=== PATIENT | female | born 1990 | race Caucasian/White ===

== ENCOUNTER 2023-01-23 18:25 | Emergency (ER) | payer BC, SELFPAY ==
[2023-01-23 18:25] VITALS: BP 134/84; PULSE 93; RESP 18; TEMP 36.7; O2SAT 99; BMI 31.2
--- NOTE | 2023-01-23 18:41 | EXP.UTC ---
Discharge Plan Disposition Patient Disposition: Home, Self-Care Condition: Good Prescriptions Prescriptions: New cefdinir 300 mg capsule 300 mg PO BID Qty: 20 0RF phenazopyridine [Pyridium] 200 mg tablet 200 mg PO Q8H 2 Days Qty: 6 0RF Referrals Follow up/Referrals: Luis Patel [Primary Care Provider] - See instructions Activity Restrictions/Add. Instructions Additional Instructions/Restrictions: *Increase fluids. Water not Soda or Tea *Start antibiotic immediately and be sure to take as ordered for the FULL length of time although you should start to see improvement over the next 48 hours *Pyridium as needed Remember this medication will turn your urine . This is normal but it will stain what ever it gets on *You should not use Pyridium for more than 48 hours. If so , follow up with your primary physician to review urine culture and ensure that antibiotic is adequate for infection *Be SURE to follow up anytime for new or worsening symptoms with your family doctor. AND in 48 hours for urine culture results with your family doctor, if you do not have a doctor then you may call back to the [facility] for urine culture results and further treatment. We do recommend that you choose and establish care with a Primary Care Physician. ?AND follow up with them ?in 10-14 days to repeat UA to ensure infection is resolved and blood no longer present *Be sure to let your PCP know that we sent urine cultures from the [facility] so they can follow up to ensure that you area the on the correct antibiotic Call your doctor office and make appointment for 48 hours (2 days from today) ?to follow up and get the results of your urine culture and further treatment Clinical Impressions Clinical Impression: UTI (urinary tract infection) Qualifiers: Urinary tract infection type: site unspecified Hematuria presence: with hematuria Qualified Code(s): N39.0 - Urinary tract infection, site not specified Instructions Patient Instructions: Urinary Tract Infection, DI for Urinary Tract Infection (UTI), Phenazopyridine, Cefdinir Discharge ED Provider: Anahi Carpio [facility] HPI General Stated complaint: possible uti Mode of Arrival: Ambulatory Source of Information: Patient Limitations: No Limitations Time Seen by Provider: 01/23/23 18:41 Description of Symptoms (Recalled from Triage Doc. by RN): Patient reports urinary pain and frequency. HEENT Symptoms (Recalled from RN notes): No Resp Symptoms (Recalled from RN notes): No Skin Symptoms (Recalled from RN notes): No MS Symptoms (Recalled from RN notes): No Functional Status (Recalled from RN notes): wnl History of Present Illness Provider Complaint: Patient states that about 2 weeks ago she was having burning with urination and feeling of urgency and frequency and then it stopped but now it is back and hurts and kumar when she urinates and frequency and urgency is back Denies fever, denies chills, denies abdominal pain Denies hx of kidney stones Related Data Previous Rx's Medication Instructions Recorded cefdinir 300 mg capsule 300 mg PO BID #20 caps 01/23/23 phenazopyridine 200 mg tablet 200 mg PO Q8H pain 2 days #6 tabs 01/23/23 (Pyridium) Allergies Allergy/AdvReac Type Severity Reaction Status Date / Time No Known Allergies Allergy Verified 01/23/23 18:40 Worker's Comp Is this a Worker's Comp case?: No PFSH PFS Disclaimer: The information contained in this section may have been updated after the patient was seen, as this information can be updated by other users. Social History Smoking Status: Unknown if ever smoked alcohol intake: never current occupational status: employed Travel in the last 8 weeks: None ROS Obtained: Yes All systems reviewed & no additional complaints except as documented and Yes Systems reviewed as appropriate & no additional complaints except as documented Constitutional Constitutional: Reports system reviewed and no additional complaints, except as
[2023-01-23 18:45] LABS: Apearance,Urine Cloudy (Clear); Bilirubin,Urine Negative (Negative); Blood, Urine Trace (Negative); Color,Urine Dark Yellow (Yellow); Glucose,Urine (UA) Negative (Negative); Ketones,Urine Negative (Negative); PH,Urine 6.5 (5.0-8.5); Protein,Urine Negative (Negative); UTC Leukocyte Esterase,Urine 2+ (Negative); UTC Nitrate,Urine Negative (Negative); Urobilinogen,Urine 0.2 EU/dl (0.2)
[2023-01-23 19:22] VITALS: BP 134/84; PULSE 93; RESP 18; TEMP 36.7; O2SAT 99
== END 2023-01-23 19:23 | disposition home or self-care (01) ==
PROVIDERS: Emergency Provider Nurse Practitioner; PCP Pediatrics
DX: N39.0 Urinary tract infection, site not specified (principal); B96.89 Other specified bacterial agents as the cause of diseases classified elsewhere
CPT/HCPCS: 81003; 87086; 87088; 87186; 99204; 99212; G0463

== ENCOUNTER → 2023-04-05 15:33 | Outpatient (CLI) | payer BC, SELFPAY ==
[2023-04-05 16:59] LABS: Basophils % 0.2 % (0.1-2.0); Eosinophils # 0.1 K/mm3 (0.0-0.4); Eosinophils % 1.5 % (0.1-12.0); Hematocrit 42.5 % (37.0-47.0); Hemoglobin 14.5 g/dL (12.2-16.2); Lymphocytes # 2.4 K/mm3 (0.7-4.5); Lymphocytes % 33.2 % (10-50); Mean Corpuscular HGB Conc 34.1 g/dL (31.8-35.4); Mean Corpuscular Hemoglobin 31.9 pg (27.0-31.2); Mean Corpuscular Volume 93.7 fl (81-99); Mean Platelet Volume 7.1 fl (7.4-10.4); Monocytes # 0.3 K/mm3 (0.1-1.0); Monocytes % 4.8 % (1.7-9.3); Neutrophils # 4.3 K/mm3 (1.8-7.8); Neutrophils % 60.3 % (37.0-80.0); Platelet Count 363 K/mm3 (142-424); Red Blood Count 4.54 M/mm3 (4.20-5.40); Red Cell Distribution Width 12.8 % (11.5-17.5); White Blood Count 7.1 K/mm3 (4.8-10.8)
[2023-04-05 18:09] LABS: Chloride 105 mmol/L (98-107); Potassium 4.4 mmoL/L (3.5-5.1); Sodium 140 mmol/L (136-145)
[2023-04-05 18:12] LABS: Alanine Aminotransferase 29 U/L (12-78); Albumin Level 3.9 g/dl (3.5-5.0); Albumin/Globulin Ratio 1.3 (1.1-1.8); Alkaline Phosphatase 72 U/L (38-126); Anion Gap 10.4 mEq/L (5-15); Aspartate Amino Transferase 25 U/L (14-36); Bilirubin,Total 0.4 mg/dl (0.2-1.3); Blood Urea Nitrogen 12 mg/dl (7-17); Calcium 9.9 mg/dl (8.4-10.2); Carbon Dioxide 29 mmol/L (22.0-30.0); Estimated Glomerular Filt Rate 96 ml/min (>60); GFR (African American) 116 ML/MIN (>60); Glucose 81 mg/dl (74-100); Total Protein,Serum 6.9 g/dl (6.3-8.2)
[2023-04-07 09:23] LABS: Testosterone,Total 35 ng/dL (8-60)
== END ==
PROVIDERS: Visit Provider Obstetrics & Gynecology
DX: L68.0 Hirsutism (principal); N93.9 Abnormal uterine and vaginal bleeding, unspecified
CPT/HCPCS: 36415; 80053; 82626; 83498; 84403; 85025

== ENCOUNTER 2023-04-27 18:35 | Emergency (ER) | payer BC, SELFPAY ==
--- NOTE | 2023-04-27 18:38 | EXP.UTC ---
Discharge Plan Disposition Patient Disposition: Home, Self-Care Condition: Good Prescriptions Prescriptions: New methylprednisolone [Medrol (Joel)] 4 mg tablets,dose pack 4 mg PO DIRECTED Qty: 21 0RF No Action meloxicam 15 mg tablet 15 mg PO DAILY PRN Referrals Follow up/Referrals: Luis Patel [Primary Care Provider] - See instructions Clinical Impressions Clinical Impression: Elbow pain, right Instructions Patient Instructions: DI for Elbow Pain Discharge ED Provider: Oriana Spears [facility] HPI General Stated complaint: pAIN IN r ELBOW Time Seen by Provider: 04/27/23 19:07 History of Present Illness Provider Complaint: Right elbow pain X 3 days. States she sat up in bed, leaned her weight on her elbows, had excruciating pain. Now elbow is tender to touch, painful to move. Onset (ago): day(s) (3) Location: right and upper extremity Relieving factors: immobilization Exacerbating factors: movement Associated symptoms: denies other symptoms Treatments prior to arrival: NSAID Related Data Home Medications Medication Instructions Recorded Confirmed meloxicam 15 mg tablet 15 mg PO DAILY PRN 04/05/23 04/05/23 Previous Rx's Medication Instructions Recorded methylprednisolone 4 mg tablets in 4 mg PO DIRECTED #21 tabs 04/27/23 a dose pack (Medrol (Joel)) Allergies Allergy/AdvReac Type Severity Reaction Status Date / Time No Known Allergies Allergy Verified 04/05/23 10:41 [facility] Disclaimer: The information contained in this section may have been updated after the patient was seen, as this information can be updated by other users. Medical History (Updated 04/27/23 @ 19:15 by MICHELLE Strange) delivery delivered Surgical History (Updated 04/05/23 @ 10:45 by Giulia Martinez CMA) H/O tubal ligation History of colonoscopy History of tonsillectomy Family History (Updated 04/05/23 @ 10:47 by Giulia Martinez CMA) Diabetes Hyperlipidemia Heart attack Cancer Father Hypertension Thyroid disorder Stroke Asthma Social History (Updated 04/05/23 @ 10:48 by Giulia Martinez CMA) Smoking Status: Former smoker smoking status stop date: 13 years ago alcohol intake: never substance use type: denies use current occupational status: employed Travel in the last 8 weeks: None ROS Obtained: Yes All systems reviewed & no additional complaints except as documented and Yes Systems reviewed as appropriate & no additional complaints except as documented Constitutional Constitutional: Reports system reviewed and no additional complaints, except as documented, Reports as per HPI, Denies body ache, Denies chills and Denies fever(s) ENT Ears, Nose, Mouth, and Throat: Reports system reviewed and no additional complaints, except as documented and Reports as per HPI Cardiovascular Cardiovascular: Reports system reviewed and no additional complaints, except as documented and Reports as per HPI Respiratory Respiratory: Reports system reviewed and no additional complaints, except as documented and Reports as per HPI Gastrointestinal Gastrointestingal: Reports system reviewed and no additional complaints, except as documented and as per HPI; Denies abdominal pain, nausea or vomiting Genitourinary Female Genitourinary: Reports system reviewed and no additional complaints, except as documented, Reports as per HPI, Reports dysuria, Reports urinary frequency and Reports urinary urgency Musculoskeletal Musculoskeletal: Reports system reviewed and no additional complaints, except as documented, Reports as per HPI, Reports arthralgias, Reports joint stiffness and Reports joint swelling Physical Exam General General appearance: alert and in no apparent distress ENT ENT exam: Present mucous membranes moist Chest Chest inspection: Present normal inspection and symmetric chest wall rise Respiratory Respiratory exam: Present normal lung sounds bilaterally; Absent
[2023-04-27 18:40] VITALS: BP 116/74; PULSE 84; RESP 17; TEMP 37.3; O2SAT 98; BMI 29.2
--- NOTE | 2023-04-27 18:44 | XR_ITS ---
PROCEDURE INFORMATION: Exam: XR Right Elbow Exam date and time: 04/27/2023 6:45 PM Age: 32 years old Clinical indication: Pain; Elbow; Right; Additional info: Pain, no accident TECHNIQUE: Imaging protocol: Radiologic exam of the right elbow. Views: 3 or more views. COMPARISON: No relevant prior studies available. FINDINGS: Bones/joints: Normal. Soft tissues: Normal. IMPRESSION: No acute findings.
[2023-04-27 18:51] VITALS: BP 116/74; PULSE 84; RESP 17; TEMP 37.3; O2SAT 98
== END 2023-04-27 19:23 | disposition home or self-care (01) ==
PROVIDERS: Emergency Provider Physician Assistant; PCP Pediatrics
DX: M25.521 Pain in right elbow (principal); Z87.891 Personal history of nicotine dependence
CPT/HCPCS: 73080; 96372; 99212; 99214; G0463; J1040

== ENCOUNTER → 2023-05-09 08:49 | Outpatient (CLI) | payer BC, SELFPAY ==
[2023-05-09 09:22] LABS: Basophils % 0.4 % (0.1-2.0); Eosinophils # 0.1 K/mm3 (0.0-0.4); Eosinophils % 1.8 % (0.1-12.0); Hematocrit 40.5 % (37.0-47.0); Hemoglobin 13.6 g/dL (12.2-16.2); Lymphocytes # 2.3 K/mm3 (0.7-4.5); Lymphocytes % 33.3 % (10-50); Mean Corpuscular HGB Conc 33.7 g/dL (31.8-35.4); Mean Corpuscular Hemoglobin 31.6 pg (27.0-31.2); Mean Platelet Volume 7.5 fl (7.4-10.4); Monocytes # 0.3 K/mm3 (0.1-1.0); Monocytes % 3.9 % (1.7-9.3); Neutrophils # 4.2 K/mm3 (1.8-7.8); Neutrophils % 60.6 % (37.0-80.0); Platelet Count 330 K/mm3 (142-424); Red Cell Distribution Width 13.2 % (11.5-17.5); White Blood Count 6.9 K/mm3 (4.8-10.8)
[2023-05-09 10:45] LABS: Alanine Aminotransferase 29 U/L (12-78); Albumin Level 4.2 g/dl (3.5-5.0); Albumin/Globulin Ratio 1.4 (1.1-1.8); Alkaline Phosphatase 68 U/L (38-126); Anion Gap 12.2 mEq/L (5-15); Aspartate Amino Transferase 25 U/L (14-36); Bilirubin,Total 0.7 mg/dl (0.2-1.3); Blood Urea Nitrogen 10 mg/dl (7-17); Calcium 9.4 mg/dl (8.4-10.2); Carbon Dioxide 26 mmol/L (22.0-30.0); Chloride 106 mmol/L (98-107); Estimated Glomerular Filt Rate 96 ml/min (>60); GFR (African American) 116 ML/MIN (>60); Glucose 90 mg/dl (74-100); Potassium 4.2 mmoL/L (3.5-5.1); Sodium 140 mmol/L (136-145); Total Protein,Serum 7.2 g/dl (6.3-8.2)
[2023-05-09 11:14] LABS: HCG,Quantitative < 2 mIU/ml (0-5.42)
== END ==
PROVIDERS: Visit Provider Obstetrics & Gynecology
DX: N93.9 Abnormal uterine and vaginal bleeding, unspecified (principal)
CPT/HCPCS: 36415; 80053; 84702; 85025

== ENCOUNTER 2023-05-11 06:13 | Day surgery (SDC) | payer BC, SELFPAY ==
[2023-05-08 12:27] VITALS: BMI 29.2
[2023-05-11] VITALS (10 sets, daily range): BP systolic 111–142; BP diastolic 63–93; PULSE 61–98; RESP 14–18; TEMP 36.2–36.7; O2SAT 96–100
[2023-05-11 06:45] LABS: Urine Pregnancy, HCG Qual. Negative (Negative)
--- NOTE | 2023-05-11 07:01 | EXP.ANES.CKL ---
[facility] Disclaimer: The information contained in this section may have been updated after the patient was seen, as this information can be updated by other users. Medical History delivery delivered History of COVID-19 Hypothyroid Sleep apnea Surgical History H/O tubal ligation History of colonoscopy History of tonsillectomy Family History Father Cancer Other Asthma Diabetes Heart attack Hyperlipidemia Hypertension Stroke Thyroid disorder Social History Smoking Status: Former smoker smoking status stop date: 13 years ago alcohol intake: never substance use type: denies use current occupational status: employed Travel in the last 8 weeks: None [facility] Anesthesia Checklist Patient Identification Patient Identification: Arm Band and Verbal (Name & ) Structural Data Admitted From: Home Planned Operative Procedure/s: Hyst/D&C/Novasure/Myosure Consent for Planned Operative Procedure(s) Verified: Yes NPO Status Verified Time NPO: 00:00 Chart Verification Results Verified: CBC, BMP and HCG Additional verifications Anesthesia Reactions: No Hx Blood Transfusions: No Blood Transfusion Reaction: No Airway Assessment Mallampati Score:: Class II C-Spine Mobility Assessed: Yes TMJ Mobility Assessed: Yes Dentition: Good Dentition Neurological Assessment Level of Consciousness: Awake Hx Seizures: No Numbness or tingling in extremities: No Anesthesia Plan Anesthesia Risk discussed: Yes Anesthesia Plan: Verified ASA Class: I Anesthesia Type: General
--- NOTE | 2023-05-11 08:24 | P.PNANES_ITS ---
[facility] Anesthesia Record Part I Anesthesia Record I Intake, IV Amount: 800 Hydration: Adequate Estimated blood loss (mL): 25 Urine output (mL): 5 Blood Pressure: 113/68 SaO2: 96 Pulse Rate: 61 Airway Patency: Patent Respiratory Rate: 14 Temperature: 97.4 F Patient is:: Drowsy and Oral/Nasal airway Stable to PACU at:: 08:20
--- NOTE | 2023-05-11 08:50 | EXP.OP.NOTE ---
Date of procedure: 05/11/23 Pre-op Diagnosis:: 1. Abnormal uterine bleeding 2. Heavy menstrual bleeding 3. Dysmenorrhea 4. Pelvic pain Post-op Diagnosis:: 1. Abnormal uterine bleeding 2. Heavy menstrual bleeding 3. Dysmenorrhea 4. Pelvic pain Procedure performed:: Hysteroscopy, dilation & curettage, NovaSure endometrial ablation Surgeon:: Mily Brownlee DO [employer]:: Jessica Ruffin Anesthesia: GETA Estimated blood loss (mL): 25 Operative findings:: EUA revealed an anteverted uterus with normal size, shape and contour. No gross adnexal masses noted. Grade 2 uterine descent noted with adequate mobility. Once relaxed I was able to bring the cervix to the hymen. Operative note:: EBL: 15mL Summary: The patient was taken back to the OR where general anesthesia was obtained. She was placed in the dorsal lithotomy position using Yellowfin stirrups and sterilely prepped and draped in the usual fashion. An in and out catheter was used to drain her bladder. A timeout was performed. A weighted speculum was used to visualize this cervix, a single-tooth tenaculum was applied to the anterior lip of the cervix and the uterus sounded to 9cm. The cervix was dilated with Shivam dilators to accommodate a 7mm Hysteroscope. The hysterscope was inserted to the fundus, diffusely proliferative endometrium noted. Images were obtained of the cavity and each tubal ostia. The hysteroscope was removed with careful attention to note the cervical length, 4cm. Telfa was placed in the vagina and a sharp curette was used to collect endometrial curettings. The Novasure device was opened, deployed, and noted to be functioning properly. The device was inserted to the fundus, set to a length of 5.5cm, and deployed to a width of 3.4cm. Cavity integrity was assessed and failed x3. Hysteroscope was reinserted no perforations were noted or suspected. Upon exam of the NovaSure device there was a crack at the end of the device. A second NovaSure device was opened, deployed, and noted to be functioning appropriately. Cavity integrity was assessed and adequate on the first try. The ablation was started and a power of 96W was noted. Total ablation time was 1:21 minutes. The Novasure device was removed from the cervical os and the hysterscope was reinserted. The endometrium was noted to be successfully ablated and an image was obtained. All instruments were removed from the vagina. Hemostasis was noted at the tenaculum sites. All counts were correct, per nursing. This concluded the procedure, the pt was awakened from anesthesia and transferred to the PACU in stable condition. Condition: stable Disposition: same day Specimens:: Endometrial curettings Complications:: none
--- NOTE | 2023-05-11 15:24 | P.PNANES_ITS ---
[facility] Anesthesia Record Part II Anesthesia Record Part II Discharge Time: 08:50 Destination: Surgical Day Care (OP Surgery) PACU nurse assessment reviewed?: Yes Patient Condition:: Good Anesthesia Complications:: None Swallowing reflex intact?: Yes Airway Patency: Patent Cyanosis?: No Blood Pressure: 133/73 SaO2: 98 Respiratory Rate: 18 Pulse Rate: 98 Temperature: 97.5 F Mental Status: Alert & Oriented Pain level:: 0 Nausea and/or vomitting:: None Intake, IV Amount: 0 Hydration: Adequate
== END 2023-05-11 09:23 | disposition home or self-care (01) ==
PROVIDERS: PCP Pediatrics; Visit Provider Obstetrics & Gynecology
PROC: (CPT 58563; principal; 2023-05-11 07:30)
DX: N93.9 Abnormal uterine and vaginal bleeding, unspecified (principal); N92.0 Excessive and frequent menstruation with regular cycle; N94.6 Dysmenorrhea, unspecified; R10.2 Pelvic and perineal pain
CPT/HCPCS: 58563; 81025; J2405

== ENCOUNTER 2023-06-23 15:51 | Emergency (ER) | payer BC, SELFPAY ==
[2023-06-23 16:00] VITALS: BP 114/76; PULSE 85; RESP 22; TEMP 36.9; O2SAT 98; BMI 30.2
[2023-06-23 16:11] LABS: Apearance,Urine Cloudy (Clear); Bilirubin,Urine Negative (Negative); Blood, Urine Negative (Negative); Color,Urine Dark Yellow (Yellow); Glucose,Urine (UA) Negative (Negative); Ketones,Urine Negative (Negative); PH,Urine 6.5 (5.0-8.5); Protein,Urine Negative (Negative); Specific Gravity, Urine >= 1.030 (1.005-1.030); UTC Leukocyte Esterase,Urine Negative (Negative); UTC Nitrate,Urine Positive (Negative); Urobilinogen,Urine 0.2 EU/dl (0.2)
--- NOTE | 2023-06-23 16:15 | EXP.UTC ---
Discharge Plan Disposition Patient Disposition: Home, Self-Care Condition: Good Prescriptions Prescriptions: New nitrofurantoin monohyd/m-cryst [Macrobid] 100 mg Capsule 100 mg PO BID 5 Days Qty: 10 0RF Rx Instructions: must administer with a meal/food phenazopyridine [Pyridium] 200 mg tablet 200 mg PO Q8H 2 Days Qty: 6 0RF No Action meloxicam 15 mg tablet 15 mg PO DAILY PRN (Reason: nsaid) metformin 500 mg tablet extended release 24 hr 500 mg PO DAILY Qty: 90 10RF Referrals Follow up/Referrals: Luis Patel [Primary Care Provider] - See instructions Activity Restrictions/Add. Instructions Additional Instructions/Restrictions: Drink plenty of fluids. Take tylenol or ibuprofen for pain or fever. Take the medications as directed. Follow up with your regular doctor. GO TO THE ER FOR ANY WORSENING SYMPTOMS The pyridium will make your urine turn orange, this is an expected side effect. It will stain your clothes if it comes into contact with them. Clinical Impressions Clinical Impression: UTI (urinary tract infection) Instructions Patient Instructions: Urine Culture, DI for Urinary Tract Infection (UTI), Phenazopyridine Discharge ED Provider: Zane Whyte [facility] General Stated complaint: back pain, Mode of Arrival: Ambulatory Source of Information: Patient Limitations: No Limitations Time Seen by Provider: 06/23/23 16:15 Description of Symptoms (Recalled from Triage Doc. by RN): PATIENT C/O LEFT LOWER BACK PAIN AND FOUL ODOR TO URINE X 2 DAYS HEENT Symptoms (Recalled from RN notes): No Resp Symptoms (Recalled from RN notes): No Skin Symptoms (Recalled from RN notes): No MS Symptoms (Recalled from RN notes): No Functional Status (Recalled from RN notes): WNL History of Present Illness Provider Complaint: She states that for the past 2 days she has had low back pain and dysuria. Related Data Home Medications Medication Instructions Recorded Confirmed meloxicam 15 mg tablet 15 mg PO DAILY PRN nsaid 04/05/23 05/25/23 Previous Rx's Medication Instructions Recorded metformin 500 mg tablet,extended 500 mg PO DAILY #90 tabs 05/25/23 release 24 hr nitrofurantoin 100 mg PO BID 5 days #10 caps 06/23/23 monohydrate/macrocrystals 100 mg capsule (Macrobid) phenazopyridine 200 mg tablet 200 mg PO Q8H 2 days #6 tabs 06/23/23 (Pyridium) Allergies Allergy/AdvReac Type Severity Reaction Status Date / Time adhesive tape Allergy Rash Verified 05/25/23 08:45 Worker's Comp Is this a Worker's Comp case?: No [facility] Disclaimer: The information contained in this section may have been updated after the patient was seen, as this information can be updated by other users. Medical History delivery delivered X3 History of COVID-19 Hypothyroid Sleep apnea Surgical History H/O tubal ligation History of colonoscopy History of tonsillectomy Family History Father Cancer Other Asthma Diabetes Heart attack Hyperlipidemia Hypertension Stroke Thyroid disorder Social History Smoking Status: Former smoker smoking status stop date: 13 years ago alcohol intake: never substance use type: denies use current occupational status: employed Travel in the last 8 weeks: None ROS Obtained: Yes All systems reviewed & no additional complaints except as documented Constitutional Constitutional: Reports system reviewed and no additional complaints, except as documented, Denies chills and Denies fever(s) Eyes Eyes: Denies eye discharge ENT Ears, Nose, Mouth, and Throat: Denies dysphagia, Denies sore throat and Denies throat swelling Cardiovascular Cardiovascular: Denies ch
[2023-06-23 16:20] VITALS: BP 114/76; PULSE 85; RESP 22; TEMP 36.9; O2SAT 98
== END 2023-06-23 16:26 | disposition home or self-care (01) ==
PROVIDERS: Emergency Provider Nurse Practitioner Family; PCP Pediatrics
DX: N39.0 Urinary tract infection, site not specified (principal); M54.59 Other low back pain; E03.9 Hypothyroidism, unspecified; Z87.891 Personal history of nicotine dependence
CPT/HCPCS: 81003; 99212; 99214; G0463

== ENCOUNTER 2023-08-01 16:08 | Emergency (ER) | payer BC, SELFPAY ==
[2023-08-01 16:08] VITALS: BP 120/69; PULSE 73; RESP 18; TEMP 36.6; O2SAT 99; BMI 29.2
--- NOTE | 2023-08-01 16:58 | ED_ITS ---
Discharge Plan Disposition Patient Disposition: Home, Self-Care Condition: Good Prescriptions Prescriptions: New cefdinir 300 mg capsule 300 mg PO BID 10 Days Qty: 20 0RF No Action omeprazole 20 mg capsule,delayed release(DR/EC) 20 mg PO DAILY Patient Comments: TAKE 1 CAPSULE BY MOUTH TWICE DAILY hyoscyamine sulfate 0.125 mg tablet, sublingual 0.125 mg PO DAILY atorvastatin 10 mg tablet 10 mg PO DAILY meloxicam 15 mg tablet 15 mg PO DAILY PRN (Reason: nsaid) metformin 500 mg tablet extended release 24 hr 1,000 mg PO DAILY Qty: 60 5RF phenazopyridine [Pyridium] 200 mg tablet 200 mg PO Q8H 2 Days Qty: 6 0RF Referrals Follow up/Referrals: Provider,MD Brisa [Primary Care Provider] - See instructions Neal Sarmiento MD [Staff Physician] - See instructions (call office for appointment ) Activity Restrictions/Add. Instructions Additional Instructions/Restrictions: *Increase fluids. Water not Soda or Tea *Start antibiotic immediately and be sure to take as ordered for the FULL length of time although you should start to see improvement over the next 48 hours *Be SURE to follow up anytime for new or worsening symptoms with your family doctor. AND in 48 hours for urine culture results with your family doctor, if you do not have a doctor then you may call back to the [facility] for urine culture results and further treatment. We do recommend that you choose and establish care with a Primary Care Physician. ?AND follow up with them ?in 10-14 days to repeat UA to ensure infection is resolved and blood no longer present *Be sure to let your PCP know that we sent urine cultures from the [facility] so they can follow up to ensure that you area the on the correct antibiotic Call your doctor office and make appointment for 48 hours (2 days from today) ?to follow up and get the results of your urine culture and further treatment Clinical Impressions Clinical Impression: UTI (urinary tract infection) Qualifiers: Urinary tract infection type: site unspecified Hematuria presence: with hematuria Qualified Code(s): N39.0 - Urinary tract infection, site not specified ; R31.9 - Hematuria, unspecified Instructions Patient Instructions: DI for Urinary Tract Infection (UTI), Cefdinir Discharge ED Provider: Anahi Carpio [facility] [place] HPI General Stated complaint: possible uti Mode of Arrival: Ambulatory Source of Information: Patient Limitations: No Limitations Time Seen by Provider: 08/01/23 17:00 Description of Symptoms (Recalled from Triage Doc. by RN): Patient reports possible UTI. Complaint of right side pain and foul smelling urine for 2 weeks. HEENT Symptoms (Recalled from RN notes): No Resp Symptoms (Recalled from RN notes): No Skin Symptoms (Recalled from RN notes): No MS Symptoms (Recalled from RN notes): No Functional Status (Recalled from RN notes): wnl History of Present Illness Provider Complaint: Patient states that she was seen and treated for a UTI in Nov States that her symptoms did improve but has since returned States that she is having achy like feeling in her right side at times when she urinates and urine has a strong smell States that she thinks she may have another UTI Related Data Home Medications Medication Instructions Recorded Confirmed meloxicam 15 mg tablet 15 mg PO DAILY PRN nsaid 04/05/23 07/03/23 atorvastatin 10 mg tablet 10 mg PO DAILY 07/03/23 07/03/23 hyoscyamine sulfate 0.125 mg 0.125 mg PO DAILY 07/03/23 07/03/23 sublingual tablet omeprazole 20 mg capsule,delayed 20 mg PO DAILY 07/03/23 07/03/23 release Previous Rx's Medication Instructions Recorded phenazopyridine 200 mg tablet 200 mg PO Q8H 2 days #6 tabs 06/23/23 (Pyridium) metformin 500 mg tablet,extended 1,000 mg PO DAILY #60 tabs 07/05/23 release 24 hr cefdinir 300 mg capsule 300 mg PO BID 10 days #20 caps 08/01/23 Allergies Allergy/AdvReac Type Severity Reaction Status Date / Time adhesive tape Allergy Rash Verified 07/03/23 11:14 Worker's Comp Is this a Worker's Comp case?: No [facility] Disclaimer: The information contained in this section may have been updated after the patient was seen, as this information can be updated by other users. Medical History delivery delivered X3 History of COVID-19 Hypothyroid Sleep apnea Surgical History H/O tubal ligation History of colonoscopy History of endometrial ablation History of tonsillectomy Family History Father Cancer Other Asthma Diabetes Heart attack Hyperlipidemia Hypertension Stroke Thyroid disorder Social History Smoking Status: Former smoker smoking status stop date: 13 years ago alcohol intake: never substance use type: denies use current occupational status: employed Travel in the last 8 weeks: None ROS Obtained: Yes All systems reviewed & no additional complaints except as documented and Yes Systems reviewed as appropriate & no additional complaints except as documented Constitutional Constitutional: Reports system reviewed and no additional complaints, except as documented, Reports as per HPI, Denies body ache, Denies chills and Reports fe brenda(s) ENT Ears, Nose, Mouth, and Throat: Reports system reviewed and no additional complaints, except as documented and Reports as per HPI Cardiovascular Cardiovascular: Reports system reviewed and no additional complaints, except as documented and Reports as per HPI Respiratory Respiratory: Reports system reviewed and no additional complaints, except as documented and Reports as per HPI Gastrointestinal Gastrointestingal: Reports system reviewed and no additional complaints, except as documented and as per HPI; Denies abdominal pain Genitourinary Female Genitourinary: Reports system reviewed and no additional complaints, except as documented, Reports as per HPI, Reports dysuria (at times), Reports urinary frequency, Reports urinary urgency and Reports other (foul smelling urine) Musculoskeletal Musculoskeletal: Reports system reviewed and no additional complaints, except as documented and Reports as per HPI Physical Exam General General appearance: alert and in no apparent distress ENT ENT exam: Present mucous membranes moist Respiratory Respiratory exam: Present normal lung sounds bilaterally; Absent respiratory distress or wheezes Cardiovascular Cardiovascular exam: Present regular rate, normal rhythm and normal heart sounds Abdominal Exam Abdominal exam: Present soft and normal bowel sounds; Absent distention or tenderness Neurological Exam Neurological exam: Present alert, oriented X3 and normal gait Medical Decision Making Juan Manuel Inquiry Pt receiving controlled substance: No Juan Manuel was queried for this patient: No Vital Signs: 08/01/23 16:08 Temperature 97.9 F Temperature Source Oral Pulse Rate [Radial] 73 Respiratory Rate 18 Blood Pressure [Right Arm] 120/69 Blood Pressure Mean [Right Arm] 86 Blood Pressure Source [Right Arm] Automatic Cuff Blood Pressure Position [Right Arm] Sitting 02 Sat by Pulse Oximetry 99 Oxygen Delivery Method Room Air Lab Data Lab results reviewed: Yes I reviewed the patient's lab results. Orders (Tests/Meds): ORDERS Category Date Time Status Urine Culture Stat Micro 08/01/23 16:58 Ordered Medical Decision Narrative: Patient denies hx of kidney stones
[2023-08-01 17:10] LABS: Apearance,Urine Cloudy (Clear); Blood, Urine Trace (Negative); Color,Urine Dark Yellow (Yellow); Glucose,Urine (UA) Negative (Negative); Ketones,Urine Negative (Negative); PH,Urine 5.5 (5.0-8.5); Protein,Urine Negative (Negative)
[2023-08-01 17:11] LABS: Bilirubin,Urine Negative (Negative); UTC Leukocyte Esterase,Urine Negative (Negative); UTC Nitrate,Urine Positive (Negative); Urobilinogen,Urine 0.2 EU/dl (0.2)
[2023-08-01 18:02] VITALS: BP 120/69; PULSE 73; RESP 18; TEMP 36.6; O2SAT 99
== END 2023-08-01 18:03 | disposition home or self-care (01) ==
PROVIDERS: Emergency Provider Nurse Practitioner
DX: N39.0 Urinary tract infection, site not specified (principal); B96.29 Other Escherichia coli [E. coli] as the cause of diseases classified elsewhere; R31.9 Hematuria, unspecified
CPT/HCPCS: 81003; 87086; 99212; 99214; G0463

== ENCOUNTER 2023-08-21 11:06 | Day surgery (SDC) | payer BC, SELFPAY ==
[2023-08-21] VITALS (14 sets, daily range): BP systolic 108–155; BP diastolic 60–87; PULSE 67–99; RESP 14–18; TEMP 36.3–36.8; O2SAT 93–100; BMI 28.0
[2023-08-21 11:22] LABS: Microscopic, Urine URINE MICROSCOPIC (MICROSCOPIC)
--- NOTE | 2023-08-21 11:23 | CT_ITS ---
FINAL REPORT TECHNIQUE: After the administration of oral and intravenous contrast, axial images were obtained through the abdomen and pelvis by computed tomography. The study was performed with techniques to keep radiation dose as low as reasonably achievable, (ALARA). Individual dose reduction techniques using automated exposure control or adjustment of mA and/or kV according to the patient's size were employed. CLINICAL HISTORY: RLQ abd pain FINDINGS: Abdomen: There is mild bibasilar atelectasis. The liver is normal in size and attenuation. The spleen is unremarkable. The adrenals are normal. The pancreas is unremarkable. There is a 3 mm nonobstructing stone in the lower pole of the left kidney. There is a 1 cm probable cyst in the left kidney. The aorta is normal in caliber. There is no free fluid or adenopathy. There is a small umbilical hernia containing fat. Pelvis: The appendix is mildly enlarged measuring 8 mm in diameter with mild adjacent inflammatory fat stranding. The appearance is most worrisome for early mild appendicitis. There is a small right ovarian cyst measuring 14 mm. The urinary bladder is unremarkable. There is no free fluid or adenopathy. IMPRESSION: Mildly enlarged appendix worrisome for early mild acute appendicitis. Reviewed, Interpreted and Dictated by Neftali Acosta III, MD Transcribed by Melva Scott Authenticated and [facility]
--- NOTE | 2023-08-21 11:24 | ED_ITS ---
Discharge Plan Disposition Chief Complaint: Abdominal Pain Prescriptions Prescriptions: No Action omeprazole 20 mg capsule,delayed release(DR/EC) 20 mg PO DAILY Patient Comments: TAKE 1 CAPSULE BY MOUTH TWICE DAILY atorvastatin 10 mg tablet 10 mg PO DAILY duloxetine 30 mg capsule,delayed release(DR/EC) 30 mg PO DAILY Qty: 30 6RF metformin 500 mg tablet extended release 24 hr 1,000 mg PO DAILY Qty: 60 5RF Referrals Follow up/Referrals: Luis Patel [Primary Care Provider] - See instructions Clinical Impressions Clinical Impression: Acute appendicitis Instructions Patient Instructions: DI for Acute Abdominal Pain Discharge ED Provider: Donita Díaz General Adult HPI General Chief complaint: Abdominal Pain Stated complaint: right side pain Time Seen by Provider: 08/21/23 11:19 Mode of Arrival: Ambulatory Source of Information: Patient Limitations: No Limitations Description of Symptoms (Recalled from ER Triage Doc. by RN): pt presents to ED with c/o right sided abdominal pain. pt states pain radiates down into left knee. symptoms ongoing for 2 days. History of Present Illness HPI narrative: Patient is a 33-year-old female presents today with right lower quadrant abdominal pain which has been intermittent now constant since last 48 hours. No history of kidney stones no history of any ovarian pathology still has her gallbladder and appendix. No urinary frequency urgency dysuria or hematuria. No vaginal bleeding vaginal discharge she had a uterine ablation at the end of last year and has not had a period since that time. No fevers chills etc. Related Data Home Medications Medication Instructions Recorded Confirmed atorvastatin 10 mg tablet 10 mg PO DAILY 07/03/23 08/20/23 omeprazole 20 mg capsule,delayed 20 mg PO DAILY 07/03/23 08/20/23 release Previous Rx's Medication Instructions Recorded metformin 500 mg tablet,extended 1,000 mg PO DAILY #60 tabs 07/05/23 release 24 hr duloxetine 30 mg capsule,delayed 30 mg PO DAILY Neuropathy #30 caps 08/20/23 release Allergies Allergy/AdvReac Type Severity Reaction Status Date / Time adhesive tape Allergy Rash Verified 08/20/23 10:59 bleach Allergy Intermediate Uncoded 08/20/23 10:59 [facility] Disclaimer: The information contained in this section may have been updated after the patient was seen, as this information can be updated by other users. Medical History delivery delivered X3 History of COVID-19 Hypothyroid Sleep apnea Surgical History H/O tubal ligation History of colonoscopy History of endometrial ablation History of tonsillectomy Family History Father Cancer Other Asthma Diabetes Heart attack Hyperlipidemia Hypertension Stroke Thyroid disorder Social History (Updated 08/20/23 @ 11:02 by Alvina Boucher) Smoking Status: Current every day smoker smoking status stop date: 13 years ago alcohol intake: never substance use type: denies use current occupational status: employed Travel in the last 8 weeks: None household members: children housing: house marital status: ROS Obtained: Yes All systems reviewed & no additional complaints except as documented Physical Exam General General appearance: alert Respiratory Respiratory exam: Present normal lung sounds bilaterally Cardiovascular Cardiovascular exam: Present regular rate Abdominal Exam Abdominal exam: Present soft and tenderness (Right lower quadrant tenderness palpation) Back Exam Back exam: Absent CVA tenderness (R) or CVA tenderness (L) Neurological Exam Neurological exam: Present alert Medical Decision Making Juan Manuel Inquiry Pt receiving controlled substance: No Vital Signs: 08/21/23 11:07 08/21/23 11:14 08/21/23 12:39 Temperature 98.2 F Temperature Source Oral Pulse Rate 68 68 Pulse Rate [Left Radial] 90 Respiratory Rate 15 Blood Pressure 131/75 119/60 Blood Pressure [Right Arm] 131/75 Blood Pressure Mean 82 Blood Pressure Mean [Right Arm] 93 02 Sat by Pulse Oximetry 100 99 100 Oxygen Delivery Method Room Air 08/21/23 13:00 Temperature Temperature Source Pulse Rate 67 Pulse Rate [Left Radial] Respiratory Rate Blood Pressure 108/67 L Blood Pressure [Right Arm] Blood Pressure Mean 76 Blood Pressure Mean [Right Arm] 02 Sat by Pulse Oximetry 98 Oxygen Delivery Method Room Air Lab Data Lab results reviewed: Yes I reviewed the patient's lab results. Lab Results 08/21/23 11:12: Urine Color Yellow, Urine Appearance Sl cloudy, Urine pH 6.5, Ur Specific [place] 1.025, Urine Protein Negative, Urine Glucose (UA) Negative, Urine Ketones Negative, Urine Blood Negative, Urine Nitrate Negative, Urine Bilirubin Negative, Urine Urobilinogen 0.2, Ur Leukocyte Esterase Negative, Urine RBC None, Urine WBC Occasional, Ur Squamous Epith Cells 10-20, Urine Bacteria Trace 08/21/23 11:20: WBC 6.6, RBC 4.35, Hgb 13.7, Hct 41.2, MCV 94.8, MCH 31.5 H, MCHC 33.2, RDW 13.1, Plt Count 282, MPV 6.4 L, Neut % (Auto) 65.8, Lymph % (Auto) 28.5, [place] % (Auto) 3.9, Eos % (Auto) 1.6, Baso % (Auto) 0.2, Neut # (Auto) 4.3, Lymph # (Auto) 1.9, [place] # (Auto) 0.3, Eos # (Auto) 0.1, Baso # (Auto) 0.0, Sodium 139, Potassium 3.9, Chloride 103, Carbon Dioxide 28, Anion Gap 11.9, BUN 14, Creatinine 0.70, Estimated Creat Clear 123, Estimated GFR 95, Est GFR ( Amer) 115, Glucose 91, Calcium 9.0, Total Bilirubin 0.6, AST 29, ALT 30, Alkaline Phosphatase 75, Total Protein 7.3, Albumin 4.3, Globulin 3.0, Albumin/Globulin Ratio 1.4, Serum HCG, Qual Negative 08/21/23 11:20 08/21/23 11:20 Orders (Tests/Meds): ED MEDICATIONS Generic Name Dose Route Start Last Admin Trade Name Freq PRN Reason Stop Dose Admin Sodium Chloride 10 ml 08/21/23 11:30 Sodium Chloride 0.9% 10ml Flush Syringe IV 09/20/23 11:29 NEEDED PRN Maintain IV Site Sodium Chloride 10 ml 08/21/23 12:07 08/21/23 12:10 Sodium Chloride 0.9% 10ml Syr (Rad Only) IV 09/20/23 12:06 10 ml NEEDED PRN Administration Maintain IV Site Discontinued Medications Generic Name Dose Route Start Last Admin Trade Name Freq PRN Reason Stop Dose Admin Lactated Ringer's 1,000 mls @ 999 mls/hr 08/21/23 11:30 08/21/23 11:34 Lactated Ringer's 1000 Ml Bag IV 08/21/23 12:30 999 mls/hr .Q1H1M SAMANTHA Administration Iopamidol 75 ml 08/21/23 12:07 01/16/24 12:09 Iopamidol-370 (76%);100ml Bottle IV 08/21/23 12:08 75 ml ONCE ONE Administration Morphine Sulfate 4 mg 08/21/23 11:23 08/21/23 11:33 Morphine 4mg/Ml Syringe IV 08/21/23 11:24 4 mg ONCE ONE Administration Ondansetron HCl 4 mg 08/21/23 11:23 08/21/23 11:33 Ondansetron 4mg/2ml Vial IV 08/21/23 11:24 4 mg ONCE ONE Administration ORDERS Category Date Time Status CT abdomen pelvis w con Stat Cat Scan 08/21/23 11:23 Taken CBC w/Auto Diff [Complete Blood Count Auto Diff] Stat Lab 08/21/23 11:20 Completed CMP [Comprehensive Metabolic Panel] Stat Lab 08/21/23 11:20 Completed HCG Qualitative, Serum Stat Lab 08/21/23 11:20 Completed UA [Urinalysis and Microscopic] Stat Lab 08/21/23 11:12 Completed Medical Decision Narrative: Patient is a 33-year-old female presenting today with intermittent not constant right lower quadrant abdominal pain and significant tenderness. Differential includes acute appendicitis which is leading on my differential, UVJ kidney stone, terminal ileitis, colitis, mesenteric adenitis, ovarian torsion and ovarian cyst rupture etc. Will get a CT scan with IV contrast to further differentiate this in addition to urinalysis blood tests will administer IV fluids pain medicine nausea medicine and I will reassess. Reassessment 1:16 PM labs unremarkable patient still has significant right lower quadrant tenderness on reassessment. CT scan performed which I personally interpreted also I looked at radiology read which shows an 8 mm appendix with periappendiceal inflammation consistent with early appendicitis. I do believe clinically this is consistent with her exam and history as well. I spoke with Dr. Navarro will come evaluate the patient to take the patient to the operating room. Patient's last meal was yesterday evening. She has no other medical problems. Critical Care Critical Care Time Critical Care Time: Yes Attestation: On 08/21/23, the high probability of a clinically significant, sudden or life t hreatening deterioration of the following system(s) required my full and direct attention, intervention and personal management. The time I documented below is in addition to time spent performing reported procedures but includes the following listed in this critical care notation. Total Time Total Critical Care Time: 35
[2023-08-21 11:30] LABS: Appearance,Urine SL CLOUDY (Clear); Bilirubin,Urine Negative (Negative); Blood, Urine Negative (Negative); Color,Urine YELLOW (Yellow); Glucose,Urine (UA) Negative (Negative); Ketones,Urine Negative (Negative); Leukocyte Esterase,Urine Negative (Negative); Nitrate,Urine Negative (Negative); PH,Urine 6.5 (5.0-8.5); Protein,Urine Negative (Negative); Specific Gravity, Urine 1.025 (1.005-1.030); Urobilinogen,Urine 0.2 EU/dl (0.2)
[2023-08-21 11:30] LABS: Basophils % 0.2 % (0.1-2.0); Eosinophils # 0.1 K/mm3 (0.0-0.4); Eosinophils % 1.6 % (0.1-12.0); Hematocrit 41.2 % (37.0-47.0); Hemoglobin 13.7 g/dL (12.2-16.2); Lymphocytes # 1.9 K/mm3 (0.7-4.5); Lymphocytes % 28.5 % (10-50); Mean Corpuscular HGB Conc 33.2 g/dL (31.8-35.4); Mean Corpuscular Hemoglobin 31.5 pg (27.0-31.2); Mean Corpuscular Volume 94.8 fl (81-99); Mean Platelet Volume 6.4 fl (7.4-10.4); Monocytes # 0.3 K/mm3 (0.1-1.0); Monocytes % 3.9 % (1.7-9.3); Neutrophils # 4.3 K/mm3 (1.8-7.8); Neutrophils % 65.8 % (37.0-80.0); Platelet Count 282 K/mm3 (142-424); Red Blood Count 4.35 M/mm3 (4.20-5.40); Red Cell Distribution Width 13.1 % (11.5-17.5); White Blood Count 6.6 K/mm3 (4.8-10.8)
[2023-08-21] MEDS: ONDANSETRON 4MG/2ML VIAL 4 MG IV (11:33)
[2023-08-21] MEDS: MORPHINE 4MG/ML SYRINGE 4 MG IV (11:33)
[2023-08-21] MEDS: LACTATED RINGERS 1000ML 1,000 ML 999 ML IV (11:34)
[2023-08-21 11:37] LABS: Alanine Aminotransferase 30 U/L (12-78); Albumin Level 4.3 g/dl (3.5-5.0); Albumin/Globulin Ratio 1.4 (1.1-1.8); Alkaline Phosphatase 75 U/L (38-126); Anion Gap 11.9 mEq/L (5-15); Aspartate Amino Transferase 29 U/L (14-36); Bilirubin,Total 0.6 mg/dl (0.2-1.3); Blood Urea Nitrogen 14 mg/dl (7-17); Carbon Dioxide 28 mmol/L (22.0-30.0); Chloride 103 mmol/L (98-107); Creatinine Clearance Estimated 123 mL/min (50-200); Estimated Glomerular Filt Rate 95 ml/min (>60); GFR (African American) 115 ML/MIN (>60); Glucose 91 mg/dl (74-100); Potassium 3.9 mmoL/L (3.5-5.1); Sodium 139 mmol/L (136-145); Total Protein,Serum 7.3 g/dl (6.3-8.2)
[2023-08-21 11:39] LABS: HCG Qualitative, Serum Negative (Negative)
[2023-08-21 11:41] LABS: Bacteria,Urine Trace /lpf; WBC,Urine Occasional #/hpf (0-3)
[2023-08-21] MEDS: IOPAMIDOL-370 (76%);100ML BOTTLE 75 ML IV (12:09)
[2023-08-21] MEDS: SODIUM CHLORIDE 0.9% 10ML SYR (RAD ONLY) 10 ML IV (12:10)
--- NOTE | 2023-08-21 13:16 | PC.NURSE ---
DR Navarro paged for surgery consult of patient. Dr Díaz talked to Dr Navarro about patient, supposed to come evaluate patient for surgery.
[2023-08-21] MEDS: CEFTRIAXONE SODIUM 2 GM in 0.9 % SODIUM CHLORIDE 100 ML IV (14:25)
[2023-08-21] MEDS: LIDOCAINE 1% 20ML MDV 20 ML (14:30)
[2023-08-21] MEDS: METRONIDAZ/SOD CHL 500 MG/100 ML PIGGYBACK 100 MG IV (14:30)
--- NOTE | 2023-08-21 15:30 | EXP.OP.NOTE ---
Date of procedure: 08/21/23 Pre-op Diagnosis:: Appendicitis Post-op Diagnosis:: Suppurative appendicitis Procedure performed:: Laparoscopic appendectomy Surgeon:: Derian Chambers MD PROPERTY MANAGEMENT BOOKKEEPER:: Chung Islas Anesthesia: BRIE Estimated blood loss (mL): 15 Operative findings:: Inflamed enlarged appendix with patchy suppurative changes Temporary profound bradycardia necessitating temporary release of pneumoperitoneum. Operative note:: After informed consent was obtained the patient was taken to the operating room and placed in the supine position. General anesthesia was induced and her abdomen was prepped and draped in a sterile fashion. After infiltration with local anesthetic a supraumbilical incision was made. A Veress needle was placed in position. The abdomen was insufflated. Secondary to profound bradycardia the pneumoperitoneum was immediately released. She quickly recovered in terms of heart rate/vital signs with management per the anesthesia service. Pneumoperitoneum was reestablished without incident. A 5 mm trocar was placed in the suprapubic position and an additional 5 mm trocar was placed in the left lower quadrant. The appendix was found to be partially adhered along the right lateral margin. Careful elevation revealed an enlarged/inflamed appendix with patchy suppurative changes. The mesoappendix was carefully taken with harmonic vanessa. An Endopath 45 stapling device was used to transect the appendix at its base. The appendix was placed in a retrieval bag and removed through the supraumbilical trocar site. The right lower quadrant was thoroughly irrigated. No active bleeding or sign of injury was noted. No pockets of purulence were noted. The fascia at the supraumbilical trocar site was reapproximated with a combination of 0 Ethibond and the Ady-close device. All wounds were irrigated and skin was reapproximated with 4-0 Monocryl in a mattress fashion to facilitate hemostasis. Dressings were applied and the patient was transferred to recovery in stable condition after extubation. Condition: stable Disposition: PACU Specimens:: Appendix Complications:: No immediate
--- NOTE | 2023-08-21 15:40 | EXP.ANES.CKL ---
[facility] Disclaimer: The information contained in this section may have been updated after the patient was seen, as this information can be updated by other users. Medical History delivery delivered X3 History of COVID-19 Hypothyroid Sleep apnea Surgical History H/O tubal ligation History of colonoscopy History of endometrial ablation History of tonsillectomy Family History Father Cancer Other Asthma Diabetes Heart attack Hyperlipidemia Hypertension Stroke Thyroid disorder Social History (Updated 08/20/23 @ 11:02 by Alvina Boucher) Smoking Status: Current every day smoker smoking status stop date: 13 years ago alcohol intake: never substance use type: denies use current occupational status: employed Travel in the last 8 weeks: None household members: children housing: house marital status: [facility] Anesthesia Checklist Patient Identification Patient Identification: Arm Band Structural Data Admitted From: Emergency Dept Planned Operative Procedure/s: Laparoscopic Appendectomy Consent for Planned Operative Procedure(s) Verified: Yes Verified Documents: Surgical Consent and History and Physical NPO Status Verified Time NPO: 00:00 Additional verifications Anesthesia Reactions: No Hx Blood Transfusions: No Blood Transfusion Reaction: No Airway Assessment Mallampati Score:: Class II C-Spine Mobility Assessed: Yes TMJ Mobility Assessed: Yes Dentition: Good Dentition Neurological Assessment Level of Consciousness: Awake and Alert Anesthesia Plan Anesthesia Risk discussed: Yes Anesthesia Plan: Verified ASA Class: II Anesthesia Type: General
--- NOTE | 2023-08-21 15:41 | P.PNANES_ITS ---
[facility] Anesthesia Record Part I Anesthesia Record I Intake, IV Amount: 1,100 Hydration: Adequate Estimated blood loss (mL): 10 Urine output (mL): 600 Blood Products used (#): none Blood Pressure: 119/73 SaO2: 96 Pulse Rate: 98 Airway Patency: Patent Respiratory Rate: 16 Temperature: 97.4 F Patient is:: Drowsy and Stable Stable to PACU at:: 15:35
--- NOTE | 2023-08-22 08:15 | P.PNANES_ITS ---
[facility] Anesthesia Record Part II Anesthesia Record Part II Discharge Time: 16:05 Destination: Surgical Day Care (OP Surgery) PACU nurse assessment reviewed?: Yes Patient Condition:: Good Anesthesia Complications:: None Swallowing reflex intact?: Yes Airway Patency: Patent Cyanosis?: No Blood Pressure: 130/82 SaO2: 96 Respiratory Rate: 15 Pulse Rate: 96 Temperature: 97.3 F Mental Status: Alert & Oriented Pain level:: 0 Nausea and/or vomitting:: None Intake, IV Amount: 0 Hydration: Adequate
[2023-08-22 08:16] VITALS: BP 130/82; PULSE 96; RESP 15; TEMP 36.3; O2SAT 96
== END 2023-08-21 16:36 | disposition home or self-care (01) ==
LOC: ER 13:31 → OR 13:33
PROVIDERS: Student in an Organized Health Care Education/Training Program; Emergency Provider Surgery; PCP Pediatrics; Visit Provider Surgery
PROC: (CPT 44950; principal; 2023-08-21 13:30)
DX: K35.80 Unspecified acute appendicitis (principal); R00.1 Bradycardia, unspecified
CPT/HCPCS: 44970; 74177; 80053; 81001; 84703; 85025; 87086; 96374; J0696; J2405; Q9967

== ENCOUNTER 2023-08-26 18:52 | Emergency (ER) | payer BC, SELFPAY ==
[2023-08-26 19:00] VITALS: BP 125/76; PULSE 85; RESP 20; TEMP 37.4; O2SAT 98; BMI 29.2
--- NOTE | 2023-08-26 19:17 | EXP.UTC ---
Discharge Plan Disposition Patient Disposition: Home, Self-Care Condition: Good Prescriptions Prescriptions: New nystatin 100,000 unit/mL suspension 6 ml PO QID 10 Days Qty: 240 0RF Rx Instructions: administer 1/2 of dose in each side of the mouth swish and retain in mouth as long as possible and spit No Action atorvastatin 10 mg tablet 10 mg PO DAILY Patient Comments: TAKE 1 TABLET BY MOUTH ONCE DAILY meloxicam 15 mg tablet 15 mg PO DAILY Patient Comments: TAKE 1 TABLET BY MOUTH ONCE DAILY WITH BREAKFAST hyoscyamine sulfate 0.125 mg tablet 0.125 mg PO DAILY Patient Comments: TAKE 1 TABLET BY MOUTH EVERY 6 HOURS omeprazole 20 mg capsule,delayed release(DR/EC) 20 mg PO DAILY Patient Comments: TAKE 1 CAPSULE BY MOUTH TWICE DAILY metformin 500 mg tablet extended release 24 hr 500 mg PO DAILY amoxicillin-pot clavulanate 500-125 mg tablet 1 tab PO DAILY Patient Comments: TAKE 1 TABLET BY MOUTH THREE TIMES DAILY Referrals Follow up/Referrals: Luis Patel [Primary Care Provider] - See instructions Activity Restrictions/Add. Instructions Additional Instructions/Restrictions: Use Nystatin as prescribed place in mouth swish and retain in mouth as long as possible and spit Follow up with your Family Doctor if no improvement or any worsening of symptoms Return if needed Straight to ER if any life threatening symptoms Clinical Impressions Clinical Impression: Candidiasis of mouth Instructions Patient Instructions: DI for Thrush, Thrush-Adult, Nystatin Discharge ED Provider: Anahi Carpio [facility] [place] HPI General Stated complaint: growth on tongue Mode of Arrival: Ambulatory Source of Information: Patient Limitations: No Limitations Time Seen by Provider: 08/26/23 19:17 Description of Symptoms (Recalled from Triage Doc. by RN): PATIENT STATES SHE FEELS LIKE THERE IS SANDPAPER ON HER TONGUE, MOUTH AND THROAT X 2 DAYS HEENT Symptoms (Recalled from RN notes): Yes Resp Symptoms (Recalled from RN notes): No Skin Symptoms (Recalled from RN notes): No MS Symptoms (Recalled from RN notes): No Functional Status (Recalled from RN notes): WNL History of Present Illness Provider Complaint: Patient states that she feels like she has sandpaper on her mouth and tongue States that she has white patches all over her tongue and feels like it is spreading States that she is currently on Augmentin and had recent surgery Denies trouble swallowing Related Data Home Medications Medication Instructions Recorded Confirmed amoxicillin 500 mg-potassium 1 tab PO DAILY 08/26/23 08/26/23 clavulanate 125 mg tablet atorvastatin 10 mg tablet 10 mg PO DAILY 08/26/23 08/26/23 hyoscyamine sulfate 0.125 mg tablet 0.125 mg PO DAILY 08/26/23 08/26/23 meloxicam 15 mg tablet 15 mg PO DAILY 08/26/23 08/26/23 metformin 500 mg tablet,extended 500 mg PO DAILY 08/26/23 08/26/23 release 24 hr omeprazole 20 mg capsule,delayed 20 mg PO DAILY 08/26/23 08/26/23 release Previous Rx's Medication Instructions Recorded nystatin 100,000 unit/mL oral 6 ml PO QID 10 days #240 mL 08/26/23 suspension Allergies Allergy/AdvReac Type Severity Reaction Status Date / Time Bleach (Sodium Hypochlorite) Allergy Unknown Difficulty Verified 08/21/23 15:48 Breathing adhesive tape Allergy Rash Verified 08/20/23 10:59 Worker's Comp Is this a Worker's Comp case?: No [facility] Disclaimer: The information contained in this section may have been updated after the patient was seen, as this information can be updated by other users. Medical History delivery delivered X3 History of COVID-19 Hypothyroid Sleep apnea Surgical History H/O tubal ligation History of colonoscopy History of endometrial ablation History of tonsillectomy Family History Father Cancer Other Asthma Diabetes Heart attack Hyperlipidemia Hypertension Stroke Thyroid disorder Social History (Updated 08/20/23 @ 11:02 by Alvina Boucher) Smoking Status: Current every day smoker smoking status stop date: 13 years ago alcohol intake: never substance use type: denies use current occupational status: employed Travel in the last 8 weeks: None household members: children housing: house marital status: ROS Obtained: Yes All systems reviewed & no additional complaints except as documented and Yes Systems reviewed as appropriate & no additional complaints except as documented Constitutional Constitutional: Reports system reviewed and no additional complaints, except as documented and Reports as per HPI ENT Ears, Nose, Mouth, and Throat: Reports system reviewed and no additional complaints, except as documented, Reports as per HPI and Reports other (white patches on tongue) Respiratory Respiratory: Reports system reviewed and no additional complaints, except as documented and Reports as per HPI Gastrointestinal Gastrointestingal: Reports system reviewed and no additional complaints, except as documented and as per HPI Musculoskeletal Musculoskeletal: Reports system reviewed and no additional complaints, except as documented and Reports as per HPI Physical Exam General General appearance: alert and in no apparent distress ENT ENT exam: Present mucous membranes moist Expanded ENT Exam Mouth exam: Present other (white patchy area on tongue that does not scrape off with tongue blade appears like yeast) Respiratory Respiratory exam: Present normal lung sounds bilaterally; Absent respiratory distress or wheezes Cardiovascular Cardiovascular exam: Present regular rate, normal rhythm and normal heart sounds Neurological Exam Neurological exam: Present alert, oriented X3 and normal gait Medical Decision Making Juan Manuel Inquiry Pt receiving controlled substance: No Juan Manuel was queried for this patient: No Vital Signs: 08/26/23 19:00 Temperature 99.3 F Temperature Source Oral Pulse Rate [Left Brachial] 85 Respiratory Rate 20 Blood Pressure [Left Arm] 125/76 Blood Pressure Mean [Left Arm] 92 Blood Pressure Source [Left Arm] Automatic Cuff Blood Pressure Position [Left Arm] Sitting 02 Sat by Pulse Oximetry 98 Oxygen Delivery Method Room Air
[2023-08-26 19:23] VITALS: BP 125/76; PULSE 85; RESP 20; TEMP 37.4; O2SAT 98
== END 2023-08-26 19:26 | disposition home or self-care (01) ==
PROVIDERS: Emergency Provider Nurse Practitioner; PCP Pediatrics
DX: B37.0 Candidal stomatitis (principal); F17.210 Nicotine dependence, cigarettes, uncomplicated
CPT/HCPCS: 99212; 99214; G0463

== ENCOUNTER 2023-08-29 10:09 | Outpatient (CLI) | payer BC, SELFPAY ==
[2023-08-29 11:22] LABS: Basophils % 0.4 % (0.1-2.0); Eosinophils # 0.1 K/mm3 (0.0-0.4); Eosinophils % 1.6 % (0.1-12.0); Hemoglobin 13.8 g/dL (12.2-16.2); Lymphocytes # 1.8 K/mm3 (0.7-4.5); Lymphocytes % 23.7 % (10-50); Mean Corpuscular HGB Conc 34.5 g/dL (31.8-35.4); Mean Corpuscular Hemoglobin 33.1 pg (27.0-31.2); Mean Corpuscular Volume 96.1 fl (81-99); Mean Platelet Volume 7.8 fl (7.4-10.4); Monocytes # 0.2 K/mm3 (0.1-1.0); Neutrophils # 5.5 K/mm3 (1.8-7.8); Neutrophils % 71.3 % (37.0-80.0); Platelet Count 339 K/mm3 (142-424); Red Blood Count 4.16 M/mm3 (4.20-5.40); Red Cell Distribution Width 13.4 % (11.5-17.5); White Blood Count 7.7 K/mm3 (4.8-10.8)
[2023-08-29 12:09] LABS: Chloride 106 mmol/L (98-107); Sodium 139 mmol/L (136-145)
[2023-08-29 12:10] LABS: Potassium 4.3 mmoL/L (3.5-5.1)
[2023-08-29 12:12] LABS: Alanine Aminotransferase 57 U/L (12-78); Albumin Level 4.1 g/dl (3.5-5.0); Alkaline Phosphatase 89 U/L (38-126); Aspartate Amino Transferase 35 U/L (14-36); Bilirubin,Total 0.6 mg/dl (0.2-1.3); Blood Urea Nitrogen 12 mg/dl (7-17); Estimated Glomerular Filt Rate 95 ml/min (>60); GFR (African American) 115 ML/MIN (>60)
[2023-08-29 12:13] LABS: Albumin/Globulin Ratio 1.4 (1.1-1.8); Anion Gap 11.3 mEq/L (5-15); Calcium 8.9 mg/dl (8.4-10.2); Carbon Dioxide 26 mmol/L (22.0-30.0); Globulin 2.9 g/dL (1.3-3.2); Glucose 95 mg/dl (74-100)
[2023-08-29 12:43] LABS: Thyroid Stimulating Hormone 1.52 uIU/mL (0.465-4.68)
[2023-08-29 13:02] LABS: Vitamin B12 525 pg/mL (239-931)
== END 2023-08-29 23:59 ==
LOC: LAB 10:10
PROVIDERS: PCP Pediatrics; Visit Provider Specialist
DX: G62.89 Other specified polyneuropathies (principal); Z79.899 Other long term (current) drug therapy
CPT/HCPCS: 36415; 80053; 82607; 82746; 84443; 85025

== ENCOUNTER 2023-09-10 14:41 | Outpatient (CLI) | payer BC, SELFPAY ==
[2023-09-19 16:57] LABS: Atopobium vaginae Low - 0 Score (.); BVAB2 Low - 0 Score (.); Candida albicans NAA Negative (Negative); Candida glabrata Negative (Negative); Chlamydia Trachomatis NAA Negative (Negative); HSV 1 NAA Negative (Negative); HSV 2 NAA Negative (Negative); Megasphaera 1 Low - 0 Score (.); Neisseria gonorrhoeae NAA Negative (Negative); Trich vag NAA Negative (Negative)
[2023-09-20 10:18] LABS: Atopobium vaginae 0; Megasphaera 1 0
[2023-09-20 10:19] LABS: Bacterial Vaginosis Associated 0; Candida albicans, NAA 0; Candida glabrata, NAA 0; Ureaplasma spp NAA POSITIVE
[2023-09-20 10:20] LABS: Chlamydia trachomatis NAA 0; Mycoplasma genitalium NAA NEGATIVE; Mycoplasma hominis NAA 0; Mycoplasma hominis NAA NEGATIVE; Neisseria gonorrheae NAA 0
[2023-09-20 10:21] LABS: Mycoplasma genitalium NAA 0
== END 2023-09-10 23:59 ==
LOC: LAB.DROPOF 14:42
PROVIDERS: PCP Pediatrics; Visit Provider Urology
DX: N89.8 Other specified noninflammatory disorders of vagina (principal)
CPT/HCPCS: 87491; 87529; 87563; 87591; 87661; 87798; 87801

== ENCOUNTER 2023-09-18 11:47 | Outpatient (CLI) | payer BC, SELFPAY ==
--- NOTE | 2023-09-18 11:47 | US_ITS ---
FINAL REPORT CLINICAL HISTORY: UTIs COMPARISON: None FINDINGS: RENAL ULTRASOUND: The right kidney measures 11.2 cm in length. No evidence of hydronephrosis or perinephric fluid collections are seen. The left kidney measures 10.6 cm in length, and once again there is no evidence of hydronephrosis or perinephric fluid collections. No focal masses noted in either kidney. IMPRESSION: Unremarkable renal ultrasound. Reviewed, Interpreted and Dictated by Neftali Acosta III, MD Transcribed by Judy Lane Authenticated and [facility]
== END 2023-09-18 23:59 ==
LOC: RAD 11:47
PROVIDERS: PCP Pediatrics; Visit Provider Urology
DX: N39.0 Urinary tract infection, site not specified (principal); N89.8 Other specified noninflammatory disorders of vagina
CPT/HCPCS: 76770

== ENCOUNTER 2023-09-27 10:32 | Emergency (ER) | payer BC, SELFPAY ==
[2023-09-27 11:25] VITALS: BP 126/82; PULSE 76; RESP 20; TEMP 36.9; O2SAT 98; BMI 29.7
--- NOTE | 2023-09-27 11:48 | EXP.UTC ---
Discharge Plan Disposition Patient Disposition: Home, Self-Care Condition: Good Prescriptions Prescriptions: New triamcinolone acetonide 0.1 % cream 1 applic topical BID Qty: 60 0RF Rx Instructions: apply thin layer to palm of hand as directed No Action omeprazole 20 mg capsule,delayed release(DR/EC) 20 mg PO DAILY Patient Comments: TAKE 1 CAPSULE BY MOUTH TWICE DAILY spironolactone 50 mg tablet 50 mg PO DAILY Patient Comments: TAKE 1 TABLET BY MOUTH ONCE DAILY nitrofurantoin monohyd/m-cryst 100 mg capsule 100 mg PO DAILY Patient Comments: TAKE 1 CAPSULE BY MOUTH ONCE DAILY FOR 30 DAYS, THEN TAKE 1 CAPSULE EACH TIME HAVE SEXUAL INTECOURSE THEREAFTER duloxetine 30 mg capsule,delayed release(DR/EC) 30 mg PO DAILY Patient Comments: TAKE 1 CAPSULE BY MOUTH ONCE DAILY Referrals Follow up/Referrals: Provider,Referral, MD [Primary Care Provider] - See instructions Activity Restrictions/Add. Instructions Additional Instructions/Restrictions: Wash the affected area with warm (not hot) water only. Soap can make dryness and itching worse. Pat dry.Apply a moisturizer after washing your hands or after bathing. Use petroleum jelly or a cream such as Cetaphil, Lubriderm, or Moisturel that does not irritate the skin or cause a rash. Apply the cream while your skin is still damp after lightly drying with a towel.Use cold, wet cloths to reduce itching.Keep cool, and stay out of the sun.If itching affects your sleep, ask your doctor if you can take an antihistamine that might reduce itching and make you sleepy, such as diphenhydramine (Benadryl). Be safe with medicines. Read and follow all instructions on the label.Control scratching. Keep your fingernails trimmed and smooth to prevent damage to the skin when you scratch it. Wearing cotton mittens or gloves can help you stop scratching.Try to avoid things that trigger your rash. These may include things like allergens, such as pollen or animal dander. Harsh soaps, scratchy clothes, and stress are other examples Apply thin layer of topical medication to palm of hand. Follow up with your Family Doctor or Dermatology for further evaluation and treatment Clinical Impressions Clinical Impression: Acute hand eczema Instructions Patient Instructions: Eczema, Triamcinolone Topical Discharge ED Provider: Anahi Carpio [facility] [place] HPI General Stated complaint: left hand rash Mode of Arrival: Ambulatory Source of Information: Patient Limitations: No Limitations Time Seen by Provider: 09/27/23 11:48 Description of Symptoms (Recalled from Triage Doc. by RN): PATIENT C/O ITCHY RASH TO PALM OF LEFT HAND THAT STARTED 2 MONTHS AGO AND GOT WORSE YESTERDAY HEENT Symptoms (Recalled from RN notes): No Resp Symptoms (Recalled from RN notes): No Skin Symptoms (Recalled from RN notes): Yes MS Symptoms (Recalled from RN notes): No Functional Status (Recalled from RN notes): WNL History of Present Illness Provider Complaint: Patient states that she has an itchy dry rash like area on the palm of her hand that has continued to get worse over the last few days and is itching her badly Related Data Home Medications Medication Instructions Recorded Confirmed duloxetine 30 mg capsule,delayed 30 mg PO DAILY 09/27/23 09/27/23 release nitrofurantoin 100 mg PO DAILY 09/27/23 09/27/23 monohydrate/macrocrystals 100 mg capsule omeprazole 20 mg capsule,delayed 20 mg PO DAILY 09/27/23 09/27/23 release spironolactone 50 mg tablet 50 mg PO DAILY 09/27/23 09/27/23 Previous Rx's Medication Instructions Recorded triamcinolone acetonide 0.1 % 1 applic topical BID #60 grams 09/27/23 topical cream Allergies Allergy/AdvReac Type Severity Reaction Status Date / Time Bleach (Sodium Hypochlorite) Allergy Unknown Difficulty Verified 09/14/23 15:45 Breathing adhesive tape Allergy Rash Verified 09/14/23 15:45 Worker's Comp Is this a Worker's Comp case?: No [facility] Disclaimer: The information contained in this section may have been updated after the patient was seen, as this information can be updated by other users. Medical History History of COVID-19 Hypothyroid Sleep apnea Surgical History H/O tubal ligation History of appendectomy History of delivery x3 History of colonoscopy History of endometrial ablation History of tonsillectomy Family History Father Cancer Other Asthma Diabetes Heart attack Hyperlipidemia Hypertension Stroke Thyroid disorder Social History Smoking Status: Current every day smoker smoking status stop date: 13 years ago alcohol intake: never substance use type: denies use current occupational status: employed Travel in the last 8 weeks: None household members: children housing: house marital status: ROS Obtained: Yes All systems reviewed & no additional complaints except as documented and Yes Systems reviewed as appropriate & no additional complaints except as documented Constitutional Constitutional: Reports system reviewed and no additional complaints, except as documented and Reports as per HPI Cardiovascular Cardiovascular: Reports system reviewed and no additional complaints, except as documented and Reports as per HPI Respiratory Respiratory: Reports system reviewed and no additional complaints, except as documented and Reports as per HPI Gastrointestinal Gastrointestingal: Reports system reviewed and no additional complaints, except as documented and as per HPI Integumentary/Breasts Skin/Breast: Reports system reviewed and no additional complaints, except as documented and Reports as per HPI Comments: Dry itchy scaly rash on palm of left hand Physical Exam General General appearance: alert and in no apparent distress ENT ENT exam: Present mucous membranes moist Respiratory Respiratory exam: Present normal lung sounds bilaterally; Absent respiratory distress or wheezes Cardiovascular Cardiovascular exam: Present regular rate, normal rhythm and normal heart sounds Expanded Upper Extremity Exam Left: Hand L/R front image: 1. other (dry red rash like area appears like eczema) Neurological Exam Neurological exam: Present alert, oriented X3 and normal gait Medical Decision Making Juan Manuel Inquiry Pt receiving controlled substance: No Juan Manuel was queried for this patient: No Vital Signs: 09/27/23 11:25 Temperature 98.4 F Temperature Source Oral Pulse Rate [Left Brachial] 76 Respiratory Rate 20 Blood Pressure [Left Arm] 126/82 Blood Pressure Mean [Left Arm] 96 Blood Pressure Source [Left Arm] Automatic Cuff Blood Pressure Position [Left Arm] Sitting 02 Sat by Pulse Oximetry 98 Oxygen Delivery Method Room Air
[2023-09-27 12:07] VITALS: BP 126/82; PULSE 76; RESP 20; TEMP 36.9; O2SAT 98
== END 2023-09-27 12:09 | disposition home or self-care (01) ==
PROVIDERS: Emergency Provider Nurse Practitioner
DX: L30.9 Dermatitis, unspecified (principal); F17.210 Nicotine dependence, cigarettes, uncomplicated
CPT/HCPCS: 99212; 99214; G0463

== ENCOUNTER 2023-11-21 13:00 | Outpatient (CLI) | payer BC, SELFPAY ==
[2023-11-21 14:19] LABS: Alanine Aminotransferase 47 U/L (12-78); Albumin Level 4.1 g/dl (3.5-5.0); Albumin/Globulin Ratio 1.6 (1.1-1.8); Alkaline Phosphatase 72 U/L (38-126); Anion Gap 9.2 mEq/L (5-15); Aspartate Amino Transferase 35 U/L (14-36); Bilirubin,Direct 0.1 mg/dl (0.0-0.4); Bilirubin,Indirect 0.4 mg/dL (0.0-0.9); Bilirubin,Total 0.5 mg/dl (0.2-1.3); Bilirubin,Unconjugated 0.4 mg/dL (0.0-1.1); Blood Urea Nitrogen 12 mg/dl (7-17); Calcium 9.6 mg/dl (8.4-10.2); Carbon Dioxide 28 mmol/L (22.0-30.0); Chloride 108 mmol/L (98-107); Estimated Glomerular Filt Rate 95 ml/min (>60); GFR (African American) 115 ML/MIN (>60); Globulin 2.5 g/dL (1.3-3.2); Glucose 104 mg/dl (74-100); Potassium 4.2 mmoL/L (3.5-5.1); Sodium 141 mmol/L (136-145); Total Protein,Serum 6.6 g/dl (6.3-8.2)
[2023-11-21 14:37] LABS: Free T4 (Free Thyroxine) 0.98 ng/dl (0.78-2.19)
[2023-11-21 14:50] LABS: Thyroid Stimulating Hormone 1.96 uIU/mL (0.465-4.68)
[2023-11-22 18:05] LABS: Deamidated Gliadin Abs, IgA 8 units (0-19); Deamidated Gliadin Abs, IgG 4 units (0-19); Endomysial IgA Antibody Negative (Negative); Tissue Transglutaminase IgA Ab <2 U/mL (0-3); Tissue Transglutaminase IgG Ab 4 U/mL (0-5)
[2023-11-24 10:44] LABS: Reticulin IgA Antibody Negative titer (Neg:<1:2.5)
[2023-11-27 08:33] LABS: Immunoglobulin E, Total 78 IU/mL (6-495)
[2023-11-29 07:59] LABS: Antinuclear Antibodies, IFA Positive; Miscellaneous Test SCANNED IMAGE
== END 2023-11-21 23:59 | disposition home or self-care (01) ==
LOC: LAB 13:01
PROVIDERS: Visit Provider Nurse Practitioner
DX: L30.8 Other specified dermatitis (principal); L29.8 Other pruritus; Z79.899 Other long term (current) drug therapy
CPT/HCPCS: 36415; 80053; 80076; 82785; 83516; 83520; 84439; 84443; 86038; 86255; 86256

== ENCOUNTER 2023-12-02 12:19 | Emergency (ER) | payer BC, SELFPAY ==
[2023-12-02 13:00] VITALS: BP 115/70; PULSE 67; RESP 18; TEMP 36.5; O2SAT 100; BMI 32.1
--- NOTE | 2023-12-02 13:32 | EXP.UTC ---
Discharge Plan Disposition Patient Disposition: Home, Self-Care Condition: Good Prescriptions Prescriptions: New methylprednisolone [Medrol (Joel)] 4 mg tablets,dose pack See Rx Instructions .Route .COMPLEX 6 Days Qty: 21 0RF Rx Instructions: taper pack; No Action duloxetine 60 mg capsule,delayed release(DR/EC) 60 mg PO DAILY MDD 60 mg Qty: 30 5RF estradiol 0.01 % (0.1 mg/gram) cream See Rx Instructions vaginal .COMPLEX Qty: 42.5 2RF Rx Instructions: Using finger technique daily for two weeks and then twice weekly vaginally; clobetasol 0.05 % ointment See Rx Instructions .ROUTE .COMPLEX Rx Instructions: see rx omeprazole 20 mg capsule,delayed release(DR/EC) 20 mg PO DAILY Patient Comments: TAKE 1 CAPSULE BY MOUTH TWICE DAILY spironolactone 50 mg tablet 50 mg PO DAILY Patient Comments: TAKE 1 TABLET BY MOUTH ONCE DAILY nitrofurantoin monohyd/m-cryst 100 mg capsule 100 mg PO DAILY Patient Comments: TAKE 1 CAPSULE EACH TIME HAVE SEXUAL INTECOURSE Referrals Follow up/Referrals: Provider,Referral, MD [Primary Care Provider] - See instructions Activity Restrictions/Add. Instructions Additional Instructions/Restrictions: Motrin and/or Tylenol for pain if you can take it for pain Take Medrol dose pack as directed may help with inflammation *RICE, Rest the extremity, Ice 15-20 minutes 3-4 times daily, Compress- wear the halley wrap as discussed as much as possible to help reduce swelling and pain, Elevate the extremity when at rest Follow up with your Family Doctor if no improvement or any worsening of symptoms Clinical Impressions Clinical Impression: Bursitis Instructions Patient Instructions: Bursitis, Bursitis (Alternative Therapy) Discharge ED Provider: Anahi Carpio [facility] [place] HPI General Stated complaint: pain in Rt arm, no accident Mode of Arrival: Ambulatory Source of Information: Patient Limitations: No Limitations Time Seen by Provider: 12/02/23 13:32 Description of Symptoms (Recalled from Triage Doc. by RN): Pt has right upper arm pain for 3 weeks. She has not done anything specific to cause pain. HEENT Symptoms (Recalled from RN notes): Yes Resp Symptoms (Recalled from RN notes): No Skin Symptoms (Recalled from RN notes): No MS Symptoms (Recalled from RN notes): No Functional Status (Recalled from RN notes): n/a History of Present Illness Provider Complaint: Patient states that she does alot of lifting pulling and tugging States that she has been having pain in her right upper arm when she tries to raise it up or move it certain ways Denies known injury denies swelling or bruising Related Data Home Medications Medication Instructions Recorded Confirmed nitrofurantoin 100 mg PO DAILY 09/27/23 12/02/23 monohydrate/macrocrystals 100 mg capsule omeprazole 20 mg capsule,delayed 20 mg PO DAILY 09/27/23 12/02/23 release spironolactone 50 mg tablet 50 mg PO DAILY 09/27/23 12/02/23 clobetasol 0.05 % topical ointment See Rx Instructions .Route .COMPLEX 12/02/23 12/02/23 Previous Rx's Medication Instructions Recorded estradiol 0.01% (0.1 mg/gram) See Rx Instructions vaginal 10/01/23 vaginal cream .COMPLEX #42.5 grams duloxetine 60 mg capsule,delayed 60 mg PO DAILY Neuropathy #30 caps 10/08/23 release methylprednisolone 4 mg tablets in See Rx Instructions .Route 12/02/23 a dose pack (Medrol (Joel)) .COMPLEX 6 days #21 tabs Allergies Allergy/AdvReac Type Severity Reaction Status Date / Time Bleach (Sodium Hypochlorite) Allergy Unknown Difficulty Verified 12/02/23 13:11 Breathing adhesive tape Allergy Rash Verified 12/02/23 13:11 Worker's Comp Is this a Worker's Comp case?: No [facility] Disclaimer: The information contained in this section may have been updated after the patient was seen, as this information can be updated by other users. Medical History History of COVID-19 Hypothyroid Sleep apnea Surgical History H/O tubal ligation History of appendectomy History of delivery x3 History of colonoscopy History of endometrial ablation History of tonsillectomy Family History Father Cancer Other Asthma Diabetes Heart attack Hyperlipidemia Hypertension Stroke Thyroid disorder Social History Smoking Status: Current every day smoker smoking status stop date: 13 years ago alcohol intake: never substance use type: denies use current occupational status: employed Travel in the last 8 weeks: None household members: children housing: house marital status: ROS Obtained: Yes All systems reviewed & no additional complaints except as documented and Yes Systems reviewed as appropriate & no additional complaints except as documented Constitutional Constitutional: Reports system reviewed and no additional complaints, except as documented and Reports as per HPI Cardiovascular Cardiovascular: Reports system reviewed and no additional complaints, except as documented and Reports as per HPI Respiratory Respiratory: Reports system reviewed and no additional complaints, except as documented and Reports as per HPI Gastrointestinal Gastrointestingal: Reports system reviewed and no additional complaints, except as documented and as per HPI Musculoskeletal Musculoskeletal: Reports system reviewed and no additional complaints, except as documented, Reports as per HPI and Reports other (pain in right upper arm with movement denies known injury) Physical Exam General General appearance: alert and in no apparent distress ENT ENT exam: Present mucous membranes moist Respiratory Respiratory exam: Present normal lung sounds bilaterally; Absent respiratory distress or wheezes Cardiovascular Cardiovascular exam: Present regular rate, normal rhythm and normal heart sounds Expanded Upper Extremity Exam Right: Shoulder exam: Present tenderness and other (Pain with movement in right shoulder area, denies injury, no swelling or bruising noted appears like bursitis); Absent swelling, ecchymosis, dislocation or erythema Neurological Exam Neurological exam: Present alert, oriented X3 and normal gait Medical Decision Making Juan Manuel Inquiry Pt receiving controlled substance: No Juan Manuel was queried for this patient: No Vital Signs: 12/02/23 13:00 Temperature 97.7 F Temperature Source Oral Pulse Rate [Right Radial] 67 Respiratory Rate 18 Blood Pressure [Right Arm] 115/70 Blood Pressure Mean [Right Arm] 85 Blood Pressure Source [Right Arm] Automatic Cuff Blood Pressure Position [Right Arm] Sitting 02 Sat by Pulse Oximetry 100 Oxygen Delivery Method Room Air Medical Decision Narrative: Patient states that she has taken Medrol in the past without complications or reactions
[2023-12-02 14:00] VITALS: BP 115/70; PULSE 67; RESP 18; TEMP 36.5; O2SAT 100
== END 2023-12-02 13:50 | disposition home or self-care (01) ==
PROVIDERS: Emergency Provider Nurse Practitioner
DX: M71.011 Abscess of bursa, right shoulder (principal)
CPT/HCPCS: 99212; 99214; G0463

== ENCOUNTER 2023-12-11 00:25 | Emergency (ER) | payer BC, SELFPAY ==
[2023-12-11 00:28] VITALS: BP 104/69; PULSE 88; RESP 17; TEMP 36.4; O2SAT 99; BMI 31.2
--- NOTE | 2023-12-11 00:48 | CT_ITS ---
PROCEDURE INFORMATION: Exam: CT Abdomen And Pelvis With Contrast Exam date and time: 12/11/2023 1:19 AM Age: 33 years old Clinical indication: Abdominal pain; Additional info: N/v ruq pain TECHNIQUE: Imaging protocol: Computed tomography of the abdomen and pelvis with contrast. Radiation optimization: All CT scans at this facility use at least one of these dose optimization techniques: automated exposure control; mA and/or kV adjustment per patient size (includes targeted exams where dose is matched to clinical indication); or iterative reconstruction. Contrast material: ISOVUE; Contrast volume: 75 ml; Contrast route: IV; COMPARISON: CT ABDOMEN PELVIS W CON 08/21/2023 11:58 AM FINDINGS: Liver: Normal. No mass. Gallbladder and bile ducts: Normal. No calcified stones. No ductal dilation. Pancreas: Normal. No ductal dilation. Spleen: Normal. No splenomegaly. Adrenal glands: Normal. No mass. Kidneys and ureters: Normal. No hydronephrosis. Stomach and bowel: The entirety of the colon is devoid of solid stool. There is some mild underlying colonic wall thickening. Small bowel is also minimally fluid distended. No ileus or obstruction noted however. Appendix: No evidence of appendicitis. Intraperitoneal space: Unremarkable. No free air. No significant fluid collection. Vasculature: Unremarkable. No abdominal aortic aneurysm. Lymph nodes: Unremarkable. No enlarged lymph nodes. Urinary bladder: Unremarkable as visualized. Reproductive: Unremarkable as visualized. Bones/joints: Unremarkable. No acute fracture. Soft tissues: Unremarkable. IMPRESSION: Findings consistent with likely underlying enteritis and possibly mild colitis. No ileus obstruction or perforation noted.
--- NOTE | 2023-12-11 00:50 | HMH.EDGENADL ---
Discharge Plan Disposition Patient Disposition: Home, Self-Care Prescriptions Prescriptions: New promethazine 25 mg tablet 25 mg PO Q6H PRN (Reason: nausea and vomiting) Qty: 20 0RF No Action duloxetine 60 mg capsule,delayed release(DR/EC) 60 mg PO DAILY MDD 60 mg Qty: 30 5RF estradiol 0.01 % (0.1 mg/gram) cream See Rx Instructions vaginal .COMPLEX Qty: 42.5 2RF Rx Instructions: Using finger technique daily for two weeks and then twice weekly vaginally; nitrofurantoin monohyd/m-cryst 100 mg capsule 100 mg PO DAILY Qty: 30 0RF clobetasol 0.05 % ointment See Rx Instructions .ROUTE .COMPLEX Rx Instructions: see rx methylprednisolone [Medrol (Joel)] 4 mg tablets,dose pack See Rx Instructions .Route .COMPLEX 6 Days Qty: 21 0RF Rx Instructions: taper pack; omeprazole 20 mg capsule,delayed release(DR/EC) 20 mg PO DAILY Patient Comments: TAKE 1 CAPSULE BY MOUTH TWICE DAILY spironolactone 50 mg tablet 50 mg PO DAILY Patient Comments: TAKE 1 TABLET BY MOUTH ONCE DAILY Referrals Follow up/Referrals: Luis Patel [Primary Care Provider] - See instructions Activity Restrictions/Add. Instructions Additional Instructions/Restrictions: Please follow-up with your primary care provider. Please return to the emergency department if you develop any new or worsening symptoms or become concerned for your health. Please take Phenergan as needed for nausea and vomiting. Clinical Impressions Clinical Impression: Nausea and vomiting, Diarrhea Instructions Patient Instructions: DI for Acute Abdominal Pain Discharge ED Provider: Gokul Stock General Adult HPI General Chief complaint: Abdominal Pain Stated complaint: vomiting, abd pain,weakness, dizziness Time Seen by Provider: 12/11/23 00:30 History of Present Illness HPI narrative: 33-year-old female presents with acute nausea vomiting and right upper quad abdominal pain. She reports started approximately 8 PM, severe in nature, unrelenting. Reports pain is primarily in the epigastric region and right upper quadrant region. She reports she also had 2 episodes of diarrhea. She denies any fever. She reports history of appendectomy, still has her gallbladder, has had a uterine ablation and tubal ligation. Related Data Home Medications Medication Instructions Recorded Confirmed omeprazole 20 mg capsule,delayed 20 mg PO DAILY 02/22/24 04/28/24 release spironolactone 50 mg tablet 50 mg PO DAILY 09/27/23 12/02/23 clobetasol 0.05 % topical ointment See Rx Instructions .Route .COMPLEX 12/02/23 12/02/23 Previous Rx's Medication Instructions Recorded estradiol 0.01% (0.1 mg/gram) See Rx Instructions vaginal 10/01/23 vaginal cream .COMPLEX #42.5 grams duloxetine 60 mg capsule,delayed 60 mg PO DAILY Neuropathy #30 caps 10/08/23 release methylprednisolone 4 mg tablets in See Rx Instructions .Route 12/02/23 a dose pack (Medrol (Joel)) .COMPLEX 6 days #21 tabs nitrofurantoin 100 mg PO DAILY #30 caps 12/06/23 monohydrate/macrocrystals 100 mg capsule promethazine 25 mg tablet 25 mg PO Q6H PRN nausea and 12/11/23 vomiting #20 tabs Allergies Allergy/AdvReac Type Severity Reaction Status Date / Time Bleach (Sodium Hypochlorite) Allergy Unknown Difficulty Verified 12/02/23 13:11 Breathing adhesive tape Allergy Rash Verified 12/02/23 13:11 [facility] Disclaimer: The information contained in this section may have been updated after the patient was seen, as this information can be updated by other users. Medical History History of COVID-19 Hypothyroid Sleep apnea Surgical History H/O tubal ligation History of appendectomy History of delivery x3 History of colonoscopy History of endometrial ablation History of tonsillectomy Family History Father Cancer Other Asthma Diabetes Heart attack Hyperlipidemia Hypertension Stroke Thyroid disorder Social History Smoking Status: Former smoker smoking status stop date: 13 years ago alcohol intake: never substance use type: denies use current occupational status: employed Travel in the last 8 weeks: None household members: children housing: house marital status: ROS Obtained: Yes All systems reviewed & no additional complaints except as documented Physical Exam General General appearance: alert and in no apparent distress Head Head exam: atraumatic and normocephalic Eye Eye exam: Present normal appearance, PERRL and EOMI ENT ENT exam: Present normal oropharynx and normal external ear exam Neck Neck exam: Present normal inspection and full ROM Chest Chest inspection: Present normal inspection and symmetric chest wall rise; Absent tenderness Respiratory Respiratory exam: Present normal lung sounds bilaterally; Absent respiratory distress Cardiovascular Cardiovascular exam: Present regular rate and normal rhythm Abdominal Exam Abdominal exam: Present soft and tenderness (Right upper quadrant); Absent distention or guarding Extremities Exam Extremities exam: Present normal inspection; Absent edema or joint swelling Back Exam Back exam: Present normal inspection; Absent tenderness Neurological Exam Neurological exam: Present alert and oriented X3; Absent motor sensory deficit Psychiatric Psychiatric exam: Present normal affect and normal mood Skin Skin exam: Present warm, dry and normal color Lymphatic Lymphatic Findings: no adenopathy Medical Decision Making Medical Records Medical records reviewed: Yes I reviewed the patient's medical records. Juan Manuel Inquiry Pt receiving controlled substance: No Juan Manuel was queried for this patient: No Vital Signs: 12/11/23 00:28 Temperature 97.6 F Temperature Source Oral Pulse Rate [Left Radial] 88 Respiratory Rate 17 Blood Pressure [Right Arm] 104/69 L Blood Pressure Mean [Right Arm] 80 Blood Pressure Source [Right Arm] Automatic Cuff Blood Pressure Position [Right Arm] Sitting 02 Sat by Pulse Oximetry 99 Oxygen Delivery Method Room Air Lab Data Lab results reviewed: Yes I reviewed the patient's lab results. Lab Results 12/11/23 00:40: WBC 20.2 H*, RBC 4.66, Hgb 14.9, Hct 45.6, MCV 97.9, MCH 32.0 H, MCHC 32.7, RDW 13.5, Plt Count 371, MPV 7.5, Neut % (Auto) 83.9 H, Lymph % (Auto) 11.7, [place] % (Auto) 3.2, Eos % (Auto) 1.0, Baso % (Auto) 0.3, Neut # (Auto) 16.9 H, Lymph # (Auto) 2.4, [place] # (Auto) 0.7, Eos # (Auto) 0.2, Baso # (Auto) 0.1, Total Counted 100, Neutrophils % (Manual) 80 H, Lymphocytes % (Manual) 14, Monocytes % (Manual) 4, Eosinophils % (Manual) 2, Platelet Estimate Normal, RBC Morphology Normal, Sodium 137, Potassium 4.5, Chloride 103, Carbon Dioxide 24, Anion Gap 14.5, BUN 20 H, Creatinine 0.70, Estimated Creat Clear 129, Estimated GFR 95, Est GFR ( Amer) 115, Glucose 148 H, Calcium 9.7, Total Bilirubin 0.8, AST 46 H, ALT 57, Alkaline Phosphatase 94, Total Protein 8.1, Albumin 4.6, Globulin 3.5 H, Albumin/Globulin Ratio 1.3, Lipase 239, Serum HCG, Qual Negative 12/11/23 00:40 12/11/23 00:40 Orders (Tests/Meds): ED MEDICATIONS Generic Name Dose Route Start Last Admin Trade Name Freq PRN Reason Stop Dose Admin Lactated Ringer's 1,000 mls @ 999 mls/hr 12/11/23 01:00 12/11/23 00:55 Lactated Ringer's 1000 Ml Bag IV 12/11/23 02:00 999 mls/hr .Q1H1M SAMANTHA Administration Discontinued Medications Generic Name Dose Route Start Last Admin Trade Name Freq PRN Reason Stop Dose Admin Acetaminophen 1,000 mg 12/11/23 00:48 Acetaminophen 500mg Tab PO 12/11/23 00:49 ONCE ONE Belladonna Alkaloids 60 ml 12/11/23 00:48 Belladonna Alkaloids 60 Ml Ml PO 12/11/23 00:49 ONCE ONE Iopamidol 75 ml 12/11/23 01:25 12/11/23 01:27 Iopamidol-370 (76%);100ml Bottle IV 12/11/23 01:26 75 ml ONCE ONE Administration Ketorolac Tromethamine 30 mg 12/11/23 00:48 12/11/23 00:55 Ketorolac 30mg/Ml Vial IV 12/11/23 00:49 30 mg ONCE ONE Administration Promethazine HCl 25 mg 12/11/23 00:48 12/11/23 00:56 Promethazine Hcl 25mg/Ml 1ml Vial IV 12/11/23 00:49 25 mg ONCE ONE Administration Sodium Chloride 25 ml 12/11/23 00:48 12/11/23 00:55 Sodium Chloride 0.9% 25ml Bag IV 12/11/23 00:49 25 ml ONCE ONE Administration Sodium Chloride 10 ml 12/11/23 01:25 12/11/23 01:26 Sodium Chloride 0.9% 10ml Syr (Rad Only) IV 12/11/23 01:26 10 ml ONCE ONE Administration ORDERS Category Date Time Status CT abdomen pelvis w con Stat Cat Scan 12/11/23 00:48 Taken CBC w/Auto Diff [Complete Blood Count Auto Diff] Stat Lab 12/11/23 00:40 Completed CMP [Comprehensive Metabolic Panel] Stat Lab 12/11/23 00:40 Completed HCG Qualitative, Serum Stat Lab 12/11/23 00:40 Completed Lipase Stat Lab 12/11/23 00:40 Completed Medical Decision Narrative: 33-year-old female with history as reported above presents with a few hours of nausea vomiting and right upper quadrant pain. History was obtained interactive discussion with patient, family, chart review. On arrival, patient is [afebrile, hemodynamically stable, satting appropriately, alert, oriented x4, GCS 15], moving all extremities spontaneously. Full physical exam performed and significant for focal right upper quadrant abdominal pain Differential includes but is not limited to gastroenteritis, cholecystitis, pancreatitis, asymptomatic cholelithiasis, cholangitis. Patient was given 1 L IV fluid bolus, Tylenol, Phenergan for symptomatic management and correction of underlying abnormalities. Workup initiated including CBC CMP lipase test CT abdomen and pelvis with IV contrast. On re-evaluation, patient remains hemodynamically stable. Reports near complete symptomatic resolution. No longer vomiting after Phenergan, pain gone. Laboratory workup independently interpreted by me and significant for leukocytosis, likely reactive from vomiting. No significant electrolyte arrangement, normal lipase.. Imaging independently interpreted by me and significant for normal gallbladder without pericholecystic fluid or wall thickening or stones. Positive for fluid-filled large and small bowel consistent with gastroenteritis. See radiology read for full review of final results. Given patient history, exam and workup, patient's presentation most likely represents gastroenteritis. No significant concern for emergent pathology at this time. Patient was discharged stable condition with prescription for Phenergan. Return precautions given.. Procedures Risk/Benefits of Procedure(s) Were Explained: Yes Critical Care Critical Care Time Critical Care Time: No
[2023-12-11] MEDS: SODIUM CHLORIDE 0.9% 25ML BAG 25 ML IV (00:55)
[2023-12-11] MEDS: KETOROLAC 30MG/ML VIAL 30 MG IV (00:55)
[2023-12-11] MEDS: LACTATED RINGERS 1000ML 1,000 ML 999 ML IV (00:55)
[2023-12-11 00:56] LABS: Chloride 103 mmol/L (98-107); Potassium 4.5 mmoL/L (3.5-5.1); Sodium 137 mmol/L (136-145)
[2023-12-11] MEDS: PROMETHAZINE HCL 25MG/ML 1ML VIAL 25 MG IV (00:56)
[2023-12-11 00:58] LABS: Alanine Aminotransferase 57 U/L (12-78); Aspartate Amino Transferase 46 U/L (14-36); Basophils # 0.1 K/mm3 (0-0.2); Basophils % 0.3 % (0.1-2.0); Blood Urea Nitrogen 20 mg/dl (7-17); Creatinine Clearance Estimated 129 mL/min (50-200); Eosinophils # 0.2 K/mm3 (0.0-0.4); Estimated Glomerular Filt Rate 95 ml/min (>60); GFR (African American) 115 ML/MIN (>60); Hematocrit 45.6 % (37.0-47.0); Hemoglobin 14.9 g/dL (12.2-16.2); Lymphocytes # 2.4 K/mm3 (0.7-4.5); Lymphocytes % 11.7 % (10-50); Mean Corpuscular HGB Conc 32.7 g/dL (31.8-35.4); Mean Corpuscular Volume 97.9 fl (81-99); Mean Platelet Volume 7.5 fl (7.4-10.4); Monocytes # 0.7 K/mm3 (0.1-1.0); Monocytes % 3.2 % (1.7-9.3); Neutrophils # 16.9 K/mm3 (1.8-7.8); Neutrophils % 83.9 % (37.0-80.0); Platelet Count 371 K/mm3 (142-424); Red Blood Count 4.66 M/mm3 (4.20-5.40); Red Cell Distribution Width 13.5 % (11.5-17.5); White Blood Count 20.2 K/mm3 (4.8-10.8)
[2023-12-11 00:59] LABS: Albumin Level 4.6 g/dl (3.5-5.0); Albumin/Globulin Ratio 1.3 (1.1-1.8); Alkaline Phosphatase 94 U/L (38-126); Anion Gap 14.5 mEq/L (5-15); Bilirubin,Total 0.8 mg/dl (0.2-1.3); Calcium 9.7 mg/dl (8.4-10.2); Carbon Dioxide 24 mmol/L (22.0-30.0); Globulin 3.5 g/dL (1.3-3.2); Glucose 148 mg/dl (74-100); Lipase 239 U/L (23-300); Total Protein,Serum 8.1 g/dl (6.3-8.2)
[2023-12-11 01:00] LABS: MANUAL DIFFERENTIAL MANUAL DIFFERENTIAL (MANUAL DIFF)
[2023-12-11 01:04] LABS: HCG Qualitative, Serum Negative (Negative)
--- NOTE | 2023-12-11 01:13 | PC.NURSE ---
pt going to ct
[2023-12-11 01:18] LABS: Eosinophils % 2 % (0-3); Lymphocytes % 14 % (10-50); Monocytes % 4 % (2-9); Neutrophils % 80 % (42-76); Platelet Estimate Normal; RBC Morphology Normal; Total Cells Counted 100
[2023-12-11] MEDS: SODIUM CHLORIDE 0.9% 10ML SYR (RAD ONLY) 10 ML IV (01:26)
[2023-12-11] MEDS: IOPAMIDOL-370 (76%);100ML BOTTLE 75 ML IV (01:27)
--- NOTE | 2023-12-11 01:43 | PC.NURSE ---
Rounded on patient, patient reports no pain and improved nausea. No needs reported at this time.
[2023-12-11 03:00] VITALS: BP 94/49; PULSE 98; RESP 16; TEMP 36.5; O2SAT 96
== END 2023-12-11 03:02 | disposition home or self-care (01) ==
PROVIDERS: Emergency Provider Emergency Medicine; PCP Pediatrics
DX: R10.11 Right upper quadrant pain; K52.9 Noninfective gastroenteritis and colitis, unspecified; R11.2 Nausea with vomiting, unspecified; D72.829 Elevated white blood cell count, unspecified; E03.9 Hypothyroidism, unspecified
CPT/HCPCS: 74177; 80053; 83690; 84703; 85007; 85025; 96361; 96374; 96375; 99285; Q9967

== ENCOUNTER 2023-12-25 18:08 | Emergency (ER) | payer BC, SELFPAY ==
[2023-12-25 18:55] VITALS: BP 115/73; PULSE 74; RESP 16; TEMP 37.2; O2SAT 99; BMI 31.2
--- NOTE | 2023-12-25 19:08 | ED_ITS ---
Discharge Plan Disposition Patient Disposition: Home, Self-Care Condition: Good Prescriptions Prescriptions: New benzonatate 100 mg capsule 100 mg PO TID PRN (Reason: cough) Qty: 30 0RF methylprednisolone [Medrol (Joel)] 4 mg tablets,dose pack See Rx Instructions .Route .COMPLEX 6 Days Qty: 21 0RF Rx Instructions: taper pack; amoxicillin-pot clavulanate 875-125 mg Tablet 1 tab PO Q12H Qty: 20 0RF guaifenesin [Mucinex] 600 mg tablet extended release 12hr 1,200 mg PO BID PRN (Reason: cough) Qty: 20 0RF No Action duloxetine 60 mg capsule,delayed release(DR/EC) 60 mg PO DAILY MDD 60 mg Qty: 30 5RF estradiol 0.01 % (0.1 mg/gram) cream See Rx Instructions vaginal .COMPLEX Qty: 42.5 2RF Rx Instructions: Using finger technique daily for two weeks and then twice weekly vaginally; clobetasol 0.05 % ointment See Rx Instructions .ROUTE .COMPLEX Rx Instructions: see rx omeprazole 20 mg capsule,delayed release(DR/EC) 20 mg PO DAILY Patient Comments: TAKE 1 CAPSULE BY MOUTH TWICE DAILY Referrals Follow up/Referrals: Luis Patel [Primary Care Provider] - See instructions Activity Restrictions/Add. Instructions Additional Instructions/Restrictions: * Start antibiotic today. Be sure to complete entire prescription even if feeling better * Monitor temp. Tylenol every 4 hours as needed and / or ibuprofen every 6 hours as needed ( As long as your primary care physician has told you that it ok to take both. For fever/aches/pains ER if no less than 101 despite Tylenol or Motrin * Humidifier/vaporizer or hot steamy shower * Mucinex during the day for your cough and cough suppressant only at night. Be sure to drink lots of water. Insurance may not cover a prescriptions for mucinex. Might be cheaper to get 400mg tablets and take 2 tablet in the morning, mid-day and evening with lots of water. *Tessalon Perles will not cause drowsiness but use at bedtime to help stop cough so that you may get some rest. *Start steroid today. Helps with inflammation therefore, cough and wheezing. Follow directions on the package. Reviewed side effects. Patient reports taking them before. Follow up IMMEDIATELY for new or worsening of symptoms OR no noticeable improvement over the next 48-72 hours. 911 immediately for any life threatening symptoms such as chest pain or difficulty breathing Clinical Impressions Clinical Impression: Sinusitis, Bronchitis Instructions Patient Instructions: DI for Sinusitis, Acute Bronchitis Discharge ED Provider: Anahi Carpio [facility] [place] HPI General Stated complaint: cough, burning in chest when coughing Mode of Arrival: Ambulatory Source of Information: Patient Limitations: No Limitations Time Seen by Provider: 12/25/23 19:08 Description of Symptoms (Recalled from Triage Doc. by RN): Patient reports chest congestion and cough since last night. HEENT Symptoms (Recalled from RN notes): Yes Resp Symptoms (Recalled from RN notes): No Skin Symptoms (Recalled from RN notes): No MS Symptoms (Recalled from RN notes): No Functional Status (Recalled from RN notes): wnl History of Present Illness Provider Complaint: Patient states that she has been having sinus pain and pressure and drainage in that back of her throat States yesterday she started having burning in chest when she coughs thinks she may have bronchitis Related Data Home Medications Medication Instructions Recorded Confirmed omeprazole 20 mg capsule,delayed 20 mg PO DAILY 09/27/23 12/19/23 release clobetasol 0.05 % topical ointment See Rx Instructions .Route .COMPLEX 12/02/23 12/19/23 Previous Rx's Medication Instructions Recorded estradiol 0.01% (0.1 mg/gram) See Rx Instructions vaginal 10/01/23 vaginal cream .COMPLEX #42.5 grams duloxetine 60 mg capsule,delayed 60 mg PO DAILY Neuropathy #30 caps 10/08/23 release amoxicillin 875 mg-potassium 1 tab PO Q12H #20 tabs 12/25/23 clavulanate 125 mg tablet benzonatate 100 mg capsule 100 mg PO TID PRN cough #30 caps 12/25/23 guaifenesin 600 mg tablet, 1,200 mg (2 x 600 mg) PO BID PRN 12/25/23 extended release 12 hr (Mucinex) cough #20 tabs methylprednisolone 4 mg tablets in See Rx Instructions .Route 12/25/23 a dose pack (Medrol (Joel)) .COMPLEX 6 days #21 tabs Allergies Allergy/AdvReac Type Severity Reaction Status Date / Time honey Allergy Intermediate Verified 12/19/23 14:24 propolis (bee glue) Allergy Intermediate Rash Verified 12/19/23 14:24 Bleach (Sodium Hypochlorite) Allergy Unknown Difficulty Verified 12/14/23 08:46 Breathing adhesive tape Allergy Rash Verified 12/14/23 08:46 Worker's Comp Is this a Worker's Comp case?: No [facility] Disclaimer: The information contained in this section may have been updated after the patient was seen, as this information can be updated by other users. Medical History (Updated 12/25/23 @ 19:19 by Anahi Carpio APRN) Acute hand eczema Vaginal pruritus Candidiasis of mouth Nausea and vomiting Sleep apnea History of COVID-19 Hypothyroid Surgical History History of delivery History of appendectomy History of endometrial ablation History of colonoscopy H/O tubal ligation History of tonsillectomy Family History Father Cancer Other Asthma Diabetes Heart attack Hyperlipidemia Hypertension Stroke Thyroid disorder Social History Smoking Status: Former smoker smoking status stop date: 13 years ago alcohol intake: never substance use type: denies use current occupational status: employed Travel in the last 8 weeks: None household members: children housing: house marital status: ROS Obtained: Yes All systems reviewed & no additional complaints except as documented and Yes Systems reviewed as appropriate & no additional complaints except as documented Constitutional Constitutional: Reports system reviewed and no additional complaints, except as documented, Reports as per HPI and Reports headache(s) ENT Ears, Nose, Mouth, and Throat: Reports system reviewed and no additional complaints, except as documented, Reports as per HPI, Reports headache(s), Reports sinus pain and Reports sinus pressure Cardiovascular Cardiovascular: Reports system reviewed and no additional complaints, except as documented and Reports as per HPI Respiratory Respiratory: Reports system reviewed and no additional complaints, except as documented, Reports as per HPI, Reports chest congestion and Reports cough (burning with cough) Neurologic Neurologic: Reports headache(s) Physical Exam General General appearance: alert and in no apparent distress ENT ENT exam: Present mucous membranes moist Expanded ENT Exam Nose exam: Present sinus tenderness Throat exam: Present other (PND noted) Respiratory Respiratory exam: Present normal lung sounds bilaterally; Absent respiratory distress or wheezes Cardiovascular Cardiovascular exam: Present regular rate, normal rhythm and normal heart sounds Neurological Exam Neurological exam: Present alert, oriented X3 and normal gait Medical Decision Making Juan Manuel Inquiry Pt receiving controlled substance: No Juan Manuel was queried for this patient: No Vital Signs: 12/25/23 18:55 Temperature 98.9 F Temperature Source Oral Pulse Rate [Radial] 74 Respiratory Rate 16 Blood Pressure [Right Arm] 115/73 Blood Pressure Mean [Right Arm] 87 Blood Pressure Source [Right Arm] Automatic Cuff Blood Pressure Position [Right Arm] Sitting 02 Sat by Pulse Oximetry 99 Oxygen Delivery Method Room Air
[2023-12-25 19:32] VITALS: BP 115/73; PULSE 18; RESP 18; TEMP 37.2; O2SAT 99
== END 2023-12-25 19:31 | disposition home or self-care (01) ==
PROVIDERS: Emergency Provider Nurse Practitioner; PCP Pediatrics
DX: J20.9 Acute bronchitis, unspecified (principal); J01.90 Acute sinusitis, unspecified; R09.82 Postnasal drip; R05.9 Cough, unspecified; R51.9 Headache, unspecified
CPT/HCPCS: 99212; 99214; G0463

== ENCOUNTER 2024-01-09 21:10 | Emergency (ER) | payer BC, SELFPAY ==
[2024-01-09 21:12] VITALS: BP 124/70; PULSE 84; RESP 16; TEMP 36.9; O2SAT 97; BMI 30.8
[2024-01-09] MEDS: predniSONE 20MG TAB 40 MG PO (21:26)
--- NOTE | 2024-01-09 21:30 | HMH.EDGENADL ---
Discharge Plan Disposition Patient Disposition: Home, Self-Care Prescriptions Prescriptions: New prednisone 50 mg tablet 50 mg PO DAILY 5 Days Qty: 5 0RF No Action duloxetine 60 mg capsule,delayed release(DR/EC) 60 mg PO DAILY MDD 60 mg Qty: 30 5RF cephalexin 500 mg capsule 500 mg PO Q8H Patient Comments: TAKE 1 CAPSULE BY MOUTH EVERY 8 HOURS FOR 10 DAYS oxycodone-acetaminophen 5-325 mg tablet 1 tab PO Q6H Patient Comments: TAKE 1 TO 2 TABLETS BY MOUTH EVERY 6 HOURS NEEDED FOR ACUTE PAIN OR MAJOR SURGERY/TRAUMA FOR UP TO 5 DAYS MAX 6 TABLETS PER DAY aspirin 81 mg tablet,delayed release (DR/EC) 81 mg PO DAILY Patient Comments: TAKE 1 TABLET BY MOUTH EVERY 12 HOURS FOR 10 DAYS estradiol 0.01 % (0.1 mg/gram) cream See Rx Instructions vaginal .COMPLEX Qty: 42.5 2RF Rx Instructions: Using finger technique daily for two weeks and then twice weekly vaginally; clobetasol 0.05 % ointment See Rx Instructions .ROUTE .COMPLEX Rx Instructions: see rx benzonatate 100 mg capsule 100 mg PO TID PRN (Reason: cough) Qty: 30 0RF omeprazole 20 mg capsule,delayed release(DR/EC) 20 mg PO DAILY Patient Comments: TAKE 1 CAPSULE BY MOUTH TWICE DAILY Clinical Impressions Clinical Impression: Localized skin eruption due to drugs and medicaments Discharge ED Provider: Charli Sewell General Adult HPI General Chief complaint: Skin/Abscess/Foreign Body Stated complaint: Rash on back and bottom Time Seen by Provider: 01/09/24 21:14 Mode of Arrival: Wheelchair Source of Information: Patient Limitations: No Limitations Description of Symptoms (Recalled from ER Triage Doc. by RN): patient states had ankle surgery on january 02 and started kerflex and started with a rash on buttock x 2 days. History of Present Illness HPI narrative: In summary patient is a 33-year-old female with past medical history described above who presents emergency department for evaluation of rash. Patient recently had an uncomplicated surgery on her right ankle and was prescribed Keflex for prophylaxis for which she has been compliant. This is the second time she has taken Keflex in her life and she has since developed a rash over her buttocks on the small of her back that is itchy causing her to present here for continued evaluation. No other exposures. No mucosal involvement. Related Data Home Medications Medication Instructions Recorded Confirmed omeprazole 20 mg capsule,delayed 20 mg PO DAILY 09/27/23 01/07/24 release clobetasol 0.05 % topical ointment See Rx Instructions .Route .COMPLEX 12/02/23 01/07/24 aspirin 81 mg tablet,delayed 81 mg PO DAILY 01/07/24 01/07/24 release cephalexin 500 mg capsule 500 mg PO Q8H 01/07/24 01/07/24 oxycodone-acetaminophen 5 mg-325 1 tab PO Q6H 01/07/24 01/07/24 mg tablet Previous Rx's Medication Instructions Recorded estradiol 0.01% (0.1 mg/gram) See Rx Instructions vaginal 10/01/23 vaginal cream .COMPLEX #42.5 grams duloxetine 60 mg capsule,delayed 60 mg PO DAILY Neuropathy #30 caps 10/08/23 release benzonatate 100 mg capsule 100 mg PO TID PRN cough #30 caps 12/25/23 prednisone 50 mg tablet 50 mg PO DAILY rash 5 days #5 tabs 01/09/24 Allergies Allergy/AdvReac Type Severity Reaction Status Date / Time honey Allergy Intermediate Verified 01/07/24 12:52 propolis (bee glue) Allergy Intermediate Rash Verified 01/07/24 12:52 Bleach (Sodium Hypochlorite) Allergy Unknown Difficulty Verified 01/07/24 12:52 Breathing adhesive tape Allergy Rash Verified 01/07/24 12:52 cephalexin Allergy Verified 01/09/24 21:24 [facility] Disclaimer: The information contained in this section may have been updated after the patient was seen, as this information can be updated by other users. Medical History (Updated 01/09/24 @ 21:28 by Charli Sewell MD) Acute hand eczema Vaginal pruritus Candidiasis of mouth Nausea and vomiting Sleep apnea History of COVID-19 Hypothyroid Surgical History (Updated 01/07/24 @ 13:46 by Helga Villagomez) History of foot surgery History of delivery History of appendectomy History of endometrial ablation History of colonoscopy H/O tubal ligation History of tonsillectomy Family History Father Cancer Other Asthma Diabetes Heart attack Hyperlipidemia Hypertension Stroke Thyroid disorder Social History Smoking Status: Never smoker smoking status stop date: 13 years ago alcohol intake: never substance use type: denies use current occupational status: employed Travel in the last 8 weeks: None household members: children housing: house marital status: ROS Obtained: Yes Systems reviewed as appropriate & no additional complaints except as documented Physical Exam General General appearance: alert and in no apparent distress Head Head exam: atraumatic and normocephalic Eye Eye exam: Present PERRL ENT ENT exam: Present mucous membranes moist Neck Neck exam: Present normal inspection Chest Chest inspection: Present normal inspection and symmetric chest wall rise Respiratory Respiratory exam: Absent respiratory distress Cardiovascular Cardiovascular exam: Present regular rate and normal rhythm Abdominal Exam Abdominal exam: Present soft Extremities Exam Extremities exam: Present normal inspection Neurological Exam Neurological exam: Present alert Psychiatric Psychiatric exam: Present normal affect Skin Skin exam: Present warm, dry and other (Maculopapular rash with areas of confluence over the superior buttocks and small of the back, Nikolsky negative.) Medical Decision Making Juan Manuel Inquiry Pt receiving controlled substance: No Vital Signs: 01/09/24 21:12 Temperature 98.4 F Temperature Source Oral Pulse Rate [Right] 84 Respiratory Rate 16 Blood Pressure [Right Arm] 124/70 Blood Pressure Mean [Right Arm] 88 02 Sat by Pulse Oximetry 97 Orders (Tests/Meds): ED MEDICATIONS Discontinued Medications Generic Name Dose Route Start Last Admin Trade Name Josie PRN Reason Stop Dose Admin Prednisone 40 mg 01/09/24 21:24 01/09/24 21:26 Prednisone 20mg Tab PO 01/09/24 21:25 40 mg ONCE ONE Administration Medical Decision Narrative: In summary patient is a 33-year-old female past medical history described above who presents emergency department for evaluation of rash in the setting of Keflex usage. History and physical consistent with delayed hypersensitivity reaction given second course of the drug. No systemic symptoms, no mucosal involvement. Given this patient be treated empirically with a course of oral steroids and was instructed symptomatic control and is appropriate for discharge at this time was given return precautions and verbalized understanding. Critical Care Critical Care Time Critical Care Time: No
[2024-01-09 21:45] VITALS: BP 124/70; PULSE 89; RESP 16; TEMP 36.9; O2SAT 97
== END 2024-01-09 21:46 | disposition home or self-care (01) ==
LOC: ER 21:35
PROVIDERS: Emergency Provider Emergency Medicine; PCP Pediatrics
DX: L27.1 Localized skin eruption due to drugs and medicaments taken internally (principal)
CPT/HCPCS: 99283

== ENCOUNTER 2024-03-20 13:50 | Outpatient (CLI) | payer BC, SELFPAY ==
[2024-03-20 17:29] LABS: Basophils % 0.5 % (0.1-2.0); Eosinophils # 0.1 K/mm3 (0.0-0.4); Eosinophils % 1.3 % (0.1-12.0); Hematocrit 43.8 % (37.0-47.0); Lymphocytes # 2.1 K/mm3 (0.7-4.5); Mean Corpuscular HGB Conc 31.9 g/dL (31.8-35.4); Mean Corpuscular Volume 100.2 fl (81-99); Mean Platelet Volume 8.1 fl (7.4-10.4); Monocytes # 0.3 K/mm3 (0.1-1.0); Monocytes % 3.8 % (1.7-9.3); Neutrophils # 4.6 K/mm3 (1.8-7.8); Neutrophils % 64.4 % (37.0-80.0); Platelet Count 360 K/mm3 (142-424); Red Blood Count 4.37 M/mm3 (4.20-5.40); Red Cell Distribution Width 14.1 % (11.5-17.5); White Blood Count 7.1 K/mm3 (4.8-10.8)
[2024-03-20 18:04] LABS: Alanine Aminotransferase 30 U/L (12-78); Albumin Level 3.9 g/dl (3.5-5.0); Albumin/Globulin Ratio 1.3 (1.1-1.8); Alkaline Phosphatase 77 U/L (38-126); Anion Gap 10.1 mEq/L (5-15); Aspartate Amino Transferase 27 U/L (14-36); Bilirubin,Total 0.7 mg/dl (0.2-1.3); Blood Urea Nitrogen 13 mg/dl (7-17); Calcium 9.1 mg/dl (8.4-10.2); Carbon Dioxide 25 mmol/L (22.0-30.0); Chloride 106 mmol/L (98-107); Cholesterol 225 mg/dl (140-200); Estimated Glomerular Filt Rate 95 ml/min (>60); GFR (African American) 115 ML/MIN (>60); Globulin 2.9 g/dL (1.3-3.2); Glucose 68 mg/dl (74-100); HDL Cholesterol 56 mg/dl (40-60); Potassium 4.1 mmoL/L (3.5-5.1); Sodium 137 mmol/L (136-145); Total Protein,Serum 6.8 g/dl (6.3-8.2); Triglycerides 151 mg/dl (30-150); VLDL Cholesterol 30 mg/dL (0-40)
[2024-03-20 18:14] LABS: Direct LDL Cholesterol 137.26 mg/dL (100-129)
[2024-03-20 18:21] LABS: 25-OH Vitamin D, Total 31.2 ng/mL (30-100)
[2024-03-22 08:36] LABS: FSH 5.5 mIU/mL (.); Progesterone 0.2 ng/mL (.)
[2024-03-28 12:12] LABS: Estrogen 225 pg/mL (.)
== END 2024-03-20 23:59 | disposition home or self-care (01) ==
LOC: LAB.DROPOF 03-22 17:25
PROVIDERS: PCP Physician Assistant; Visit Provider Physician Assistant
DX: R53.83 Other fatigue (principal); E66.9 Obesity, unspecified; Z68.31 Body mass index [BMI] 31.0-31.9, adult
CPT/HCPCS: 80050; 80053; 80061; 82306; 82672; 83001; 84144; 84443; 85025

== ENCOUNTER 2024-03-24 10:04 | Emergency (ER) | payer BC, SELFPAY ==
[2024-03-24 10:35] VITALS: BP 119/81; PULSE 73; RESP 21; TEMP 36.6; O2SAT 98; BMI 31.2
--- NOTE | 2024-03-24 10:41 | XR_ITS ---
FINAL REPORT CLINICAL HISTORY: pain FINDINGS: RIGHT ANKLE 3 views of the right ankle were obtained. There is no acute fracture or dislocation. The mortise is intact. There is a tiny os trigonum. Visualized joint spaces are normally aligned. There is soft tissue edema overlying the lateral malleolus. IMPRESSION: No acute bony abnormality. Reviewed, Interpreted and Dictated by Oswaldo Ross MD Transcribed by Maryse Kitchen Authenticated and [facility]
--- NOTE | 2024-03-24 10:45 | EXP.UTC ---
Discharge Plan Disposition Patient Disposition: Home, Self-Care Condition: Good Prescriptions Prescriptions: New ibuprofen 600 mg tablet 600 mg PO Q6HP PRN (Reason: Mild Pain) Qty: 30 0RF No Action clobetasol 0.05 % ointment topical magnesium citrate Solution 150 ml PO BID PRN (Reason: constipation) Qty: 296 0RF Trulance 3 mg tablet 3 mg PO DAILY Qty: 30 2RF glycerin (adult) [Fleet Glycerin (Adult)] Suppository 1 supp TN QD-BID PRN (Reason: constipation) Qty: 12 0RF ammonium lactate 12 % cream topical Patient Comments: APPLY CREAM TOPICALLY TO AFFECTED AREA NEEDED FOR DRY SKIN duloxetine 60 mg capsule,delayed release(DR/EC) PO Patient Comments: TAKE 1 CAPSULES BY MOUTH ONCE DAILY FOR NEUROPATHY MAX DAILY DOSE: 60 MG Vraylar 1.5 mg capsule 1.5 mg PO DAILY Qty: 30 2RF omeprazole 20 mg capsule,delayed release(DR/EC) 20 mg PO DAILY Patient Comments: TAKE 1 CAPSULE BY MOUTH TWICE DAILY Referrals Follow up/Referrals: Oriana Spears PA [Primary Care Provider] - See instructions Activity Restrictions/Add. Instructions Additional Instructions/Restrictions: Rest the extremity, apply ice for 15 minutes as tolerated three or four times per day, Wear the halley wrap for compression, Elevate the extremity as tolerated while you are resting. Take ibuprofen or tylenol for pain. Follow up with your orthopedic/podiatry physician that did your ankle surgery. Follow up with your regular doctor. GO TO THE ER FOR ANY WORSENING SYMPTOMS Clinical Impressions Clinical Impression: Sprain of ankle, right, Ankle pain, right Stand Alone Forms Stand Alone Forms: Work/School Release Instructions Patient Instructions: DI for Ankle Sprain, DI for Ankle Pain, How to Apply an Elastic Wrap on Ankle Print Language Print Language: Belarusian Discharge ED Provider: Zane Whyte [facility] General Stated complaint: right ankle pain Time Seen by Provider: 03/24/24 10:45 History of Present Illness Provider Complaint: She states that she twisted her right ankle yesterday. Since then she has had right ankle pain, swelling, bruising, and tenderness. She has a history of having surgery on that ankle 3 months ago for a tendon or ligament injury. She states that she is still going to physical therapy on the ankle. She went to physical therapy this morning, but her pain caused her to not be able complete the visit. She denies any other injury or complaints. Related Data Home Medications ?Medication ?Instructions ?Recorded ?Confirmed omeprazole 20 mg capsule,delayed 20 mg PO DAILY 09/27/23 03/25/24 release ammonium lactate 12 % topical cream applic topical 02/14/24 03/25/24 duloxetine 60 mg capsule,delayed mg PO 03/11/24 03/25/24 release clobetasol 0.05 % topical ointment topical 03/25/24 03/25/24 Previous Rx's ?Medication ?Instructions ?Recorded cariprazine 1.5 mg capsule 1.5 mg PO DAILY #30 caps 03/20/24 (Vraylar) ibuprofen 600 mg tablet 600 mg PO Q6HP PRN Mild Pain #30 03/24/24 tabs glycerin (adult) (Fleet Glycerin 1 supp TN QD-BID PRN constipation 03/25/24 (Adult) rectal suppository) #12 ea magnesium citrate 150 ml PO BID PRN constipation 03/25/24 #296 mL plecanatide 3 mg tablet (Trulance) 3 mg PO DAILY #30 tabs 03/25/24 Allergies Allergy/AdvReac Type Severity Reaction Status Date / Time honey Allergy Intermediate Verified 03/20/24 12:59 propolis (bee glue) Allergy Intermediate Rash Verified 03/20/24 12:59 Bleach (Sodium Hypochlorite) Allergy Unknown Difficulty Verified 03/20/24 12:59 Breathing adhesive tape Allergy Rash Verified 03/20/24 12:59 cephalexin Allergy Verified 03/20/24 12:59 PFSH [facility] Disclaimer: The information contained in this section may have been updated after the patient was seen, as this information can be updated by other users. Medical History Acute hand eczema Vaginal pruritus Candidiasis of mouth Nausea and vomiting Sleep apnea History of COVID-19 Hypothyroid Surgical History History of foot surgery History of delivery x3 History of appendectomy History of endometrial ablation History of colonoscopy H/O tubal ligation History of tonsillectomy Family History Father Cancer Other Asthma Diabetes Heart attack Hyperlipidemia Hypertension Stroke Thyroid disorder Social History Smoking Status: Never smoker smoking status stop date: 13 years ago alcohol intake: never substance use type: denies use current occupational status: employed Travel in the last 8 weeks: None household members: children housing: house marital status: ROS Obtained: Yes All systems reviewed & no additional complaints except as documented Constitutional Constitutional: Denies chills and Denies fever(s) Eyes Eyes: Denies eye discharge ENT Ears, Nose, Mouth, and Throat: Denies dizziness, Denies otalgia and Denies sore throat Cardiovascular Cardiovascular: Denies chest pain Respiratory Respiratory: Denies shortness of breath, Denies chest congestion, Denies cough, Denies stridor and Denies wheezing Gastrointestinal Gastrointestingal: Denies nausea or vomiting Musculoskeletal Musculoskeletal: Reports system reviewed and no additional complaints, except as documented and Denies arthralgias Integumentary/Breasts Skin/Breast: Denies rash Neurologic Neurologic: Denies dizziness and Denies paresthesias Allergic/Immunologic Allergic/Immunologic: Denies wheezing Physical Exam General General appearance: alert and in no apparent distress Head Head exam: atraumatic, normocephalic and normal inspection Eye Eye exam: Present normal appearance, PERRL and EOMI ENT ENT exam: Present normal exam, normal oropharynx, mucous membranes moist, TM's normal bilaterally and normal external ear exam Neck Neck exam: Present normal inspection, full ROM and trachea midline; Absent meningismus or lymphadenopathy Chest Chest inspection: Present normal inspection and symmetric chest wall rise; Absent tenderness Respiratory Respiratory exam: Present normal lung sounds bilaterally; Absent respiratory distress Cardiovascular Cardiovascular exam: Present regular rate and normal rhythm; Absent JVD Abdominal Exam Abdominal exam: Present soft and normal bowel sounds; Absent distention, tenderness or guarding Extremities Exam Extremities exam: Present normal inspection, full ROM and normal capillary refill; Absent calf tenderness Back Exam Back exam: Present normal inspection; Absent tenderness Neurological Exam Neurological exam: Present alert and oriented X3 Psychiatric Psychiatric exam: Present normal affect and normal mood Skin Skin exam: Present warm, dry, intact and normal color Lymphatic Lymphatic Findings: no adenopathy Medical Decision Making Medical Records Medical records reviewed: No I reviewed the patient's medical records. Juan Manuel Inquiry Pt receiving controlled substance: No Orders (Tests/Meds): ORDERS Category Date Time Status Ankle XR -Right minimum 3 Views [XR ankle RT min 3V] Exams 03/24/24 10:41 Ordered Stat
[2024-03-24 12:16] VITALS: BP 119/81; PULSE 73; RESP 21; TEMP 36.6; O2SAT 98
== END 2024-03-24 12:24 | disposition home or self-care (01) ==
PROVIDERS: Emergency Provider Nurse Practitioner Family; PCP Physician Assistant
DX: S93.401A Sprain of unspecified ligament of right ankle, initial encounter (principal); M25.571 Pain in right ankle and joints of right foot; X50.1XXA Overexertion from prolonged static or awkward postures, initial encounter
CPT/HCPCS: 73610; 99212; 99214; G0463

== ENCOUNTER 2024-04-10 11:00 | Outpatient (RCR) | payer BC, SELFPAY | END 2024-04-10 23:59 | disposition home or self-care (01) | LOC: PT 11:00 | PROVIDERS: Visit Provider Podiatrist | DX: M25.571 Pain in right ankle and joints of right foot (principal); S93.491A Sprain of other ligament of right ankle, initial encounter | CPT/HCPCS: 97010; 97014; 97035; 97110; 97140; 97163; 97164; 97530; G0283 ==

== ENCOUNTER → 2024-04-15 14:34 | Outpatient (CLI) | payer BC, SELFPAY | LOC: SL 14:35 | PROVIDERS: PCP Physician Assistant; Visit Provider Specialist | DX: G47.33 Obstructive sleep apnea (adult) (pediatric) (principal) | CPT/HCPCS: G0399 ==

== ENCOUNTER 2024-05-03 12:11 | Emergency (ER) | payer BC, SELFPAY ==
[2024-05-03 12:34] VITALS: BP 125/76; PULSE 88; RESP 16; TEMP 37.1; O2SAT 97; BMI 30.9
--- NOTE | 2024-05-03 13:24 | EXP.UTC ---
Discharge Plan Disposition Patient Disposition: Home, Self-Care Condition: Good Prescriptions Prescriptions: New azithromycin 250 mg tablet See Rx Instructions .ROUTE .COMPLEX Qty: 6 0RF Rx Instructions: For 250 mg dose pack: take 500 mg today (day 1), then 250 mg for 4 days (days 2-5) [id number] [Bromfed DM] 2-30-10 mg/5 mL syrup 10 ml PO Q6H PRN (Reason: cold symptoms) Qty: 200 0RF No Action clobetasol 0.05 % ointment topical magnesium citrate Solution 150 ml PO BID PRN (Reason: constipation) Qty: 296 0RF Trulance 3 mg tablet 3 mg PO DAILY Qty: 30 2RF ammonium lactate 12 % cream topical Patient Comments: APPLY CREAM TOPICALLY TO AFFECTED AREA NEEDED FOR DRY SKIN duloxetine 60 mg capsule,delayed release(DR/EC) PO Patient Comments: TAKE 1 CAPSULES BY MOUTH ONCE DAILY FOR NEUROPATHY MAX DAILY DOSE: 60 MG Vraylar 1.5 mg capsule 1.5 mg PO DAILY Qty: 30 2RF nitrofurantoin macrocrystal 100 mg capsule PO mirtazapine [Remeron] 15 mg tablet 15 mg PO HS Qty: 30 2RF ibuprofen 800 mg tablet 800 mg PO Q8H Qty: 90 2RF methylprednisolone 4 mg tablets,dose pack See Rx Instructions PO PER PKG DIR Qty: 21 0RF Rx Instructions: PO PER PKG DIR guaifenesin 600 mg tablet extended release 12hr 600 mg PO Q12H PRN (Reason: congestion) Qty: 20 0RF fluticasone propionate [Allergy Relief (fluticasone)] 50 mcg/actuation spray,suspension 1 spray intranasal DAILY Qty: 16 2RF Rx Instructions: administer into each nostril azithromycin [Zithromax Z-Joel] 250 mg tablet See Rx Instructions PO .COMPLEX Qty: 6 0RF Rx Instructions: For 250 mg dose pack: take 500 mg today (day 1), then 250 mg for 4 days (days 2-5) PO omeprazole 20 mg capsule,delayed release(DR/EC) 20 mg PO DAILY Patient Comments: TAKE 1 CAPSULE BY MOUTH TWICE DAILY Referrals Follow up/Referrals: Oriana Spears PA [Primary Care Provider] - See instructions Activity Restrictions/Add. Instructions Additional Instructions/Restrictions: Take medication as prescribed. Increase fluids and rest. Follow up with pcp if symptoms persist or worsen Clinical Impressions Clinical Impression: Upper respiratory tract infection Qualifiers: URI type: unspecified URI Qualified Code(s): J06.9 - Acute upper respiratory infection, unspecified Instructions Patient Instructions: DI for Viral Upper Respiratory Infection -- Adult Print Language Print Language: Sri Lankan Discharge ED Provider: Rosalina Baker [facility] General Stated complaint: congestion, couch, chest tightness Mode of Arrival: Ambulatory Source of Information: Patient Limitations: No Limitations Time Seen by Provider: 05/03/24 13:21 Description of Symptoms (Recalled from Triage Doc. by RN): patient reports cough, congestion, right chest, green mucus and itchy eyes. HEENT Symptoms (Recalled from RN notes): Yes Resp Symptoms (Recalled from RN notes): No Skin Symptoms (Recalled from RN notes): No MS Symptoms (Recalled from RN notes): No Functional Status (Recalled from RN notes): wnl History of Present Illness Provider Complaint: Pt reports that on Sunday she went to the doctor and he prescribed her steroid for her symptoms. She states that her symptoms have worsened and now she has green sinus drainage and is coughing up green phlegm. She reports ear fullness as well. Related Data Home Medications ?Medication ?Instructions ?Recorded ?Confirmed omeprazole 20 mg capsule,delayed 20 mg PO DAILY 09/27/23 04/28/24 release ammonium lactate 12 % topical cream applic topical 02/14/24 04/28/24 duloxetine 60 mg capsule,delayed mg PO 03/11/24 04/28/24 release clobetasol 0.05 % topical ointment topical 03/25/24 04/28/24 nitrofurantoin macrocrystal 100 mg mg PO 04/01/24 04/28/24 capsule Previous Rx's ?Medication ?Instructions ?Recorded cariprazine 1.5 mg capsule 1.5 mg PO DAILY #30 caps 03/20/24 (Vraylar) magnesium citrate 150 ml PO BID PRN constipation 03/25/24 #296 mL plecanatide 3 mg tablet (Trulance) 3 mg PO DAILY #30 tabs 03/25/24 ibuprofen 800 mg tablet 800 mg PO Q8H #90 tabs 04/11/24 mirtazapine 15 mg tablet (Remeron) 15 mg PO HS #30 tabs 04/11/24 fluticasone propionate 50 1 spray intranasal DAILY #16 grams 04/28/24 mcg/actuation nasal spray,suspension (Allergy Relief (fluticasone)) guaifenesin 600 mg tablet, 600 mg PO Q12H PRN congestion #20 04/28/24 extended release 12 hr tabs methylprednisolone 4 mg tablets in See Rx Instructions PO PER PKG DIR 04/28/24 a dose pack #21 tabs azithromycin 250 mg tablet See Rx Instructions PO .COMPLEX #6 05/02/24 (Zithromax Z-Joel) tabs azithromycin 250 mg tablet See Rx Instructions PO .COMPLEX #6 05/03/24 tabs [id number] 10 ml PO Q6H PRN cold symptoms 05/03/24 2 mg-30 mg-10 mg/5 mL oral syrup #200 mL (Bromfed DM) Allergies Allergy/AdvReac Type Severity Reaction Status Date / Time honey Allergy Intermediate Verified 04/28/24 10:26 propolis (bee glue) Allergy Intermediate Rash Verified 04/28/24 10:26 Bleach (Sodium Hypochlorite) Allergy Unknown Difficulty Verified 04/28/24 10:26 Breathing adhesive tape Allergy Rash Verified 04/28/24 10:26 cephalexin Allergy Verified 04/28/24 10:26 Worker's Comp Is this a Worker's Comp case?: No [facility] Disclaimer: The information contained in this section may have been updated after the patient was seen, as this information can be updated by other users. Medical History Acute hand eczema Vaginal pruritus Candidiasis of mouth Nausea and vomiting Sleep apnea History of COVID-19 Hypothyroid Surgical History History of foot surgery History of delivery x3 History of appendectomy History of endometrial ablation History of colonoscopy H/O tubal ligation History of tonsillectomy Family History Father Cancer Other Asthma Diabetes Heart attack Hyperlipidemia Hypertension Stroke Thyroid disorder Social History Smoking Status: Never smoker smoking status stop date: 13 years ago alcohol intake: never substance use type: denies use current occupational status: employed Travel in the last 8 weeks: None household members: children housing: house marital status: ROS Obtained: Yes All systems reviewed & no additional complaints except as documented Constitutional Constitutional: Reports system reviewed and no additional complaints, except as documented, Reports headache(s) and Reports malaise Eyes Eyes: Reports system reviewed and no additional complaints, except as documented ENT Ears, Nose, Mouth, and Throat: Reports system reviewed and no additional complaints, except as documented, Reports headache(s), Reports nasal congestion, Reports nasal discharge and Reports sinus pressure Cardiovascular Cardiovascular: Reports system reviewed and no additional complaints, except as documented Respiratory Respiratory: Reports system reviewed and no additional complaints, except as documented, Reports change in phlegm color and Reports cough Gastrointestinal Gastrointestingal: Reports system reviewed and no additional complaints, except as documented Genitourinary Female Genitourinary: Reports system reviewed and no additional complaints, except as documented Musculoskeletal Musculoskeletal: Reports system reviewed and no additional complaints, except as documented Integumentary/Breasts Skin/Breast: Reports system reviewed and no additional complaints, except as documented Neurologic Neurologic: Reports system reviewed and no additional complaints, except as documented and Reports headache(s) Endocrine Endocrine: Reports system reviewed and no additional complaints, except as documented Hematologic/Lymphatic Henatologic/Lymphatic: Reports system reviewed and no additional complaints, except as documented Allergic/Immunologic Allergic/Immunologic: Reports system reviewed and no additional complaints, except as documented Physical Exam General General appearance: alert Comment: ill appearing Head Head exam: atraumatic and normocephalic Eye Eye exam: Present normal appearance ENT ENT exam: Present mucous membranes moist Expanded ENT Exam External ear exam: Present normal external inspection TM/Canal exam: Bilateral TM: bulging and effusion Nose exam: Present sinus tenderness Nasal speculum exam: Bilateral: purulent discharge Mouth exam: Present normal external inspection Teeth exam: Present normal inspection Throat exam: Present normal inspection Neck Neck exam: Present normal inspection; Absent lymphadenopathy Chest Chest inspection: Present normal inspection and symmetric chest wall rise Respiratory Respiratory exam: Present other (course sounds throughout) Cardiovascular Cardiovascular exam: Present regular rate, normal rhythm and normal heart sounds Abdominal Exam Abdominal exam: Present soft and normal bowel sounds Extremities Exam Extremities exam: Present normal inspection Back Exam Back exam: Present normal inspection Neurological Exam Neurological exam: Present alert and oriented X3 Psychiatric Psychiatric exam: Present normal affect and normal mood Skin Skin exam: Present warm, dry and intact Lymphatic Lymphatic Findings: no adenopathy Medical Decision Making Medical Records Screening: Per USPSTF and CDC recommendations, given the prevalence of disease in our region, it is our hospital?s policy to screen for HIV and viral Hepatitis for all patients aged 18 and over and those with ongoing risk factors. Juan Manuel Inquiry Pt receiving controlled substance: No Juan Manuel was queried for this patient: No Vital Signs: 05/03/24 12:34 Temperature 98.8 F Temperature Source Oral Pulse Rate [Radial] 88 Respiratory Rate 16 Blood Pressure [Right Arm] 125/76 Blood Pressure Mean [Right Arm] 92 Blood Pressure Source [Right Arm] Automatic Cuff Blood Pressure Position [Right Arm] Sitting 02 Sat by Pulse Oximetry 97 Oxygen Delivery Method Room Air
[2024-05-03 13:44] VITALS: BP 125/76; PULSE 88; RESP 16; TEMP 37.1; O2SAT 97
== END 2024-05-03 13:45 | disposition home or self-care (01) ==
PROVIDERS: Emergency Provider Nurse Practitioner Family; PCP Physician Assistant
DX: R05.9 Cough, unspecified (principal); J06.9 Acute upper respiratory infection, unspecified; H92.03 Otalgia, bilateral
CPT/HCPCS: 99212; 99214; G0463

== ENCOUNTER 2024-06-09 10:40 | Outpatient (CLI) | payer BC, SELFPAY ==
--- NOTE | 2024-06-09 10:43 | CA_ITS ---
FINAL REPORT TECHNIQUE: Color Doppler, duplex Doppler and compression sonography of the left lower extremity deep venous systems was performed. CLINICAL HISTORY: LT CALF PAIN EDEMA AND PAIN X SEVERAL WEEKS,PT FELT PULL IN CALF SEVERAL WKS AGO COMPARISON: none FINDINGS: There is no evidence of deep venous thrombosis from the level of the groin to the calf. The veins are patent and compressible. IMPRESSION: No evidence of deep venous thrombosis left lower extremity. Authenticated and ERN
== END 2024-06-09 23:59 | disposition home or self-care (01) ==
LOC: RT 10:41
PROVIDERS: PCP Physician Assistant; Visit Provider Student in an Organized Health Care Education/Training Program
DX: R60.0 Localized edema (principal)
CPT/HCPCS: 93971

== ENCOUNTER 2024-08-19 13:12 | Outpatient (CLI) | payer OTHER, MEDICAID, SELFPAY ==
--- NOTE | 2024-08-19 13:17 | XR_ITS ---
FINAL REPORT CLINICAL HISTORY: Rt Elbow Pain COMPARISON: none FINDINGS: RIGHT ELBOW 3 views were obtained. There is no acute fracture or dislocation. There is no joint effusion. The joint spaces are intact. There is no soft tissue abnormality. IMPRESSION: No acute bony abnormality. Reviewed, Interpreted and Dictated by Temo Vicente MD Transcribed by Brandi Ellis Authenticated and [facility]
== END 2024-08-19 23:59 | disposition home or self-care (01) ==
LOC: RAD 13:15
PROVIDERS: PCP Physician Assistant; Visit Provider Physician Assistant Surgical
DX: M25.521 Pain in right elbow (principal)
CPT/HCPCS: 73080

== ENCOUNTER 2024-09-02 12:49 | Outpatient (CLI) | payer OTHER, MEDICAID, SELFPAY ==
[2024-09-02 13:59] LABS: Alanine Aminotransferase 53 U/L (12-78); Albumin Level 4.3 g/dl (3.5-5.0); Albumin/Globulin Ratio 1.7 (1.1-1.8); Alkaline Phosphatase 84 U/L (38-126); Anion Gap 12.4 mEq/L (5-15); Aspartate Amino Transferase 38 U/L (14-36); Bilirubin,Total 0.4 mg/dl (0.2-1.3); Blood Urea Nitrogen 15 mg/dl (7-17); Calcium 9.5 mg/dl (8.4-10.2); Carbon Dioxide 27 mmol/L (22.0-30.0); Chloride 103 mmol/L (98-107); Estimated Glomerular Filt Rate 95 ml/min (>60); GFR (African American) 115 ML/MIN (>60); Globulin 2.5 g/dL (1.3-3.2); Glucose 123 mg/dl (74-100); Potassium 4.4 mmoL/L (3.5-5.1); Sodium 138 mmol/L (136-145); Total Protein,Serum 6.8 g/dl (6.3-8.2)
== END 2024-09-02 23:59 | disposition home or self-care (01) ==
PROVIDERS: PCP Physician Assistant; Visit Provider Specialist
DX: G60.0 Hereditary motor and sensory neuropathy (principal); G62.9 Polyneuropathy, unspecified
CPT/HCPCS: 36415; 80053

== ENCOUNTER 2024-09-04 07:39 | Outpatient (CLI) | payer OTHER, MEDICAID, SELFPAY ==
[2024-09-04 08:36] LABS: Hemoglobin A1C 5.8 % (4.0-6.0)
== END 2024-09-04 23:59 | disposition home or self-care (01) ==
LOC: LAB 07:40
PROVIDERS: PCP Physician Assistant; Visit Provider Specialist
DX: R73.9 Hyperglycemia, unspecified (principal)
CPT/HCPCS: 36415; 83036

== ENCOUNTER 2025-01-27 08:00 | Outpatient (RCR) | payer OTHER, SELFPAY ==
--- NOTE | 2025-01-13 15:43 | HMH.OTOPEV ---
OT Inpatient Evaluation Rehab OT Outpatient Eval Start: 01/13/25 15:29 Freq: Status: Active Protocol: Document 01/13/25 15:29 RMARSHALL (Rec: 01/13/25 15:41 [id number] E-signed By Charmaine Carrillo, OT Outpatient Therapy Subjective History Subjective History Pt is a 34 year old female who reports to therapy for initial evaluation to right elbow. Pt reports her right elbow (medial side) began hurting ~6 months ago. She does not recall a specific injury causing pain to begin. Pt has received 2 injections in her elbow by ortho. The first injection was 3 months ago and she experienced great success with this injection. However , pain returned and she received a second injection ~1 week ago. She explains so fair this injection has not improved her pain. 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 This requires repetitive lifting, push/pull, and twisting of bilateral UE's. Pt is right hand dominant. Upon evaluation, pt demonstrates with a decline in AROM and strength at right elbow. 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 Pt will continue to be seen twice a week in order to address all right elbow deficits. R hand molding machine operator strength ST lbs R hand molding machine operator strength LT lbs Chief Complaint Pain,Stiff,Weakness,Decreased Low Pressure Boiler Operator Strength Symptom Type Ache,Throb,Sharp,Dull Symptoms Relieved By Rest/Positioning Symptoms Aggravated Physical Activity,Twisting,Lifting By Prior Functional None Limitations Current Functional Reaching,Lifting,Housework,Sleeping,Recreation Activity Limitations Symptom Description Constant but Variable Level of pain today 1 (0-10) Pain scale - at its 1 best (0-10) Pain scale - at its 10 worst (0-10) Shoulder/Elbow Eval Shoulder Objective Measurements Elbow Objective Measurements Elbow ROM Right Elbow Extension -38 Active Range of Motion (degrees) Elbow Flexion Active 130 Range of Motion ( degrees) Elbow Pronation of 75 Forearm Range of Motion (degrees) Elbow Supination of 90 Forearm Range of Motion (degrees) Elbow MMT Elbow Flexion 4- Good- Strength Grade Elbow Extension 4- Good- Strength Grade Supination Strength 4- Good- Grade Pronation Strength 4- Good- Grade Wrist/Hand Eval Low Pressure Boiler Operator/Pinch Strength Right Low Pressure Boiler Operator Strength 18 Measurement (lbs) Left Low Pressure Boiler Operator Strength 40 Measurement (lbs) QuickDASH Activities Please rate your ability to do the following activities in the last week by selecting the number below the appropriate response. 1. Open a tight or Unable new jar. 2. Do heavy Moderate difficulty careers adviser (e. g., wash vidales, floors). 3. Carry a shopping Mild difficulty bag or briefcase. 4. Wash your back. Severe difficulty 5. Use a knife to No difficulty cut food. 6. Recreational Unable activities in which you take some force or impact through your arm, shoulder, or hand (e.g., golf, hammering, tennis, etc.). 7. During the past Moderately week, to what extent has your arm, shoulder or hand problem interfered with your normal social activities with family, friends , neighbors or groups? 8. During the past Very limited week, were you limited in your work or other regular daily activites as a result of your arm, shoulder or hand problem? 9. Arm, shoulder or Moderate hand pain. 10. Tingling (pins Moderate and needles) in your arm, shoulder or hand. 11. During the past Moderate difficulty week, how much difficulty have you had sleeping because of the pain in your arm, shoulder or hand? Quick DASH 36 OT Outpatient Assessment Impairments Problems/Impairments Palpation Tenderness,Impaired Range of Motion,Impaired Strength,Impaired Endurance,Impaired Lifting,Impaired Household Care,Impaired Recreational Activities, Impaired Work Activities,Subjective C/O Pain Prognosis Rehab Potential Good Clinical Impression Consistent with Yes Diagnosis Short Term Goals Number of Weeks 3 Increase Range of Yes: Flex: 135 Ext: -20 Pro: 80 Motion Increase Strength Yes: 4/5 throughout right elbow Increase Endurance Yes: Pt will tolerate R elbow exercises for ~10 minutes prior to rest. Decrease Subjective Yes: 6/10 at worst C/O Pain Patient to be Ind w/ Yes: AAROM/AROM exercises at right elbow; yellow HEP theraputty Improve Quick Dash Yes: Activities: 30 or below Score Mcc Goals Number of Weeks 6 Increase Range of Yes: Flex: 140 Ext: -10 Pro: 90 Motion Increase Strength Yes: 4+/5 throughout R elbow Increase Endurance Yes: Pt will tolerate R elbow exercises for ~20 minutes prior to rest. Decrease Subjective Yes: 3/10 at worst C/O Pain Patient to be Ind w/ Yes: Advanced strengthening exercises Advanced HEP Improve Quick Dash Yes: Activities: 25 or below Score Outpatient Therapy Plan of Care Treatment Plan May Include Therapeutic Exercise Yes Including Home Exercise Program Manual Therapy Yes Techniques Neuromuscular Re- Yes education Therapeutic Yes Activities to Return to Previous Functional/Work Level Dry Needling Yes Thermal Modalities Yes Electrical Yes Stimulation Ultrasound/ Yes Phonophoresis Iontophoresis Yes Parrafin Yes Orthotics/Bracing/ Yes Splinting Massage Yes Eval/Re-Eval Yes Frequency Times per week 2 Duration Number of Weeks 6 Addendums This patient is a No candidate for social or vocational rehab ? Patient/Guardian Yes verbally acknowledges understanding of treatment program and consents to further treatment? Patient/Guardian Yes verbally acknowledges understanding of diagnosis, prognosis and goals for treatment? Eval Complexity OT Charge 39324 - Moderate Complexity PHYSICIAN CERTIFICATION: I certify the specified therapy services for Teresa Valentin are required, authorized, and reviewed every 30 days.
== END 2025-01-27 23:59 | disposition home or self-care (01) ==
LOC: OT 08:00
PROVIDERS: PCP Physician Assistant; Visit Provider Physician Assistant Surgical
DX: M25.521 Pain in right elbow (principal)
CPT/HCPCS: 97014; 97035; 97110; 97140; 97166; 97530; G0283

== ENCOUNTER 2025-02-13 09:44 | Outpatient (RCR) | payer OTHER, SELFPAY ==
--- NOTE | 2025-02-13 10:50 | HMH.RHREAS ---
Rehab Reassessment Rehab OP Re-assessment Start: 02/13/25 09:57 Freq: Status: Active Protocol: Document 02/13/25 09:57 JEFF (Rec: 02/13/25 10:50 [id number]) E-signed By Charmaine Carrillo OT QuickDASH Activities Please rate your ability to do the following activities in the last week by selecting the number below the appropriate response. 1. Open a tight or Unable new jar. 2. Do heavy Moderate difficulty senior cost analyst (e. g., wash vidales, floors). 3. Carry a shopping Severe difficulty bag or briefcase. 4. Wash your back. Moderate difficulty 5. Use a knife to Severe difficulty cut food. 6. Recreational Severe difficulty activities in which you take some force or impact through your arm, shoulder, or hand (e.g., golf, hammering, tennis, etc.). 7. During the past Not at all week, to what extent has your arm, shoulder or hand problem interfered with your normal social activities with family, friends , neighbors or groups? 8. During the past Very limited week, were you limited in your work or other regular daily activites as a result of your arm, shoulder or hand problem? 9. Arm, shoulder or Extreme hand pain. 10. Tingling (pins Severe and needles) in your arm, shoulder or hand. 11. During the past Severe difficulty week, how much difficulty have you had sleeping because of the pain in your arm, shoulder or hand? Quick DASH 41 Rehab Re-assessment Subjective Subjective The last 4 days have been awful. Objective Objective Notes Pt has been seen previously twice a week in order to address right elbow deficits. Each session pt receives soft tissue massage and PROM manual stretching to right medical aspect of R elbow. Therapeutic exercise is also completed each session. Modalities such as e- stim and US are provided in order to decrease pain/ inflammation. Assessment Progress Assessment Slower Than Expected Assessment Notes Pt had been discharged by travel information center supervisor 16 days ago because she had met all goals and had significant improvement with pain, AROM, and strength. However pt reports within the last 4 days she has had an increase in pain reaching 10/10 at worst. She returns to ortho today for follow up due to pain. She does not recall an injury causing pain to increase within the last few days. Current AROM R elbow: Flex: 132 degrees Ext: -10 degrees Supination: 90 degrees Pronation: 90 degrees R hand loan originator strength: 15 lbs Patient goals met n/a Goals Not Met See below Revised Goals R hand loan originator strength ST lbs R hand loan originator strength LT lbs ST-6 LT-6 Plan Plan Continue with OT plan of care at this time. Frequency of Therapy 2x's a wee Duration of therapy 4 more weeks Time and Billing Re-Eval Time 8 Re-Eval Billing 1 Units Charge for OT Yes reassessment? PHYSICIAN CERTIFICATION: I certify the specified therapy services for Teresa Valentin are required, authorized, and reviewed every 30 days.
== END 2025-02-13 23:59 | disposition home or self-care (01) ==
LOC: OT 09:44
PROVIDERS: Visit Provider Physician Assistant Surgical
DX: M25.521 Pain in right elbow (principal)
CPT/HCPCS: 97014; 97035; 97140; 97168; G0283

== ENCOUNTER 2025-02-20 15:29 | Outpatient (CLI) | payer OTHER, SELFPAY ==
--- OUTSIDE RECORDS SUMMARY | 2025-02-13 10:45 | XMS_ITS ---
Author Organization [facility] PE D YOSELYN Address [address] [place] [address] Care Team Providers Care Cafeteria Aide Name Role Phone Caro Leon Primary Care Provider CARO Leon APRN Unavailable Unavailable Allergies Allergen (clinical drug ingredient) Drug/Non Drug Allergy documented on EMR Reaction Allergy Type Onset Date Status BEES (uncoded) Unknown Allergy Activ e FRAGRANT MIX 2 (uncoded) Unknown Allergy Active OIL IN MONEY (uncoded) rash Allergy Active SURGICAL TAPE (uncoded) Unknown Allergy Active cephalexin Cephalexin rash Drug Allergy Activ e Honey Unknown Drug Allergy Active Bleach Bleach anaphylaxis Allergy Active Reason For Referral Reason PT [facility] Diagnosis 1 Trochanteric bursiti s of right hip (M70.61) Referral Organization [facility] JACOB BALL Referring Provider First Name Caro Referring Provider Last Name Carolyn Referring Provider [facility] General Notes Geoff Gomez 10:36:55 AM > faxed to [facility] and they will call mom Referral Priority Routine Reason MRI right elbow- [facility] Diagnosis 1 Right elbow pain (M2 5.521) Referral Organization [facility] PED LIZZY Referring Provider First Name Caro Referring Provider Last Name Carolyn Referring Provider [facility] ctice General Notes Geoff Gomez 12:33:27 PM > pre cert in review, Geoff Gomez 02/19/2025 04:32:25 PM > MRI denied Referral Priority Routine REASON FOR VISIT Pain is bad and medicine isn't working, not sleeping, headache, rt elbow pain for 1 wk , swelling Medications Medication SIG (Take, Route, Fr equency, Duration) Notes Start Date End Date Status Meloxicam 15 MG 1 tablet Orally Once a day; Duration: 30 days 02/13/2025 Active Gabapentin 400 MG 1 capsule orally 3 t imes a day; Duration: 30 days 01/16/2025 Active Cetirizine HCl 10 MG 1 tab(s) orally onc e a day; Duration: 30 days Active rOPINIRole HCl 0.25 MG 1-2tab(s) orally at bedtime; Duration: 30 days Active DULoxetine HCl 60 MG 1 cap(s) orally once a day Active DULoxetine HCl 30 MG 1 cap(s) orally once a day Active Omeprazole 20 MG 1 cap(s) orally once a day Active metFORMIN HCl 500 MG 1 tab(s) orally once a day Active Problems Problem Type SNOMED Code ICD Code Onset Dates Problem Status W/U Status Risk Notes Problem SI (sacroiliac) joint inflammation (M46.1) Active confirmed Vital Signs Temperature 98 degrees Fahrenheit 02/13/2025 Heart Rate 82 /min 02/13/2025 Blood pressure systolic 118 mm Hg 02/14/20 25 Blood pressure diastolic 74 mm Hg 025 Height 5ft 0in in 02/13/2025 Weight 171 lbs 02/13/2025 BMI 33.39 kg/m2 02/13/2025 Encounters Encounter Location Date Provider Diagnosis [address] [address] 02/13/2025 Caro McNees Neuropathy G62.9 ; Fibromyalgia M79.7 ; Other chronic pain G89.29 ; Trochanteric bursitis of right hip M70.61 ; SI (sacroiliac) joint inflammation M46.1 ; Medial epicondylitis, right elbow M77.01 and Right elbow pain M25.521 Assessments Encounter Date Diagnosis (ICD Code) Assessment Notes Treatment Notes Treatment Clinical Notes Section Notes 02/13/2025 Neuropathy (ICD-10 - G62.9) Stable gabapentin 02/13/2025 Fibromyalgia (ICD-10 - M79.7) Warm compresses, stretches 02/13/2025 Other chronic pain (ICD-10 - G89.29) 02/13/2025 Trochanteric bursitis of right hip (ICD-10 - M70.61) Rest, warm compresses, stretches, change to meloxicam, refer to PT 02/13/2025 SI (sacroiliac) joint inflammation (ICD-10 - M46.1) 02/13/2025 Medial epicondylitis, right elbow (ICD-10 - M77.01) No improvement with injection, PT, NSAIDS, steroids. Needs MRI will arrange 02/13/2025 Right elbow pain (ICD-10 - M25.521) Plan Of Treatment Medication Medication Name Sig Start Date Stop Date Notes Meloxicam 15 MG 1 tablet Orally Once a day; Duration: 30 days 02/13/2025 Ibuprofen 800 MG 1 tab(s) orally 3 times a day Treatment Notes Assessment Notes Neuropathy Stable gabapentin Fibromyalgia Warm compresses, str etches Trochanteric bursitis of right hip Rest, warm compresses, stretches, change to meloxicam, refer to PT Medial epicondylitis, right elbow No imp rovement with injection, PT, NSAIDS, steroids. Needs MRI will arrange Pending Test Test Name Order Date MRI : Elbow, Right 02/13/2025 Referrals Referral Date Details 02/13/2025 02/13/2025, PT [facility] 02/13/2025 02/13/2025, MRI rig t elbow- [facility] Next Appt Details Follow Up: pending mri, Reas on: Provider Name:Caro Hill, 03/17/2025 09:30:00 AM, [address] [place] [facility] [address] [facility], [address], [place], [address], Progress Notes * Teresa VALENTIN LDOB:1990 (34 yo F)Acc No.[id number]:02/13/2025 Progress Notes Patient: Teresa JAVED Provider: Anu Leon APRN :1990 A ge:34 Y S ex:Female Date:02/13/2025 Address:[address] [place] [address] [id number] Subjective: * Chief Complaints: * 1 . Pain is bad and medicine isn't working. 2. Not sleeping, headache. 3. Rt elbow pain for 1 wk , swelling. * HPI: g en: 34-year-old female with a long history of chronic pain issues and fibromyalgia presents for follow-up on right hip and right elbow pain. Patient has undergone physical therapy for several weeks for right sided medial epicondylitis. Reports pain resolved then returned approximately 3-4 days ago. She has also been seen by orthopedic surgery with injections x 2. Reports intermittent swelling, sometimes feels weak. Pain is causing insomnia, severe 10 out of 10 at times. Further reports persistent right hip/buttocks pain. Pain originates in low back/buttocks radiates around leg to hip and down right leg. Chronic numbness tingling in lower extremities are baseline. No new bowel or bladder symptoms. Currently taking gabapentin, duloxetine and ibuprofen as needed. Has been seen by rheumatology in the past with negative inflammatory workup. * ROS: C ONSTITUTIONAL: no L oss of appetite. n o F ever. G ASTROENTEROLOGY: Reviewed, No Symptoms Reported: Y es. N EUROLOGY: Tingling numbness y es. U ROLOGY: no D ifficulty urinating. n o U rinary incontinence. * Medical History: F ibromyalgia, Restless leg syndrome, Anxiety, Insomnia, Pre-diabetes. * Medications: T aking Ibuprofen 800 MG Tablet 1 tab(s) orally 3 times a day , Taking metFORMIN HCl 500 MG Tablet 1 tab(s) orally once a day , Taking Omeprazole 20 MG Capsule Delayed Release 1 cap(s) orally once a day , Taking DULoxetine HCl 30 MG Capsule Delayed Release Particles 1 cap(s) orally once a day , Taking DULoxetine HCl 60 MG Capsule Delayed Release Particles 1 cap(s) orally once a day , Taking rOPINIRole HCl 0.25 MG Tablet 1-2tab(s) orally at bedtime , Taking Cetirizine HCl 10 MG Tablet 1 tab(s) orally once a day , Taking Gabapentin 400 MG Capsule 1 capsule orally 3 times a day , Discontinued predniSONE 20 MG Tablet take 3 tablets for 2 days, 2 tablets for 2 days and one tablet x 1 day orally once a day , Medication List reviewed and reconciled with the patient * Allergies: C ephalexin: rash, OIL IN MONEY: rash, Honey, FRAGRANT MIX 2, BEES, Bleach: anaphylaxis, SURGICAL TAPE. Objective: * Vitals: N urse: dw, Pain: 10, Temp: 98, RR: 18, HR: 82, BP: 118/74, Ht: 5ft 0in, Wt: 171, BMI:33.39. * Examination: G eneral Examination: General P leasant and Cooperative, NAD on RA,. Chest: n ormal shape and expansion. Heart: R egular Rate and Rhythm, no murmur, rubs or gallops. Lungs: L CTAB, No wheezes, crackles or rhonchi, Good air movement,. Abdomen: S oft, NTND, BSNA, No organomegaly or peritoneal signs.. Neurologic Exam: n ormal sensation, strength, tone and reflexes, . Peripheral pulses: n ormal (2+) bilaterally. Back: r ight SI joint tenderness, pain with SLR on right at 30 deg. Extremities: t roch bursa tenderness on right, pain with internal/external rotation; severe tenderness medial epicondyle on right. Psych N ormal Mood/Affect. Assessment: * Assessment: 1. N europathy - G62.9 (Primary) 2 . F ibromyalgia - M79.7 3 . O ther chronic pain - G89.29 4 . T rochanteric bursitis of right hip - M70.61 5 . S I (sacroiliac) joint inflammation - M46.1 6 . M edial epicondylitis, right elbow - M77.01 7 . R ight elbow pain - M25.521 ? Plan: * Treatment: 2. F ibromyalgia Notes: Warm compresses, stretches 3. O ther chronic pain I maging: MRI : Elbow, Right 4.?Trochanteric bursitis of right hip? Notes: Rest, warm compresses, stretches, change to meloxicam, refer to PT?&#1 60;? Referral To: ?Reason:PT [facility] 5.?Medial epicondylitis, right elbow? Start Meloxicam Tablet, 15 MG, 1 tablet, Orally, Once a day, 30 days, 30, Refills 1.?Imaging: MRI : Elbow, Right* Notes: No improvement with injection, PT, NSAIDS, steroids. Needs MRI will arrange??6.?Right elbow pain?Imaging: MRI : Elbow, Right* ? Referral To: ?Reason:MRI right elbow- [facility] * Follow Up: p ending mri * * Sign off status: Completed true * Provider: Anu Leon APRN Date: 02/13/2025 Generated for Qi xiong/Jay/Koryitting on: 02/20/2025 03:31 PM EDT History and Physical Notes * HPI (History of Present Illness) Category Sub-Category Detail Notes Category Not es gen 34-year-old fem reuben with a long history of chronic pain issues and fibromyalgia presents for follow-up on right hip and right elbow pain. Patient has undergone physical therapy for several weeks for right sided medial epicondylitis. Reports pain resolved then returned approximately 3-4 days ago. She has also been seen by orthopedic surgery with injections x 2. Reports intermittent swelling, sometimes feels weak. Pain is causing insomnia, severe 10 out of 10 at times. Further reports persistent right hip/buttocks pain. Pain originates in low back/buttocks radiates around leg to hip and down right leg. Chronic numbness tingling in lower extremities are baseline. No new bowel or bladder symptoms. Currently taking gabapentin, duloxetine and ibuprofen as needed. Has been seen by rheumatology in the past with negative inflammatory workup Examination Category Sub-Category Detail Notes Category Not es General Examination Heart: Regular Rate and Rhythm, no murmur, rubs or gallops Lungs: LCTAB, No wheezes, c rackles or rhonchi, Good air movement, Abdomen: Soft, NTND, BSNA, No organomegaly or peritoneal signs. Extremities: troch bursa tenderne ss on right, pain with internal/external rotation; severe tenderness medial epicondyle on right Neurologic Exam: normal sensation, st rength, tone and reflexes, Peripheral pulses: normal (2+) bilatera lly Back: right SI joint tende rness, pain with SLR on right at 30 deg Chest: normal shape and exp ansion General Pleasant and Coopera tive, NAD on RA, Psych Normal Mood/Affect Consultation Request Notes Referral Date Referring Provider Referred Provider Not vernell 02/13/2025 Caro Leon , PT [facility] 02/13/2025 Caro Leon , MRI right elbo w- [facility]
--- OUTSIDE RECORDS SUMMARY | 2025-02-16 06:35 | XMS_ITS ---
Author Organization [facility] Address [address] [place] [address] Care Team Providers Care Wheel Worker Name Role Phone Brett Leon Primary Care Provider BRETT Leon APRN Unavailable Unavailable REASON FOR VISIT PT order Encounters Encounter Location Date Provider Diagnosis [address] [address] 02/16/2025 Brett Leon Trochanteric bursiti s of right hip M70.61 Assessments Encounter Date Diagnosis (ICD Code) Assessment Notes Treatment Notes Treatment Clinical Notes Section Notes 02/16/2025 Trochanteric bursitis of right hip (ICD-10 - M70.61) Plan Of Treatment Pending Test Test Name Order Date Physical Therapy 02/16/2025 Next Appt Details Provider Name:Brett Hill, 03/17/2025 09:30:00 AM, [address], [address], [place], [address], Progress Notes * Teresa VALENTIN LDOB:1990 (34 yo F)Acc No.[id number]:02/16/2025 Patient: Екатерина JAVEDamna Hitchcock :1990 A ge:34 Y S ex:Female Address: [address] [place] [address] Subjective: * Chief Complaints: * P T order * Medical History: * Surgical History: * Hospitalization/Major Diagno stic Procedure: * Medications: Objective: * Vitals: * Physical Examination: Assessment: * Assessment: 1. T rochanteric bursitis of right hip - M70.61 (Primary) Plan: * Treatment: * Procedure Codes: * true * Date: Generated for Qi xiong/Jay/Risa on: 0 02/20/2025 03:32 PM EDT
--- OUTSIDE RECORDS SUMMARY | 2025-02-19 11:17 | XMS_ITS ---
Author Organization [facility] Address [address] [facility] [address] [place] [address] Care Team Providers Care Courtesy Car Driver Name Role Phone Brett Leon Primary Care Provider [phone] BRETT Leon APRN Unavailable Unavailable REASON FOR VISIT MRI elbow denied Encounters Encounter Location Date Provider Diagnosis [address] [address] 02/19/2025 Brett Leon Right elbow pain M25.521 Assessments Encounter Date Diagnosis (ICD Code) Assessment Notes Treatment Notes Treatment Clinical Notes Section Notes 02/19/2025 Right elbow pain (ICD-10 - M25.521) Plan Of Treatment Pending Test Test Name Order Date X ray : Elbow, Right 02/19/2025 Next Appt Details Provider Name:Brett Hill, 03/17/2025 09:30:00 AM, [address] [facility], [address], [place], [address], Progress Notes * Teresa VALENTIN LDOB:1990 (34 yo F)Acc No.[id number]:02/19/2025 Patient: Teresa JAVED :1990 A ge:34 Y S ex:Female Address: [place] [address] Subjective: * Chief Complaints: * M RI elbow denied * Medical History: * Surgical History: * Hospitalization/Major Diagno stic Procedure: * Medications: Objective: * Vitals: * Physical Examination: Assessment: * Assessment: 1. R ight elbow pain - M25.521 (Primary) Plan: * Treatment: * Procedure Codes: * * Date:
--- OUTSIDE RECORDS SUMMARY | 2025-02-20 15:32 | XMS_ITS | Patient Health Record ---
Author Organization [facility] Address [address] [place] [address] Care Team Providers Care Marble Cutter Name Role Phone Caro Leon Primary Care Provider [phone] CARO Leon APRN Unavailable Unavailable José Khan Unavailable [phone] Migration, Provider Unavailable Unavailable Allergies Allergen (clinical drug ingredient) Drug/Non Drug Allergy documented on EMR Reaction Allergy Type Onset Date Status BEES (uncoded) Unknown Allergy Activ e FRAGRANT MIX 2 (uncoded) Unknown Allergy Active OIL IN MONEY (uncoded) rash Allergy Active SURGICAL TAPE (uncoded) Unknown Allergy Active cephalexin Cephalexin rash Drug Allergy Activ e Honey Unknown Drug Allergy Active Bleach Bleach anaphylaxis Allergy Active Results Component Value Reference Range Notes VITAMIN D,25-OH,TOTAL,IA (17 306) Reviewed date:12/05/2024 11:16:35 AM Interpretation: Performing Lab:[facility], [facility] Humberto Villagomez Notes/Report: FASTING: YES FASTING:YES NON-FASTING; NON-FASTING; NON-FASTING; NON-FASTING; NON-FAST VITAMIN D,25-OH,TOTAL,IA 35 30-100 ng/mL Vitamin D Status 25-OH Vitamin D: Deficiency: <20 ng/mL Insufficiency: 20 - 29 ng/mL Optimal: > or = 30 ng/mL For 25-OH Vitamin D testing on patients on D2-supplementation and patients for whom quantitation of D2 and D3 fractions is required, the QuestAssureD() 25-OH VIT D, (D2,D3), LC/MS/MS is recommended: order code 44837 (patients >2yrs). See Note 1 Note 1 For additional information, please refer to http://UserTesting.WildTangent/faq/FAI822 (This link is being provided for informational/ educational purposes only.) HEMOGLOBIN A1c (496) Reviewed date:12/05/2024 11:16:35 AM Interpretation: Performing Lab:[facility]13[address] [employer], [place] [id number] Humberto Villagomez Notes/Report: NON-FASTING; NON-FASTING; NON-FASTING; NON-FASTING; NON-FAST FASTING:YES FASTING: YES HEMOGLOBIN A1c 5.5 <5.7 % For the purpose of screening for the presence of diabetes: <5.7% Consistent with the absence of diabetes 5.7-6.4% Consistent with increased risk for diabetes (prediabetes) > or =6.5% Consistent with diabetes This assay result is consistent with a decreased risk of diabetes. Currently, no consensus exists regarding use of hemoglobin A1c for diagnosis of diabetes in children. According to [place] Diabetes Association (ADA) guidelines, hemoglobin A1c <7.0% represents optimal control in non- diabetic patients. Different metrics may apply to specific patient populations. Standards of Medical Care in Diabetes(ADA). CBC (INCLUDES DIFF/PLT) (639 9) Reviewed date:12/05/2024 11:16:35 AM Interpretation: Performing Lab:[facility]-OneID Roje6096 [employer], Crystal EksbLB[address] Humberto Villagomez Notes/Report: FASTING: YES FASTING:YES NON-FASTING; NON-FASTING; NON-FASTING; NON-FASTING; NON-FAST WHITE BLOOD CELL COUNT 6.0 3.8-10.8 Thousand/ uL RED BLOOD CELL COUNT 4.20 3.80-5.10 Million/uL HEMOGLOBIN 13.5 11.7-15.5 g/dL HEMATOCRIT 40.9 35.0-45.0 % MCV 97.4 80.0-100.0 fL MCH 32.1 27.0-33.0 pg MCHC 33.0 32.0-36.0 g/dL For adults, a slight decrease in the calculated MCHC value (in the range of 30 to 32 g/dL) is most likely not clinically significant; however, it should be interpreted with caution in correlation with other red cell parameters and the patient's clinical condition. RDW 12.3 11.0-15.0 % PLATELET COUNT 286 140-400 Thousand/uL MPV 9.6 7.5-12.5 fL ABSOLUTE NEUTROPHILS 3360 2677-4858 cells/uL ABSOLUTE LYMPHOCYTES 2154 850-3900 cells/uL ABSOLUTE MONOCYTES 348 200-950 cells/uL ABSOLUTE EOSINOPHILS 120 15-500 cells/uL ABSOLUTE BASOPHILS 18 0-200 cells/uL NEUTROPHILS 56 LYMPHOCYTES 35.9 MONOCYTES 5.8 EOSINOPHILS 2.0 BASOPHILS 0.3 LIPID PANEL, STANDARD (7600) Reviewed date:12/05/2024 11:16:35 AM Interpretation: Performing Lab:MARINA, [employer]e1355 [employer], Elevator LabsBiehXK[address] Humberto Villagomez Notes/Report: NON-FASTING; NON-FASTING; NON-FASTING; NON-FASTING; NON-FAST FASTING:YES FASTING: YES CHOLESTEROL, TOTAL 211 <200 mg/dL HDL CHOLESTEROL 64 > OR = 50 mg/dL TRIGLYCERIDES 80 <150 mg/dL LDL-CHOLESTEROL 130 Reference range: <100 Desirable range <100 mg/dL for primary prevention; <70 mg/dL for patients with CHD or diabetic patients with > or = 2 CHD risk factors. LDL-C is now calculated using the Ricardo-Rosas calculation, which is a validated novel method providing better accuracy than the Friedewald equation in the estimation of LDL-C. Ricardo SS et al. ROSSY. 2013;310(19): 8056-7362 (http://education.StormMQ/faq/XVH369) CHOL/HDLC RATIO 3.3 <5.0 (calc) NON HDL CHOLESTEROL 147 <130 mg/dL (calc) For patients with diabetes plus 1 major ASCVD risk factor, treating to a non-HDL-C goal of <100 mg/dL (LDL-C of <70 mg/dL) is considered a therapeutic option. VITAMIN B12 (927) Reviewed date:12/05/2024 11:16:35 AM Interpretation: Performing Lab:MARINA, [facility], BuzzooGzvpHI[address] Humberto Villagomez Notes/Report: NON-FASTING; NON-FASTING; NON-FASTING; NON-FASTING; NON-FAST FASTING:YES FASTING: YES VITAMIN B12 887 586-7084 pg/mL COMPREHENSIVE METABOLIC PANE L (34671) Reviewed date:12/05/2024 11:16:35 AM Interpretation: Performing Lab:[facility], [facility] Cpjn2157 [facility], Carlos BranhamVjwqHH[address] Humberto Villagomez Notes/Report: NON-FASTING; NON-FASTING; NON-FASTING; NON-FASTING; NON-FAST FASTING:YES FASTING: YES GLUCOSE 81 65-99 mg/dL Fasting reference interval UREA NITROGEN (BUN) 12 7-25 mg/dL CREATININE 0.64 0.50-0.97 mg/dL EGFR 117 > OR = 60 mL/min/1.73m2 BUN/CREATININE RATIO SEE NOTE: 6-22 (calc) Not Reported: BUN and Creatinine are within reference range. SODIUM 140 135-146 mmol/L POTASSIUM 4.2 3.5-5.3 mmol/L CHLORIDE 107 98-110 mmol/L CARBON DIOXIDE 27 20-32 mmol/L CALCIUM 9.3 8.6-10.2 mg/dL PROTEIN, TOTAL 6.7 6.1-8.1 g/dL ALBUMIN 4.2 3.6-5.1 g/dL GLOBULIN 2.5 1.9-3.7 g/dL (calc) ALBUMIN/GLOBULIN RATIO 1.7 1.0-2.5 (calc) BILIRUBIN, TOTAL 0.4 0.2-1.2 mg/dL ALKALINE PHOSPHATASE 65 31-125 U/L AST 16 10-30 U/L ALT 23 6-29 U/L Reason For Referral Reason PT [facility] Diagnosis 1 Trochanteric bursiti s of right hip (M70.61) Referral Organization [facility] Referring Provider First Name Caro Referring Provider Last Name McNe Referring Provider [facility] ctice General Notes Geoff Gomez 10:36:55 AM > faxed to [facility] and they will call mom Referral Priority Routine Reason MRI right elbow- [facility] Diagnosis 1 Right elbow pain (M2 5.521) Referral Organization [facility] Referring Provider First Name Caro Referring Provider Last Name McBernardo [facility] Geoff Gomez 12:33:27 PM > pre cert in review, Geoff Gomez Jude 02/19/2025 04:32:25 PM > MRI denied Referral Priority Routine Medications Medication SIG (Take, Route, Fr equency, Duration) Notes Start Date End Date Status Meloxicam 15 MG 1 tablet Orally Once a day; Duration: 30 days 02/13/2025 Active rOPINIRole HCl 0.25 MG 1-2tab(s) orally at bedtime; Duration: 30 days Active Gabapentin 400 MG 1 capsule orally 3 t imes a day; Duration: 30 days 01/16/2025 Active Cetirizine HCl 10 MG 1 tab(s) orally onc e a day; Duration: 30 days Active DULoxetine HCl 60 MG 1 cap(s) orally once a day Active DULoxetine HCl 30 MG 1 cap(s) orally once a day Active Omeprazole 20 MG 1 cap(s) orally once a day Active metFORMIN HCl 500 MG 1 tab(s) orally once a day Active Social History Tobacco Use: Social History Observation Description Date Details (start date - stop date) Former Smoker NA - NA Tobacco Control (Standard) Question Answer Notes Tobacco use: Former smoker How long has it been since you last smoked? 5-10 years Problems Problem Type SNOMED Code ICD Code Onset Dates Problem Status W/U Status Risk Notes Problem Primary insomnia (0093172) Primary insomnia (F51.01) Active confirmed Problem Sciatica (67496169) Lumbago with sciatica, right side (M54.41) Active confirmed Problem Sciatica (11369384) Lumbago with sciatica, left side (M54.42) Active confirmed Problem Fibromyalgia (354666609) Fibromyalgia (M79.7) Active confirmed Problem Vitamin D deficiency (09269952) Vitamin D deficiency (E55.9) Active confirmed Problem Neuropathy (441302729) Neuropathy (G62.9) Active confirmed Problem Gastroesophageal reflux disease (596215844) GERD without esophagitis (K21.9) Active confirmed Problem Restless legs (41688265) RLS (restless legs syndrome) (G25.81) Active confirmed Problem Chronic pain (25109519) Other chronic pain (G89.29) Active confirmed Problem Solitary sacroiliitis (324814633) SI (sacroiliac) joint inflammation (M46.1) Active confirmed Vital Signs Heart Rate 82 /min 02/13/2025 Temperature 98 degrees Fahrenheit 02/13/2025 Blood pressure diastolic 74 mm Hg 02/13/2025 Height 5ft 0in in 02/13/2025 Blood pressure systolic 118 mm Hg 02/13/2025 Weight 171 lbs 02/13/2025 BMI 33.39 kg/m2 02/13/2025 Encounters Encounter Location Date Provider Diagnosis [facility] [address] [facility] [address] [place] [address] 11/08/2024 Provider Migration Fibromyalgia M79.7 [facility] [address] [facility] [address] [place] [address] 10/21/2024 Caro McAbbyes Fibromyalgia M79.7 ; RLS (restless legs syndrome) G25.81 ; Primary insomnia F51.01 ; Neuropathy G62.9 ; Prediabetes R73.03 and GERD without esophagitis K21.9 [facility] [address] [place] [address] 11/20/2024 Caro Carolyn Fibromyalgia M79.7 ; Neuropathy G62.9 and Vertigo R42 [facility] [address] [place] [address] 12/04/2024 Caro Jeannees Vitamin D deficiency E55.9 ; Neuropathy G62.9 ; B12 deficiency E53.8 ; Routine medical exam Z00.00 and Prediabetes R73.03 [facility] [address] [address] 01/16/2025 Caroyovani Leon Neuropathy G62.9 ; Fibromyalgia M79.7 ; Lumbago with sciatica, right side M54.41 ; Lumbago with sciatica, left side M54.42 ; Other chronic pain G89.29 and Trochanteric bursitis of right hip M70.61 [facility] [place] [address] [address] 02/13/2025 Caroyovani Leon Neuropathy G62.9 ; Fibromyalgia M79.7 ; Other chronic pain G89.29 ; Trochanteric bursitis of right hip M70.61 ; SI (sacroiliac) joint inflammation M46.1 ; Medial epicondylitis, right elbow M77.01 and Right elbow pain M25.521 [facility] [place] [address] [place] [address] 02/19/2025 Caro McNees Right elbow pain M25.521 [facility] [address] [place] [address] 09/30/2024 José Besson [facility] [address] [place] [address] 10/03/2024 José Besson [facility] [place] [address] [facility] [address] [place] [address] 12/23/2024 Caro McNees [facility] [address] [place] [address] 01/14/2025 Caro McNees [facility] [place] [address] [place] [address] 02/16/2025 Caro McNees Trochanteric bursiti s of right hip M70.61 [facility] [address] [place] [address] 02/18/2025 Caro McNees [facility] [place] [address] [place] [address] 11/25/2024 Caro McNees [facility] [place] [address] [place] [address] 11/25/2024 Caro McNees Assessments Encounter Date Diagnosis (ICD Code) Assessment Notes Treatment Notes Treatment Clinical Notes Section Notes 10/21/2024 Fibromyalgia (ICD-10 - M79.7) Stop meloxicam. Do not take other NSAIDs with ibuprofen Change Lyrica to gabapentin. CSA signed and placed on chart. Juan Manuel report reviewed and is appropriate - discussed ongoing use of controlled medication and safety associated with these medications. RTC in 4-6 weeks 10/21/2024 RLS (restless legs syndrome) (ICD-10 - G25.81) At baseline on requip 11/08/2024 Fibromyalgia (ICD-10 - M79.7) 11/20/2024 Fibromyalgia (ICD-10 - M79.7) Some improvement on low dose gabapentin. Increase to 200mg po TID x 2 weeks, if tolerating and pain has not resolved increase to 300mg po tid. RTC in 6 weeks 11/20/2024 Neuropathy (ICD-10 - G62.9) See above 12/04/2024 Vitamin D deficiency (ICD-10 - E55.9) Will check vit b12/vit D levels and treat as indicated 12/04/2024 Neuropathy (ICD-10 - G62.9) Well controlled on gabapentin No changes made today CSA on chart and UTD Juan Manuel report reviewed and is appropriate - discussed ongoing use of controlled medication and safety associated with these medications 01/16/2025 Fibromyalgia (ICD-10 - M79.7) Warm compresses, stretches 01/16/2025 Neuropathy (ICD-10 - G62.9) Improved on gabapentin but not at goal Increase gabapentin 400mg po RID CSA on chart and UTD Juan Manuel report reviewed and is appropriate - discussed ongoing use of controlled medication and safety associated with these medications 02/13/2025 Fibromyalgia (ICD-10 - M79.7) Warm compresses, stretches 02/13/2025 Neuropathy (ICD-10 - G62.9) Stable gabapentin 02/16/2025 Trochanteric bursitis of right hip (ICD-10 - M70.61) 02/19/2025 Right elbow pain (ICD-10 - M25.521) 02/13/2025 Other chronic pain (ICD-10 - G89.29) 10/21/2024 Primary insomnia (ICD-10 - F51.01) Well controlled on trazodone 01/16/2025 Lumbago with sciatica, right side (ICD-10 - M54.41) See plan below 12/04/2024 B12 deficiency (ICD-10 - E53.8) 11/20/2024 Vertigo (ICD-10 - R42) Reassurance. Discussed vertigo and that it is a time limited condition. Explained vertigo exercises and advised to perform twice daily, once with eyes open and then again with eyes closed. FU in 1-2 weeks if no improvement of symptoms. 10/21/2024 Neuropathy (ICD-10 - G62.9) Gabapentin may help with this also. 12/04/2024 Routine medical exam (ICD-10 - Z00.00) Routine labs drawn today 01/16/2025 Lumbago with sciatica, left side (ICD-10 - M54.42) 02/13/2025 Trochanteric bursitis of right hip (ICD-10 - M70.61) Rest, warm compresses, stretches, change to meloxicam, refer to PT 01/16/2025 Other chronic pain (ICD-10 - G89.29) 02/13/2025 SI (sacroiliac) joint inflammation (ICD-10 - M46.1) 12/04/2024 Prediabetes (ICD-10 - R73.03) Will check a1c and treat as indicated. 10/21/2024 Prediabetes (ICD-10 - R73.03) Tolerating metformin well. Diabetic diet, yearly eye exam, supportive footwear 10/21/2024 GERD without esophagitis (ICD-10 - K21.9) Well controlled on PPI 01/16/2025 Trochanteric bursitis of right hip (ICD-10 - M70.61) Rest, warm compresses, steroids, increase gabapentin, stretches. RTC in 4 weeks to re-evaluate 02/13/2025 Medial epicondylitis, right elbow (ICD-10 - M77.01) No improvement with injection, PT, NSAIDS, steroids. Needs MRI will arrange 02/13/2025 Right elbow pain (ICD-10 - M25.521) Plan Of Treatment Pending Test Test Name Order Date MRI : Elbow, Right 02/13/2025 X ray : Elbow, Right 02/19/2025 Physical Therapy 02/16/2025 Next Appt Details Provider Name:Caro Hill, 03/17/2025 09:30:00 AM, [address], [place], [address], Insurance Providers Payer Name Payer Address Payer Phone Subscriber Number Group Number Insured Name Patient Relationship to Insured Coverage Start Date Coverage End Date [facility] [address] [place] [phone] [id number] Teresa Valentin Self - patient is the insured Medical (General) History Medical History History ICD Code fibromyalgia restless leg syndrome anxiety insomnia pre-diabetes Surgical History Surgery Date(Month/Year) Rt Ankle Surgery 01/03/2024 Appendectomy AUG 2023 EGD 2021 Tonsillectomy x3 2009,2010,2012 Tubal Ligation 2013 Uterine Ablation 2022 Hospitalization History Reason Date(Month/Year) x3 [facility]
--- OUTSIDE RECORDS SUMMARY | 2025-02-20 15:32 | XMS_ITS | Clinical Summary ---
Author Organization [facility] Address [address] [place] [address] Care Team Providers Care Automation Sales Manager Name Role Phone Oriana Spears Primary Care Provider [phone] Allergies Active Allergy Reactions Criticality Noted Date Comments Cephalexin Rash High 02/22/2024 blisters Honey Shortness of breath High 12/19/2023 Honey Bee Venom Other - please docum ent in the comment field Medium 02/22/2024 Sodium Hypochlorite Shortness of breath High 024 Tape/Bandaid Adhesive Rash High 02/22/2024 swelling Medications omeprazole (PriLOSEC) [address] capsule Take 1 capsule (20 mg) by mouth 2 (two) times a day. Do not crush or chew. Active DULoxetine (Cymbalta) [address] capsule Take 1 capsule (60 mg) by mouth. 4 Active ibuprofen 800 MG tablet TAKE ONE TABLET BY MOUTH EVERY 8 HOURS NEEDED FOR PAIN --TAKE WITH FOOD-- 4 Active meclizine (Antivert) 25 MG tablet 1 tablet (25 mg). 5 Active rOPINIRole (Requip) 0.25 MG tablet 1 tablet (0.25 mg). 5 Active fluticasone (Flonase) 50 MCG/ACT nasal spray 4 Active traZODone (Desyrel) 50 MG tablet Take 1 tablet (50 mg) by mouth 1 (one) time each day. Active cetirizine (ZyrTEC) 10 MG tablet Take 1 tablet (10 mg) by mouth 1 (one) time each day if needed. Active clobetasol (Temovate) 0.05 % ointment APPLY OINTMENT TOPICALLY TWICE DAILY TO AFFECTED AREAS ON HANDS AND FINGERS. USE FOR THREE WEEKS ON AND THEN TAKE 1 WEEK OFF BEFORE RESUMING Active DULoxetine (Cymbalta) [address] capsule TAKE 1 CAPSULE BY MOUTH ONCE DAILY FOR NUMBNESS AND TINGLING EVERY MORNING Active Immunizations Immunization Administration Dates Next Due Influenza, seasonal, injectable 05/26/2009 Tdap 05/26/2013,04/05/2011 Family History Medical History Relation Name Comments Neuropathy Father Scoliosis Father Relation Name Status Comments Father Alive Mother Alive Social History Tobacco Use Types Packs/Day Years Used Date Smoking Tobacco: Former Cigarettes 0.5 15 S tarted: 2003 Smokeless Tobacco: Never Tobacco Cessation:Counseling Given: Not Answered Alcohol Use Standard Drinks/Week Comments Yes 0 (1 standard drink = 0.6 oz pur e alcohol) PHQ-2 Answer Date Recorded Patient Health Questionnaire-2 Score 1 08/29/2024 Comments Unknown Sex and Gender Information Value Date Recorded Sex Assigned at Female 02/27/2024 2:36 PM EDT Legal Sex Female 6:05 PM EDT Gender Identity Female 02/27/2024 2:36 PM EDT Sexual Orientation Straight 02/27/2024 2: 36 PM EDT Last Filed Vital Signs Vital Sign Reading Time Taken Comments Blood Pressure 115/76 08/29/2024 8:43 AM EST Pulse 97 08/29/2024 8:43 AM EST Temperature 36.7 C (98 F) 08/29/2024 8:43 AM EST Respiratory Rate - - Oxygen Saturation 100% 08/29/2024 8:43 AM EST Inhaled Oxygen Concentration - - Weight 80.6 kg (177 lb 11.1 oz) 08/29/2024 8:43 AM EST Height 152.4 cm (5') 08/29/2024 8:43 AM EST Body Mass Index 34.7 08/29/2024 8:43 AM EST Plan of Treatment Upcoming Encounters Date Type Department Care Team (Late st Contact Info) Description 09/01/2025 9:00 AM EST Office Visit [facility] [address], [address] [place] [address] Bowen Rendon MD [address] [place] [address] Health Maintenance Due Date Last Done Comments [facility]-HIV Screening 1988 [facility]-Hepatitis C Screening 1988 [facility]-Infant/Child/Adol SDOH Screenings 1988 [facility]-Varicella Vaccines (1 of 2 - 13+ 2-dose series) 2001 HPV Vaccines (1 - 3-dose series) 2003 [facility]- SDOH Screenings 2006 [facility]-Adult SDOH Screenings 2006 [facility]-Hepatitis B Vaccines (1 of 3 - 19+ 3-dose series) 2007 [facility]-Pap Smear 2009 [facility]-Cervical Cancer Screening 2018 [facility]-HPV/Cotest 2018 [facility]-DTaP,Tdap,and Td Vaccine s (3 - Td or Tdap) 05/26/2023 05/26/2013, 04/05/2011 [id number] Vaccine ( - 2023- season) 2024 [facility]-Influenza Vaccine (#1) 2025 05/26/2009 [facility]-Depression Screening 08/29/2025 08/29/2024 [facility]-Diabetes: Hemoglobin A1C 08/29/2025 08/29/2024 [facility]-Zoster Vaccines (1 of 2) 2038 [facility]-Obesity Intervention Completed 025, 02/26/2024 [facility]-HIB Vaccines Aged Out No longer e ligible based on patient's age to complete this topic [facility]-Hepatitis A Vaccines Aged Out No longer eligible based on patient's age to complete this topic [facility]-IPV Vaccines Aged Out No longer e ligible based on patient's age to complete this topic [facility]-Pneumococcal Vaccine: Pediatrics (0 to 5 Years) and At-Risk Patients (6 to 49 Years) Aged Out No longer eligible b ased on patient's age to complete this topic [facility]-Rotavirus Vaccines Aged Out No lo nger eligible based on patient's age to complete this topic Procedures Procedure Name Priority Date/Time Associated Diagnosis Comments HEMOGLOBIN A1C Routine 08/29/2024 9:14 AM EST Idiopathic peripheral neuropathy from Last 3 Months or Most Recently Relevant to Health Maintenance Results * (ABNORMAL) Hemoglobin A1c (08/29/2024 9:14 AM EST) Hemoglobin A1c 5.7(H) <5.7 % 08/29/2024 2:00 PM EST [facility] Blood Venous blood specimen / Unknown Venipuncture / Unknown 08/29/2024 9:14 AM EST 08/29/2024 9:14 AM EST Narrative [facility] - 08/29/2024 2:00 PM EST HA1C Interpretive Data: Diagnosis of Diabetes: Diabetic > or = 6.5% Pre-diabetic 5.7 to 6.4% Non-diabetic < or = 5.6% Glycemic Targets for Type I and Type II Diabetics: Non- Adults <7.0% Adults <6.0% Children and Adolescents <7.5% Source: [place] Diabetes Association. Standards of medical care in diabetes,2017. Diabetes Care.2017:40 (suppl 1):S1-S135. HbA1c assay performed by an ion-exchange chromatography method that is certified traceable to the DCCT. us Bowen Rendon MD LAB BLOOD ORDERABLES Final Resul t [facility] [address] [place] [address] from Last 3 Months or Most Recently Relevant to Health Maintenance Insurance [address] [place], [place] [address] [employer] Care Teams Automation Sales Manager Relationship Specialty Start Date End Date Oriana Spears PA [address] [place] [address] PCP - General 02/26/24
--- OUTSIDE RECORDS SUMMARY | 2025-02-20 15:32 | XMS_ITS | Clinical Summary ---
Author Organization [facility] Address [address] [place] [address] Phone Care Team Providers Care Zinc Skimmer Name Role Phone Luis Patel MD Primary Care Provider Allergies Active Allergy Reactions Criticality Noted Date Comments Adhesive Tape-Silicones Dermatitis Medium 12/19/2012 Micropore tape Bleach (Sodium Hypochlorite) Shortness Of Breath 08/29/2023 Cephalexin Rash 01/05/2024 Propolis (Bee Glue) Hives Medium 12/19/2023 Soap Shortness Of Breath High 05/22/2013 bleach Unclassified Drug Hives Medium 12/19/2023 * Fragrant Mist 2. * The oil that is in money. Medications Norethindrn A-E Estradiol-Iron (LINDEN 24 FE) 1 mg-20 mcg (24)/75 mg (4) Oral TabletIndication s:Pelvic pain Take 1 Tablet by mouth daily. 84 Tablet 3 3 Active Additional Information Patient not taking.Reason: Therapy Completed, Reported on 02/06/2024 escitalopram oxalate (LEXAPRO) 10 mg Oral TabletIndication s:Situational depression Take 1 Tablet by mouth daily. 30 Tablet 2 3 Active Additional Information Patient not taking.Reason: Therapy Completed, Reported on 03/19/2024 linaCLOtide (LINZESS) 145 mcg Oral CapsuleIndicatio ns:Chronic idiopathic constipation Take 1 Capsule by mouth daily. 30 Capsule 11 3 Active Additional Information Patient not taking.Reason: Therapy Completed, Reported on 03/19/2024 metFORMIN (GLUCOPHAGE) 500 mg Oral Tablet Take by mouth 2 times daily. Active atorvastatin (LIPITOR) 10 mg Oral Tablet Take 1 tablet by mouth once daily 30 Tablet 3 Active Additional Information Patient not taking.Reason: Therapy Completed, Reported on 02/06/2024 nitrofurantoin, macrocrystal-mon ohydrate, (MACROBID) 100 mg Oral Capsule Take 100 mg by mouth as needed. 4 Active clobetasoL (TEMOVATE) 0.05 % Top Ointment Apply topically as needed for Irritation. 4 Active DULoxetine (CYMBALTA) 60 mg Oral Capsule, Delayed Release(E.C.) Take 60 mg by mouth as needed for Other. 4 Active cetirizine (ZYRTEC) 5 mg Oral Tablet Take by mouth as needed. Active nalOXone (NARCAN) 4 mg/actuation Nasl [place], Non-Aerosol 0.1 mL by Nasal route as needed for Opioid Reversal. 1 Each 4 Active Additional Information Patient not taking.Reason: Therapy Completed, Reported on 02/13/2024 ammonium lactate (AMLACTIN) 12 % Top Cream Apply topically as needed for Dry Skin. 140 g 2 4 Active omeprazole (PRILOSEC) 20 mg Oral Capsule, Delayed Release(E.C.)Ind ications:Dyspeps ia Take 1 capsule by mouth twice daily 60 Capsule 5 Active Active Problems Patient Care Coordination No te Formatting of this note migh t be different from the original. Utilization audit completed by Brigitte May RN on 05/18/2023. Problem Noted Date Diagnosed Date Tenosynovitis of right ankle 01/03/2024 Sprain of anterior talofibular ligament of right ankle 12/19/2023 Chronic pain of right ankle 12/19/2023 Peroneal tendinitis, right 12/19/2023 Thyromegaly-mild 03/27/2013 Overview (05/19/2013): TSH wnl A1GDM 03/06/2013 Overview (07/07/2013): Diabetic counseling MFM consult. testing Will need 2hr GTT 6 weeks pp (ordered) Resolved Problems Problem Noted Date Diagnosed Date Resolved Date False positive serology for HIV 05/22/2013 05/22/2013 False positive HIV serology 05/13/2013 10/05/2022 Overview (05/22/2013): In 2010 +HIV Ab/Ag --> WB negative For this 's PNL, +HIV Ab/Ag --> WB indeterminate 12/2012 --> retest again indeterminate 05/2013. Discussed with pt most likely negative as 2 indeterminate western blots >1 month apart but, as initial reactive testing done on Ag/Ab screen, HIV RNA testing ordered --> resulted negative. Pre-operative evaluation for tubal ligation 01/10/2013 10/05/2022 Overview (05/13/2013): States will f/u with Dr. Anguiano after C/S Supervision of high-risk 12/20/2012 10/05/2022 Overview (05/13/2013): PNL wnl x HIV (see separate problem list item) Dating by 16 week U/S Anatomy U/S wnl GBS neg Baby Boy Walker History of gestational diabetes 12/10/2012 07/07/2013 Overview (05/13/2013): Early GCT elevated History of delivery , currently 12/10/2012 10/05/2022 Overview (05/13/2013): The patient was counseled on the risks of section to include: bleeding, infection, need for further surgery, injury to the bowel, bladder, ovaries, tubes, uterus, great vessels in the abdomen, the , blood clot, and/or . She was also counseled on the benefits and risks of including uterine rupture. Repeat C/S scheduled for 05/26 Immunizations Immunization Administration Dates Next Due Influenza Seasonal Injectable 05/26/2009 Influenza Vaccine, Unspecified Formulation 05/26 Tdap 05/26/2013,04/05/2011 Surgical History Surgery Date Site/Laterality Comments TONSILLECTOMY SECTION 2009 SECTION 04/03/2011 N/A REPEAT SECTION - SCIP performed by DAMASO GOEL at [facility] SECTION 05/26/2013 N/A REPEAT SECTION (39) low transverse uterine incision at 0846; Surgeon: Taylor Nolen DO; Location: [facility]; Service: Gynecology TUBAL LIGATION ENDOMETRIAL ABLATION 05/06/2023 LAPAROSCOPIC APPENDECTOMY 08/21/2023 [facility] DENTAL SURGERY wisdom teeth ANKLE SURGERY 01/03/2024 Foot/Ankle/Right Repair of lateral ankle ligaments of the right ankle Tenosynovectomy/tendon debridement of the peroneal tendons of the right ankle; Surgeon: Teja Boucher DPM; Location: [facility]; Service: Orthopedics Medical devices from this surgery are in the Medical Devices section. ANKLE SURGERY 01/03/2024 Foot/Ankle/Right Surgeon: Teja Boucher DPM; Location: [facility]; Service: Orthopedics Medical devices from this surgery are in the Medical Devices section. Medical History Medical History Date Comments Heartburn with Gestational diabetes mellitu s in childbirth 08/06/2008 Gestational diabetes mellitus 03/06/2013 no med Thyromegaly-mild 03/27/2013 pt unaware of i t being a problem Depression 08/06/2009 PP depression Motion sickness Prediabetes Neuropathy Anesthesia complication 08/21/2023 States s he flatlined during anesthesia Family History Medical History Relation Name Comments Anesth Problems Father flatlined fr om surgery Asthma Father Cancer Father Skin Cancer. Colon Polyps Father High Blood Pressure Father Hypertension Father Diabetes Paternal Grandfather Heart Disease Paternal Grandfather Relation Name Status Comments Father Alive Maternal Grandfather Alive Maternal Grandmother Alive Mother Alive Paternal Grandfather Paternal Grandmother Alive Social History Tobacco Use Types Packs/Day Years Used Date Smoking Tobacco: Former Cigarettes 0.3 4 0 08/06/2007 - 03/06/2009 Passive Smoke Exposure: Past Smokeless Tobacco: Never Tobacco Cessation:Counseling Given: Not Answered Alcohol Use Standard Drinks/Week Comments No 0 (1 standard drink = 0.6 oz pur e alcohol) PHQ-2 Answer Date Recorded PHQ-2 Total Score 6 11/24/2022 Sexually Active Control Partners Comments Yes Surgical Male Fiance. 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 on file Not on file No t on file Obstetrics History Para Term AB IAB SAB Ectopic Multiple Livin g Live Births 3 3 3 0 3 3 Date Outcome GA Total Labor Labor/2nd/3rd Weight Sex Type Anes PTL Lara A1 A5 Name Clin 2009 Term 37w 0d 5 lb (2.268 kg) M CS-LT ranv Spinal N Livin g Comments:GDM, br adycardia 2010 Term 40w 3d 0h 02m 8 lb 4.8 oz (3.765 kg) M CS-LT ranv Epidur al N Livin g 9 9 FRIED LY,NA JAMIE BABY A Stone , Marihe reyes Complications:Desires ( vaginal after ) trial,Failure to progress in labor Delivery Location:[facility] 2012 Term 39w 1d 8 lb 4 oz (3.742 kg) M 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 Spinal N Livin g 9 9 LAWSO N,TERELL [place] BABY A Carpen ter, Beronica line Nidia, DO Delivery Location:[facility] Last Filed Vital Signs Vital Sign Reading Time Taken Comments Blood Pressure 112/74 01/03/2024 11:00 AM EDT Pulse 80 01/03/2024 11:00 AM EDT Temperature 36.1 C (96.9 F) 04/23/2024 9:12 AM EDT Respiratory Rate 20 01/03/2024 11:00 AM EDT Oxygen Saturation 99% 01/03/2024 11:00 AM EDT Inhaled Oxygen Concentration - - Weight 74.4 kg (164 lb) 04/23/2024 9:12 AM EDT Height 152.4 cm (5') 04/23/2024 9:12 AM EDT Body Mass Index 32.03 04/23/2024 9:12 AM EDT Plan of Treatment Health Maintenance Due Date Last Done Comments Kimberly 1988 FIT 1988 Sigmoidoscopy 1988 Virtual Colonography 1988 Hepatitis B Vaccine (1 of 3 - 19+ 3-dose series) 2007 DTaP/TDaP/Td (3 - Td or Tdap) 05/26/2023 05/26/2013, 04/05/2011 Annual Wellness Exam 01/30/2024 01/29/2023, 05/22/20 14 COVID-19 Vaccine ( season) 2024 Pap Smear 05/30/2024 05/30/2021, 01/04, 12/10/2012, Additional history exists Influenza Vaccine (#1) 2025 7 (Declined), 10/09/2016 (Declined), 05/04/2015 (Declined), Additional history exists Cervical Cancer Screening 05/30/2026 HPV/Pap Cotest 05/30/2026 05/30/2021 Colon Cancer Screening 12/11/2032 Colonoscopy 12/11/2032 12/14/2022 Meningococcal B Vaccine Aged Out No l onger eligible based on patient's age to complete this topic Pneumococcal Vaccine 0-49 Aged Out No longer eligible based on patient's age to complete this topic Goals Goal Patient Goal Type Associated Problems Recent Progress Patient-Stated? Author Eat better, exercise, reach an ideal body weight General No Erickson Louen, RMA Stay Tobacco Free Lifestyle No Yodit Lou, RMA Medical Devices Implanted Type Area Ophthalmology Assistant Device Identifier Shelf Expiration Date Model / Serial / Lot [place] [facility] Rdpq Mrkr 4.75x3.5mm Drill Bn Tap Gw - [id number] Implanted:Qty: 1 on 01/03/2024 by Teja Boucher DPM at [facility] Right: Ankle ARTHREX [id number] / / [id number] Procedures Procedure Name Priority Date/Time Associated Diagnosis Comments COLONOSCOPY Routine 12/14/2022 10:24 AM EDT Chronic idiopathic constipation Rectal bleeding 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 Findings The entire colon appeared normal. One external small hemorrhoid; no bleeding was identified Recommendation Follow up with PCP Okay to resume all home medications. Repeat screening colonoscopy in 10 years Continue Linzess daily for constipation Follow up in 1 year; sooner if issues arise Indication Rectal bleeding, Chronic idiopathic constipation Staff Staff Role Jason Mancia MD Performing Provider CORINA Lau CRNA, RN Nurse Medications See Anesthesia Record. Preprocedure A history and physical has been performed, and patient medication allergies have been reviewed. The patient's tolerance of previous anesthesia has been reviewed. The risks and benefits of the procedure and the sedation options and risks were discussed with the patient. All questions were answered and informed consent obtained. ASA 2 - Patient with mild systemic disease Details of the Procedure The patient underwent monitored anesthesia care, which was administered by an anesthesia professional. The patient's blood pressure, heart rate, level of consciousness, oxygen, respirations, ECG and ETCO2 were monitored throughout the procedure. A digital rectal exam was performed. The scope was introduced through the anus and advanced to the cecum. Retroflexion was performed in the rectum. Bowel prep was adequate. The patient experienced no blood loss. The procedure was not difficult. The patient tolerated the procedure well. There were no apparent adverse events. Patient provided education and educated on specific discharge instructions. Patient educated on medications given during the procedure and new medications for discharge. Patient verbalizes understanding of discharge education. Patient stable and awaiting transport for discharge. 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 CYTOLOGY REQUEST (PAP ONLY) (05/30/2021 10:19 AM EDT) CASE REPORT Gynecologic Cytology Report Case: [id number] Authorizing Provider: Amy Thompson MD Collected: 05/30/2021 1019 Ordering Location: [facility] Edg Received: 05/30/2021 1019 First Screen: Kaiden Wen CT Specimen: LIQUID-BASED PAP - CERVICAL/ENDOCERV ICAL, Cervix, Endocervical 06/01/2021 8:56 AM EDT [facility] PAP FINAL DIAGNOSIS Negative for intraepithelial lesion or malignancy 06/01/2021 8:56 AM EDT [facility] at 0856 EDT MICROSCOPIC DESCRIPTION Microscopic examination is performed and the findings corroborate the diagnosis. 06/01/2021 8:56 AM EDT [facility] PAP SMEAR ADEQUACY Satisfactory for evaluation 06/01/2021 8:56 AM EDT [facility] PAP ORGANISMS NOTED Abundant bacteria present. 06/01/2021 8:56 AM EDT [facility] ENDOCERVICAL T-ZONE Transformation zone present 06/01/2021 8:56 AM EDT [facility] EMBEDDED IMAGES 8:56 AM EDT [facility] PAP DISCLAIMER The Pap Smear is a screening test that aids in the detection of cervical cancer and cancer precursors. Both false positive and false negative results can occur. The test should be used at regular intervals, and positive results should be confirmed before definitive therapy. Processed using the ThinPrep Family Partner Automated cytology screening device ([employer]). 06/01/2021 8:56 AM EDT [facility] Thin Prep ENDOCERVICAL STRUCTURE / Unknown 05/30/2021 10:19 AM EDT 05/30/2021 10:19 AM EDT us Amy Thompson MD CYTOLOGY ORDERABLES Final Resul t [facility] [address] [id number] from Last 3 Months or Most Recently Relevant to Health Maintenance Insurance [facility] MEDICAID [facility] MEDICAID MEDICAID PATSY LOPEZ MEDICAID Advance Directives For more information, please contact: [phone] * Full Code (Latest Code Status on File) Date Activated Date Inactivated Comments 05/26/2013 7:12 AM 05/28/2013 5:46 PM Care Teams Zinc Skimmer Relationship Specialty Start Date End Date Luis Patel MD [facility] [place] [address] [place] [id number] PCP - General Internal Medicine 10/09/16
--- NOTE | 2025-02-20 16:00 | US_ITS ---
PROCEDURE: US TRANSVAGINAL CLINICAL INDICATION: AUB COMPARISON: CT CT ABDOMEN PELVIS W CON from 08/21/[address] ABDOMEN PELVIS W CON from 12/11/2023 FINDINGS: Transvaginal sonographic images of the pelvis were obtained. UTERUS: 7.5 cm x 4.5cmx 3.1cm anteverted with a combined endometrial thickness of 3.9mm. A scar is seen. There is a small posterior fibroid measuring 1.3 cm x 0.8 cm x 1.1 cm LEFT OVARY: 2.4cmx1.6 cmx2.1cm with a volume of 4.4ml. Follicle 1. 0.9 cm Follicle 2. 1.1 cm RIGHT OVARY: 2.1cmx 2.0cmx1.8 cm with a volume of 3.8ml. There is a follicle measuring 1.1 cm x 1.2 cm x 1.2 cm. Both ovaries are seen and appear normal. Doppler flow to both ovaries are seen. There is no fluid in the cul-de-sac. IMPRESSION: 1. Anteverted uterus normal in shape and size. A scar is seen and contains a small amount of fluid below the scar. The endometrium is thin measuring 3.9 mm. 2. In the posterior uterus there appears to be a small fibroid measuring 1.3 cm and within this fibroid there is small a fluid-filled area. 3. Both ovaries are seen and appear normal. They both contain small follicles. 4. No fluid in the cul-de-sac. Dictated by: Marcial Sommers MD 02/21/2025 07:15 Marcial Sommers MD in OV 02/21/2025 07:15
== END 2025-02-20 23:59 | disposition home or self-care (01) ==
LOC: RAD 15:30
PROVIDERS: PCP Nurse Practitioner Family; Visit Provider Obstetrics & Gynecology
DX: N85.4 Malposition of uterus (principal); R93.89 Abnormal findings on diagnostic imaging of other specified body structures; D25.9 Leiomyoma of uterus, unspecified
CPT/HCPCS: 76830

== ENCOUNTER 2025-02-24 12:54 | Outpatient (CLI) | payer OTHER, SELFPAY ==
--- OUTSIDE RECORDS SUMMARY | 2025-02-13 10:45 | XMS_ITS ---
Author Organization [facility] PE D YOSELYN Address [address] [place] [address] [place] [address] Care Team Providers Care Dance Entertainer Name Role Phone Caro Leon Primary Care Provider [phone] CARO Leon APRN Unavailable Unavailable Allergies Allergen [...] Allergy Active Reason For Referral Reason PT [facility] Diagnosis 1 Trochanteric bursiti s of right hip (M70.61) Referral Organization [facility] JACOB BALL Referring Provider First Name Caro Referring Provider Last Name Carolyn Referring Provider [facility] General Notes Geoff Gomez 10:36:55 AM > faxed to [facility] and they will call mom Referral Priority Routine Reason MRI right elbow- [facility] Diagnosis 1 Right elbow pain (M2 5.521) Referral Organization [facility] PED LIZZY Referring Provider First Name Caro Referring Provider Last Name Carolyn Referring Provider [facility] ctice General Notes Geoff Gomez 12:33:27 PM [...] 02/13/2025 Encounters Encounter Location Date Provider Diagnosis [address] [address] 02/13/2025 Caro McNees Neuropathy G62.9 ; Fibromyalgia [...] Referrals Referral Date Details 02/13/2025 02/13/2025, PT [facility] 02/13/2025 02/13/2025, MRI rig t elbow- [facility] Next Appt Details Follow Up: pending mri, Reas on: Provider Name:Caro Hill, 03/17/2025 09:30:00 AM, [address] [place] [facility] [address] [facility], [address], [place], [address], Progress Notes * Teresa VALENTIN LDOB:1990 (34 yo F)Acc No.[id number]:02/13/2025 Progress Notes Patient: Teresa JAVED Provider: Anu Leon APRN :1990 A ge:34 Y S ex:Female Date:02/13/2025 Address:[address] [place] [address] [id number] Subjective: * Chief Complaints: * 1 . [...] Right* ? Referral To: ?Reason:MRI right elbow- [facility] * Follow Up: p ending mri * * Sign off status: Completed true * Provider: Anu Leon APRN Date: 02/13/2025 Generated for Qi xiong/Jay/Koryitting on: 02/24/2025 01:00 PM EDT History and Physical Notes * [...] Not vernell 02/13/2025 Caro Leon , PT [facility] 02/13/2025 Caro Leon , MRI right elbo w- [facility]
--- OUTSIDE RECORDS SUMMARY | 2025-02-16 06:35 | XMS_ITS ---
Author Organization [facility] Address [address] [place] [address] Care Team Providers Care Pricing/Signage Team Member Name Role Phone Brett Leon Primary Care Provider [phone] BRETT Leon APRN Unavailable Unavailable REASON FOR VISIT PT order Encounters Encounter Location Date Provider Diagnosis [address] [address] 02/16/2025 Brett Leon Trochanteric bursiti s of [address], [place], [address], Progress Notes * Teresa VALENTIN LDOB:1990 (34 yo F)Acc No.[id number]:02/16/2025 Patient: Екатерина JAVEDamna Hitchcock :1990 A ge:34 Y S ex:Female Address: [address] [place] [address] Subjective: * Chief Complaints: * P T order * Medical History: * Surgical History: * Hospitalization/Major Diagno stic Procedure: * Medications: Objective: * Vitals: * Physical Examination: Assessment: * Assessment: 1. T rochanteric bursitis of right hip - M70.61 (Primary) Plan: * Treatment: * Procedure Codes: * true * Date: Generated for Qi xiong/Jay/Risa on: 0 02/24/2025 01:00 PM EDT
--- OUTSIDE RECORDS SUMMARY | 2025-02-19 11:17 | XMS_ITS ---
Author Organization [facility] Address [address] [facility] [address] [place] [address] Care Team Providers Care Keeper Head Name Role Phone Brett Leon Primary Care Provider [phone] BRETT Leon APRN Unavailable Unavailable REASON FOR VISIT MRI elbow denied Encounters Encounter Location Date Provider Diagnosis [address] [address] 02/19/2025 Brett Leon Right elbow pain M25.521 Assessments Encounter Date Diagnosis (ICD Code) Assessment Notes Treatment Notes Treatment Clinical Notes Section Notes 02/19/2025 Right elbow pain (ICD-10 - M25.521) Plan Of Treatment Pending Test Test Name Order Date X ray : Elbow, Right 02/19/2025 Next Appt Details Provider Name:Brett Hill, 03/17/2025 09:30:00 AM, [address] [facility], [address], [place], [address], Progress Notes * Teresa VALENTIN LDOB:1990 (34 yo F)Acc No.[id number]:02/19/2025 Patient: Teresa JAVED :1990 A ge:34 Y S ex:Female Address: [place] [address] Subjective: * Chief Complaints: * M RI elbow denied * Medical History: * Surgical History: * Hospitalization/Major Diagno stic Procedure: * Medications: Objective: * Vitals: * Physical Examination: Assessment: * Assessment: 1. R ight elbow pain - M25.521 (Primary) Plan: * Treatment: * Procedure Codes: * * Date:
--- NOTE | 2025-02-24 12:58 | XR_ITS ---
FINAL REPORT CLINICAL HISTORY: PAIN COMPARISON: 08/19/2024 FINDINGS: Three views of the right elbow were obtained. There is no acute fracture or dislocation. There is a small chronic appearing avulsion fracture along the proximal ulna seen on lateral view only, stable. There is no joint effusion. The joint spaces are intact. There is no soft tissue abnormality. IMPRESSION: No acute bony abnormality. Reviewed, Interpreted and Dictated by Temo Vicente MD Transcribed by Brandi Ellis Authenticated and . [facility]
--- OUTSIDE RECORDS SUMMARY | 2025-02-24 12:59 | XMS_ITS | Clinical Summary ---
Author Organization [facility] Address [address] [place] [address] Phone Care Team Providers Care Cage/Vault Supervisor Name Role Phone Luis Patel MD Primary Care Provider [phone] Allergies Active Allergy Reactions Criticality Noted Date [...] needed. Active nalOXone (NARCAN) 4 mg/actuation Nasl [place], Non-Aerosol 0.1 mL by Nasal route as [...] - SCIP performed by DAMASO GOEL at [facility] SECTION 05/26/2013 N/A REPEAT SECTION (39) low transverse uterine incision at 0846; Surgeon: Taylor Nolen DO; Location: [facility]; Service: Gynecology TUBAL LIGATION ENDOMETRIAL ABLATION 05/06/2023 LAPAROSCOPIC APPENDECTOMY 08/21/2023 [facility] DENTAL SURGERY wisdom teeth ANKLE SURGERY 01/03/2024 Foot/Ankle/Right Repair of lateral ankle ligaments of the right ankle Tenosynovectomy/tendon debridement of the peroneal tendons of the right ankle; Surgeon: Teja Boucher DPM; Location: [facility]; Service: Orthopedics Medical devices from this surgery are in the Medical Devices section. 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 Spinal N Livin g 9 9 LAWSO N,TERELL [place] BABY A Carpen ter, Beronica line Nidia, DO Delivery Location:[facility] Last Filed Vital Signs Vital Sign Reading [...] Lou, RMA Medical Devices Implanted Type Area Medicinal Plant Picker Device Identifier Shelf Expiration Date Model / Serial / Lot [facility] Rdpq Mrkr 4.75x3.5mm Drill Bn Tap Gw - [id number] Implanted:Qty: 1 on 01/03/2024 by Teja Boucher DPM at [facility] Right: Ankle ARTHREX [id number] / / [id number] Procedures Procedure Name Priority Date/Time Associated Diagnosis Comments COLONOSCOPY Routine 12/14/2022 10:24 AM EDT Chronic idiopathic constipation Rectal bleeding FIRE ADJUSTER CYTOLOGY REQUEST (PAP ONLY) Routine 05/30/2021 10:19 [...] MD ENDOSCOPY PROCEDURE ORDERABLES Final Result * FIRE ADJUSTER CYTOLOGY REQUEST (PAP ONLY) (05/30/2021 10:19 AM EDT) CASE REPORT Gynecologic Cytology Report Case: [id number] Authorizing Provider: Amy Thompson MD Collected: 05/30/2021 1019 Ordering Location: [facility] Edg Received: 05/30/2021 1019 First Screen: Kaiden Wen CT Specimen: LIQUID-BASED PAP - CERVICAL/ENDOCERV ICAL, Cervix, Endocervical 06/01/2021 8:56 AM EDT [facility] PAP FINAL DIAGNOSIS Negative for intraepithelial lesion or malignancy 06/01/2021 8:56 AM EDT [facility] at 0856 EDT MICROSCOPIC DESCRIPTION Microscopic examination is performed and the findings corroborate the diagnosis. 06/01/2021 8:56 AM EDT [facility] PAP SMEAR ADEQUACY Satisfactory for evaluation 06/01/2021 8:56 AM EDT [facility] PAP ORGANISMS NOTED Abundant bacteria present. 06/01/2021 8:56 AM EDT [facility] ENDOCERVICAL T-ZONE Transformation zone present 06/01/2021 8:56 AM EDT [facility] EMBEDDED IMAGES 8:56 AM EDT [facility] PAP DISCLAIMER The Pap Smear is a screening test that aids in the detection of cervical cancer and cancer precursors. Both false positive and false negative results can occur. The test should be used at regular intervals, and positive results should be confirmed before definitive therapy. Processed using the ThinPrep Forestry Technical Officer Automated cytology screening device ([employer]). 06/01/2021 8:56 AM EDT [facility] Thin Prep ENDOCERVICAL STRUCTURE / Unknown 05/30/2021 10:19 AM EDT 05/30/2021 10:19 AM EDT us Amy Thompson MD CYTOLOGY ORDERABLES Final Resul t [facility] [address] [phone] from Last 3 Months or Most Recently Relevant to Health Maintenance Insurance [facility] MEDICAID [facility] MEDICAID MEDICAID [employer]OPE[place] MEDICAID Advance Directives For more information, please contact: [phone] * Full Code (Latest Code Status on File) Date Activated Date Inactivated Comments 05/26/2013 7:12 AM 05/28/2013 5:46 PM Care Teams Cage/Vault Supervisor Relationship Specialty Start Date End Date Luis Patel MD [facility] [place] [address] [place] [id number] PCP - General Internal Medicine 10/09/16
--- OUTSIDE RECORDS SUMMARY | 2025-02-24 13:00 | XMS_ITS | Patient Health Record ---
Author Organization [facility] Address [address] [place] [address] Care Team Providers Care Night Monitor Name Role Phone Caro Leon Primary Care Provider CARO Leon APRN Unavailable Unavailable José Khan Unavailable [phone] Migration, Provider Unavailable Unavailable Allergies Allergen (clinical [...] Active Results Component Value Reference Range Notes LIPID PANEL, STANDARD (7600) Reviewed date:12/05/2024 11:16:35 AM Interpretation: Performing Lab:CB, [facility] [address] [facility], [facility] HospitalCyedDQ[address] Humberto Villagomez Notes/Report: NON-FASTING; NON-FASTING; NON-FASTING; NON-FASTING; NON-FAST FASTING:YES FASTING: YES CHOLESTEROL, TOTAL 211 <200 mg/dL HDL CHOLESTEROL 64 > OR = 50 mg/dL TRIGLYCERIDES 80 <150 mg/dL LDL-CHOLESTEROL 130 Reference range: <100 Desirable range <100 mg/dL for primary prevention; <70 mg/dL for patients with CHD or diabetic patients with > or = 2 CHD risk factors. LDL-C is now calculated using the Adriano calculation, which is a validated novel method providing better accuracy than the Friedewald equation in the estimation of LDL-C. Ricardo MOSS et al. ROSSY. 2013;310(19): 0397-5295 (http://education.ReelBig.Editorially/faq/QJL677) CHOL/HDLC RATIO 3.3 <5.0 (calc) NON HDL CHOLESTEROL 147 <130 mg/dL (calc) For patients with diabetes plus 1 major ASCVD risk factor, treating to a non-HDL-C goal of <100 mg/dL (LDL-C of <70 mg/dL) is considered a therapeutic option. COMPREHENSIVE METABOLIC PANE (11339) Reviewed date:12/05/2024 11:16:35 AM Interpretation: Performing Lab:MARINA, [employer] [address], SeafileLbrqZZ[address] Humberto Villagomez Notes/Report: NON-FASTING; NON-FASTING; NON-FASTING; NON-FASTING; [...] 16 10-30 U/L ALT 23 6-29 U/L CBC (INCLUDES DIFF/PLT) (639 9) Reviewed date:12/05/2024 11:16:35 AM Interpretation: Performing Lab:[facility], [employer], [facility] SoftwareWvbjTT[address] Humberto Villagomez Notes/Report: NON-FASTING; NON-FASTING; NON-FASTING; NON-FASTING; NON-FAST FASTING:YES FASTING: YES WHITE BLOOD CELL COUNT 6.0 3.8-10.8 Thousand/ [...] MPV 9.6 7.5-12.5 fL ABSOLUTE NEUTROPHILS 3360 2919-9321 cells/uL ABSOLUTE LYMPHOCYTES 2154 850-3900 cells/uL ABSOLUTE MONOCYTES 348 200-950 cells/uL ABSOLUTE EOSINOPHILS 120 15-500 cells/uL ABSOLUTE BASOPHILS 18 0-200 cells/uL NEUTROPHILS 56 LYMPHOCYTES 35.9 MONOCYTES 5.8 EOSINOPHILS 2.0 BASOPHILS 0.3 HEMOGLOBIN A1c (496) Reviewed date:12/05/2024 11:16:35 AM Interpretation: Performing Lab:CB, [facility] [id number] [facility], [facility]kveNY[address] Humberto Villagomez Notes/Report: NON-FASTING; NON-FASTING; NON-FASTING; NON-FASTING; [...] diagnosis of diabetes in children. According to [place] Diabetes Association (ADA) guidelines, hemoglobin A1c <7.0% represents optimal control in non- diabetic patients. Different metrics may apply to specific patient populations. Standards of Medical Care in Diabetes(ADA). VITAMIN B12 (207) Reviewed date:12/05/2024 11:16:35 AM Interpretation: Performing Lab:CB, [facility] [address], [facility] HospitalMdluOZ[address] Humberto Villagomez Notes/Report: NON-FASTING; NON-FASTING; NON-FASTING; NON-FASTING; NON-FAST FASTING:YES FASTING: YES VITAMIN B12 793 928-1033 pg/mL VITAMIN D,25-OH,TOTAL,IA (17 306) Reviewed date:12/05/2024 11:16:35 AM Interpretation: Performing Lab:MARINA, [facility] [address], [facility] MinnesotaNgelBG[address] Humberto Villagomez Notes/Report: NON-FASTING; NON-FASTING; NON-FASTING; NON-FASTING; NON-FAST FASTING:YES FASTING: YES VITAMIN D,25-OH,TOTAL,IA 35 30-100 ng/mL Vitamin D Status 25-OH Vitamin D: Deficiency: <20 ng/mL Insufficiency: 20 - 29 ng/mL Optimal: > or = 30 ng/mL For 25-OH Vitamin D testing on patients on D2-supplementation and patients for whom quantitation of D2 and D3 fractions is required, the QuestAssureD(TM) 25-OH VIT D, (D2,D3), LC/MS/MS is recommended: order code 61017 (patients >2yrs). See Note 1 Note 1 For additional information, please refer to http://education.M87/faq/OBN750 (This link is being provided for informational/ educational purposes only.) Reason For Referral Reason PT [facility] Diagnosis 1 Trochanteric bursiti s of right hip (M70.61) Referral Organization [facility] Referring Provider First Name Caro Referring Provider Last Name Abby Referring Provider [facility] General Notes Geoff Gomez 10:36:55 AM > faxed to [facility] and they will call mom Referral Priority Routine Reason MRI right elbow- [facility] Diagnosis 1 Right elbow pain (M2 5.521) Referral Organization [facility] Referring Provider First Name Caro Referring Provider Last Name Abby Referring Provider [facility] General Notes Geoff Gomez 12:33:27 PM > pre cert in review, Geoff Gomez 02/19/2025 04:32:25 PM > MRI denied Referral Priority Routine Medications Medication SIG (Take, Route, Fr equency, Duration) Notes Start Date End Date Status Meloxicam 15 MG 1 tablet Orally Once a day; Duration: 30 days 02/13/2025 Active Omeprazole 20 MG 1 cap(s) orally once a day; Duration: 90 days Active Gabapentin 400 MG 1 capsule orally 3 t imes a day; Duration: 30 days 01/16/2025 Active Cetirizine HCl 10 MG 1 tab(s) orally onc e a day; Duration: 30 days Active rOPINIRole HCl 0.25 MG 1-2tab(s) orally at bedtime; Duration: 90 days Active DULoxetine HCl 60 MG 1 [...] W/U Status Risk Notes Problem Primary insomnia (9556176) Primary insomnia (F51.01) Active confirmed Problem Sciatica (67998846) Lumbago with sciatica, right side (M54.41) Active confirmed Problem Sciatica (83910377) Lumbago with sciatica, left side (M54.42) Active confirmed Problem Fibromyalgia (431987971) Fibromyalgia (M79.7) Active confirmed Problem Vitamin D deficiency (86266652) Vitamin D deficiency (E55.9) Active confirmed Problem Neuropathy (953744458) Neuropathy (G62.9) Active confirmed Problem Gastroesophageal reflux disease (132015791) GERD without esophagitis (K21.9) Active confirmed Problem Restless legs (79611986) RLS (restless legs syndrome) (G25.81) Active confirmed Problem Chronic pain (23436873) Other chronic pain (G89.29) Active confirmed Problem Solitary sacroiliitis (642100173) SI (sacroiliac) joint inflammation (M46.1) Active confirmed Vital Signs Heart Rate 82 /min 02/13/2025 Temperature 98 degrees Fahrenheit 02/13/2025 Blood pressure diastolic 74 mm Hg 02/13/2025 Height 5ft 0in in 02/13/2025 Blood pressure systolic 118 mm Hg 02/13/2025 Weight 171 lbs 02/13/2025 BMI 33.39 kg/m2 02/13/2025 Encounters Encounter Location Date Provider Diagnosis [facility] [address] [facility] [address] [place] [address] 11/08/2024 Provider Migration Fibromyalgia M79.7 [facility] [address] [facility] [address] [place] [address] 10/21/2024 Caro McNees Fibromyalgia M79.7 ; RLS (restless legs syndrome) G25.81 ; Primary insomnia F51.01 ; Neuropathy G62.9 ; Prediabetes R73.03 and GERD without esophagitis K21.9 [facility] [address] [facility] [address] [place] [address] 11/20/2024 Caro Carolyn Fibromyalgia M79.7 ; Neuropathy G62.9 and Vertigo R42 [facility] [address] [place] [address] 12/04/2024 Caro Jeannees Vitamin D deficiency E55.9 ; Neuropathy G62.9 ; B12 deficiency E53.8 ; Routine medical exam Z00.00 and Prediabetes R73.03 [facility] [address] [address] 01/16/2025 Caro Leon Neuropathy G62.9 ; Fibromyalgia M79.7 ; Lumbago with sciatica, right side M54.41 ; Lumbago with sciatica, left side M54.42 ; Other chronic pain G89.29 and Trochanteric bursitis of right hip M70.61 [facility] [address] [address] 02/13/2025 Caroyovani Leon Neuropathy G62.9 ; Fibromyalgia M79.7 ; Other chronic pain G89.29 ; Trochanteric bursitis of right hip M70.61 ; SI (sacroiliac) joint inflammation M46.1 ; Medial epicondylitis, right elbow M77.01 and Right elbow pain M25.521 [facility] [address] [place] [address] 02/19/2025 Caro McNees Right elbow pain M25.521 [facility] [address] [place] [address] 09/30/2024 José Besson [facility] [address] [place] [address] 10/03/2024 José Besson [facility] [address] [place] [address] 12/23/2024 Caro McNees [facility] [address] [place] [address] 01/14/2025 Caro McNees [facility] [address] [place] [address] 02/16/2025 Caro McNees Trochanteric bursiti s of right hip M70.61 [facility] [address] [place] [address] 02/18/2025 Caro McNees [facility] [address] [place] [address] 11/25/2024 Caro McNees [facility] [address] [place] [address] 11/25/2024 Caro McNees [facility] [address] [place] [address] 02/22/2025 Caro McNees [facility] [address] [place] [address] 02/22/2025 Caro McNees Assessments Encounter Date Diagnosis (ICD [...] made today CSA on chart and UTD [facility] report reviewed and is appropriate - discussed ongoing use of controlled medication and safety associated with these medications 01/16/2025 Fibromyalgia (ICD-10 - M79.7) Warm compresses, stretches 01/16/2025 Neuropathy (ICD-10 - G62.9) Improved on gabapentin but not at goal Increase gabapentin 400mg po RID CSA on chart and UTD [facility] report reviewed and is appropriate - discussed [...] [address], [place], [address], Insurance Providers Payer Name Payer Address Payer Phone Subscriber Number Group Number Insured Name Patient Relationship to Insured Coverage Start Date Coverage End Date [employer] [address] [place] [address] [id number] Teresa Valentin Self - patient is the insured Medical (General) History Medical History History ICD Code fibromyalgia restless leg syndrome anxiety insomnia pre-diabetes Surgical History Surgery Date(Month/Year) Rt Ankle Surgery 01/03/2024 Appendectomy AUG 2023 EGD 2021 Tonsillectomy x3 2009,2010,2012 Tubal Ligation 2014 Uterine Ablation 2022 Hospitalization History Reason Date(Month/Year) x3 [place]
--- OUTSIDE RECORDS SUMMARY | 2025-02-24 13:00 | XMS_ITS | Clinical Summary ---
Author Organization [facility] Address [address] [place] [address] Care Team Providers Care Ip Paralegal Name Role Phone Oriana Spears Primary Care Provider [phone] Allergies Active Allergy Reactions Criticality Noted Date [...] Description 09/01/2025 9:00 AM EST Office Visit [facility] [address], [address] [place] [address] Bowen Rendon MD [address] [place] [address] Health Maintenance Due Date Last [...] - Td or Tdap) 05/26/2023 05/26/2013, 04/05/2011 [id number] Vaccine ( - 2023- season) 2024 UKY-Influenza [...] 5.7(H) <5.7 % 08/29/2024 2:00 PM EST [facility] Blood Venous blood specimen / Unknown Venipuncture / Unknown 08/29/2024 9:14 AM EST 08/29/2024 9:14 AM EST Narrative [facility] - 08/29/2024 2:00 PM EST HA1C Interpretive Data: Diagnosis of Diabetes: Diabetic > or = 6.5% Pre-diabetic 5.7 to 6.4% Non-diabetic < or = 5.6% Glycemic Targets for Type I and Type II Diabetics: Non- Adults <7.0% Adults <6.0% Children and Adolescents <7.5% Source: [place] Diabetes Association. Standards of medical care in diabetes,2017. Diabetes Care.2017:40 (suppl 1):S1-S135. HbA1c assay performed by an ion-exchange chromatography method that is certified traceable to the DCCT. us Bowen Rendon MD LAB BLOOD ORDERABLES Final Resul t [facility] [address] [place] [address] from Last 3 Months or Most Recently Relevant to Health Maintenance Insurance [address] [place], [place] [id number] [employer] Care Teams Ip Paralegal Relationship Specialty Start Date End Date Oriana Spears PA [address] [place] [address] PCP - General 02/26/24
== END 2025-02-24 23:59 | disposition home or self-care (01) ==
LOC: RAD 12:55
PROVIDERS: PCP Nurse Practitioner Family; Visit Provider Nurse Practitioner Family
DX: M25.521 Pain in right elbow (principal)
CPT/HCPCS: 73080

== ENCOUNTER 2025-03-01 18:47 | Emergency (ER) | payer OTHER, SELFPAY ==
--- OUTSIDE RECORDS SUMMARY | 2025-02-13 10:45 | XMS_ITS ---
Author Organization [facility] PE D YOSELYN Address [address] [place] [address] Care Team Providers Care Stamps Or Coins Salesperson Name Role Phone Caro Leon Primary Care [...] Allergy Active Reason For Referral Reason PT [facility] Diagnosis 1 Trochanteric bursiti s of right hip (M70.61) Referral Organization [facility] JACOB BALL Referring Provider First Name Caro Referring Provider Last Name Carolyn Referring Provider [facility] General Notes Geoff Gomez 10:36:55 AM > faxed to [facility] and they will call mom Referral Priority Routine Reason MRI right elbow- [facility] Diagnosis 1 Right elbow pain (M2 5.521) Referral Organization [facility] PED LIZZY Referring Provider First Name Caro Referring Provider Last Name Carolyn Referring Provider [facility] ctice General Notes Geoff Gomez 12:33:27 [...] 02/13/2025 Encounters Encounter Location Date Provider Diagnosis [address] [address] 02/13/2025 Caro McNees Neuropathy G62.9 ; Fibromyalgia [...] Referrals Referral Date Details 02/13/2025 02/13/2025, PT [facility] 02/13/2025 02/13/2025, MRI rig t elbow- [facility] Next Appt Details Follow Up: pending mri, Reas on: Provider Name:Caro Hill, 03/17/2025 09:30:00 AM, [address] [place] [facility] [address] [facility], [address], [place], [address], Progress Notes * Teresa VALENTIN LDOB:1990 (34 yo F)Acc No.[id number]:02/13/2025 Progress Notes Patient: Teresa JAVED Provider: Anu Leon APRN :1990 A ge:34 Y S ex:Female Date:02/13/2025 Address:[address] [place] [address] [id number] Subjective: * Chief Complaints: * 1 . [...] Right* ? Referral To: ?Reason:MRI right elbow- [facility] * Follow Up: p ending mri * * Sign off status: Completed true * Provider: Anu Leon APRN Date: 02/13/2025 Generated for Qi xiong/Jay/Koryitting on: 03/01/2025 07:04 PM EDT History and Physical Notes * [...] Not vernell 02/13/2025 Caro Leon , PT [facility] 02/13/2025 Caro Leon , MRI right elbo w- [facility]
--- OUTSIDE RECORDS SUMMARY | 2025-02-16 06:35 | XMS_ITS ---
Author Organization [facility] Address [address] [place] [address] Care Team Providers Care Learning Services Coordinator Name Role Phone Brett Leon Primary Care Provider BRETT Leon APRN Unavailable Unavailable REASON FOR VISIT PT order Encounters Encounter Location Date Provider Diagnosis [address] [address] 02/16/2025 Brett Leon Trochanteric bursiti s of [address], [place], [address], Progress Notes * Teresa VALENTIN LDOB:1990 (34 yo F)Acc No.[id number]:02/16/2025 Patient: Екатерина JAVEDamna Hitchcock :1990 A ge:34 Y S ex:Female Address: [address] [place] [address] Subjective: * Chief Complaints: * P T order * Medical History: * Surgical History: * Hospitalization/Major Diagno stic Procedure: * Medications: Objective: * Vitals: * Physical Examination: Assessment: * Assessment: 1. T rochanteric bursitis of right hip - M70.61 (Primary) Plan: * Treatment: * Procedure Codes: * true * Date: Generated for Qi xiong/Jay/Risa on: 0 03/01/2025 07:04 PM EDT
--- OUTSIDE RECORDS SUMMARY | 2025-02-19 11:17 | XMS_ITS ---
Author Organization [facility] Address [address] [facility] [address] [place] [address] Care Team Providers Care Customer Contact Sales Associate Name Role Phone Brett Leon Primary Care Provider BRETT Leon APRN Unavailable Unavailable Results Component Value Reference Range Notes X ray : Elbow, Right Reviewed date:02/27/2025 09:37:05 AM Interpretation: Performing Lab: Notes/Report: REASON FOR VISIT MRI elbow denied Encounters Encounter Location Date Provider Diagnosis [facility] [address] [address] 02/19/2025 Brett Leon Right elbow pain M25.521 Assessments Encounter Date Diagnosis (ICD Code) Assessment Notes Treatment Notes Treatment Clinical Notes Section Notes 02/19/2025 Right elbow pain (ICD-10 - M25.521) Plan Of Treatment Next Appt Details Provider Name:Brett Hillsvernell, 03/17/2025 09:30:00 AM, [address], [address], [place], [address], Progress Notes * Teresa VALENTIN LDOB:1990 (34 yo F)Acc No.[id number]:02/19/2025 Patient: Teresa JAVED :1990 A ge:34 Y S ex:Female Address: [address] [place] [address] Subjective: * Chief Complaints: * M RI elbow denied * Medical History: * Surgical History: * Hospitalization/Major Diagno stic Procedure: * Medications: Objective: * Vitals: * Physical Examination: Assessment: * [facility]: [facility]. [facility] - M25.521 (Primary) Plan: * Treatment: * * Procedure Codes: * true * Date: Generated for Qi xiong/Jay/Risa on: 0 03/01/2025 07:04 PM EDT
[2025-03-01] VITALS (12 sets, daily range): BP systolic 102–143; BP diastolic 66–84; PULSE 69–108; RESP 14–23; TEMP 36.6–37.2; O2SAT 95–99; BMI 35.2
--- NOTE | 2025-03-01 18:48 | ECG_ITS ---
APPROVED REPORT Exam: Resting ECG HR:108 bpm ECG Measurements Heart Rate [address] 112 P 42 QRSd 86 QRS 19 QT 336 T 16 QTc 399 Conclusion SINUS TACHYCARDIA WITH SHORT CT INTERVAL MINIMAL ST DEPRESSION [0.025+ mV ST DEPRESSION] ABNORMAL RHYTHM ECG UNCONFIRMED REPORT Electronically signed by : Zane Díaz, 03/01/2025 22:20:53
--- NOTE | 2025-03-01 18:52 | ED_ITS ---
<Statement entered by Donita Díaz MD - 03/01/25 22:17> I was consulted by the SIMONE, and we discussed the complexity of the problems being addressed. I approved the treatment and management plan for this patient's care in the emergency department, thus performing a substantive portion of the medical decision making. Donita Díaz MD, CLAUDIO, FACEP Discharge Plan Disposition Chief Complaint: Chest Pain Prescriptions Prescriptions: No Action meloxicam 15 mg tablet 15 mg PO DAILY Patient Comments: TAKE 1 TABLET BY MOUTH ONCE DAILY DIRECTED FOR HIP PAIN cetirizine 10 mg tablet 10 mg PO DAILY Patient Comments: TAKE 1 TABLET BY MOUTH ONCE DAILY NEEDED metformin 500 mg tablet extended release 24 hr 500 mg PO BID Patient Comments: TAKE 1 TABLET BY MOUTH ONCE DAILY FOR PREDIABETES duloxetine 30 mg capsule,delayed release(DR/EC) 30 mg PO AM Qty: 30 11RF Rx Instructions: 1 tablet every morning duloxetine 60 mg capsule,delayed release(DR/EC) 60 mg PO ONCE Qty: 30 11RF Rx Instructions: Take 1 capsule by mouth at 5pm clobetasol 0.05 % ointment 1 applic topical BID PRN (Reason: Skin Irritation) Patient Comments: APPLY OINTMENT TOPICALLY TWICE DAILY TO AFFECTED AREAS ON HANDS AND FINGERS. USE FOR THREE WEEKS ON AND THEN TAKE 1 WEEK OFF BEFORE RESUMING gabapentin 400 mg capsule 400 mg PO BID Patient Comments: TAKE 1 CAPSULE BY MOUTH THREE TIMES DAILY ibuprofen 800 mg tablet 800 mg PO Q8H Qty: 90 2RF ropinirole 0.25 mg tablet 0.25 mg PO HS Patient Comments: TAKE 1 TO 2 TABLETS BY MOUTH ONCE DAILY AT BEDTIME FOR RESTLESSS LEGS nitrofurantoin macrocrystal 100 mg capsule 100 mg PO HS Qty: 90 1RF Rx Instructions: Take one each day of sexual intercourse albuterol sulfate 90 mcg/actuation HFA aerosol inhaler 2 puff inhalation BID Patient Comments: INHALE 2 PUFFS BY MOUTH EVERY 4 TO 6 HOURS NEEDED omeprazole 20 mg capsule,delayed release(DR/EC) 20 mg PO DAILY Patient Comments: TAKE 1 CAPSULE BY MOUTH TWICE DAILY Referrals Follow up/Referrals: Caro Leon APRN [Primary Care Provider, Medical] - See instructions Print Language Print Language: French Discharge ED Provider: Donita Díaz General Adult HPI <MICHELLE Wood - Last Filed: 03/01/25 21:34> General Chief complaint: Chest Pain Stated complaint: chest pain Time Seen by Provider: 03/01/25 18:52 History of Present Illness HPI narrative: Patient presents for evaluation of left-sided chest pain. Patient states that she was shopping and initially felt flushed sweating and then began having left- sided chest pain. She does not have a known cardiac history. She does not smoke and is on no control. She does still have her ovaries but has had a tubal ligation. She states the pain has been localized to the left chest radiating down her left arm. She has had nausea but no vomiting no diarrhea shortness of breath fever chills hemoptysis hematochezia melena hematemesis hematuria dysuria. Related Data Home Medications ?Medication ?Instructions ?Recorded ?Confirmed omeprazole 20 mg capsule,delayed 20 mg PO DAILY 03/01/25 release cetirizine 10 mg tablet 10 mg PO DAILY 06/18/2402/04 meloxicam 15 mg tablet 15 mg PO DAILY 06/18/2402/04 ropinirole 0.25 mg tablet 0.25 mg PO HS 08/12/2403/01 metformin 500 mg tablet,extended 500 mg PO BID 5 03/01/25 release 24 hr clobetasol 0.05 % topical ointment 1 applic topical BI D PRN Skin 10/08/24 03/01/25 Irritation albuterol sulfate 90 mcg/actuation 2 puff inhalation B ID 11/17/24 03/01/25 aerosol inhaler gabapentin 400 mg capsule 400 mg PO BID 02/18/2503/01 Previous Rx's ?Medication ?Instructions ?Recorded ibuprofen 800 mg tablet 800 mg PO Q8H #90 tabs 04/11 duloxetine 30 mg capsule,delayed 30 mg PO AM Numbness & Tingling 10/07/24 release #30 caps duloxetine 60 mg capsule,delayed 60 mg PO ONCE Neuropa thy #30 caps 10/07/24 release nitrofurantoin macrocrystal 100 mg 100 mg PO HS #90 ca ps 11/17/24 capsule Allergies Allergy/AdvReac Type Severity Reaction Status Date / Time honey Allergy Intermediate Verified 02/18/25 08:44 propolis (bee glue) Allergy Intermediate Rash Verified 02/18/25 08:44 Bleach (Sodium Hypochlorite) Allergy Unknown Difficulty Verified 02/18/25 08:44 Breathing adhesive tape Allergy Rash Verified 02/18/25 08:44 cephalexin Allergy Verified 02/18/25 08:44 PFSH <MICHELLE Wood - Last Filed: 03/01/25 21:34> PFS Disclaimer: The information contained in this section may have been updated after the patient was seen, as this information can be updated by other users. Medical History Sinusitis Insomnia Acute hand eczema Vaginal pruritus Candidiasis of mouth Nausea and vomiting Sleep apnea History of COVID-19 Hypothyroid Surgical History History of foot surgery History of delivery History of appendectomy History of endometrial ablation History of colonoscopy H/O tubal ligation History of tonsillectomy Family History Father Cancer Other Asthma Diabetes Heart attack Hyperlipidemia Hypertension Stroke Thyroid disorder Social History Smoking Status: Former smoker smoking status stop date: 13 years ago alcohol intake: never substance use type: denies use current occupational status: employed Travel in the last 8 weeks?: None household members: children housing: house marital status: Have you lived/traveled outside [place] in past 30 days?: No Contact w/someone who lives/traveled outside US past 30 days?: No Exposure to someone with infectious disease in past 14 days?: No Do you have a fever (greater than 100.4 F or 38 C)?: No Have you tested positive for COVID-19?: No Exposed to someone with COVID-19 in past 14 days?: No Do you have a sore throat?: No Do you have a cough?: No Do you have any weakness?: No Do you have any diarrhea?: No Are you experiencing any unusual bleeding?: No Do you have any muscle aches/pain?: No Do you have any abdominal pain?: No Are you experiencing loss of taste or smell?: No Other Medical History Have you received the Pneumonia Vaccine: Yes <MICHELLE Wood - Last Filed: 03/01/25 21:34> ROS Obtained: Yes Systems reviewed as appropriate & no additional complaints except as documented Physical Exam <MICHELLE Wood - Last Filed: 03/01/25 21:34> General General appearance: alert and in no apparent distress ENT ENT exam: Present normal oropharynx Respiratory Respiratory exam: Present normal lung sounds bilaterally Cardiovascular Cardiovascular exam: Present regular rate Neurological Exam Neurological exam: Present alert and oriented X3 Medical Decision Making <MICHELLE Wood - Last Filed: 03/01/25 21:34> Medical Records Medical records reviewed: Yes I reviewed the patient's medical records. Screening: Per USPSTF and CDC recommendations, given the prevalence of disease in our region, it is our hospital?s policy to screen for HIV and viral Hepatitis for all patients aged 18 and over and those with ongoing risk factors. Juan Manuel Inquiry Pt receiving controlled substance: No Vital Signs: 03/01/25 18:50 03/01/25 18:50 03/01/25 18:56 Temperature 99 F 99 F Temperature Source Oral Oral Pulse Rate 108 H 108 H Pulse Rate [Right] 108 H Respiratory Rate 16 16 Blood Pressure 143/84 H Blood Pressure [Right Arm] 143/84 H Blood Pressure Mean Blood Pressure Mean [Right Arm] 103 02 Sat by Pulse Oximetry 98 98 Oxygen Delivery Method Room Air Room Air 03/01/25 19:15 03/01/25 19:30 03/01/25 19:55 Temperature Temperature Source Pulse Rate 93 H 84 84 Pulse Rate [Right] Respiratory Rate 18 23 21 Blood Pressure 125/80 126/75 126/75 Blood Pressure [Right Arm] Blood Pressure Mean 95 88 88 Blood Pressure Mean [Right Arm] 02 Sat by Pulse Oximetry 97 95 98 Oxygen Delivery Method 03/01/25 20:00 03/01/25 20:30 03/01/25 21:00 Temperature Temperature Source Pulse Rate 79 75 69 Pulse Rate [Right] Respiratory Rate 17 18 14 Blood Pressure 115/75 109/74 L 102/80 L Blood Pressure [Right Arm] Blood Pressure Mean 81 80 85 Blood Pressure Mean [Right Arm] 02 Sat by Pulse Oximetry 96 99 99 Oxygen Delivery Method 03/01/25 21:30 03/01/25 22:00 03/01/25 22:30 Temperature Temperature Source Pulse Rate 81 88 82 Pulse Rate [Right] Respiratory Rate 20 14 17 Blood Pressure 120/78 108/68 L 119/66 Blood Pressure [Right Arm] Blood Pressure Mean 85 Blood Pressure Mean [Right Arm] 02 Sat by Pulse Oximetry 98 96 98 Oxygen Delivery Method Lab Data Lab results reviewed: Yes I reviewed the patient's lab results. Lab Results 03/01/25 18:55: WBC 8.4, RBC 4.23, Hgb 13.5, Hct 38.4, MCV 90.8, MCH 31.9 H, MCHC 35.2, RDW 12.3, Plt Count 281, MPV 9.1, Neut % (Auto) 68.7, Lymph % (Auto) 24.2, Andrews % (Auto) 5.0, Eos % (Auto) 1.7, Baso % (Auto) 0.2, Neut # (Auto) 5.7, Lymph # (Auto) 2.0, Andrews # (Auto) 0.4, Eos # (Auto) 0.1, Baso # (Auto) 0.0, D- Dimer 0.44, Sodium 140, Potassium 3.8, Chloride 106, Carbon Dioxide 26, Anion Gap 11.8, BUN 14, Creatinine 0.70, Estimated Creat Clear 143, Estimated GFR 95, Est GFR ( Amer) 115, Glucose 127 H, Calcium 9.7, Total Bilirubin 0.2, AST 33, ALT 39, Alkaline Phosphatase 87, Troponin I < 0.01, NT-Pro-B Natriuret Pep 27.4, Total Protein 7.6, Albumin 4.5, Globulin 3.1, Albumin/Globulin Ratio 1.5, Lipase 217, TSH 0.80, Free T4 Index 2.3 L, Thyroxine (T4) 7.3, T3 Uptake 31 03/01/25 19:50: Urine Color Yellow, Urine Appearance Clear, Urine pH 6.0, Ur Specific [place] >= 1.030, Urine Protein Negative, Urine Glucose (UA) Negative, Urine Ketones Negative, Urine Blood Negative, Urine Nitrate Negative, Urine Bilirubin Negative, Urine Urobilinogen 0.2, Ur Leukocyte Esterase Negative, Urine RBC None, Urine WBC None, Ur Squamous Epith Cells 10-20, Urine Bacteria Trace 03/01/25 21:45: Troponin I < 0.01 03/01/25 18:55 03/01/25 18:55 Orders (Tests/Meds): ED MEDICATIONS Discontinued Medications Generic Name Dose Route Start Last Admin Trade Name Josie PRN Reason Stop Dose Admin Acetaminophen 1,000 mg 03/01/25 18:52 03/01/25 19:11 Acetaminophen 500mg Tab PO 03/01/25 18:53 1,000 mg ONCE ONE Administration Belladonna Alkaloids 60 ml 03/01/25 18:52 03/01/25 19:11 Belladonna Alkaloids 60 Ml Ml PO 03/01/25 18:53 60 ml ONCE ONE Administration Sodium Chloride 1,000 mls @ 999 mls/hr 03/01/25 18:52 03/01/25 19:10 Sod Chlor 0.9% 1000ml Bag IV 03/01/25 19:52 999 mls/hr .Q1H1M ONE Administration Ketorolac Tromethamine 15 mg 03/01/25 18:52 03/01/25 19:11 Ketorolac 30mg/Ml Vial IV 03/01/25 18:53 15 mg ONCE ONE Administration Ondansetron HCl 4 mg 03/01/25 18:52 03/01/25 19:11 Ondansetron 4mg/2ml Vial IV 03/01/25 18:53 4 mg ONCE ONE Administration ORDERS Category Date Time Status Chest XR 2 view (NOT portable) [XR chest 2V] Stat Exams 03/01/25 18:53 Completed BNP [NT Pro Brain Natriuretic Pep.] Stat Lab 03/01/25 18:55 Completed CBC w/Auto Diff [Complete Blood Count Auto Diff] Stat Lab 03/01/25 18:55 Completed CMP [Comprehensive Metabolic Panel] Stat Lab 03/01/25 18:55 Completed D-Dimer Stat Lab 03/01/25 18:55 Completed Lipase Stat Lab 03/01/25 18:55 Completed Thyroid Panel Stat Lab 03/01/25 18:55 Completed Trop I [Troponin I] Stat Lab 03/01/25 18:55 Completed Troponin I Q3H Lab 03/01/25 21:45 Completed Troponin I Q3H Lab 03/02/25 01:00 Ordered UA [Urinalysis and Microscopic] Stat Lab 03/01/25 19:50 Completed HEART Score History (anamnesis): Slightly suspicious ECG: Non-specific disturbance Age: <45 years Risk factors: 3 or more risk factors Troponin: </= normal limit HEART Score: 3 Medical Decision Narrative: In summary patient is a 34-year-old female who presents to the emergency department for evaluation of chest pain. Patient is hemodynamically stable but with sinus tachycardia on the bedside monitor upon arrival, afebrile. Physical exam is remarkable for no reproducible chest pain on palpation, breath sounds clear equal bilateral to the bases without adventitious sounds, cardiac is S1 is 2 rapid but regular rate and rhythm without murmurs gallops rubs or thrills, abdomen soft nontender no rebound or guarding no rigidity.. Differential diagnosis includes ACS versus PE versus tachyarrhythmia versus anxiety versus GERD etc. Initial workup will be conducted with hematologic labs plain film chest x-ray twelve-lead EKG urinalysis. Initial interventions include crystalloid bolus Tylenol GI cocktail Toradol Zofran. Initial workup reviewed by me and her hematologic labs are nonactionable including a negative troponin and my informed interpretation of her chest x-ray shows no acute processes prior to radiology read. Twelve-lead EKG did not show any evidence of ACS. Upon repeat evaluation patient reports her chest pain is completely gone. Given this the patient was placed in observation status at 1945. Medical necessity for observational status is serial troponins. The patient was provided serial reevaluations continuous cardiac monitoring and pulse oximetry while awaiting results. Patient handed off to Dr. Díaz at 2200 hrs. prior to second troponin. Total time in observation was [total time]. <Donita Díaz MD - Last Filed: 03/01/25 22:42> Vital Signs: 03/01/25 18:50 03/01/25 18:50 03/01/25 18:56 Temperature 99 F 99 F Temperature Source Oral Oral Pulse Rate 108 H 108 H Pulse Rate [Right] 108 H Respiratory Rate 16 16 Blood Pressure 143/84 H Blood Pressure [Right Arm] 143/84 H Blood Pressure Mean Blood Pressure Mean [Right Arm] 103 02 Sat by Pulse Oximetry 98 98 Oxygen Delivery Method Room Air Room Air 03/01/25 19:15 03/01/25 19:30 03/01/25 19:55 Temperature Temperature Source Pulse Rate 93 H 84 84 Pulse Rate [Right] Respiratory Rate 18 23 21 Blood Pressure 125/80 126/75 126/75 Blood Pressure [Right Arm] Blood Pressure Mean 95 88 88 Blood Pressure Mean [Right Arm] 02 Sat by Pulse Oximetry 97 95 98 Oxygen Delivery Method 03/01/25 20:00 03/01/25 20:30 03/01/25 21:00 Temperature Temperature Source Pulse Rate 79 75 69 Pulse Rate [Right] Respiratory Rate 17 18 14 Blood Pressure 115/75 109/74 L 102/80 L Blood Pressure [Right Arm] Blood Pressure Mean 81 80 85 Blood Pressure Mean [Right Arm] 02 Sat by Pulse Oximetry 96 99 99 Oxygen Delivery Method 03/01/25 21:30 03/01/25 22:00 03/01/25 22:30 Temperature Temperature Source Pulse Rate 81 88 82 Pulse Rate [Right] Respiratory Rate 20 14 17 Blood Pressure 120/78 108/68 L 119/66 Blood Pressure [Right Arm] Blood Pressure Mean 85 Blood Pressure Mean [Right Arm] 02 Sat by Pulse Oximetry 98 96 98 Oxygen Delivery Method Lab Data Lab results reviewed: Yes I reviewed the patient's lab results. Lab Results 03/01/25 18:55: WBC 8.4, RBC 4.23, Hgb 13.5, Hct 38.4, MCV 90.8, MCH 31.9 H, MCHC 35.2, RDW 12.3, Plt Count 281, MPV 9.1, Neut % (Auto) 68.7, Lymph % (Auto) 24.2, Andrews % (Auto) 5.0, Eos % (Auto) 1.7, Baso % (Auto) 0.2, Neut # (Auto) 5.7, Lymph # (Auto) 2.0, Andrews # (Auto) 0.4, Eos # (Auto) 0.1, Baso # (Auto) 0.0, D- Dimer 0.44, Sodium 140, Potassium 3.8, Chloride 106, Carbon Dioxide 26, Anion Gap 11.8, BUN 14, Creatinine 0.70, Estimated Creat Clear 143, Estimated GFR 95, Est GFR ( Amer) 115, Glucose 127 H, Calcium 9.7, Total Bilirubin 0.2, AST 33, ALT 39, Alkaline Phosphatase 87, Troponin I < 0.01, NT-Pro-B Natriuret Pep 27.4, Total Protein 7.6, Albumin 4.5, Globulin 3.1, Albumin/Globulin Ratio 1.5, Lipase 217, TSH 0.80, Free T4 Index 2.3 L, Thyroxine (T4) 7.3, T3 Uptake 31 03/01/25 19:50: Urine Color Yellow, Urine Appearance Clear, Urine pH 6.0, Ur Specific [place] >= 1.030, Urine Protein Negative, Urine Glucose (UA) Negative, Urine Ketones Negative, Urine Blood Negative, Urine Nitrate Negative, Urine Bilirubin Negative, Urine Urobilinogen 0.2, Ur Leukocyte Esterase Negative, Urine RBC None, Urine WBC None, Ur Squamous Epith Cells 10-20, Urine Bacteria Trace 03/01/25 21:45: Troponin I < 0.01 Orders (Tests/Meds): ED MEDICATIONS Discontinued Medications Generic Name Dose Route Start Last Admin Trade Name Josie PRN Reason Stop Dose Admin Acetaminophen 1,000 mg 03/01/25 18:52 03/01/25 19:11 Acetaminophen 500mg Tab PO 03/01/25 18:53 1,000 mg ONCE ONE Administration Belladonna Alkaloids 60 ml 03/01/25 18:52 03/01/25 19:11 Belladonna Alkaloids 60 Ml Ml PO 03/01/25 18:53 60 ml ONCE ONE Administration Sodium Chloride 1,000 mls @ 999 mls/hr 03/01/25 18:52 03/01/25 19:10 Sod Chlor 0.9% 1000ml Bag IV 03/01/25 19:52 999 mls/hr .Q1H1M ONE Administration Ketorolac Tromethamine 15 mg 03/01/25 18:52 03/01/25 19:11 Ketorolac 30mg/Ml Vial IV 03/01/25 18:53 15 mg ONCE ONE Administration Ondansetron HCl 4 mg 03/01/25 18:52 03/01/25 19:11 Ondansetron 4mg/2ml Vial IV 03/01/25 18:53 4 mg ONCE ONE Administration ORDERS Category Date Time Status Chest XR 2 view (NOT portable) [XR chest 2V] Stat Exams 03/01/25 18:53 Completed BNP [NT Pro Brain Natriuretic Pep.] Stat Lab 03/01/25 18:55 Completed CBC w/Auto Diff [Complete Blood Count Auto Diff] Stat Lab 03/01/25 18:55 Completed CMP [Comprehensive Metabolic Panel] Stat Lab 03/01/25 18:55 Completed D-Dimer Stat Lab 03/01/25 18:55 Completed Lipase Stat Lab 03/01/25 18:55 Completed Thyroid Panel Stat Lab 03/01/25 18:55 Completed Trop I [Troponin I] Stat Lab 03/01/25 18:55 Completed Troponin I Q3H Lab 03/01/25 21:45 Completed Troponin I Q3H Lab 03/02/25 01:00 Ordered UA [Urinalysis and Microscopic] Stat Lab 03/01/25 19:50 Completed HEART Score HEART Score: 3 Medical Decision Narrative: In summary patient is a 34-year-old female who presents to the emergency department for evaluation of chest pain. Patient is hemodynamically stable but with sinus tachycardia on the bedside monitor upon arrival, afebrile. Physical exam is remarkable for no reproducible chest pain on palpation, breath sounds clear equal bilateral to the bases without adventitious sounds, cardiac is S1 is 2 rapid but regular rate and rhythm without murmurs gallops rubs or thrills, abdomen soft nontender no rebound or guarding no rigidity.. Differential diagnosis includes ACS versus PE versus tachyarrhythmia versus anxiety versus GERD etc. Initial workup will be conducted with hematologic labs plain film chest x-ray twelve-lead EKG urinalysis. Initial interventions include crystalloid bolus Tylenol GI cocktail Toradol Zofran. Initial workup reviewed by me and her hematologic labs are nonactionable including a negative troponin and my informed interpretation of her chest x-ray shows no acute processes prior to radiology read. Twelve-lead EKG did not show any evidence of ACS. Upon repeat evaluation patient reports her chest pain is completely gone. Given this the patient was placed in observation status at 1945. Medical necessity for observational status is serial troponins. The patient was provided serial reevaluations continuous cardiac monitoring and pulse oximetry while awaiting results. Patient handed off to Dr. Díaz at 2200 hrs. prior to second troponin. Total time in observation was [total time]. This is Dr. Díaz I took over from Jaleel Lauren primarily. I have reviewed the patient's workup and history we are pending second troponin which is undetectably low. No emergent cardiovascular or pulmonary emergency identified today. Patient stable for outpatient follow-up. Critical Care <MICHELLE Wood - Last Filed: 03/01/25 21:34> Critical Care Time Critical Care Time: No
--- NOTE | 2025-03-01 18:53 | XR_ITS ---
PROCEDURE INFORMATION: Exam: XR Chest Exam date and time: 03/01/2025 6:52 PM Age: 34 years old Clinical indication: Pain; Chest pressure; Additional info: Left-sided chest pain TECHNIQUE: Imaging protocol: Radiologic exam of the chest. Views: 2 views. COMPARISON: CT ABDOMEN PELVIS W CON 12/11/2023 1:19 AM FINDINGS: Lungs: Unremarkable. No consolidation. Pleural spaces: Unremarkable. No pleural effusion. No pneumothorax. Heart/Mediastinum: Unremarkable. No cardiomegaly. Bones/joints: Unremarkable. IMPRESSION: No acute findings.
--- OUTSIDE RECORDS SUMMARY | 2025-03-01 19:04 | XMS_ITS | Clinical Summary ---
Author Organization [facility] Address [address] [place] [address] Phone Care Team Providers Care Technical Sales Representatives Name Role Phone Luis Patel MD Primary Care Provider [phone] Allergies Active Allergy Reactions Criticality Noted Date [...] needed. Active nalOXone (NARCAN) 4 mg/actuation Nasl [place], Non-Aerosol 0.1 mL by Nasal route as [...] - SCIP performed by DAMASO GOEL at [facility] SECTION 05/26/2013 N/A REPEAT SECTION (39) low transverse uterine incision at 0846; Surgeon: Taylor Nolen DO; Location: [facility]; Service: Gynecology TUBAL LIGATION ENDOMETRIAL ABLATION 05/06/2023 LAPAROSCOPIC APPENDECTOMY 08/21/2023 [facility] DENTAL SURGERY wisdom teeth ANKLE SURGERY 01/03/2024 Foot/Ankle/Right Repair of lateral ankle ligaments of the right ankle Tenosynovectomy/tendon debridement of the peroneal tendons of the right ankle; Surgeon: Teja Boucher DPM; Location: [facility]; Service: Orthopedics Medical devices from this surgery are in the Medical Devices section. 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 CLERK Spinal N Livin g 9 9 LAWSO N,TERELL IN BABY A Carpen ter, Beronica line Nidia, DO Delivery Location:[facility] Last Filed Vital Signs Vital Sign [...] Lou, RMA Medical Devices Implanted Type Area Hemodialysis Rn Device Identifier Shelf Expiration Date Model / Serial / Lot Branch [facility] Rdpq Mrkr 4.75x3.5mm Drill Bn Tap Gw - [id number] Implanted:Qty: 1 on 01/03/2024 by Teja Boucher DPM at [facility] Right: Ankle ARTHREX [id number] P / / [id number] Procedures Procedure Name Priority Date/Time Associated Diagnosis Comments COLONOSCOPY Routine 12/14/2022 10:24 AM EDT Chronic idiopathic constipation Rectal bleeding ALARM MECHANIC CYTOLOGY REQUEST (PAP ONLY) Routine 05/30/2021 10:19 [...] MD ENDOSCOPY PROCEDURE ORDERABLES Final Result * ALARM MECHANIC CYTOLOGY REQUEST (PAP ONLY) (05/30/2021 10:19 AM EDT) CASE REPORT Gynecologic Cytology Report Case: [id number] Authorizing Provider: Amy Thompson MD Collected: 05/30/2021 1019 Ordering Location: [facility] Edg Received: 05/30/2021 1019 First Screen: Kaiden Wen CT Specimen: LIQUID-BASED PAP - CERVICAL/ENDOCERV ICAL, Cervix, Endocervical 06/01/2021 8:56 AM EDT [facility] PAP FINAL DIAGNOSIS Negative for intraepithelial lesion or malignancy 06/01/2021 8:56 AM EDT [facility] at 0856 EDT MICROSCOPIC DESCRIPTION Microscopic examination is performed and the findings corroborate the diagnosis. 06/01/2021 8:56 AM EDT [facility] PAP SMEAR ADEQUACY Satisfactory for evaluation 06/01/2021 8:56 AM EDT [facility] PAP ORGANISMS NOTED Abundant bacteria present. 06/01/2021 8:56 AM EDT [facility] ENDOCERVICAL T-ZONE Transformation zone present 06/01/2021 8:56 AM EDT [facility] EMBEDDED IMAGES 8:56 AM EDT [facility] PAP DISCLAIMER The Pap Smear is a screening test that aids in the detection of cervical cancer and cancer precursors. Both false positive and false negative results can occur. The test should be used at regular intervals, and positive results should be confirmed before definitive therapy. Processed using the ThinPrep Senior Water Resources Engineer Automated cytology screening device (streamit). 06/01/2021 8:56 AM EDT [facility] Thin Prep ENDOCERVICAL STRUCTURE / Unknown 05/30/2021 10:19 AM EDT 05/30/2021 10:19 AM EDT us Amy Thompson MD CYTOLOGY ORDERABLES Final Resul t [facility] [address] [id number] from Last 3 Months or Most Recently Relevant to Health Maintenance [facility] MEDICAID MEDICAID PATSY LOPEZ MEDICAID Advance Directives For more information, please contact: [phone] * Full Code (Latest Code Status on File) Date Activated Date Inactivated Comments 05/26/2013 7:12 AM 05/28/2013 5:46 PM Care Teams Technical Sales Representatives Relationship Specialty Start Date End Date Luis Patel MD [facility] [place] [address] [place] [address] PCP - General Internal Medicine 10/09/16
--- OUTSIDE RECORDS SUMMARY | 2025-03-01 19:04 | XMS_ITS | Clinical Summary ---
Author Organization [facility] Address [address] [place] [address] Care Team Providers Care [employer] Special[employer] Cook Name Role Phone Oriana Spears Primary Care Provider [phone] Allergies Active Allergy Reactions Criticality Noted Date [...] Description 09/01/2025 9:00 AM EST Office Visit [facility] [address], [address] [place] [address] Bowen Rendon MD [address] [place] [address] Health Maintenance Due Date Last [...] - Td or Tdap) 05/26/2023 05/26/2013, 04/05/2011 [id number] Vaccine ( - 2023- season) 2024 UKY-Influenza [...] AM EST 08/29/2024 9:[address] [facility] - 08/29/2024 2:00 PM EST HA1C Interpretive Data: Diagnosis of Diabetes: Diabetic > or = 6.5% Pre-diabetic 5.7 to 6.4% Non-diabetic < or = 5.6% Glycemic Targets for Type I and Type II Diabetics: Non- Adults <7.0% Adults <6.0% Children and Adolescents <7.5% Source: [place] Diabetes Association. Standards of medical care in diabetes,2017. Diabetes Care.2017:40 (suppl 1):S1-S135. HbA1c assay performed by an ion-exchange chromatography method that is certified traceable to the DCCT. us Bowen Rendon MD LAB BLOOD ORDERABLES Final Resul t [facility] [address] [place] [address] from Last 3 Months or Most Recently Relevant to Health Maintenance Insurance [address] [place], [place] [address] [employer] Care Teams [employer] Cook Relationship Specialty Start Date End Date Oriana Spears PA [address] [place] [address] PCP - General 02/26/24
--- OUTSIDE RECORDS SUMMARY | 2025-03-01 19:04 | XMS_ITS | Patient Health Record ---
Author Organization [facility] Address [address] [place] [address] [place] [address] Care Team Providers Care Sales Team Recruiter Name Role Phone Brett Leon Primary Care Provider BRETT Leon APRN Unavailable Unavailable José Khan Unavailable [phone] Migration, Provider Unavailable Unavailable Allergies Allergen (clinical [...] date:12/05/2024 11:16:35 AM Interpretation: Performing Lab:CB, [facility] [address] [facility], [facility] HospitalHmksZA[address] Humberto Villagomez Notes/Report: NON-FASTING; NON-FASTING; NON-FASTING; NON-FASTING; [...] LDL-C. Ricardo MOSS et al. ROSSY. 2013;310(19): 3896-3823 (http://education.Reach [employer]/faq/VWA659) CHOL/HDLC RATIO 3.3 <5.0 (calc) NON HDL CHOLESTEROL 147 <130 mg/dL (calc) For patients with diabetes plus 1 major ASCVD risk factor, treating to a non-HDL-C goal of <100 mg/dL (LDL-C of <70 mg/dL) is considered a therapeutic option. COMPREHENSIVE METABOLIC PANE (64175) Reviewed date:12/05/2024 11:16:35 AM Interpretation: Performing Lab:MARINA, [facility], [place] HoldingUfhnGU[address] Humberto Villagomez Notes/Report: NON-FASTING; NON-FASTING; NON-FASTING; NON-FASTING; [...] Reviewed date:12/05/2024 11:16:35 AM Interpretation: Performing Lab:[facility], [facility] [address], P[employer] InternationalGredYZ[address] Humberto Villagomez Notes/Report: NON-FASTING; NON-FASTING; NON-FASTING; NON-FASTING; [...] MPV 9.6 7.5-12.5 fL ABSOLUTE NEUTROPHILS 3360 0452-3970 cells/uL ABSOLUTE LYMPHOCYTES 2154 850-3900 cells/uL ABSOLUTE MONOCYTES 348 200-950 cells/uL ABSOLUTE EOSINOPHILS 120 15-500 cells/uL ABSOLUTE BASOPHILS 18 0-200 cells/uL NEUTROPHILS 56 LYMPHOCYTES 35.9 MONOCYTES 5.8 EOSINOPHILS 2.0 BASOPHILS 0.3 HEMOGLOBIN A1c (496) Reviewed date:12/05/2024 11:16:35 AM Interpretation: Performing Lab:CB, [facility] [address] [facility], [place] HospitalNyzxSA[address] Humberto Villagomez Notes/Report: NON-FASTING; NON-FASTING; NON-FASTING; NON-FASTING; [...] diagnosis of diabetes in children. According to [place] Diabetes Association (ADA) guidelines, hemoglobin A1c <7.0% represents optimal control in non- diabetic patients. Different metrics may apply to specific patient populations. Standards of Medical Care in Diabetes(ADA). VITAMIN B12 (407) Reviewed date:12/05/2024 11:16:35 AM Interpretation: Performing Lab:CB, [facility] [address], [facility] HospitalNhjsEY[address] Humberto Villagomez Notes/Report: NON-FASTING; NON-FASTING; NON-FASTING; NON-FASTING; NON-FAST FASTING:YES FASTING: YES VITAMIN B12 472 158-7618 pg/mL VITAMIN D,25-OH,TOTAL,IA (17 306) Reviewed date:12/05/2024 11:16:35 AM Interpretation: Performing Lab:CB, [facility] [address], [place] OohaGV[address] Humberto Villagomez Notes/Report: NON-FASTING; NON-FASTING; NON-FASTING; NON-FASTING; [...] D, (D2,D3), LC/MS/MS is recommended: order code 29772 (patients >2yrs). See Note 1 Note 1 For additional information, please refer to http://education.Simpler Networks/faq/KCD488 (This link is being provided for informational/ educational purposes only.) X ray : Elbow, Right Reviewed date:02/27/2025 09:37:05 AM Interpretation: Performing Lab: Notes/Report: Reason For Referral Reason PT [facility] Diagnosis 1 Trochanteric bursiti s of right hip (M70.61) Referral Organization [facility] Referring Provider First Name Brett Referring Provider Last Name Carolyn Referring Provider Speciality Family [facility] General Notes Geoff Gomez 10:36:55 AM > faxed to [facility] and they will call mom Referral Priority Routine Reason MRI right elbow- [facility] Diagnosis 1 Right elbow pain (M2 5.521) Referral Organization [facility] Referring Provider First Name Brett Referring Provider Last Name Carolyn Referring Provider Speciality Family [facility] General Notes Geoff Gomez 12:33:27 PM > pre cert in review, Geoff Gomez 02/19/2025 04:32:25 PM > MRI denied Referral Priority Routine Medications Medication SIG (Take, Route, Fr equency, Duration) Notes Start Date End Date Status Omeprazole 20 MG 1 cap(s) orally once a day; Duration: 90 days Active Gabapentin 400 MG 1 capsule orally 3 t imes a day; Duration: 30 days 01/16/2025 Active Cetirizine HCl 10 MG 1 tab(s) orally onc e a day; Duration: 30 days Active Ibuprofen 800 MG 1 tablet with food or milk as needed Orally 3 times a day; Duration: 30 days As needed 02/26/2025 Active rOPINIRole HCl 0.25 MG 1-2tab(s) orally [...] W/U Status Risk Notes Problem Primary insomnia (0289440) Primary insomnia (F51.01) Active confirmed Problem Sciatica (79711169) Lumbago with sciatica, right side (M54.41) Active confirmed Problem Sciatica (31498557) Lumbago with sciatica, left side (M54.42) Active confirmed Problem Fibromyalgia (786439107) Fibromyalgia (M79.7) Active confirmed Problem Vitamin D deficiency (16379276) Vitamin D deficiency (E55.9) Active confirmed Problem Neuropathy (788622362) Neuropathy (G62.9) Active confirmed Problem Gastroesophageal reflux disease (384923993) GERD without esophagitis (K21.9) Active confirmed Problem Restless legs (92047674) RLS (restless legs syndrome) (G25.81) Active confirmed Problem Chronic pain (44886870) Other chronic pain (G89.29) Active confirmed Problem Solitary sacroiliitis (319701704) SI (sacroiliac) joint inflammation (M46.1) Active confirmed Vital Signs Heart Rate 82 /min 02/13/2025 Temperature 98 degrees Fahrenheit 02/13/2025 Blood pressure diastolic 74 mm Hg 02/13/2025 Height 5ft 0in in 02/13/2025 Blood pressure systolic 118 mm Hg 02/13/2025 Weight 171 lbs 02/13/2025 BMI 33.39 kg/m2 02/13/2025 Encounters Encounter Location Date Provider Diagnosis [facility] [address] [place] [address] 11/08/2024 Provider Migration Fibromyalgia M79.7 [facility] [address] [place] [address] 10/21/2024 Brett McNees Fibromyalgia M79.7 ; RLS (restless legs syndrome) G25.81 ; Primary insomnia F51.01 ; Neuropathy G62.9 ; Prediabetes R73.03 and GERD without esophagitis K21.9 [facility] [address] [place] [facility] [address] [place] [address] 11/20/2024 Brett McNees Fibromyalgia M79.7 ; Neuropathy G62.9 and Vertigo R42 [facility] [address] [place] [address] 12/04/2024 Brett McNees Vitamin D deficiency E55.9 ; Neuropathy G62.9 ; B12 deficiency E53.8 ; Routine medical exam Z00.00 and Prediabetes R73.03 [facility] [address] [address] 01/16/2025 Brett McNees Neuropathy G62.9 ; Fibromyalgia M79.7 ; Lumbago with sciatica, right side M54.41 ; Lumbago with sciatica, left side M54.42 ; Other chronic pain G89.29 and Trochanteric bursitis of right hip M70.61 [facility] [address] [address] 02/13/2025 Brett McNees Neuropathy G62.9 ; Fibromyalgia M79.7 ; Other chronic pain G89.29 ; Trochanteric bursitis of right hip M70.61 ; SI (sacroiliac) joint inflammation M46.1 ; Medial epicondylitis, right elbow M77.01 and Right elbow pain M25.521 [facility] [address] [place] [address] 09/30/2024 José Besson [facility] [address] [place] [address] 10/03/2024 José Besson [facility] [address] [place] [address] 12/23/2024 Brett McNees [facility] [address] [place] [address] 01/14/2025 Brett McNees [facility] [address] [place] [address] 02/16/2025 Brett McNees Trochanteric bursiti s of right hip M70.61 [facility] [address] [place] [address] 02/18/2025 Brett McNees [facility] [address] [place] [address] 02/19/2025 Brett McNees Right elbow pain M25.521 [facility] [address] [place] [address] 02/26/2025 Brett McNees Medial epicondylitis , right elbow M77.01 [facility] [address] [place] [address] 11/25/2024 Brett McNees [facility] [address] [place] [address] 11/25/2024 Brett McNees [facility] [address] [place] [address] 02/22/2025 Brett McNees [facility] [address] [place] [address] 02/22/2025 Brett McNees Assessments Encounter Date Diagnosis (ICD Code) [...] 02/19/2025 Right elbow pain (ICD-10 - M25.521) 02/26/2025 Medial epicondylitis, right elbow (ICD-10 - M77.01) 02/13/2025 Other chronic pain (ICD-10 - G89.29) [...] Order Date MRI : Elbow, Right 02/13/2025 Physical Therapy 02/16/2025 Next Appt Details Provider Name:Brett Hill, 03/17/2025 09:30:00 AM, [address], [place], [address], Insurance Providers Payer Name Payer Address Payer Phone Subscriber Number Group Number Insured Name Patient Relationship to Insured Coverage Start Date Coverage End Date [facility] Medical [address] [place] [address] [id number] Teresa Valentin Self - patient is the insured Medical (General) History Medical History History ICD Code fibromyalgia restless leg syndrome anxiety insomnia pre-diabetes Surgical History Surgery Date(Month/Year) Rt Ankle Surgery 01/03/2024 Appendectomy AUG 2023 EGD 2021 Tonsillectomy x3 2009,2010,2012 Tubal Ligation 2013 Uterine Ablation 2022 Hospitalization History Reason Date(Month/Year) x3 [facility]
[2025-03-01 19:07] LABS: Hematocrit 38.4 % (37.0-47.0); Hemoglobin 13.5 g/dL (12.2-16.2); Immature Granulocytes % 0.2 %; Mean Corpuscular HGB Conc 35.2 g/dL (31.8-35.4); Mean Corpuscular Hemoglobin 31.9 pg (27.0-31.2); Mean Corpuscular Volume 90.8 fl (81-99); Nucleated Red Blood Cells % 0 %; Platelet Count 281 K/mm3 (142-424); Red Blood Count 4.23 M/mm3 (4.20-5.40); Red Cell Distribution Width-SD 40.4 fL; White Blood Count 8.4 K/mm3 (4.8-10.8)
[2025-03-01] MEDS: 0.9 % SODIUM CHLORIDE 1000ML 1,000 ML 999 ML IV (19:10)
[2025-03-01] MEDS: ONDANSETRON 4MG/2ML VIAL 4 MG IV (19:11)
[2025-03-01] MEDS: ACETAMINOPHEN 500MG TAB 1000 MG PO (19:11)
[2025-03-01] MEDS: BELLADONNA ALKALOIDS 60 ML ML PO (19:11)
[2025-03-01] MEDS: KETOROLAC 30MG/ML VIAL 15 MG IV (19:11)
[2025-03-01 19:25] LABS: Lipase 217 U/L (23-300)
[2025-03-01 19:26] LABS: Alanine Aminotransferase 39 U/L (12-78); Albumin Level 4.5 g/dl (3.5-5.0); Albumin/Globulin Ratio 1.5 (1.1-1.8); Alkaline Phosphatase 87 U/L (38-126); Anion Gap 11.8 mEq/L (5-15); Aspartate Amino Transferase 33 U/L (14-36); Bilirubin,Total 0.2 mg/dl (0.2-1.3); Blood Urea Nitrogen 14 mg/dl (7-17); Calcium 9.7 mg/dl (8.4-10.2); Carbon Dioxide 26 mmol/L (22.0-30.0); Chloride 106 mmol/L (98-107); Creatinine Clearance Estimated 143 mL/min (50-200); Creatinine,Serum 0.70 mg/dl (0.52-1.04); Estimated Glomerular Filt Rate 95 ml/min (>60); GFR (African American) 115 ML/MIN (>60); Globulin 3.1 g/dL (1.3-3.2); Glucose 127 mg/dl (74-100); Potassium 3.8 mmoL/L (3.5-5.1); Sodium 140 mmol/L (136-145); Total Protein,Serum 7.6 g/dl (6.3-8.2)
[2025-03-01 19:30] LABS: D-Dimer 0.44 ug/mL (0.0-0.5)
[2025-03-01 19:40] LABS: NT Pro Brain Natriuretic Pep. 27.4 pg/mL (0-125)
[2025-03-01 19:44] LABS: Troponin I < 0.01 ng/ml (0.00-0.034)
[2025-03-01 19:45] LABS: Free Thyroxine Index 2.3 ug/dL (5.93-13.13); T4 (Thyroxine) 7.3 ug/dl (5.53-11.0); Triiodothryronine (T3) Uptake 31 % (23.5-40.5)
[2025-03-01 19:58] LABS: Thyroid Stimulating Hormone 0.80 uIU/mL (0.465-4.68)
[2025-03-01 19:59] LABS: Bilirubin,Urine Negative (Negative); Color,Urine YELLOW (Yellow); Glucose,Urine (UA) Negative (Negative); Ketones,Urine Negative (Negative); Leukocyte Esterase,Urine Negative (Negative); Microscopic, Urine URINE MICROSCOPIC (MICROSCOPIC); PH,Urine 6.0 (5.0-8.5); Protein,Urine Negative (Negative); Specific Gravity, Urine >= 1.030 (1.005-1.030); Urobilinogen,Urine 0.2 EU/dl (0.2)
[2025-03-01 20:19] LABS: Bacteria,Urine Trace /lpf
[2025-03-01 22:39] LABS: Troponin I < 0.01 ng/ml (0.00-0.034)
== END 2025-03-01 23:15 | disposition home or self-care (01) ==
PROVIDERS: Physician Assistant; Emergency Provider Student in an Organized Health Care Education/Training Program; PCP Nurse Practitioner Family
DX: R07.9 Chest pain, unspecified (principal); R00.0 Tachycardia, unspecified
CPT/HCPCS: 71046; 80053; 81001; 83690; 83880; 84436; 84443; 84479; 84484; 85025; 85378; 93005; 96361; 96374; 96375; 99285; J1885; J2405; J7030

== ENCOUNTER 2025-03-06 08:22 | Outpatient (CLI) | payer OTHER, SELFPAY ==
--- OUTSIDE RECORDS SUMMARY | 2025-02-16 06:35 | XMS_ITS ---
Author Organization [facility] Address [address] [facility] [address] [place] [address] Care Team Providers Care Facility Security Officer Name Role Phone Brett Leon Primary Care Provider [phone] BRETT Leon APRN Unavailable Unavailable REASON FOR VISIT PT order Encounters Encounter Location Date Provider Diagnosis [address] [address] 02/16/2025 Brett Leon Trochanteric bursiti s of right hip M70.61 Assessments Encounter Date Diagnosis (ICD Code) Assessment Notes Treatment Notes Treatment Clinical Notes Section Notes 02/16/2025 Trochanteric bursitis of right hip (ICD-10 - M70.61) Plan Of Treatment Pending Test Test Name Order Date Physical Therapy 02/16/2025 Next Appt Details Provider Name:Brett Hill, 03/17/2025 09:30:00 AM, [address] [facility] [address], [place], [address], Provider Name:Brett Hill, 03/26/2025 08:00:00 AM, [address] [facility] [address], [place], [address], Progress Notes * Teresa VALENTIN LDOB:1990 (34 yo F)Acc No.[id number]:02/16/2025 Patient: Екатерина JAVEDamna Hitchcock :1990 A ge:34 Y S ex:Female Address:[address] [place] [address] [place] [address] Subjective: * Chief Complaints: * P T order * Medical History: * Surgical History: * Hospitalization/Major Diagno stic Procedure: * Medications: Objective: * Vitals: * Physical Examination: Assessment: * Assessment: 1. T rochanteric bursitis of right hip - M70.61 (Primary) Plan: * Treatment: * Procedure Codes: * true * Date: Generated for Qi xiong/Jay/Pilarsmitting on: 0 03/06/2025 08:27 AM EDT
--- OUTSIDE RECORDS SUMMARY | 2025-02-19 11:17 | XMS_ITS ---
Author Organization [facility] Address [address] [facility] [address] [place] [address] Care Team Providers Care Tuck Pointer Helper Name Role Phone Brett Leon Primary Care Provider BRETT Leon APRN Unavailable Unavailable Results Component Value Reference Range Notes X ray : Elbow, Right Reviewed date:02/27/2025 09:37:05 AM Interpretation: Performing Lab: Notes/Report: REASON FOR VISIT MRI elbow denied Encounters Encounter Location Date Provider Diagnosis [facility] [address] [address] 02/19/2025 Brett Leon Right elbow pain M25.521 Assessments Encounter Date Diagnosis (ICD Code) Assessment Notes Treatment Notes Treatment Clinical Notes Section Notes 02/19/2025 Right elbow pain (ICD-10 - M25.521) Plan Of Treatment Next Appt Details Provider Name:Brett Hill, 03/17/2025 09:30:00 AM, [address] [facility], [address], [place], [address], Provider Name:Brett Hill, 03/26/2025 08:00:00 AM, [address] [facility], [address], [place], [address], Progress Notes * Teresa VALENTIN LDOB:1990 (34 yo F)Acc No.[id number]:02/19/2025 Patient: Jovi ERICKSONTeresa :1990 A ge:34 Y S ex:Female Address:[address] [place] [address] [place] [address] Subjective: * Chief Complaints: * M RI elbow denied * Medical History: * Surgical History: * Hospitalization/Major Diagno stic Procedure: * Medications: Objective: * Vitals: * Physical Examination: Assessment: * [facility]25.521 (Primary) Plan: * Treatment: * * Procedure Codes: * true * Date: Generated for Qi xiong/Jay/Koryitting on: 0 03/06/2025 08:26 AM EDT
--- OUTSIDE RECORDS SUMMARY | 2025-03-05 10:15 | XMS_ITS ---
Author Organization [facility] PE D YOSELYN Address [address] [facility] [facility] [address] [facility] [address] [place] [address] Care Team Providers Care Customer Service Supervisor Name Role Phone Brett Leon Primary Care Provider [phone] BRETT Leon APRN Unavailable Unavailable Allergies Allergen [...] 1 Shortness of breath (R06.02) Referral Organization [facility] PED LIZZY Referring Provider First Name Brett Referring Provider Last Name Carolyn Referring Provider Speciality Family [facility] ctice Referred Organization [facility] Referred Address [address] [place] [address] [address] [facility], [place],[address], Referred Provider Specialty Diagnostic R adiology General Notes Essie Hammond 2024 03:45:49 PM >Sent to [facility] to schedule appt Referral Priority Routine REASON FOR VISIT ED FU chest pains, [facility] d/c 03/01/2025 Medications Medication SIG (Take, Route, [...] Status W/U Status Risk Notes Problem Anxiety (13527371) Anxiety (F41.9) Active confirmed Vital Signs Temperature 97.5 degrees Fahrenheit 03/05/20 25 Heart Rate 80 /min 03/05/2025 Blood pressure systolic 118 mm Hg 03/05/20 25 Blood pressure diastolic 76 mm Hg 025 Height 5ft 0in in 03/05/2025 Weight 174.6 lbs 03/05/2025 BMI 34.1 kg/m2 03/05/2025 Encounters Encounter Location Date Provider Diagnosis [facility] PED YOSELYN [address] [facility] [address] [place], [place] [address] 03/05/2025 Brett Carolyn Left-sided chest pain R07.9 ; Shortness of breath R06.02 and Anxiety F41.9 Assessments Encounter Date Diagnosis (ICD Code) Assessment Notes Treatment Notes Treatment Clinical Notes Section Notes 03/05/2025 Left-sided chest pain (ICD-10 - R07.9) [facility] ED records reviewed Likely related to her [...] Treatment Notes Assessment Notes Left-sided chest pain [facility] ED records reviewed Likely related to her [...] 03/05/2025, echo, [address] [facility], [place], [address], Next Appt Details Follow Up: 3 Weeks,prn, Reas on: Provider Name:Brett Hill, 03/17/2025 09:30:00 AM, [address] [facility], [address], [place], [address], Provider Name:Brett Hill, 03/26/2025 08:00:00 AM, [address] [facility] [address] [address] [facility], [address], [place], [address], Progress Notes * Teresa VALENTIN LDOB:1990 (34 yo F)Acc No.[id number]:03/05/2025 Progress Notes Patient: Teresa JAVED Provider: Anu Leon APRN :1990 A ge:34 Y S ex:Female Date:03/05/2025 Address:[address] [place] [address] [place] [id number] Subjective: * Chief Complaints: * 1 . ED FU chest pains, [facility] d/c 03/01/2025. * HPI: g en: 34 y/o female presents for ED FU on chest pain. Seen in the ED for acute onset of left sided chest pain that radiated to left arm while shopping at [employer] with diaphoresis and nausea. ED work-up with [...] Hospitalization/Major Diagno stic Procedure: C -Section x3 [place] , Chest Pains 02/2025. * Family History: [...] nxiety - F41.9 Plan: * Treatment: Notes: [facility] ED records reviewed Likely related to her [...] 03/05/2025 Generated for Qi xiong/Jay/eTransmitting on: 0 03/06/2025 08:26 AM EDT History and Physical Notes * HPI (History of Present Illness) Category Sub-Category Detail Notes Category Not es gen 34 y/o female p resents for ED FU on chest pain. Seen in the ED for acute onset of left sided chest pain that radiated to left arm while shopping at [employer]. [employer] with diaphoresis and nausea. ED work-up with [...]
--- OUTSIDE RECORDS SUMMARY | 2025-03-06 08:26 | XMS_ITS | Clinical Summary ---
Author Organization [facility] Address [address] [place] [address] Phone Care Team Providers Care Chemical Etch Operator Name Role Phone Luis Patel MD Primary Care Provider [phone] Allergies Active Allergy Reactions Criticality Noted Date [...] needed. Active nalOXone (NARCAN) 4 mg/actuation Nasl [place], Non-Aerosol 0.1 mL by Nasal route as [...] uterus, great vessels in the abdomen, the infant, blood clot, and/or . She was also counseled on the benefits and risks of including uterine rupture. Repeat C/S scheduled for 05/26 Immunizations Immunization Administration Dates Next Due Influenza Seasonal Injectable 05/26/2009 Influenza Vaccine, Unspecified Formulation 05/26 Tdap 05/26/2013,04/05/2011 Surgical History Surgery Date Site/Laterality Comments TONSILLECTOMY SECTION 2009 SECTION 04/03/2011 N/A REPEAT SECTION - SCIP performed by DAMASO GOEL at [facility] SECTION 05/26/2013 N/A REPEAT SECTION (39) low transverse uterine incision at 0846; Surgeon: Taylor Nolen DO; Location: [facility]; Service: Gynecology TUBAL LIGATION ENDOMETRIAL ABLATION 05/06/2023 LAPAROSCOPIC APPENDECTOMY 08/21/2023 [facility] DENTAL SURGERY wisdom teeth ANKLE SURGERY 01/03/2024 Foot/Ankle/Right Repair of lateral ankle ligaments of the right ankle Tenosynovectomy/tendon debridement of the peroneal tendons of the right ankle; Surgeon: Teja Boucher DPM; Location: [facility]; Service: Orthopedics Medical devices from this surgery are in the Medical Devices section. 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 Spinal N Livin g 9 9 LAWSO N,TERELL MD BABY A Carpen ter, Beronica line Nidia, DO Delivery Location:[facility] Last Filed Vital Signs Vital Sign Reading [...] Lou, RMA Medical Devices Implanted Type Area Tune Up Mechanic Device Identifier Shelf Expiration Date Model / Serial / Lot [place] [employer] Rdpq Mrkr 4.75x3.5mm Drill Bn Tap Gw - [id number] Implanted:Qty: 1 on 01/03/2024 by Teja Boucher DPM at [facility] Right: Ankle ARTHREX [id number] P / / [id number] Procedures Procedure Name Priority Date/Time Associated Diagnosis Comments COLONOSCOPY Routine 12/14/2022 10:24 AM EDT Chronic idiopathic constipation Rectal bleeding [employer]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 Edg Received: 05/30/2021 1019 First Screen: Kaiden Wen CT Specimen: LIQUID-BASED PAP - CERVICAL/ENDOCERV ICAL, Cervix, Endocervical 06/01/2021 8:56 AM EDT [facility] PAP FINAL DIAGNOSIS Negative for intraepithelial lesion or malignancy 06/01/2021 8:56 AM EDT [facility] at 0856 EDT MICROSCOPIC DESCRIPTION Microscopic examination is performed and the findings corroborate the diagnosis. 06/01/2021 8:56 AM EDT [facility] PAP SMEAR ADEQUACY Satisfactory for evaluation 06/01/2021 8:56 AM EDT [facility] PAP ORGANISMS NOTED Abundant bacteria present. 06/01/2021 8:56 AM EDT [facility] ENDOCERVICAL T-ZONE Transformation zone present 06/01/2021 8:56 AM EDT [facility] EMBEDDED IMAGES 8:56 AM EDT [facility] PAP DISCLAIMER The Pap Smear is a screening test that aids in the detection of cervical cancer and cancer precursors. Both false positive and false negative results can occur. The test should be used at regular intervals, and positive results should be confirmed before definitive therapy. Processed using the ThinPrep Auto Locator Automated cytology screening device ([email or web address]). 06/01/2021 8:56 AM EDT [facility] Thin Prep ENDOCERVICAL STRUCTURE / Unknown 05/30/2021 10:19 AM EDT 05/30/2021 10:19 AM EDT us Amy Thompson MD CYTOLOGY ORDERABLES Final Resul t [facility] [address] [place] [phone] from Last 3 Months or Most Recently Relevant to Health Maintenance Insurance [facility] MEDICAID [facility] MEDICAID MEDICAID PATSY LOPEZ MEDICAID Advance Directives For more information, please contact: [phone] * Full Code (Latest Code Status on File) Date Activated Date Inactivated Comments 05/26/2013 7:12 AM 05/28/2013 5:46 PM Care Teams Chemical Etch Operator Relationship Specialty Start Date End Date Luis Patel MD [facility] [place] [address] [id number] PCP - General Internal Medicine 10/09/16
--- OUTSIDE RECORDS SUMMARY | 2025-03-06 08:27 | XMS_ITS | Patient Health Record ---
Author Organization [facility] Address [address] [place] [address] Care Team Providers Care Front Office Associate Name Role Phone Caro Leon Primary Care Provider CARO Leon APRN Unavailable Unavailable José Khan Unavailable [phone] Migration, Provider Unavailable Unavailable Allergies Allergen (clinical [...] Active Results Component Value Reference Range Notes X ray : Elbow, Right Reviewed date:02/27/2025 09:37:05 AM Interpretation: Performing Lab: Notes/Report: LIPID PANEL, STANDARD (7600) Reviewed date:12/05/2024 11:16:35 AM Interpretation: Performing Lab:CB, [facility] Thll1362 [facility], [facility] HospitalAtzoHX[address] Humberto Villagomez Notes/Report: NON-FASTING; NON-FASTING; NON-FASTING; NON-FASTING; [...] of LDL-C. Ricardo SS et al. ROSSY. 2013;310(14): 7468-6864 (http://[employer].CloudFloor/faq/MJC566) CHOL/HDLC RATIO 3.3 <5.0 (calc) NON HDL CHOLESTEROL 147 <130 mg/dL (calc) For patients with diabetes plus 1 major ASCVD risk factor, treating to a non-HDL-C goal of <100 mg/dL (LDL-C of <70 mg/dL) is considered a therapeutic option. COMPREHENSIVE METABOLIC PANE L (90882) Reviewed date:12/05/2024 11:16:35 AM Interpretation: Performing Lab:MAR[facility] Gexa8784 [facility] HospitalCarlosEvbuHT[address] Humberto Villagomez Notes/Report: NON-FASTING; NON-FASTING; NON-FASTING; NON-FASTING; [...] Reviewed date:12/05/2024 11:16:35 AM Interpretation: Performing Lab:MARINA [facility] Wgnd8070 [facility]teSt[facility], [facility] HospitalAijzUZ[address] Humberto Villagomez Notes/Report: NON-FASTING; NON-FASTING; NON-FASTING; NON-FASTING; [...] MPV 9.6 7.5-12.5 fL ABSOLUTE NEUTROPHILS 3360 4480-7546 cells/uL ABSOLUTE LYMPHOCYTES 2154 850-3900 cells/uL ABSOLUTE MONOCYTES 348 200-950 cells/uL ABSOLUTE EOSINOPHILS 120 15-500 cells/uL ABSOLUTE BASOPHILS 18 0-200 cells/uL NEUTROPHILS 56 LYMPHOCYTES 35.9 MONOCYTES 5.8 EOSINOPHILS 2.0 BASOPHILS 0.3 HEMOGLOBIN A1c (496) Reviewed date:12/05/2024 11:16:35 AM Interpretation: Performing Lab:MARINA vidIQ-Viableware Aspm8913 clypdtel [facility], [facility] SystemIdqsXY[address] Humberto Villagomez Notes/Report: NON-FASTING; NON-FASTING; NON-FASTING; NON-FASTING; [...] diagnosis of diabetes in children. According to [place] Diabetes Association (ADA) guidelines, hemoglobin A1c <7.0% represents optimal control in non- diabetic patients. Different metrics may apply to specific patient populations. Standards of Medical Care in Diabetes(ADA). VITAMIN B12 (927) Reviewed date:12/05/2024 11:16:35 AM Interpretation: Performing Lab:MARINA, [facility] [address], [facility] HospitalPznxNX[address] Humberto Villagomez Notes/Report: NON-FASTING; NON-FASTING; NON-FASTING; NON-FASTING; NON-FAST FASTING:YES FASTING: YES VITAMIN B12 649 824-4994 pg/mL VITAMIN D,25-OH,TOTAL,IA (17 306) Reviewed date:12/05/2024 11:16:35 AM Interpretation: Performing Lab:[facility] [address], [place] CllnHL[address] Humberto Villagomez Notes/Report: NON-FASTING; NON-FASTING; NON-FASTING; NON-FASTING; [...] D, (D2,D3), LC/MS/MS is recommended: order code 42909 (patients >2yrs). See Note 1 Note 1 For additional information, please refer to http://education.[employer]/faq/EKS685 (This link is being provided for informational/ educational purposes only.) Reason For Referral Reason PT [facility] Diagnosis 1 Trochanteric bursiti s of right hip (M70.61) Referral Organization [facility] Referring Provider First Name Caro Referring Provider Last Name Carloyn Referring Provider Speciality [facility] General Notes Geoff Gomez 10:36:55 AM > faxed to [facility] and they will call mom Referral Priority Routine Reason MRI right elbow- [facility] Diagnosis 1 Right elbow pain (M2 5.521) Referral Organization [facility] Referring Provider First Name Caro Referring Provider Last Name Carolyn Referring Provider Speciality Family Pra ctice General Notes Geoff Gomez 12:33:27 PM > pre cert in review, Geoff Gomez 02/19/2025 04:32:25 PM > MRI denied Referral Priority Routine Reason echo Diagnosis 1 Shortness of breath (R06.02) Referral Organization [facility] Referring Provider First Name Caro Referring Provider Last Name Carolyn [facility] Referred Address [address] [facility] [address] [facility], [place], [place],[address], Referred Provider Specialty Diagnostic R adiology General Notes Essie Hammond 2024 03:45:49 PM >Sent to [facility] to schedule appt Referral Priority Routine Medications Medication SIG (Take, [...] a day; Duration: 30 days 03/05/2025 Active Ibuprofen 800 MG 1 tablet with food or milk as needed Orally 3 times a day; Duration: 30 days As needed 02/26/2025 Active rOPINIRole HCl 0.25 MG 1-2tab(s) orally at bedtime; Duration: 90 days Active DULoxetine HCl 30 MG 1 cap(s) [...] W/U Status Risk Notes Problem Primary insomnia (0801429) Primary insomnia (F51.01) Active confirmed Problem Sciatica (18989293) Lumbago with sciatica, right side (M54.41) Active confirmed Problem Sciatica (79140803) Lumbago with sciatica, left side (M54.42) Active confirmed Problem Fibromyalgia (516413470) Fibromyalgia (M79.7) Active confirmed Problem Anxiety (02509805) Anxiety (F41.9) Active confi rmed Problem Vitamin D deficiency (72746498) Vitamin D deficiency (E55.9) Active confirmed Problem Neuropathy (196784940) Neuropathy (G62.9) Active confirmed Problem Gastroesophageal reflux disease (525381847) GERD without esophagitis (K21.9) Active confirmed Problem Restless legs (20403687) RLS (restless legs syndrome) (G25.81) Active confirmed Problem Chronic pain (68721953) Other chronic pain (G89.29) Active confirmed Problem Solitary sacroiliitis (270450087) SI (sacroiliac) joint inflammation (M46.1) Active confirmed Vital Signs Heart Rate 80 /min 03/05/2025 Temperature 97.5 degrees Fahrenheit 03/05/2025 Blood pressure diastolic 76 mm Hg 03/05/2025 Height 5ft 0in in 03/05/2025 Blood pressure systolic 118 mm Hg 03/05/2025 Weight 174.6 lbs 03/05/2025 BMI 34.1 kg/m2 03/05/2025 Encounters Encounter Location Date Provider Diagnosis [facility] [address] [address] 11/08/2024 Provider Migration Fibromyalgia M79.7 [facility] [address] [place] [address] 10/21/2024 Caroyovani Leon Fibromyalgia M79.7 ; RLS (restless legs syndrome) G25.81 ; Primary insomnia F51.01 ; Neuropathy G62.9 ; Prediabetes R73.03 and GERD without esophagitis K21.9 [facility] [address] [place] [address] 11/20/2024 Caro McNees Fibromyalgia M79.7 ; Neuropathy G62.9 and Vertigo R42 [facility] [address] [place] [address] 12/04/2024 Caro Carolyn Vitamin D deficiency E55.9 ; Neuropathy G62.9 ; B12 deficiency E53.8 ; Routine medical exam Z00.00 and Prediabetes R73.03 [facility] [address] [address] 01/16/2025 Caro McNees Neuropathy G62.9 ; Fibromyalgia M79.7 ; Lumbago with sciatica, right side M54.41 ; Lumbago with sciatica, left side M54.42 ; Other chronic pain G89.29 and Trochanteric bursitis of right hip M70.61 [facility] [address] [address] 02/13/2025 Caro McNees Neuropathy G62.9 ; Fibromyalgia M79.7 ; Other chronic pain G89.29 ; Trochanteric bursitis of right hip M70.61 ; SI (sacroiliac) joint inflammation M46.1 ; Medial epicondylitis, right elbow M77.01 and Right elbow pain M25.521 [facility] [address] [facility] [address] [place] [address] 03/05/2025 Caro McNees Left-sided chest brittany n R07.9 ; Shortness of breath R06.02 and Anxiety F41.9 [facility] [address] [facility] [address] [place] [address] 09/30/2024 José Besson [facility] [address] [place] [address] 10/03/2024 José Besson [facility] [address] [address] 12/23/2024 Caro McNees [facility] [address] [facility] [address] [place] [address] 01/14/2025 Caro McNees [facility] [address] [address] 02/16/2025 Caro McNees Trochanteric bursiti s of right hip M70.61 [facility] [address] [facility] [address] [place] [address] 02/18/2025 Caro McNees [facility] [address] [address] 02/19/2025 Caro McNees Right elbow pain M25.521 [facility] 2016 [facility] [address] [place] [address] 02/26/2025 Caro McNees Medial epicondylitis , right elbow M77.01 [facility] [address] [place] [address] 11/25/2024 Caro McNees [facility] [address] [place] [address] 11/25/2024 Caro McNees [facility] [address] [place] [address] 02/22/2025 Caro McNees [facility] [address] [place] [address] 02/22/2025 Caro McNees Assessments Encounter Date Diagnosis [...] Medial epicondylitis, right elbow (ICD-10 - M77.01) 03/05/2025 Shortness of breath (ICD-10 - R06.02) 03/05/2025 Left-sided chest pain (ICD-10 - R07.9) [facility] ED records reviewed Likely related to her anxiety. Treat with lily as below. Given her new report of SOA and persistent symptoms will obtain echo to r/o underlying pathology and for patient reassurance. 03/05/2025 Anxiety (ICD-10 - F41.9) Discussed rationale for pharmacotherapy , and discussed MOA of med. Discussed time course of expected improvements, and discussed side effect profile, and need for urgent evaluation if agitation or worsening mood occurs. Discussed need for f/u in office. RTC in 3 weeks 02/13/2025 Other chronic pain (ICD-10 - G89.29) [...] Order Date MRI : Elbow, Right 02/13/2025 Echocardiogram 03/05/2025 Physical Therapy 02/16/2025 Next Appt Details Provider Name:Caro Hill, 03/17/2025 09:30:00 AM, [address], [address], [place], [address], Provider Name:Caro Hill, 03/26/2025 08:00:00 AM, [address], [address], [place], [address], Insurance Providers Payer Name Payer Address Payer Phone Subscriber Number Group Number Insured Name Patient Relationship to Insured Coverage Start Date Coverage End Date [employer] [address] [place] [address] [id number] Teresa Valentin Self - patient is the insured Medical (General) History Medical History History ICD Code fibromyalgia restless leg syndrome anxiety insomnia pre-diabetes Surgical History Surgery Date(Month/Year) Rt Ankle Surgery 01/03/2024 Appendectomy AUG 2023 EGD 2021 Tonsillectomy x3 2009,2010,2012 Tubal Ligation 2014 Uterine Ablation 2022 Hospitalization History Reason Date(Month/Year) Chest Pains 02/[address] [facility]
--- OUTSIDE RECORDS SUMMARY | 2025-03-06 08:27 | XMS_ITS | Clinical Summary ---
Author Organization [facility] Address [address] [place] [address] Care Team Providers Care Financial Compliance Manager Name Role Phone Oriana Spears Primary Care Provider [phone] Allergies Active Allergy Reactions Criticality Noted Date [...] Description 09/01/2025 9:00 AM EST Office Visit [facility] [address], [address] [place] [address] Bowen Rendon MD [address] [place] [address] Health Maintenance Due Date Last Done Comments [facility]-HIV Screening 1988 [facility]-Hepatitis C Screening 1988 [facility]-/Child/Adol SDOH Screenings 1988 [facility]-Varicella Vaccines (1 of 2 - 13+ 2-dose series) 2001 HPV Vaccines (1 - 3-dose series) 2003 [facility]- SDOH Screenings 2006 [facility]-Adult SDOH Screenings 2006 [facility]-Hepatitis B Vaccines (1 of 3 - 19+ 3-dose series) 2007 [facility]-Pap Smear 2009 [facility]-Cervical Cancer Screening 2018 [facility]-HPV/Cotest 2018 [facility]-DTaP,Tdap,and Td Vaccine s (3 - Td or Tdap) 05/26/2023 05/26/2013, 04/05/2011 [id number] Vaccine ( - 2023- season) 2024 [facility]-Influenza [...] 5.7(H) <5.7 % 08/29/2024 2:00 PM EST [facility] Blood Venous blood specimen / Unknown Venipuncture / Unknown 08/29/2024 9:14 AM EST 08/29/2024 9:14 AM EST Narrative [facility] - 08/29/2024 2:00 PM EST HA1C Interpretive Data: Diagnosis of Diabetes: Diabetic > or = 6.5% Pre-diabetic 5.7 to 6.4% Non-diabetic < or = 5.6% Glycemic Targets for Type I and Type II Diabetics: Non- Adults <7.0% Adults <6.0% Children and Adolescents <7.5% Source: [place] Diabetes Association. Standards of medical care in diabetes,2017. Diabetes Care.2017:40 (suppl 1):S1-S135. HbA1c assay performed by an ion-exchange chromatography method that is certified traceable to the DCCT. us Bowen Rendon MD LAB BLOOD ORDERABLES Final Resul t [facility] [address] [place] [address] from Last 3 Months or Most Recently Relevant to Health Maintenance Insurance [address], [place] [address] [employer] Care Teams Financial Compliance Manager Relationship Specialty Start Date End Date Oriana Spears PA [address] [place] [address] PCP - General 02/26/24
--- NOTE | 2025-03-06 08:30 | MR_ITS ---
FINAL REPORT CLINICAL HISTORY: Right elbow Pain, mass on medial side of elbow eval. marker placed on mass. COMPARISON: None FINDINGS: Multiplanar and multisequence imaging of the right elbow was obtained without contrast. Exam quality is limited secondary to motion artifact and artifact related to technique of the exam. BONES: There is no gross acute fracture, contusion or pathologic marrow replacement. . There is no joint effusion. LIGAMENTS: The radial collateral ligament and lateral ulnar collateral ligament are grossly intact. The ulnar collateral ligament proper is grossly intact. TENDON/MUSCLES: The common extensor tendon appears normal. Evaluation of the common flexor tendons is limited secondary to artifact, no large tear is identified. The triceps tendon and biceps tendon are intact. Signal intensity within the muscles themselves is normal. OTHER SOFT TISSUES: A marker was placed over the region of interest, and no convincing mass is identified. There may be mild subcutaneous edema, however no fluid collection or skin thickening is identified. IMPRESSION: 1. Motion artifact and artifact related to technique limited overall image quality. 2. There may be mild subcutaneous edema noted deep to a marker over the region of interest. No fluid collection or skin thickening in this area is identified. Reviewed, Interpreted and Dictated by Tiffany Aponte MD Transcribed by Judy aLne Authenticated and [facility]
== END 2025-03-06 23:59 | disposition home or self-care (01) ==
LOC: RAD 08:24
PROVIDERS: PCP Nurse Practitioner Family; Visit Provider Physician Assistant Surgical
DX: M25.521 Pain in right elbow (principal)
CPT/HCPCS: 73221

== ENCOUNTER 2025-03-10 14:48 | Outpatient (CLI) | payer OTHER, SELFPAY ==
--- OUTSIDE RECORDS SUMMARY | 2025-02-19 11:17 | XMS_ITS ---
Author Organization [facility] Address [address] [facility] [address] [place] [address] Care Team Providers Care Courtesy Clerk Name Role Phone Brett Leon Primary Care Provider BRETT Leon APRN Unavailable Unavailable Results Component Value Reference Range Notes X ray : Elbow, Right Reviewed date:02/27/2025 09:37:05 AM Interpretation: Performing Lab: Notes/Report: REASON FOR VISIT MRI elbow denied Encounters Encounter Location Date Provider Diagnosis [facility] [address] [address] 02/19/2025 Brett Leon Right elbow pain M25.521 Assessments Encounter Date Diagnosis (ICD Code) Assessment Notes Treatment Notes Treatment Clinical Notes Section Notes 02/19/2025 Right elbow pain (ICD-10 - M25.521) Plan Of Treatment Next Appt Details Provider Name:Brett Hill, 03/17/2025 09:30:00 AM, [address] [facility], [address], [place], [address], Provider Name:Brett Hill, 03/26/2025 08:00:00 AM, [address] [facility], [address], [place], [address], Progress Notes * Teresa VALENTIN LDOB:1990 (34 yo F)Acc No.[id number]:02/19/2025 Patient: Jovi ERICKSONTeresa :1990 A ge:34 Y S ex:Female Address:[address] [place] [address] [place] [address] Subjective: * Chief Complaints: * M RI elbow denied * Medical History: * Surgical History: * Hospitalization/Major Diagno stic Procedure: * Medications: Objective: * Vitals: * Physical Examination: Assessment: * [facility]. [facility] M25.521 (Primary) Plan: * Treatment: * * Procedure Codes: * true * Date: Generated for Qi xiong/Jay/Koryitting on: 0 03/10/2025 02:59 PM EDT
--- OUTSIDE RECORDS SUMMARY | 2025-03-05 10:15 | XMS_ITS ---
Author Organization [facility] PE D YOSELYN Address [address] [facility] [address] [place] [address] Care Team Providers Care Statue Maker Name Role Phone Brett Leon Primary Care Provider BRETT Leon APRN Unavailable Unavailable Allergies Allergen (clinical [...] anaphylaxis Allergy Active Reason For Referral Reason echo Diagnosis 1 Shortness of breath (R06.02) Referral Organization [facility] PED LIZZY Referring Provider First Name Brett Referring Provider Last Name Carolyn Referring Provider Speciality Family [facility] ctice Referred Organization [facility] Referred Address [address] [place] [address] [address] [facility], [place],[address], Referred Provider Specialty Diagnostic R adiology General Notes Essie Hammond 2024 03:45:49 PM >Sent to [facility] to schedule appt Referral Priority Routine REASON FOR VISIT ED FU chest pains, [facility] d/c 03/01/2025 Medications Medication SIG (Take, Route, Fr equency, [...] 1 cap(s) orally once a day Active busPIRone HCl 5 MG 1 tablet Orally Twic e a day; Duration: 30 days 03/05/2025 Active DULoxetine HCl 30 MG 1 cap(s) [...] Problem Status W/U Status Risk Notes Problem Anxiety (81156105) Anxiety (F41.9) Active confirmed Vital Signs Temperature 97.5 degrees Fahrenheit 03/05/20 25 Heart Rate 80 /min 03/05/2025 Blood pressure systolic 118 mm Hg 03/05/20 25 Blood pressure diastolic 76 mm Hg 025 Height 5ft 0in in 03/05/2025 Weight 174.6 lbs 03/05/2025 BMI 34.1 kg/m2 03/05/2025 Encounters Encounter Location Date Provider Diagnosis [facility] PED YOSELYN [address] [facility] [address] [place], [place] [address] 03/05/2025 Brett Carolyn Left-sided chest pain R07.9 ; Shortness of breath R06.02 and Anxiety F41.9 Assessments Encounter Date Diagnosis (ICD Code) Assessment Notes Treatment Notes Treatment Clinical Notes Section Notes 03/05/2025 Left-sided chest pain (ICD-10 - R07.9) [facility] ED records reviewed Likely related to her anxiety. Treat with lily as below. Given her new report of SOA and persistent symptoms will obtain echo to r/o underlying pathology and for patient reassurance. 03/05/2025 Shortness of breath (ICD-10 - R06.02) 03/05/2025 Anxiety (ICD-10 - F41.9) Discussed rationale for pharmacotherapy , and discussed MOA of med. Discussed time course of expected improvements, and discussed side effect profile, and need for urgent evaluation if agitation or worsening mood occurs. Discussed need for f/u in office. RTC in 3 weeks Plan Of Treatment Medication Medication Name Sig Start Date Stop Date Notes busPIRone HCl 5 MG 1 tablet Orally Twic e a day; Duration: 30 days 03/05/2025 Treatment Notes Assessment Notes Left-sided chest pain [facility] ED records reviewed Likely related to her anxiety. Treat with lily as below. Given her new report of SOA and persistent symptoms will obtain echo to r/o underlying pathology and for patient reassurance. Anxiety Discussed rationale for pharmacotherapy, and discussed MOA of med. Discussed time course of expected improvements, and discussed side effect profile, and need for urgent evaluation if agitation or worsening mood occurs. Discussed need for f/u in office. RTC in 3 weeks Pending Test Test Name Order Date Echocardiogram 03/05/2025 Referrals Referral Date Details 03/05/2025 03/05/2025, echo, [address] [facility], [place], [address], Next Appt Details Follow Up: 3 Weeks,prn, Reas on: Provider Name:Brett Hill, 03/17/2025 09:30:00 AM, [address] [facility], [address], [place], [address], Provider Name:Brett Hill, 03/26/2025 08:00:00 AM, [address] [facility] [address] [address] [facility], [address], [place], [address], Progress Notes * Teresa VALENTIN LDOB:1990 (34 yo F)Acc No.[id number]:03/05/2025 Progress Notes Patient: Teresa JAVED Provider: Anu Leon APRN :1990 A ge:34 Y S ex:Female Date:03/05/2025 Address:[address] [place] [address] [place] [id number] Subjective: * Chief Complaints: * 1 . ED FU chest pains, [facility] d/c 03/01/2025. * HPI: g en: 34 y/o female presents for ED FU on chest pain. Seen in the ED for acute onset of left sided chest pain that radiated to left arm while shopping at [employer] with diaphoresis and nausea. ED work-up with negative. Reports 2 more episodes of similar chest pain. Not associated with exertional, but has some exertional SOA. No LE edema or orthopnea. Increased anxiety over the last few weeks, reports chest pains in the past with anxiety. Took SSRIs which caused decreased libido. Mood is stable. * ROS: C ONSTITUTIONAL: no L oss of appetite. n o F ever. G ASTROENTEROLOGY: Nausea y es. n o H eartburn. n o V omiting.?no A bdominal pain. n o D iarrhea. n o C onstipation. N EUROLOGY: Tingling numbness y es. P SYCHOLOGY: no D epression. A nxiety y es. U ROLOGY: no D ifficulty urinating. n o U rinary incontinence. * Medical History: F ibromyalgia, Restless leg syndrome, Anxiety, Insomnia, Pre-diabetes. * Surgical History: R t Ankle Surgery 01/03/2024, Appendectomy AUG 2023, EGD 2021, Tonsillectomy , C- Section x3 2009,2010,2012 , Tubal Ligation 2013, Uterine Ablation 2022. * Hospitalization/Major Diagno stic Procedure: C -Section x3 [place] , Chest Pains 02/2025. * Family History: F ather: alive, FibromyalgiaNeuropathyStrokeCancer. M other: alive. P aternal Grand Father: . P aternal Grand Mother: . M aternal Grand Father: . M aternal Grand Mother: alive, CancerDepression. P aternal uncle: alive. P aternal aunt: alive.?Maternal uncle: alive. M aternal aunt: alive. 3 son(s) . . * Social History: R ecreational drug use: no. Exercise: yes, Sometimes. Home smoke detector use: yes. Caffeine: yes, rarely. Alcohol: no. Sexually active: yes. Travel outside [place]: no. Occupation: employed. Tobacco Control (Standard) T obacco use: F ormer smoker, H ow long has it been since you last smoked? 5 -10 years. * Medications: T aking metFORMIN HCl 500 MG Tablet 1 tab(s) orally once a day , Taking DULoxetine HCl 30 MG Capsule Delayed Release Particles 1 cap(s) orally once a day , Taking DULoxetine HCl 60 MG Capsule Delayed Release Particles 1 cap(s) orally once a day , Taking Cetirizine HCl 10 MG Tablet 1 tab(s) orally once a day , Taking Gabapentin 400 MG Capsule 1 capsule orally 3 times a day , Taking Omeprazole 20 MG Capsule Delayed Release 1 cap(s) orally once a day , Taking rOPINIRole HCl 0.25 MG Tablet 1- 2tab(s) orally at bedtime , Taking Ibuprofen 800 MG Tablet 1 tablet with food or milk as needed Orally 3 times a day As needed, Medication List reviewed and reconciled with the patient * Allergies: C ephalexin: rash, OIL IN MONEY: rash, Honey, FRAGRANT MIX 2, BEES, Bleach: anaphylaxis, SURGICAL TAPE. Objective: * Vitals: N urse: KJ, Pain: 0, Temp: 97.5, RR: 18, HR: 80, BP: 118/76, Ht: 5ft 0in, Wt: 174.6, BMI:34.1. * Examination: G eneral Examination: General P leasant and Cooperative, NAD on RA,. Chest: n ormal shape and expansion. Heart: R egular Rate and Rhythm, no murmur, rubs or gallops. Lungs: L CTAB, No wheezes, crackles or rhonchi, Good air movement,. Skin: w ithout acute rashes. neck s upple,, no thyromegaly,, no lymphadenopathy,. Psych N ormal Mood/Affect. Assessment: * Assessment: 1. L eft-sided chest pain - R07.9 (Primary) 2 . S hortness of breath - R06.02 3 . A nxiety - F41.9 Plan: * Treatment: Notes: [facility] ED records reviewed Likely related to her anxiety. Treat with buspar as below. Given her new report of SOA and persistent symptoms will obtain echo to r/o underlying pathology and for patient reassurance.??2.?Shortness of breath?Imaging: Echocardiogram* ? Referral To: ?Reason:echo 3.?Anxiety? Start busPIRone HCl Tablet, 5 MG, 1 tablet, Orally, Twice a day, 30 days, 60 Tablet, Refills 0. ? Notes: Discussed rationale for pharmacotherapy, and discussed MOA of med. Discussed time course of expected improvements, and discussed side effect profile, and need for urgent evaluation if agitation or worsening mood occurs. Discussed need for f/u in office. RTC in 3 weeks?? * Follow Up: 3 Weeks,prn * * Sign off status: Completed true * Provider: Anu Leon APRN Date: 0 03/05/2025 Generated for Qi xiong/Jay/eTransmitting on: 0 03/10/2025 02:59 PM EDT History and Physical Notes * HPI (History of Present Illness) Category Sub-Category Detail Notes Category Not es gen 34 y/o female p resents for ED FU on chest pain. Seen in the ED for acute onset of left sided chest pain that radiated to left arm while shopping at [employer]. [employer] with diaphoresis and nausea. ED work-up with negative. Reports 2 more episodes of similar chest pain. Not associated with exertional, but has some exertional SOA. No LE edema or orthopnea. Increased anxiety over the last few weeks, reports chest pains in the past with anxiety. Took SSRIs which caused decreased libido. Mood is stable. Examination Category Sub-Category Detail Notes Category Not es General Examination Heart: Regular Rate and Rhythm, no murmur, rubs or gallops Lungs: LCTAB, No wheezes, c rackles or rhonchi, Good air movement, Skin: without acute rashes Chest: normal shape and exp ansion neck supple,, no thyromeg isabel,, no lymphadenopathy, General Pleasant and Coopera tive, NAD on RA, Psych Normal Mood/Affect Consultation Request Notes Referral Date Referring Provider Referred Provider Not es 03/05/2025 Brett Leon echo
--- NOTE | 2025-03-10 | CA_ITS ---
APPROVED REPORT EXAM: Comprehensive 2D, Doppler, and color-flow Echocardiogram Radio Operator Ground: Anisa Castaneda CRT Ht: 5 ft 0 in Wt: 170lbs BSA: 1.74 BP: 106/71 mmHg Indications: Chest Pain, Shortness of Breath 2D Dimensions LA Volume 41.30 mL LA Volume Index 23.20 mL/m2 (M/F) 16-34 M-Mode Dimensions RVDd 2.27 cm (0.9-2.6) LA Diam 2.65 cm (1.9-4.0) LVDd 4.06 cm (3.5-5.7) LVDs 2.40 cm (3.5-5.7) IVSd 1.09 cm (0.6-1.1) PWd 0.93 cm (0.6-1.1) EF (Teich) 72.10% FS 40.90% EDV (Teich) 72.50 mL TAPSE 1.91 (<1.7) ESV (Teich) 20.20 mL LV Diastology E Decel Time 193 (160-240 msec) E/A Ratio 1.15 MED A' 10.20 cm/s LAT A' 16.00 cm/s Aortic Valve AO Peak GR. 5.10 mmHg Mitral Valve MV A Velocity 63.0 (40-130 cm/s) E/A Ratio 1.15 Pulmonary Valve PV Peak Velocity 117.0 (50-150 cm/s) Tricuspid Valve TR P. Velocity 103.00 cm/s RAP Estimate 10.00 mmHg RVSP 14.30 mmHg Left Ventricle The left ventricle is normal size. Left ventricular systolic function is normal. The left ventricular ejection fraction is within the normal range. There is normal left ventricular wall thickness. There is normal LV segmental wall motion. The left ventricular diastolic function is normal. LVEF is 55% Right Ventricle The right ventricle is normal size. The right ventricular systolic function is normal. Atria The left atrium size is normal. The right atrium size is normal. There is no color Doppler evidence of interatrial shunt. Aortic Valve The aortic valve opens well. There is no hemodynamically significant aortic valvular stenosis. No aortic regurgitation is present. Mitral Valve The mitral valve is normal in structure. No evidence of mitral valve stenosis. Trace mitral regurgitation is present. Tricuspid Valve The tricuspid valve leaflets are thin and pliable. Trace tricuspid regurgitation. There is insufficient TR jet to estimate RVSP. Pulmonic Valve The pulmonary valve is grossly normal in structure. Trace pulmonic valve regurgitation is present. Great Vessels The aortic root is normal in size. IVC is normal in size and collapses >50% with inspiration. Pericardium There is no pericardial effusion. Other Information Study Quality: Fair Conclusion Normal biventricular systolic function. No significant valvular stenosis or regurgitation. Electronically signed by : Ericka Casas MD 03/11/2025 00:32:32
--- OUTSIDE RECORDS SUMMARY | 2025-03-10 15:00 | XMS_ITS | Clinical Summary ---
Author Organization [facility] Address [address] [place] [address] Care Team Providers Care Berry Picker Machine Operator Name Role Phone Oriana Spears Primary Care Provider [phone] Allergies Active Allergy Reactions Criticality Noted Date [...] Description 09/01/2025 9:00 AM EST Office Visit [facility] [address], [address] [place] [address] Bowen Rendon MD [address] [place] [address] Health Maintenance Due Date Last [...] - Td or Tdap) 05/26/2023 05/26/2013, 04/05/2011 [id number] Vaccine ( - 2023- season) 2024 [facility]-Influenza [...] 5.7(H) <5.7 % 08/29/2024 2:00 PM EST [facility] Blood Venous blood specimen / Unknown Venipuncture / Unknown 08/29/2024 9:14 AM EST 08/29/2024 9:14 AM EST Narrative [facility] - 08/29/2024 2:00 PM EST HA1C Interpretive Data: Diagnosis of Diabetes: Diabetic > or = 6.5% Pre-diabetic 5.7 to 6.4% Non-diabetic < or = 5.6% Glycemic Targets for Type I and Type II Diabetics: Non- Adults <7.0% Adults <6.0% Children and Adolescents <7.5% Source: [place] Diabetes Association. Standards of medical care in diabetes,2017. Diabetes Care.2017:40 (suppl 1):S1-S135. HbA1c assay performed by an ion-exchange chromatography method that is certified traceable to the DCCT. us Bowen Rendon MD LAB BLOOD ORDERABLES Final Resul t [facility] [address] [place] [address] from Last 3 Months or Most Recently Relevant to Health Maintenance Insurance [address] [place], [place] [id number] [employer] Care Teams Berry Picker Machine Operator Relationship Specialty Start Date End Date Oriana Spears PA [address] [place] [address] PCP - General 02/26/24
--- OUTSIDE RECORDS SUMMARY | 2025-03-10 15:00 | XMS_ITS | Patient Health Record ---
Author Organization [facility] Address [address] [place] [address] Care Team Providers Care Value Engineer Name Role Phone Caro eLon Primary Care Provider CARO Leon APRN Unavailable Unavailable José Khan Unavailable [phone] Migration, Provider Unavailable Unavailable Allergies Allergen (clinical [...] date:12/05/2024 11:16:35 AM Interpretation: Performing Lab:CB, [facility] [id number] [facility], [facility] HospitalMdowEF[address] Humberto Villagomez Notes/Report: NON-FASTING; NON-FASTING; NON-FASTING; NON-FASTING; [...] of LDL-C. Ricardo SS et al. ROSSY. 2013;310(52): 3767-2734 ([email or web address]) CHOL/HDLC RATIO 3.3 <5.0 (calc) NON HDL CHOLESTEROL 147 <130 mg/dL (calc) For patients with diabetes plus 1 major ASCVD risk factor, treating to a non-HDL-C goal of <100 mg/dL (LDL-C of <70 mg/dL) is considered a therapeutic option. COMPREHENSIVE METABOLIC PANE L (03658) Reviewed date:12/05/2024 11:16:35 AM Interpretation: Performing Lab:[facility] [id number] [facility] HospitalCarlosUqvgWX[address] Humberto Villagomez Notes/Report: NON-FASTING; NON-FASTING; NON-FASTING; NON-FASTING; [...] Reviewed date:12/05/2024 11:16:35 AM Interpretation: Performing Lab:[facility] [address] [id number] [facility], [facility] HospitalBmqsOO[address] Humberto Villagomez Notes/Report: NON-FASTING; NON-FASTING; NON-FASTING; NON-FASTING; [...] MPV 9.6 7.5-12.5 fL ABSOLUTE NEUTROPHILS 3360 6580-5589 cells/uL ABSOLUTE LYMPHOCYTES 2154 850-3900 cells/uL ABSOLUTE MONOCYTES 348 200-950 cells/uL ABSOLUTE EOSINOPHILS 120 15-500 cells/uL ABSOLUTE BASOPHILS 18 0-200 cells/uL NEUTROPHILS 56 LYMPHOCYTES 35.9 MONOCYTES 5.8 EOSINOPHILS 2.0 BASOPHILS 0.3 HEMOGLOBIN A1c (496) Reviewed date:12/05/2024 11:16:35 AM Interpretation: Performing Lab:[facility]INA Best Five Reviewed-G.ho.st [id number] [facility], [facility] CenterGohyKF[address] Humberto Villagomez Notes/Report: NON-FASTING; NON-FASTING; NON-FASTING; NON-FASTING; [...] diagnosis of diabetes in children. According to [place] Diabetes Association (ADA) guidelines, hemoglobin A1c <7.0% represents optimal control in non- diabetic patients. Different metrics may apply to specific patient populations. Standards of Medical Care in Diabetes(ADA). VITAMIN B12 (927) Reviewed date:12/05/2024 11:16:35 AM Interpretation: Performing Lab:MAR[facility], [facility] [address], Cook HospitalAsnjVC[address] Humberto Villagomez Notes/Report: NON-FASTING; NON-FASTING; NON-FASTING; NON-FASTING; NON-FAST FASTING:YES FASTING: YES VITAMIN B12 464 735-6088 pg/mL VITAMIN D,25-OH,TOTAL,IA (17 306) Reviewed date:12/05/2024 11:16:35 AM Interpretation: Performing Lab:[facility] [address], [place] PlfaPK[address] Humberto Villagomez Notes/Report: NON-FASTING; NON-FASTING; NON-FASTING; NON-FASTING; [...] D, (D2,D3), LC/MS/MS is recommended: order code 10118 (patients >2yrs). See Note 1 Note 1 For additional information, please refer to http://education.UniPay/faq/ZYB466 (This link is being provided for informational/ educational purposes only.) Reason For Referral Reason PT [facility] Diagnosis 1 Trochanteric bursiti s of right hip (M70.61) Referral Organization [facility] Referring Provider First Name Caro Referring Provider Last Name Carolyn Referring Provider Speciality Family Pra [facility] General Notes Geoff Gomez 10:36:55 AM > faxed to [facility] and they will call mom Referral Priority Routine Reason MRI right elbow- [facility] Diagnosis 1 Right elbow pain (M2 5.521) Referral Organization [facility] Referring Provider First Name Caro Referring Provider Last Name Carolyn Referring Provider Speciality Family Pra ctice General Notes Geoff Gomez 12:33:27 PM > pre cert in review, Geoff Gomez 02/19/2025 04:32:25 PM > MRI denied Referral Priority Routine Reason echo Diagnosis 1 Shortness of breath (R06.02) Referral Organization [facility] Referring Provider First Name Caro Referring Provider Last Name Carolyn [facility] Referred Organization [facility] Referred Address [address] [facility] [address] [facility], [place], [place],[address], Referred Provider Specialty Diagnostic R adiology General Notes Essie Hammond 2024 03:45:49 PM >Sent to [facility] to schedule appt Referral Priority [...] W/U Status Risk Notes Problem Primary insomnia (5294447) Primary insomnia (F51.01) Active confirmed Problem Sciatica (49840555) Lumbago with sciatica, right side (M54.41) Active confirmed Problem Sciatica (98426349) Lumbago with sciatica, left side (M54.42) Active confirmed Problem Fibromyalgia (486181144) Fibromyalgia (M79.7) Active confirmed Problem Anxiety (31133033) Anxiety (F41.9) Active confi rmed Problem Vitamin D deficiency (79586200) Vitamin D deficiency (E55.9) Active confirmed Problem Neuropathy (798610440) Neuropathy (G62.9) Active confirmed Problem Gastroesophageal reflux disease (843420091) GERD without esophagitis (K21.9) Active confirmed Problem Restless legs (88241013) RLS (restless legs syndrome) (G25.81) Active confirmed Problem Chronic pain (60709641) Other chronic pain (G89.29) Active confirmed Problem Solitary sacroiliitis (953372448) SI (sacroiliac) joint inflammation (M46.1) Active confirmed Vital Signs Heart Rate 80 /min 03/05/2025 Temperature 97.5 degrees Fahrenheit 03/05/2025 Blood pressure diastolic 76 mm Hg 03/05/2025 Height 5ft 0in in 03/05/2025 Blood pressure systolic 118 mm Hg 03/05/2025 Weight 174.6 lbs 03/05/2025 BMI 34.1 kg/m2 03/05/2025 Encounters Encounter Location Date Provider Diagnosis [facility] [address] [address] 11/08/2024 Provider Migration Fibromyalgia M79.7 [facility] [address] [place] [address] 10/21/2024 Caroyovani Leon Fibromyalgia M79.7 ; RLS (restless legs syndrome) G25.81 ; Primary insomnia F51.01 ; Neuropathy G62.9 ; Prediabetes R73.03 and GERD without esophagitis K21.9 [facility] [address] [place] [address] 11/20/2024 Caro McNees Fibromyalgia M79.7 ; Neuropathy G62.9 and Vertigo R42 [facility] [address] [place] [address] 12/04/2024 Caro Carolyn Vitamin D deficiency E55.9 ; Neuropathy G62.9 ; B12 deficiency E53.8 ; Routine medical exam Z00.00 and Prediabetes R73.03 [facility] [address] [address] 01/16/2025 Caro McNees Neuropathy G62.9 ; Fibromyalgia M79.7 ; Lumbago with sciatica, right side M54.41 ; Lumbago with sciatica, left side M54.42 ; Other chronic pain G89.29 and Trochanteric bursitis of right hip M70.61 [facility] [address] [address] 02/13/2025 Caro McNees Neuropathy G62.9 ; Fibromyalgia M79.7 ; Other chronic pain G89.29 ; Trochanteric bursitis of right hip M70.61 ; SI (sacroiliac) joint inflammation M46.1 ; Medial epicondylitis, right elbow M77.01 and Right elbow pain M25.521 [facility] [address] [facility] [address] [place] [address] 03/05/2025 Caro McNees Left-sided chest brittany n R07.9 ; Shortness of breath R06.02 and Anxiety F41.9 [facility] [address] [facility] [address] [place] [address] 09/30/2024 José Besson [facility] [address] [place] [address] 10/03/2024 José Besson [facility] [address] [address] 12/23/2024 Caro McNees [facility] [address] [facility] [address] [place] [address] 01/14/2025 Caro McNees [facility] [address] [address] 02/16/2025 Caro McNees Trochanteric bursiti s of right hip M70.61 [facility] [address] [facility] [address] [place] [address] 02/18/2025 Caro McNees [facility] [address] [address] 02/19/2025 Caro McNees Right elbow pain M25.521 [facility] [address] [facility] [address] [place] [address] 02/26/2025 Caro McNees Medial epicondylitis , right elbow M77.01 [facility] [address] [place] [address] 11/25/2024 Caro McNees [facility] [address] [place] [address] 11/25/2024 Caro McNees [facility] [address] [place] [address] 02/22/2025 Caro McNees [facility] [address] [place] [address] 02/22/2025 Caro McNees Assessments Encounter Date Diagnosis [...] 03/05/2025 Left-sided chest pain (ICD-10 - R07.9) [facility] ED records reviewed Likely related [address], [place], [address], Provider Name:Caro Hill, 03/26/2025 08:00:00 AM, [address], [place], [address], Insurance Providers Payer Name Payer Address Payer Phone Subscriber Number Group Number Insured Name Patient Relationship to Insured Coverage Start Date Coverage End Date [employer] [address] [place] [address] [phone] [id number] Teresa Valentin Self - patient is the insured Medical (General) History Medical History History ICD Code fibromyalgia restless leg syndrome anxiety insomnia pre-diabetes Surgical History Surgery Date(Month/Year) Rt Ankle Surgery 01/03/2024 Appendectomy AUG 2023 EGD 2021 Tonsillectomy x3 2009,2010,2012 Tubal Ligation 2014 Uterine Ablation 2022 Hospitalization History Reason Date(Month/Year) Chest Pains 02/[address] [facility]
== END 2025-03-10 23:59 | disposition home or self-care (01) ==
LOC: RT 14:49
PROVIDERS: PCP Nurse Practitioner Family; Visit Provider Nurse Practitioner Family
DX: R07.9 Chest pain, unspecified (principal); R06.02 Shortness of breath
CPT/HCPCS: 93306

== ENCOUNTER 2025-04-02 10:00 | Outpatient (RCR) | payer OTHER, SELFPAY ==
--- NOTE | 2025-03-18 11:56 | HMH.OTOPEV ---
OT Inpatient Evaluation Rehab OT Outpatient Eval Start: 03/18/25 11:01 Freq: Status: Active Protocol: Document 03/18/25 11:03 MELONIE (Rec: 03/18/25 11:56 MELONIE [id number]) E-signed By Elysia Metcalf, OT Outpatient Therapy Subjective History Subjective History Pt is a 34 yr old female being seen for initial OT evaluation due to R elbow pain. Pt reported they have recently been seen at [facility] for OP OT services and interventions for R elbow pain. Pt reported they were doing better with no pain, then aprox 33 days ago came for reassessment due to increased pain and knot at R elbow medially. Pt reported they have went to dr for 2 injections and had x-ray and MRI- both showed no abnormalities and came back normal . Pt reports sharp pain only when move in certain way. pt is R hand dom. Pt reports they have attempted to use TENS unit at home on R elbow. 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 Pt reports pain when having R UE relaxed at side when walking. Pt does not have official dx of R elbow. New diagnosis of No cancer in past 12 months? Chief Complaint Pain,Swelling,Weakness,Decreased Finish Off Operator Strength Symptom Type Ache,Throb Symptoms Relieved By Rest/Positioning,Ice Symptoms Aggravated Sitting,Standing,Physical Activity,Lifting By Prior Functional None Limitations Current Functional Reaching,Lifting,Housework,Dressing,Desk Work/Reading, Limitations Driving,Sleeping,Standing,Recreation Activity Symptom Description Constant and Continuous Level of pain today 7 (0-10) Pain scale - at its 6 best (0-10) Pain scale - at its 8 worst (0-10) Shoulder/Elbow Eval Shoulder Objective Measurements Elbow Objective Measurements Palpation Tenderness Elbow Palpation tenderness of medical aspect of R elbow, knot present Overall Comment Elbow Palpation Tenderness Finding tenderness elbow right exam standard tenderness forearm right exam standard tenderness over the right medial epicondyle elbow exam standard swelling elbow exam right standard Flexibility Deficits Bicep Muscle Length (R) Moderate Tightness Tricep Muscle Length (R) Moderate Tightness Elbow ROM Right full ROM elbow exam right standard pain with active ROM right elbow exam standard Elbow Extension 10 Active Range of Motion (degrees) Elbow Extension 0 Passive Range of Motion (degrees) Elbow Flexion Active 70 Range of Motion ( degrees) Elbow ROM Muscle Weakness,Muscle Tone,Pain Limitations Elbow MMT Elbow Flexion 3- Fair- Strength Grade Elbow Extension 3- Fair- Strength Grade Wrist/Hand Eval Finish Off Operator/Pinch Strength Left Finish Off Operator Strength 40 Measurement (lbs) Right Finish Off Operator Strength 20 Measurement (lbs) QuickDASH Activities Please rate your ability to do the following activities in the last week by selecting the number below the appropriate response. 1. Open a tight or Severe difficulty new jar. 2. Do heavy Severe difficulty records technician (e. g., wash vidales, floors). 3. Carry a shopping Severe difficulty bag or briefcase. 4. Wash your back. Severe difficulty 5. Use a knife to Severe difficulty cut food. 6. Recreational Severe difficulty activities in which you take some force or impact through your arm, shoulder, or hand (e.g., golf, hammering, tennis, etc.). 7. During the past Moderately week, to what extent has your arm, shoulder or hand problem interfered with your normal social activities with family, friends , neighbors or groups? 8. During the past Very limited week, were you limited in your work or other regular daily activites as a result of your arm, shoulder or hand problem? 9. Arm, shoulder or Severe hand pain. 10. Tingling (pins None and needles) in your arm, shoulder or hand. 11. During the past Severe difficulty week, how much difficulty have you had sleeping because of the pain in your arm, shoulder or hand? Quick DASH 40 Work Module (optional) The following questions ask about the impact of your arm, shoulder or hand problem on your ability to work (including homemaking if that is your main work role). 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 Yes 1. Using your usual No difficulty technique for your work? 2. Doing your usual Severe difficulty work because of arm, shoulder or hand pain? 3. Doing your work Severe difficulty as well as you would like? 4. Spending your Moderate difficulty usual amount of time doing your work? Quick Dash Work 12 Module Score OT Patient Goals OT Patient Goals OT Short Term 1. 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 2. Pt will improve R elbow flexion to 75 degrees, extension to 5 degrees in 3 wks. 3. Pt will improve R elbow MMT to 3/5 in 3 wks. 4. Pt will improve QuickDash Activities score 38 or below in 3 wks. 5. Pt will improve QuickDash Work score 10 or below in 3 wks. 6. Pt will improve endurance to completion of TE for 10 mins prior to rest in 3 wks. 7. Pt will be ind in HEP of theraputty and stretches in 3 wks. 8. Pt will improve subjective pain to 7/10 at worst in 3 wks. OT Combination Building Inspector Patient 1. Pt will improve right hand longwall shearer operator strength to 30 lbs Goals in 6 wks. 2. Pt will improve R elbow flexion to 80 degrees, extension to 3 degrees in 6 wks. 3. Pt will improve R elbow MMT to 3+/5 in 6 wks. 4. Pt will improve QuickDash Activities score 35 or below in 6 wks. 5. Pt will improve QuickDash Work score 8 or below in 6 wks. 6. Pt will improve endurance to completion of TE for 15 mins prior to rest in 6 wks. 7. Pt will be ind in advanced HEP: completion of advanced strengthening in 6 wks. 8. Pt will improve subjective pain to 6/10 at worst in 6 wks. OT Outpatient Assessment Impairments Problems/Impairments Palpation Tenderness,Impaired Range of Motion,Impaired Strength,Impaired Endurance,Impaired Lifting,Impaired Dressing,Impaired Shower/Bathing,Impaired Household Care,Impaired Recreational Activities,Impaired Work Activities,Impaired Desk/Computer Activities,Subjective C/O Pain,Impaired Self Care/Self Management Prognosis Rehab Potential Good Clinical Impression Consistent with Yes Diagnosis Outpatient Therapy Plan of Care Treatment Plan May Include Therapeutic Exercise Yes Including Home Exercise Program Manual Therapy Yes Techniques Neuromuscular Re- Yes education Therapeutic Yes Activities to Return to Previous Functional/Work Level ADL/Self Care Yes Education Thermal Modalities Yes Electrical Yes Stimulation Ultrasound/ Yes Phonophoresis Iontophoresis Yes Parrafin Yes Orthotics/Bracing/ Yes Splinting Group Therapy for Yes Medicare Eval/Re-Eval Yes Frequency Times per week 1-2w/wk Duration Number of Weeks 6 wks Addendums This patient is a No candidate for social or vocational rehab ? Patient/Guardian Yes verbally acknowledges understanding of treatment program and consents to further treatment? Patient/Guardian Yes verbally acknowledges understanding of diagnosis, prognosis and goals for treatment? Eval Complexity OT Charge 64190 - Moderate Complexity PHYSICIAN CERTIFICATION: I certify the specified therapy services for Teresa Valentin are required, authorized, and reviewed every 30 days.
== END 2025-04-02 23:59 | disposition home or self-care (01) ==
LOC: OT 10:00
PROVIDERS: Visit Provider Physician Assistant Surgical
DX: M25.521 Pain in right elbow (principal)
CPT/HCPCS: 97014; 97032; 97035; 97110; 97140; 97166; G0283

== ENCOUNTER 2025-05-04 08:00 | Outpatient (RCR) | payer OTHER, SELFPAY ==
--- NOTE | 2025-04-13 09:07 | HMH.RHREAS ---
Rehab Reassessment Rehab OP Re-assessment Start: 04/07/25 14:03 Freq: Status: Active Protocol: Document 04/13/25 07:56 MELONIE (Rec: 04/13/25 09:06 MELONIE [id number]) E-signed By LISSY PatelDASH Activities Please rate your ability to do the following activities in the last week by selecting the number below the appropriate response. 1. Open a tight or Moderate difficulty new jar. 2. Do heavy Mild difficulty coo & co founder (e. g., wash vidales, floors). 3. Carry a shopping No difficulty bag or briefcase. 4. Wash your back. Mild difficulty 5. Use a knife to No difficulty cut food. 6. Recreational Mild difficulty activities in which you take some force or impact through your arm, shoulder, or hand (e.g., golf, hammering, tennis, etc.). 7. During the past Slightly week, to what extent has your arm, shoulder or hand problem interfered with your normal social activities with family, friends , neighbors or groups? 8. During the past Moderately limited week, were you limited in your work or other regular daily activites as a result of your arm, shoulder or hand problem? 9. Arm, shoulder or Moderate hand pain. 10. Tingling (pins None and needles) in your arm, shoulder or hand. 11. During the past Moderate difficulty week, how much difficulty have you had sleeping because of the pain in your arm, shoulder or hand? Quick DASH 23 Work Module (optional) The following questions ask about the impact of your arm, shoulder or hand problem on your ability to work (including homemaking if that is your main work role). 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 Yes 1. Using your usual No difficulty technique for your work? 2. Doing your usual Moderate difficulty work because of arm, shoulder or hand pain? 3. Doing your work Moderate difficulty as well as you would like? 4. Spending your Moderate difficulty usual amount of time doing your work? Quick Dash Work 10 Module Score Rehab Re-assessment Subjective Subjective When I work it is miserable, probably a nine or ten. It hurts there - when pt was completing clothes pin Blue with Middle finger Objective Objective Notes Pt is a 34 yr old female who is being seen for OP OT skilled services and interventions to address functional limitations in occupational performance due to R UE deficits. Each session, pt is engaged in therapeutic exercise addressing pet walker strength, endurance, and range of motion; and manual stretching and therapeutic modalities to address ROM, inflammation and pain in R UE. Assessment Progress Assessment Progressing as Expected Assessment Notes Pt is consistent with attending sessions. Pt has demo good tolerance to TE and has demo improved toleration at therapy. Pt reported pain on 04/13/25 at a 4/10. Pt reported they did not complete any tasks over the weekend. Pt reported that at work they are still reaching 9/10-10/10 at pain at worst. Pt reported that they had an interview last Sunday and are hopeful for a change in occupation. Pt has demo improved pet walker strength and AROM. Pt has met several STG and LTG as listed below. R UE pet walker strength: 43 lbs R UE ROM: F- 75 degrees, Ext- 0 degrees MMT: 3/5 QuickDash Act: 23 QuickDash Work: 10 OT Patient Goals OT Short Term 1. Pt will improve right hand pet walker strength to 25 lbs Patient Goals in 3 wks. : MET 2. Pt will improve R elbow flexion to 75 degrees, extension to 5 degrees in 3 wks.: MET 3. Pt will improve R elbow MMT to 3/5 in 3 wks. : MET 4. Pt will improve QuickDash Activities score 38 or below in 3 wks.: MET 23 5. Pt will improve QuickDash Work score 10 or below in 3 wks.: MET 6. Pt will improve endurance to completion of TE for 10 mins prior to rest in 3 wks. : MET 7. Pt will be ind in HEP of theraputty and stretches in 3 wks. : MET 8. Pt will improve subjective pain to 7/10 at worst in 3 wks. : In progress, pt has reported pain at 4/10, but at worst is still reaching 9/10 or 10/10 due to work related tasks NEW ST. Pt will improve R hand pet walker strength to 50 lbs in 3 wks. 4. Pt will improve QuickDash Activities score to 20 or below. OT Snf Patient 1. Pt will improve right hand pet walker strength to 30 lbs Goals in 6 wks. :MET 2. Pt will improve R elbow flexion to 80 degrees, extension to 3 degrees in 6 wks. : Extension Met 3. Pt will improve R elbow MMT to 3+/5 in 6 wks. 4. Pt will improve QuickDash Activities score 35 or below in 6 wks. :Met 5. Pt will improve QuickDash Work score 8 or below in 6 wks. 6. Pt will improve endurance to completion of TE for 15 mins prior to rest in 6 wks. 7. Pt will be ind in advanced HEP: completion of advanced strengthening in 6 wks. 8. Pt will improve subjective pain to 6/10 at worst in 6 wks. Plan Plan Continue OT POC at this time, POC will include each session addressing STG and LTG with therapeutic exercise, manual stretching, and therapeutic modalities to address above deficits in order to improve functional limitations in occupational performance and improve performance in ADL and IADL and work related tasks. Frequency of Therapy 2x/wk Duration of Therapy 6 more wks Therapeutic Exercise Yes Including Home Exercise Program Manual Therapy Yes Techniques Neuromuscular Re- Yes education Therapeutic Yes Activities to Return to Previous Functional/Work Level ADL/Self Care Yes Education Thermal Modalities Yes Electrical Yes Stimulation Ultrasound/ Yes Phonophoresis Iontophoresis Yes Parrafin Yes Orthotics/Bracing/ Yes Splinting Group Therapy for Yes Medicare Eval/Re-Eval Yes Time and Billing Re-Eval Time 8 Re-Eval Billing 1 Units Charge for OT Yes reassessment? PHYSICIAN CERTIFICATION: I certify the specified therapy services for Teresa Valentin are required, authorized, and reviewed every 30 days.
== END 2025-05-04 23:59 | disposition home or self-care (01) ==
LOC: OT 08:00
PROVIDERS: Visit Provider Physician Assistant Surgical
DX: M25.521 Pain in right elbow (principal)
CPT/HCPCS: 97014; 97035; 97110; 97140; 97168; G0283

== ENCOUNTER 2025-05-12 14:00 | Outpatient (RCR) | payer OTHER, SELFPAY ==
--- NOTE | 2025-05-12 15:01 | HMH.RHREAS ---
Rehab Reassessment Rehab OP Re-assessment Start: 05/06/25 08:00 Freq: Status: Active Protocol: Document 05/12/25 13:55 MELONIE (Rec: 05/12/25 15:01 MELONIE [id number]) E-signed By LISSY PatelDASH Activities Please rate your ability to do the following activities in the last week by selecting the number below the appropriate response. 1. Open a tight or Severe difficulty new jar. 2. Do heavy Moderate difficulty assisted living assistant (e. g., wash vidales, floors). 3. Carry a shopping No difficulty bag or briefcase. 4. Wash your back. No difficulty 5. Use a knife to Mild difficulty cut food. 6. Recreational Moderate difficulty activities in which you take some force or impact through your arm, shoulder, or hand (e.g., golf, hammering, tennis, etc.). 7. During the past Moderately week, to what extent has your arm, shoulder or hand problem interfered with your normal social activities with family, friends , neighbors or groups? 8. During the past Moderately limited week, were you limited in your work or other regular daily activites as a result of your arm, shoulder or hand problem? 9. Arm, shoulder or Mild hand pain. 10. Tingling (pins Severe and needles) in your arm, shoulder or hand. 11. During the past Moderate difficulty week, how much difficulty have you had sleeping because of the pain in your arm, shoulder or hand? Quick DASH 29 Work Module (optional) The following questions ask about the impact of your arm, shoulder or hand problem on your ability to work (including homemaking if that is your main work role). 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 Yes 1. Using your usual No difficulty technique for your work? 2. Doing your usual Severe difficulty work because of arm, shoulder or hand pain? 3. Doing your work Severe difficulty as well as you would like? 4. Spending your Severe difficulty usual amount of time doing your work? Quick Dash Work 13 Module Score Rehab Re-assessment Subjective Subjective I start with pain management, the whole right side is numb and just hurts I can't sleep on it. Objective Objective Notes Pt is a 34 yr old female who is being seen for OP OT skilled services and interventions to address functional limitations in occupational performance due to R UE deficits. 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 Assessment Progress Assessment Progressing as Expected Assessment Notes Pt is consistent with attending sessions. Pt has demo good tolerance to TE and has demo improved toleration at therapy. Pt reported pain on 05/12/25 at a 8/10 Pt has reported that they are only working twice a week now. Pt reported they are seeing pain management soon due to whole right side having pain and numbness. Pt also reported they go back to dr at end of this month for follow-up. 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 Pt goes to pain management soon and has been seeing chiropractor 2x a week. Pt goes to PCP at end of month. 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 Pt will improve subjective pain to 7/10 at worst in Patient Goals [address] Pt will improve R hand retail sales teammate strength to 50 lbs in 3 wks. : MET 4. Pt will improve QuickDash Activities score to 20 or below. OT Assisted Patient 1. Pt will improve right hand retail sales teammate strength to 30 lbs Goals in 6 wks. :MET 2. Pt will improve R elbow flexion to 80 degrees, extension to 3 degrees in 6 wks. : Extension Met 3. Pt will improve R elbow MMT to 3+/5 in 6 wks. 4. Pt will improve QuickDash Activities score 35 or below in 6 wks. :Met 5. Pt will improve QuickDash Work score 8 or below in 6 wks. 6. Pt will improve endurance to completion of TE for 15 mins prior to rest in 6 wks. 7. Pt will be ind in advanced HEP: completion of advanced strengthening in 6 wks. 8. Pt will improve subjective pain to 6/10 at worst in 6 wks. Plan Plan Continue OT POC at this time, POC will include each session addressing STG and LTG with therapeutic exercise, manual stretching, and therapeutic modalities to address above deficits in order to improve functional limitations in occupational performance and improve performance in ADL and IADL and work related tasks. Frequency of Therapy 2x/wk Duration of Therapy 6 more weeks Therapeutic Exercise Yes Including Home Exercise Program Manual Therapy Yes Techniques Neuromuscular Re- Yes education Therapeutic Yes Activities to Return to Previous Functional/Work Level ADL/Self Care Yes Education Thermal Modalities Yes Electrical Yes Stimulation Ultrasound/ Yes Phonophoresis Iontophoresis Yes Parrafin Yes Orthotics/Bracing/ Yes Splinting Group Therapy for Yes Medicare Eval/Re-Eval Yes Time and Billing Re-Eval Time 8 Re-Eval Billing 1 Units Charge for OT No reassessment? PHYSICIAN CERTIFICATION: I certify the specified therapy services for Teresa Valentin are required, authorized, and reviewed every 30 days.
== END 2025-05-12 23:59 | disposition home or self-care (01) ==
LOC: OT 14:00
PROVIDERS: Visit Provider Physician Assistant Surgical
DX: M25.521 Pain in right elbow (principal)
CPT/HCPCS: 97014; 97032; 97035; 97110; 97140; G0283

== ENCOUNTER 2025-06-10 07:45 | Outpatient (CLI) | payer OTHER, SELFPAY ==
--- OUTSIDE RECORDS SUMMARY | 2025-03-17 04:30 | XMS_ITS ---
Author Organization [facility] Address [address] [place] [address] Care Team Providers Care Gis Engineer Name Role Phone Brett Loen Primary Care Provider BRETT Leon APRN Unavailable Unavailable REASON FOR VISIT 3 Month F/U Encounters Encounter Location Date Provider Diagnosis [facility] [address] [place] [address] 03/17/2025 Brett Leon Plan Of Treatment Next Appt Details Provider Name:Brett Hill, 09/03/2025 08:00:00 AM, [address], [place], [place], [address], Progress Notes * Teresa VALENTIN LDOB:1990 (34 yo F)Acc No.[id number]:03/17/2025 Progress Notes Patient: Екатерина JAVEDomi Coretta Provider: Anu Leon APRN :1990 A ge:34 Y S ex:Female Date:03/17/2025 Address: [address] [id number] Subjective: * Chief Complaints: * 1 . 3 Month F/U. * Medical History: Objective: * Vitals: Assessment: Plan: * Treatment: * * Electronic signature of Alicja Leon APRN on 06/10/2025 at 07:49 AM EST Sign off status: Pending * Provider: Anu Leon APRN Date: 0 03/17/2025 Generated for Qi xiong/Jay/Risa on: 1 08/10/2024 07:49 AM EST
--- OUTSIDE RECORDS SUMMARY | 2025-06-04 09:00 | XMS_ITS ---
Author Organization [facility] Address [address] [place] [address] Care Team Providers Care Metal Fitter Name Role Phone Caro Leon Primary Care Provider [phone] CARO Leon APRN Unavailable Unavailable Allergies Allergen [...] Allergy Active Bleach Bleach anaphylaxis Allergy Active trazodone traZODone Unknown Drug Allergy Active REASON FOR VISIT 4 Week Follow up. Behavioral Health wants her to do bloodwork Medications Medication SIG (Take, Route, Frequency, Duration) Notes Start Date End Date Status metFORMIN HCl 500 MG 1 tab(s) orally onc e a day Active Amitriptyline HCl 25 MG 1 tablet at bedt ayden Orally Once a day Active Prazosin HCl 1 MG 1 capsule at bedtime Orally Once a day Active Omeprazole 20 MG Take 1 capsule by [facility] once daily; Duration: 90 Active hydrOXYzine HCl 25 MG 1 tablet at bedtim e as needed Orally Once a day Active rOPINIRole HCl 1 MG 1 tablet 1 hour befo re bedtime orally at bedtime; Duration: 90 days Active Albuterol Sulfate HFA 108 (90 Base) MCG/ACT 2 puffs Inhalation every 4 hrs; Duration: 30 days As needed 03/26/2025 Active Gabapentin 600 MG 1 capsule orally 3 t imes a day; Duration: 30 days 05/12/2025 Active busPIRone HCl 5 MG TAKE 1 TABLET BY ARLEN TH THREE TIMES DAILY; Duration: 30 Active Cetirizine HCl 10 MG 1 tab(s) orally onc e a day; Duration: 30 days Active Ibuprofen 800 MG 1 tablet with food or milk as needed Orally 3 times a day; Duration: 30 days As needed 02/26/2025 Active DULoxetine HCl 60 MG 1 cap(s) orally onc e a day Active DULoxetine HCl 30 MG 1 cap(s) orally onc e a day Active Social History Tobacco Use: Social History Observation Description Date Details (start date - stop date) Former Smoker NA - NA Tobacco Control (Standard) Question Answer Notes Tobacco use: Former smoker How long has it been since you last smoked? 5-10 years Problems Problem Type SNOMED Code ICD Code Onset Dates Problem Status W/U Status Risk Notes Problem Mixed anxiety and depressive disorder (599462323) Depression with anxiety (F41.8) Active confirmed Vital Signs Temperature 97.5 degrees Fahrenheit 06/04/20 25 Blood pressure systolic 100 mm Hg 06/04/20 25 Blood pressure diastolic 78 mm Hg 025 Heart Rate 96 /min 06/04/2025 Height 5ft 0in in 06/04/2025 Weight 183.8 lbs 06/04/2025 BMI 35.89 kg/m2 06/04/2025 Encounters Encounter Location Date Provider Diagnosis [facility] [address] [facility] [address] [place] [address] 06/04/2025 Caro Carolyn Fatigue, unspecified type R53.83 ; RLS (restless legs syndrome) G25.81 ; Vitamin D deficiency E55.9 ; Fibromyalgia M79.7 ; Lumbago with sciatica, right side M54.41 ; Lumbago with sciatica, left side M54.42 ; Other chronic pain G89.29 and Depression with anxiety F41.8 Assessments Encounter Date Diagnosis (ICD Code) Assessment Notes Treatment Notes Treatment Clinical Notes Section Notes 06/04/2025 Fatigue, unspecified type (ICD-10 - R53.83) Labs per psych recommendation. Chronic, at baseline, likely benign 06/04/2025 RLS (restless legs syndrome) (ICD-10 - G25.81) Well controlled on current regimen 06/04/2025 Vitamin D deficiency (ICD-10 - E55.9) Cont vit d supplement 06/04/2025 Fibromyalgia (ICD-10 - M79.7) Pain improved on current regimen, no changes made 06/04/2025 Lumbago with sciatica, right side (ICD-10 - M54.41) At baseline, no changes made 06/04/2025 Lumbago with sciatica, left side (ICD-10 - M54.42) 06/04/2025 Other chronic pain (ICD-10 - G89.29) 06/04/2025 Depression with anxiety (ICD-10 - F41.8) Good control on current regimen. Followed by psych Plan Of Treatment Treatment Notes Assessment Notes Fatigue, unspecified type Labs per psych recommendation. Chronic, at baseline, likely benign RLS (restless legs syndrome) Well contro lled on current regimen Vitamin D deficiency Cont vit d suppleme nt Fibromyalgia Pain improved on cur rent regimen, no changes made Lumbago with sciatica, right side At [facility], no changes made Depression with anxiety Good control on current regimen. Followed by psych Pending Test Test Name Order Date IRON, TIBC AND FERRITIN PANEL (5616) COMPREHENSIVE METABOLIC PANEL (34584) CBC (INCLUDES DIFF/PLT) (6399) TSH (899) 06/04/2025 VITAMIN D,25-OH,TOTAL,IA (04614) 025 Next Appt Details Follow Up: 3 Months,prn, [place] son: Provider Name:Caro Hill, 09/03/2025 08:00:00 AM, [address], [address], [place], [address], Progress Notes * Teresa VALENTIN LDOB:1990 (34 yo F)Acc No.[id number]:06/04/2025 Progress Notes Patient: Teresa JAVED Provider: Anu Leon APRN :1990 A ge:34 Y S ex:Female Date:06/04/2025 Address:[address] [place] [address] [place], [id number] Subjective: * Chief Complaints: * 1 . 4 Week Follow up. Behavioral Health wants her to do bloodwork. * HPI: g en: 34 y/o female presents for FU on chronic conditions. Since previous visit has est with psych. Meds added as noted on med list. Feels much better. Mood is stable. Anxiety well controlled. Night terrors have resolved. Sleeping all night. RLS well controlled. Chronic pain improved on higher dose of gabapentin. Overall feels much better. No acute concerns. Has note from psych provider with recommendations for labs. * ROS: C ARDIOLOGY: Reviewed, No Symptoms Reported: Y es. C ONSTITUTIONAL: no L oss of appetite. n o F ever. D ERMATOLOGY: no R yuko. G ASTROENTEROLOGY: Reviewed, No Symptoms Reported: Y es. H EMATOLOGY/LYMPH: no S wollen glands. n o E asy bruising. ? M USCULOSKELETAL: Joint stiffness y es. J oint pain y es. ? N EUROLOGY: Headache y es. n o D izziness. P SYCHOLOGY: See HPI Y es. * Medical History: F ibromyalgia, Restless leg syndrome, Anxiety, Insomnia, Pre-diabetes. * Surgical History: R t Ankle Surgery 01/03/2024, Appendectomy AUG 2023, EGD 2021, Tonsillectomy , C- Section x3 2009,2010,2012 , Tubal Ligation 2013, Uterine Ablation 2022. * Hospitalization/Major Diagno stic Procedure: C -Section x3 [place] , Chest Pains 02/2025. * Family History: [...] 5 -10 years. * Medications: T aking hydrOXYzine HCl 25 MG Tablet 1 tablet at bedtime as needed Orally Once a day , Taking Amitriptyline HCl 25 MG Tablet 1 tablet at bedtime Orally Once a day , Taking Prazosin HCl 1 MG Capsule 1 capsule at bedtime Orally Once a day , Taking metFORMIN HCl 500 MG Tablet 1 tab(s) orally once a day , Taking DULoxetine HCl 30 MG Capsule Delayed Release Particles 1 cap(s) orally once a day , Taking DULoxetine HCl 60 MG Capsule Delayed Release Particles 1 cap(s) orally once a day , Taking Cetirizine HCl 10 MG Tablet 1 tab(s) orally once a day , Taking Ibuprofen 800 MG Tablet 1 tablet with food or milk as needed Orally 3 times a day As needed, Taking rOPINIRole HCl 1 MG Tablet 1 tablet 1 hour before bedtime orally at bedtime , Taking Albuterol Sulfate HFA 108 (90 Base) MCG/ACT Aerosol Solution 2 puffs Inhalation every 4 hrs As needed, Taking busPIRone HCl 5 MG Tablet TAKE 1 TABLET BY MOUTH THREE TIMES DAILY , Taking Gabapentin 600 MG Tablet 1 capsule orally 3 times a day , Taking Omeprazole 20 MG Capsule Delayed Release Take 1 capsule by mouth once daily , Discontinued traZODone HCl 50 MG Tablet 1 tablet Orally at bedtime , Medication List reviewed and reconciled with the patient * Allergies: C ephalexin: rash, OIL IN MONEY: rash, Honey, FRAGRANT MIX 2, BEES, Bleach: anaphylaxis, SURGICAL TAPE, traZODone. Objective: * Vitals: N urse: KJ, Pain: 0, Temp: 97.5, RR: 18, HR: 96, BP: 100/78, Ht: 5ft 0in, Wt: 183.8, BMI:35.89. * Examination: G eneral Examination: General P leasant and Cooperative, NAD on RA,. Chest: n ormal shape and expansion. Heart: R egular Rate and Rhythm, no murmur, rubs or gallops. Lungs: L CTAB, No wheezes, crackles or rhonchi, Good air movement,. Skin: w ithout acute rashes. neck s upple,, no thyromegaly,, no lymphadenopathy,. Psych N ormal Mood/Affect. Assessment: * Assessment: 1. R LS (restless legs syndrome) - G25.81 (Primary) 2 . F atigue, unspecified type - R53.83 3 . V itamin D deficiency - E55.9 4 . F ibromyalgia - M79.7 5 . L umbago with sciatica, right side - M54.41 6. L umbago with sciatica, left side - M54.42 7 . O ther chronic pain - G89.29 8 . D epression with anxiety - F41.8 Plan: * Treatment: 2. F atigue, unspecified type L AB: IRON, TIBC AND FERRITIN PANEL (5616) L AB: COMPREHENSIVE METABOLIC PANEL (22402) L AB: CBC (INCLUDES DIFF/PLT) (6399) L AB: TSH (899) Notes: Labs per psych recommendation. Chronic, at baseline, likely benign 3. V itamin D deficiency L AB: VITAMIN D,25-OH,TOTAL,IA (89714) Notes: Cont vit d supplement 4. F ibromyalgia Notes: Pain improved on current regimen, no changes made 5. L umbago with sciatica, right side Notes: At baseline, no changes made 6. D epression with anxiety Notes: Good control on current regimen. Followed by psych * Follow Up: 3 Months,prn * * Sign off status: Completed true * Provider: Anu Leon APRN Date: Generated for Qi xiong/Jay/eTcarmensmitting on: 08/10/2024 07:48 AM EST History and Physical Notes * HPI (History of Present Illness) Category Sub-Category Detail Notes Category Not es gen 34 y/o female p resents for FU on chronic conditions. Since previous visit has est with psych. Meds added as noted on med list. Feels much better. Mood is stable. Anxiety well controlled. Night terrors have resolved. Sleeping all night. RLS well controlled. Chronic pain improved on higher dose of gabapentin. Overall feels much better. No acute concerns. Has note from psych provider with recommendations for labs. Examination Category Sub-Category Detail Notes Category Not [...]
--- OUTSIDE RECORDS SUMMARY | 2025-06-10 07:48 | XMS_ITS | Clinical Summary ---
Author Organization [facility] Address [address] [place] [address] Phone Care Team Providers Care Loading Supervisor Name Role Phone Luis Patel MD Primary Care Provider [phone] Allergies Active Allergy Reactions Criticality Noted Date [...] needed. Active nalOXone (NARCAN) 4 mg/actuation Nasl [place], Non-Aerosol 0.1 mL by Nasal route as [...] - SCIP performed by DAMASO GOEL at [facility] SECTION 05/26/2013 N/A REPEAT SECTION (39) low transverse uterine incision at 0846; Surgeon: Taylor Nolen DO; Location: [facility]; Service: Gynecology TUBAL LIGATION ENDOMETRIAL ABLATION 05/06/2023 LAPAROSCOPIC APPENDECTOMY 08/21/2023 [facility] DENTAL SURGERY wisdom teeth ANKLE SURGERY 01/03/2024 Foot/Ankle/Right Repair of lateral ankle ligaments of the right ankle Tenosynovectomy/tendon debridement of the peroneal tendons of the right ankle; Surgeon: Teja Boucher DPM; Location: [facility]; Service: Orthopedics Medical devices from this surgery are in the Medical Devices section. 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 Spinal N Livin g 9 9 LAWSO N,TERELL CO BABY A [address] ter, Beronica line Nidia, DO Delivery Location:[facility] Last Filed Vital Signs Vital Sign Reading [...] Annual Wellness Exam 01/30/2024 01/29/2023, 05/22/20 14 Pap Smear 05/30/2024 05/30/2021, 01/04, 12/10/2012, Additional history exists COVID-19 Vaccine (2024- season) 2025 Influenza Vaccine (#1) 2025 7 (Declined), 10/09/2016 [...] Lou, RMA Medical Devices Implanted Type Area Sales And Marketing Assistant Device Identifier Shelf Expiration Date Model / Serial / Lot [facility] Rdpq Mrkr 4.75x3.5mm Drill Bn Tap Gw - [id number] Implanted:Qty: 1 on 01/03/2024 by Teja Boucher DPM at [facility] Right: Ankle ARTHREX [id number] / / [id number] Procedures Procedure Name Priority Date/Time Associated Diagnosis Comments COLONOSCOPY Routine 12/14/2022 10:24 AM EDT Chronic idiopathic constipation Rectal bleeding NURSERY LABORER CYTOLOGY REQUEST (PAP ONLY) Routine 05/30/2021 10:19 [...] MD ENDOSCOPY PROCEDURE ORDERABLES Final Result * NURSERY LABORER CYTOLOGY REQUEST (PAP ONLY) (05/30/2021 10:19 AM EDT) CASE REPORT Gynecologic Cytology Report Case: [id number] Authorizing Provider: Amy Thompson MD Collected: 05/30/2021 1019 Ordering Location: [facility] Edg Received: 05/30/2021 1019 First Screen: Kaiden Wen CT Specimen: LIQUID-BASED PAP - CERVICAL/ENDOCERV ICAL, Cervix, Endocervical 06/01/2021 8:56 AM EDT [facility] PAP FINAL DIAGNOSIS Negative for intraepithelial lesion or malignancy 06/01/2021 8:56 AM EDT [facility] at 0856 EDT MICROSCOPIC DESCRIPTION Microscopic examination is performed and the findings corroborate the diagnosis. 06/01/2021 8:56 AM EDT [facility] PAP SMEAR ADEQUACY Satisfactory for evaluation 06/01/2021 8:56 AM EDT [facility] PAP ORGANISMS NOTED Abundant bacteria present. 06/01/2021 8:56 AM EDT [facility] ENDOCERVICAL T-ZONE Transformation zone present 06/01/2021 8:56 AM EDT [facility] EMBEDDED IMAGES 8:56 AM EDT [facility] PAP DISCLAIMER The Pap Smear is a screening test that aids in the detection of cervical cancer and cancer precursors. Both false positive and false negative results can occur. The test should be used at regular intervals, and positive results should be confirmed before definitive therapy. Processed using the ThinPrep Audit Mgr Automated cytology screening device (CosmosID). 06/01/2021 8:56 AM EDT [facility] Thin Prep ENDOCERVICAL STRUCTURE / Unknown 05/30/2021 10:19 AM EDT 05/30/2021 10:19 AM EDT us Amy Thompson MD CYTOLOGY ORDERABLES Final Resul t [facility] [address] [phone] from Last 3 Months or Most Recently Relevant to Health Maintenance Insurance [facility] MEDICAID [facility] MEDICAID MEDICAID [employer] MEDICAID Advance Directives For more information, please contact: [phone] * Full Code (Latest Code Status on File) Date Activated Date Inactivated Comments 05/26/2013 7:12 AM 05/28/2013 5:46 PM Care Teams Loading Supervisor Relationship Specialty Start Date End Date Luis Patel MD [facility] [place] [address] [place] [id number] PCP - General Internal Medicine 10/09/16
--- OUTSIDE RECORDS SUMMARY | 2025-06-10 07:49 | XMS_ITS | Data Portability ---
Author Organization [employer] [facility] Address [address] [place] [address] Assessment No assessment recorded. Plan of Treatment Reminders Order Date Submit Date Provider Last Modified By Organization Details Last Modified Time Details Appointments None recorded. Lab None recorded. Referral orthopedic surgeon referral - first available appt 2024 025 JANN Randhawa PA-C, [address], [place], [id number], 13:25:45 Procedures None recorded. Surgeries None recorded. Imaging None recorded. Medication Orders Lyrica 75 mg capsule 2024 025 [facility], [address], [address], 5 17:15:02 ibuprofen 800 mg tablet 2024 025 [facility], [address], [address], 5 17:15:00 omeprazole 20 mg capsule,del ayed release 2024 025 [facility], [address], [address], 5 17:15:00 triamcinolo ne acetonide 0.1 % dental paste 2024 025 [facility], [address], [address], 5 17:20:00 Orabase (benzocaine ) 20 % mucosal paste 2024 025 [facility], [address], [address], 5 16:56:47 metformin ER 500 mg tablet,exte nded release 24 hr 2024 025 [facility], [address], [address], 5 10:49:30 meclizine 25 mg tablet 2024 025 [facility], [address], [address], 5 17:19:26 Medrol (Joel) 4 mg tablets in a dose pack 2023 025 [facility], [address], [address], 5 11:19:14 ropinirole 0.25 mg tablet 2023 024 [facility], [address], [address], 4 16:57:15 Patient TargetsNo targets recorded. Patient Instructions Encounter Date Encounter Id Patient Instructions Last Modified By Organization Details Last Modified Time 07/22/2024 [id number] restless legs syndrome: care instructions [email or web address] Not available 07/22/2024 16:57:09 09/05/2024 [id number] canker sore: car e instructions [email or web address] Not available 09/05/2024 10:49:20 Reason for Referral Orthopedic Surgeon Referral for Right medial elbow tendinopathy first available appt Referring Physician: Oriana Spears, Family Medicine, Encounter Date: 08/14/2024 Results Created Date Observation Date Name Description Value Unit Range Abnormal Flag Note LastModifiedBy Organization Detail LastModifiedTime Result Notes None recorded. Problems Name Problem SNOMED Code Status Onset Date Resolution Date Notes Provider Name and Address Organization Details Recorded Time Pain of right hip joint 916793895440 102 Active 2023 MICHELLE Ramsey [address] [place] [address], [address], [employer] 17:13:11 Celluliti s of left external ear 833309551076 9109 Completed 202310/06/2024 MICHELLE Ramsey [address] [place] [address], [address] 8, [employer] 17:13:22 Restless legs syndrome 94456276 Active 2023 MICHELLE Ramsey [address] [place] [address], [address] 8, [employer] 13:05:39 Right medial elbow tendinopa thy 287478502597 109 Active 2023 MICHELLE Ramsey [address] [place] [address], [address] 8, [employer] 17:13:13 Vertigo 070459848 Active 2024 MICHELLE Ramsey [address] [place] [address], [address] 8, [employer] 17:13:18 Obesity 177250542 Active 2024 MICHELLE Ramsey [address] [place] [address], [address] 8, [employer] 13:05:33 Aphthous ulcer of mouth 203111653 Completed 202410/06/2024 MICHELLE Ramsey [address] [place] [address], [address] 8, [employer] 17:13:03 Prediabet es 877987659 Active 2024 MICHELLE Ramsey [address] [place] [address], [address] 8, [employer] 13:05:31 Gastroeso phageal reflux disease without esophagit is 293706871 Active 2024 MICHELLE Ramsey [address] [place] [address], [address] 8, [employer] 17:13:08 Fibromyal nico 409469074 Active 2024 MICHELLE Ramsey [address] [place] [address], [address] 8, [employer] 5 17:13:26 Pain of multiple joints 50414808 Active 2024 MICHELLE Ramesy [address] [place] [address], [address] 8, [employer] 17:14:22 Problem Notes None recorded. Procedures Surgical History Date Name Laterality Status Provider Name and Address Organization Details Recorded Time 06/18/20 24 Date of Last Pap Smear completed [employer] 09/05/2024 10:31:07 Appendectomy completed [employer] [facility] [employer] 05/27/2024 08:08:36 Colposcopy completed [employer] [facility] [employer] 05/27/2024 08:08:36 Tonsillectomy completed [employer] 05/27/2024 08:08:36 Tubal Ligation completed [employer] 05/27/2024 08:08:36 Other completed [employer] [facility] [employer] 09/05/2024 10:30:43 Imaging Results None recorded. Procedure Notes None recorded. Medical Equipment None Reported. Allergies Allergen ID Allergen Name Allergen Category Reaction Reaction Severity Criticality Documentation Date Start Date Code Code System Note Provider Name and Address Organization Details Recorded Time 01327 cephalexi n medicatio n Not available Not available Not available 05/27/2024 2231 [employer] [facility] [id number] 08:08:54 Medications Name Sig Start Date Stop Date Status Note LastModified by Organization Details LastModified Time amoxicillin 500 mg capsule TAKE 1 CAPSULE BY MOUTH THREE TIMES DAILY 07/22 completed Not Available Not Available Not Available nystatin 100,000 unit/mL oral suspension 05/27 completed Not Available Not Available Not Available trazodone 50 mg tablet TAKE 1 TABLET BY MOUTH ONCE DAILY active Not Available Not Available No t Available cetirizine 10 mg tablet TAKE 1 TABLET BY MOUTH ONCE DAILY NEEDED active Not Available Not Available No t Available atorvastati n 10 mg tablet TAKE 1 TABLET BY MOUTH ONCE DAILY 05/27 completed Not Available Not Available Not Available azithromyci n 250 mg tablet TAKE 2 TABLETS BY MOUTH ON DAY 1, AND THEN TAKE 1 TABLET BY MOUTH ONCE A DAY ON DAY 2 THROUGH DAY 5 active Not Available Not Available No t Available ibuprofen 800 mg tablet TAKE 1 TABLET BY MOUTH THREE TIMES DAILY active Not Available Not Available No t Available fluconazole 150 mg tablet TAKE 1 TABLET BY MOUTH EVERY 3 DAYS FOR 2 DOSES, MAY REPEAT DOSE IN 72 HOURS 05/27 completed Not Available Not Available Not Available hydrocodone 5 mg-acetamin ophen 325 mg tablet TAKE 1 TABLET BY MOUTH EVERY 6 HOURS 08/14 completed Not Available Not Available Not Available meloxicam 15 mg tablet TAKE 1 TABLET BY MOUTH ONCE DAILY DIRECTED FOR HIP PAIN active Not Available Not Available No t Available phenazopyri dine 200 mg tablet TAKE 1 TABLET BY MOUTH EVERY 8 HOURS FOR 2 DAYS 05/27 completed Not Available Not Available Not Available ondansetron HCl 4 mg tablet TAKE 1 TABLET BY MOUTH EVERY 6 HOURS NEEDED FOR UP TO 5 DAYS 05/27 completed Not Available Not Available Not Available metronidazo le 500 mg tablet TAKE 1 TABLET BY MOUTH TWICE DAILY FOR 7 DAYS 05/27 completed Not Available Not Available Not Available sulfamethox azole 800 mg-trimetho prim 160 mg tablet TAKE 1 TABLET BY MOUTH EVERY 12 HOURS DIRECTED FOR INFECTION FOR 10 DAYS 07/22 completed Not Available Not Available Not Available aspirin 81 mg tablet,elke yed release TAKE 1 TABLET BY MOUTH EVERY 12 HOURS FOR 10 DAYS 05/27 completed Not Available Not Available Not Available triamcinolo ne acetonide 0.1 % topical cream APPLY CREAM EXTERNALL Y TO AFFECTED AREA TWICE DAILY THIN LAYER TO PALM OF HAND DIRECTED 05/27 completed Not Available Not Available Not Available oxycodone-a cetaminophe n 5 mg-325 mg tablet TAKE 1 TO 2 TABLETS BY MOUTH EVERY 6 HOURS NEEDED FOR ACUTE PAIN OR MAJOR SURGERY/T RAUMA FOR UP TO 5 DAYS MAX 6 TABLETS PER DAY 05/27 completed Not Available Not Available Not Available triamcinolo ne acetonide 0.1 % dental paste APPLY TO AFFECTED AREA IN MOUTH 4 TIMES A DAY NEEDED FOR 10 DAYS 10/06 completed Not Available Not Available Not Available ropinirole 0.25 mg tablet TAKE 1 TO 2 TABLETS BY MOUTH AT BEDTIME FOR RESTLESS LEGS 2024 active Not Available Not Available Not Avai lable meclizine 25 mg tablet Take 1 tablet 3 times a day by oral route as directed for 10 days, for dizziness . 10/06 completed Not Available Not Available Not Available benzonatate 100 mg capsule TAKE 1 CAPSULE BY MOUTH THREE TIMES DAILY NEEDED FOR COUGH active Not Available Not Available No t Available doxycycline monohydrate 100 mg capsule TAKE 1 CAPSULE BY MOUTH TWICE DAILY FOR 10 DAYS 05/27 completed Not Available Not Available Not Available cephalexin 500 mg capsule TAKE 1 CAPSULE BY MOUTH EVERY 8 HOURS FOR 10 DAYS 05/27 completed Not Available Not Available Not Available hyoscyamine sulfate 0.125 mg tablet TAKE 1 TABLET BY MOUTH EVERY 6 HOURS 05/27 completed Not Available Not Available Not Available nitrofurant oin macrocrysta l 100 mg capsule TAKE 1 CAPSULE BY MOUTH AT BEDTIME EACH DAY OF SEXUAL INTERCOUR SE 2024 active Not Available Not Available Not Avai lable halobetasol propionate 0.05 % topical ointment APPLY OINTMENT TOPICALLY TO AFFECTED AREA TWICE DAILY FOR 3 WEEKS, TAKE A WEEK BREAK AND REPEAT. DO NOT USE ON FACE. 05/27 completed Not Available Not Available Not Available prednisone 50 mg tablet TAKE 1 TABLET BY MOUTH ONCE DAILY FOR RASH FOR 5 DAYS 05/27 completed Not Available Not Available Not Available hyoscyamine 0.125 mg sublingual tablet 05/27 completed Not Available Not Available Not Available promethazin e 25 mg tablet TAKE 1 TABLET BY MOUTH EVERY 6 HOURS NEEDED FOR NAUSEA AND VOMITING 05/27 completed Not Available Not Available Not Available omeprazole 20 mg capsule,del ayed release TAKE 1 CAPSULE BY MOUTH TWICE DAILY active Not Available Not Available No t Available hydroxyzine HCl 25 mg tablet TAKE 1 TO 2 TABLETS BY MOUTH AT BEDTIME NIGHTLY NEEDED FOR ANXIETY 08/14 completed Not Available Not Available Not Available ammonium lactate 12 % topical cream APPLY CREAM TOPICALLY TO AFFECTED AREA NEEDED FOR DRY SKIN 05/27 completed Not Available Not Available Not Available mupirocin 2 % topical ointment APPLY OINTMENT TOPICALLY TO AFFECTED AREA THREE TIMES DAILY 10/06 completed Not Available Not Available Not Available furosemide 20 mg tablet 08/04 completed Not Available Not Available Not Available mirtazapine 15 mg tablet TAKE 1 TABLET BY MOUTH AT BEDTIME NIGHTLY 06/19 completed Not Available Not Available Not Available clobetasol 0.05 % topical ointment APPLY OINTMENT TOPICALLY TWICE DAILY TO AFFECTED AREAS ON HANDS AND FINGERS. USE FOR THREE WEEKS ON AND THEN TAKE 1 WEEK OFF BEFORE RESUMING active Not Available Not Available No t Available ibuprofen 600 mg tablet TAKE 1 TABLET BY MOUTH EVERY 6 HOURS NEEDED FOR MILD PAIN 05/27 completed Not Available Not Available Not Available estradiol 0.01% (0.1 mg/gram) vaginal cream USE FINGER TEQNIQUE DAILY FOR TWO WEEKS AND THEN TWICE A WEEK VAGINALLY , 1 GRAM PER APPLICATI ON active Not Available Not Available No t Available methylpredn isolone 4 mg tablets in a dose pack TAKE BY MOUTH DIRECTED ON INSIDE OF PACKAGE active Not Available Not Available No t Available cefdinir 300 mg capsule TAKE 1 CAPSULE BY MOUTH TWICE DAILY FOR 10 DAYS 05/27 completed Not Available Not Available Not Available fluticasone propionate 50 mcg/actuati on nasal spray,suspe nsion 05/24 completed Not Available Not Available Not Available metformin ER 500 mg tablet,exte nded release 24 hr TAKE 1 TABLET BY MOUTH ONCE DAILY FOR PREDIABET ES active Not Available Not Available No t Available doxycycline hyclate 100 mg tablet TAKE 1 TABLET BY MOUTH TWICE DAILY 08/04 completed Not Available Not Available Not Available spironolact one 50 mg tablet TAKE 1 TABLET BY MOUTH ONCE DAILY 05/27 completed Not Available Not Available Not Available amoxicillin 875 mg-potassiu m clavulanate 125 mg tablet TAKE 1 TABLET BY MOUTH EVERY 12 HOURS 05/27 completed Not Available Not Available Not Available amoxicillin 500 mg-potassiu m clavulanate 125 mg tablet TAKE 1 TABLET BY MOUTH THREE TIMES DAILY 05/27 completed Not Available Not Available Not Available escitalopra m 10 mg tablet TAKE 1 TABLET BY MOUTH ONCE DAILY 05/27 completed Not Available Not Available Not Available cyclobenzap rine 5 mg tablet 09/05 completed Not Available Not Available Not Available nitrofurant oin monohydrate /macrocryst als 100 mg capsule TAKE 1 CAPSULE BY MOUTH ONCE DAILY FOR 90 DAYS 08/14 completed Not Available Not Available Not Available duloxetine 30 mg capsule,del ayed release TAKE 1 CAPSULE BY MOUTH IN THE MORNING FOR NUMBNESS AND TINGLING active Not Available Not Available No t Available duloxetine 60 mg capsule,del ayed release TAKE 1 CAPSULE BY MOUTH ONCE DAILY AT 5PM FOR NEUROPATH Y active Not Available Not Available No t Available pregabalin 75 mg capsule TAKE 1 CAPSULE BY MOUTH TWICE DAILY FOR FIBROMYAL NICO active Not Available Not Available No t Available Mucus Relief ER 600 mg tablet, extended release TAKE 2 TABLETS BY MOUTH TWICE DAILY NEEDED FOR COUGH 05/27 completed Not Available Not Available Not Available Orabase (benzocaine ) 20 % mucosal paste Take 1 applicati on 4 times a day by mucous route as directed for 10 days. 10/06 completed Not Available Not Available Not Available Linzess 09/05 completed Not Available Not Available Not Available Vraylar 1.5 mg capsule TAKE 1 CAPSULE BY MOUTH ONCE DAILY 05/27 completed Not Available Not Available Not Available Trulance 3 mg tablet Take 1 tablet every day by oral route. 08/14 completed Not Available Not Available Not Available Vitals Date Recorded Body height Body mass index (BMI) Body weight Heart rate Oxygen saturation Oxygen saturation in Arterial blood by Pulse oximetry Body temperature Systolic And Diastolic Provider Name and Address Organization Details Last Updated DateTime 5 152.4 cm 35.4 kg/m2 28952.6 2 g 92 /min 96 % 96 % 98 [degF] 118/81 mm[Hg] [facility] [employer], [facility]. 5 11:12:02 Date Recorded Body height Body mass index (BMI) Body weight Oxygen saturation Oxygen saturation in Arterial blood by Pulse oximetry Heart rate Body temperature Systolic And Diastolic Provider Name and Address Organization Details Last Updated DateTime 5 152.4 cm 34.2 kg/m2 94136.6 6 g 98 % 98 % 80 /min 98.4 [degF] 120/78 mm[Hg] [employer] 5 10:26:25 Date Recorded Body height Body mass index (BMI) Body weight Heart rate Oxygen saturation Oxygen saturation in Arterial blood by Pulse oximetry Body temperature Systolic And Diastolic Provider Name and Address Organization Details Last Updated DateTime 5 152.4 cm 33.4 kg/m2 24487.3 g 78 /min 97 % 97 % 98.1 [degF] 118/80 mm[Hg] [employer] 5 16:55:10 Date Recorded Body height Provider Name an d Address Organization Details Last Updated DateTime 07/22/2024 152.4 cm [facility] [employer] [facility] [employer] 07/22/2024 17:00:21 Date Recorded Body height Body mass index (BMI) Body weight Heart rate Oxygen saturation Oxygen saturation in Arterial blood by Pulse oximetry Systolic And Diastolic Provider Name and Address Organization Details Last Updated DateTime 4 152.4 cm 35.3 kg/m2 38329.5 g 80 /min 97 % 97 % 110/75 mm[Hg] [employer] 4 09:54:29 Social History Question Answer Notes LastModified by Organizat ion Details LastModified Time Tobacco Smoking Status Former Smoker [employer] 05/27/2024 08:08:36 Do You Have An Advance Directive? No Information not available 05/27/2024 Is Your Home Air Conditioned? Yes Information not available 05/27/2024 If You Are , What Was Your Level Of Alcohol Consumption Prior To ? None Information not available 05/27/2024 Do You Wear A Helmet When Biking? No Information not available 05/27/2024 Are You Blind Or Do You Have Difficulty Seeing? No Information not available 05/27/2024 What Is Your Level Of Caffeine Consumption? Occasional Information not available 05/27/2024 What Type Of Occupational Therapy Co Director Do You Use? None Information not available 05/27/2024 Have You Been To An Area Known To Be High Risk For COVID-19? No Information not available 05/27/2024 Are You Deaf Or Do You Have Serious Difficulty Hearing? No Information not available 05/27/2024 What Type Of Diet Are You Following? SPECIFIC Information not available 05/27/2024 Who Is Your Employer? [employer] Information not available 05/27/2024 Have There Been Any Changes To Your Family Or Social Situation? No Information no t available 05/27/2024 When Did You Quit Smoking? 11-15yearssinkashif owen Information not available 05/27/2024 Are There Any Guns Present In Your Home? No Information not available 05/27/2024 Which Of Your Hands Is Dominant? Right Information not available 05/27/2024 What Is Your Home Situation? Other Information not available 05/27/2024 Do You Have A Medical Power Of Med Care Manager? No Information not available 05/27/2024 What Was The Date Of Your Most Recent Tobacco Screening? 10/06/2024 Information not available 10/06/2024 Are There Any Occupational Health Risks Where You Work? No Information not available 05/27/2024 Do You Have Any Pets? No Information not available 05/27/2024 Do You Use Protection During Sex? No Information not available 05/27/2024 What Is Your Relationship Status? Information not available 05/27/2024 Have You Repeated Any Grades? No Information not available 05/27/2024 Do You Use Your Seat Belt Or Car Seat Routinely? Yes Information not available 05/27/2024 Are You Sexually Active? Yes Information not available 05/27/2024 Do You Have Smoke And Carbon Monoxide Detectors In Your Home? Yes Information not available 05/27/2024 At What Age Did You Start Smoking Tobacco? 14 Information not available 05/27/2024 Are You Passively Exposed To Smoke? No Information no t available 05/27/2024 Are There Any Smokers In Your House? Yes Information not available 05/27/2024 How Much Tobacco Do You Smoke? 0.5 PPD Information not available 05/27/2024 Do You Participate In Social Media? Yes Information not available 08/04/2024 Do You Use Sunscreen Routinely? Yes Information not available 05/27/2024 Has Tobacco Cessation Counseling Been Provided? No Information not available 05/27/2024 How Many Years Have You Smoked Tobacco? 5 Information not available 05/27/2024 Have You Recently Traveled Abroad? No Information not available 05/27/2024 Do You Have Difficulty Walking Or Climbing Stairs? No Information not available 05/27/2024 Are You Currently In School? No Information not available 05/27/2024 What Contraceptive Method Was Reported At Start Of This Visit? Female Sterilization Information not available 09/05/2024 Do You Have Any Dietary Restrictions? Yes Information not available 08/04/2024 Sex: Female Functional Status Question Answer Note LastModified by Organizat ion Details LastModified Time Do you use any illicit or recreational drugs? No Information not available 05/27/2024 Do you or have you ever used any other forms of tobacco or nicotine? No Information not available 05/27/2024 What is your level of alcohol consumption? None Information not available 05/27/2024 Are you currently employed? Yes Information not available 05/27/2024 Do you have transportation difficulties? No Information not available 05/27/2024 Are you able to walk independently without assistance or assistive devices? [employer] Information not available 05/27/2024 Do you have difficulty doing errands alone? No Information not available 05/27/2024 Are you able to care for yourself independently? Yes Information not available 05/27/2024 Do you have difficulty dressing, bathing, grooming, or toileting? No Information not available 05/27/2024 What is your exercise level? None Information not available 05/27/2024 Mental Status Question Answer Note LastModified by Organizat ion Details LastModified Time Do you feel stressed (tense, restless, nervous, or anxious, or unable to sleep at night)? [id number] Information not available 08/04/2024 Do you have difficulty concentrating, remembering or making decisions? No Information no t available 05/27/2024 Are you or have you been involved with bullying? No Information not available 05/27/2024 Family History Relationship Description Onset Age of this Age Resolved Age Notes LastModified by Organization Details LastModified Time Paternal Grandmother Asthma Not available 2023 08:08:33 Paternal Grandmother Anxiety disorder Not available 2023 08:08:33 Paternal Grandfather Diabetes mellitus Not available 2023 08:08:33 Father Asthma Not available 08:08:33 Father Anxiety disorder Not available 2023 08:08:33 Medical History Condition Response Allergies (Food, seasonal, environmental ) Y Coronary Artery Disease N Other N Gout N Kidney Stones N Blood Diseases N Hyperthyroidism N Breast Cancer N Blood Transfusion N Emergency room visit since last appointm ent. N COPD N Depression Y Dermatologic Disorders N Hypothyroidism N Lung Disease N Developmental or Behavioral Disorders N Defects or Inherited Disease N Breast Problem N Difficulty Swallowing N Anesthesia Complications N History of STI N Meniere's disease N Anxiety Disorder Y Muscle, Joint, or Bone Problems N Autoimmune disease N Vision or Eye Problems N Arthritis N Polyps N Infertility N Mental Disorder N Congenital Anomalies N Acid Reflux (GERD) N Cancer N Stroke N Neurologic/Epilepsy N Endometriosis N Bladder or Kidney Problems N High Cholesterol N Liver Disease N Organ Transplant N Psychiatric/Mental Health Condition N Fibromyalgia N Headaches N Dialysis N Schizophrenia N Kidney Disease N Allergies/Hayfever N Heart Problems N Ear or Hearing Problems N Hospitalizations N Learning Disorder N Artificial Joints N Thyroid Problems Y GI Problems Y Acne N ADD/ADHD N Eating Disorder N Anemia N Constipation N Mental Illness N Ovarian Cancer N Diabetes N Bedwetting N Hepatitis/Liver Disease N Tuberculosis N Eczema N Diverticulitis N Abuse/Domestic Violence N Asthma N Trauma/Violence N Substance Abuse N Reflux/GERD N Depression/ depression N Hepatitis N Heart Disease N Pulmonary Embolism N Tourette Syndrome N Chronic Ear Infections N Pre-Eclampsia N Hypertension N Chicken Pox N Autism Spectrum Disorder (ASD) N Osteoporosis N Thrombophilias N Gynecological History Statement/Question Response Abnormal Pap N Menses Monthly N HPV Vaccine N Date of Last Pap Smear 06/18/2024 Current Control Method Tubal Ligat ion Most Recent Mammogram Age at First Child 11 Obstetrics History GPAL:G 3 P 2 1 0 3 Type Value Multiple Births 0 Full Term 2 Induced 0 Spontaneous 0 Premature 1 Living 3 Ectopics 0 Total 3 Past Encounters Encounter ID Performer Location Encounter Start Date Encounter Closed Date Diagnosis/Indication Diagnosis SNOMED-CT Code Diagnosis ICD10 Code Diagnosis IMO Codes Diagnosis Note [id number] MICHELLE Ramsey [address] [address] 05/27/2024 07:51:18 05/27/2024 08:41:34 Pain of right hip joint 3771851799 81686 M25.551 Cellulitis of left external ear 1755425553 229860 H60.12 Body mass index 30+ - obesity 721220308 Z68.33 Influenza vaccination declined 683143208 Z28.21 [id number] MICHELLE Ramsey [address] [address] 07/22/2024 16:47:31 07/22/2024 17:31:02 Restless legs syndrome 29683710 G25.81 Trial requip [id number] MICHELLE Ramsey [address] [address] 08/04/2024 09:43:56 08/04/2024 10:14:29 Right medial elbow tendinopathy 5554064902 93824 M77.01 Wrist splint, elbow splint, rest, NSAIDs, ice,Trial Medrol dose packRTC If not improving [id number] MICHELLE Ramsey [address] [address] 08/14/2024 10:49:37 08/14/2024 11:44:01 Right medial elbow tendinopathy 5520111191 52673 M77.01 Sent to ortho to discuss injection Vertigo 608923078 R42 Given glucometer to check sugar when episodes occurEat small frequent meals with proteinHyd rate well Obesity 537396273 E66.9 [id number] MICHELLE Ramsey [facility] [address] [place] [address] 09/05/2024 10:12:50 09/05/2024 10:47:01 Aphthous ulcer of mouth 114155838 K12.0 Prediabetes 974057571 R7 3.03 [id number] MICHELLE Ramsey [facility] [address] [place] [address] 10/06/2024 16:44:38 10/06/2024 17:12:20 Gastroesophageal reflux disease without esophagitis 290093279 K21.9 Fibromyalgia 117792492 M 79.7 Trial Lyrica Pain of mu ltiple joints [id number] M25.50 Health Concerns Section Related Observation LastModified by Organization Detai ls LastModified Time None Recorded Concern Status LastModified by Organization Details LastModified Time None Recorded Advance Directives Directive N: Payers Insurance Date Sequence Insurance Name Policy Number Policy Maria Covered Member ID Maria Member ID Guarantor Name 10/06/2024 1 [facility] (MEDICAID REPLACEMENT - HMO) Teresa Valentin [id number] Teresa Valentin 10/06/2024 1 [employer] [id number] Teresa Valentin [id number] Teresa Valentin 08/18/2024 1 [place] [id number] Teresa Chan [id number] Teresa Valentin Notes Date Note Type Note Provider Name and Address Organization Details Recorded Time 07/22/2024 text/html Telehealth visit due to no transportation.Deneen ient states that she has had throbbing in her legs for years. Twitch at night. Makes it hard to sleep. Feels better if she is up and moving. Diagnosed with RLS but never treated. MICHELLE Ramsey [address] [place] [address], [phone], [place] [facility] [employer] 07/22/2024 17:30:05 08/04/2024 text/html Pain of right inner elbow for the past month or so. No injury. 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 Hurts to extend it, especially if holding anything with weight to it. Now sore to touch. MICHELLE Ramsey [address] [place], [address], [employer] 08/04/2024 12:07:25 08/14/2024 text/html Patient still having pain, decreased ROM right elbow despite bracing, steroids.Also feels like she is going to pass out occasionally. Feels like sugar is dropping but doesn't have a way to check it. Worse with position changes. MICHELLE Ramsey [address] [place], [address], [employer] 08/14/2024 15:02:53 09/05/2024 text/html ROS as noted in the HPI Patient has seen rheumatology at , who told her she was pre-diabetic. She was instructed to f/u with PCP. Also has a sore on the tip of her tongue that has been there for a few weeks and will not heal. MICHELLE Ramsey [address] [place], [address], [employer] 09/05/2024 13:09:53 10/06/2024 text/html ROS as noted in the HPI Patient presents for followup. Finally saw rheumatology, who have diagnosed her with fibromyalgia. Already taking duloxetine. Wonders if there are other treatment options. MICHELLE Ramsey [address] [place], [address], [employer] 10/07/2024 17:33:10 OBGyn Episode No OBEpisode recorded.
--- OUTSIDE RECORDS SUMMARY | 2025-06-10 07:49 | XMS_ITS | Patient Health Record ---
Author Organization [facility] Address [address] [place] [address] Care Team Providers Care Bilingual Call Center Representative Name Role Phone Caro Leon Primary Care Provider CARO Leon APRN Unavailable Unavailable José Khan Unavailable [phone] Migration, Provider Unavailable Unavailable Allergies Allergen (clinical [...] Active trazodone traZODone Unknown Drug Allergy Active Results Component Value Reference Range Notes LIPID PANEL, STANDARD (7600) Reviewed date:12/05/2024 11:16:35 AM Interpretation: Performing Lab:CB, [facility], [facility] HospitalJcpkQU[address] Humberto Villagomez Notes/Report: NON-FASTING; NON-FASTING; NON-FASTING; NON-FASTING; [...] LDL-C. Ricardo SS et al. ROSSY. 2013;310(19): 6987-8231 (http://education.Featurespace.EoeMobile/faq/FAQ16 4) CHOL/HDLC RATIO 3.3 <5.0 (calc) NON HDL CHOLESTEROL 147 <130 mg/dL (calc) For patients with diabetes plus 1 major ASCVD risk factor, treating to a non-HDL-C goal of <100 mg/dL (LDL-C of <70 mg/dL) is considered a therapeutic option. CBC (INCLUDES DIFF/PLT) (639 9) Reviewed date:12/05/2024 11:16:35 AM Interpretation: Performing Lab:Caryn GRAY-Carlos Bran[address] [place] Humberto Villagomez Notes/Report: NON-FASTING; NON-FASTING; NON-FASTING; NON-FASTING; [...] MPV 9.6 7.5-12.5 fL ABSOLUTE NEUTROPHILS 3360 1782-8324 cells/uL ABSOLUTE LYMPHOCYTES 2154 850-3900 cells/uL ABSOLUTE MONOCYTES 348 200-950 cells/uL ABSOLUTE EOSINOPHILS 120 15-500 cells/uL ABSOLUTE BASOPHILS 18 0-200 cells/uL NEUTROPHILS 56 LYMPHOCYTES 35.9 MONOCYTES 5.8 EOSINOPHILS 2.0 BASOPHILS 0.3 COMPREHENSIVE METABOLIC PANE L (68686) Reviewed date:12/05/2024 11:16:35 AM Interpretation: Performing Lab:CB, [facility] [id number] [facility] HospitalSmcsHD[address] Humberto Villagomez Notes/Report: NON-FASTING; NON-FASTING; NON-FASTING; NON-FASTING; [...] 16 10-30 U/L ALT 23 6-29 U/L HEMOGLOBIN A1c (496) Reviewed date:12/05/2024 11:16:35 AM Interpretation: Performing Lab:MARINA [facility] [id number] [facility], [facility] HospitalGtzhIZ[address] Humberto Villagomez Notes/Report: NON-FASTING; NON-FASTING; NON-FASTING; NON-FASTING; [...] diagnosis of diabetes in children. According to [place] Diabetes Association (ADA) guidelines, hemoglobin A1c <7.0% represents optimal control in non- diabetic patients. Different metrics may apply to specific patient populations. Standards of Medical Care in Diabetes(ADA). VITAMIN B12 (927) Reviewed date:12/05/2024 11:16:35 AM Interpretation: Performing Lab:MARINA, [employer] [address], [place] Humberto Villagomez Notes/Report: NON-FASTING; NON-FASTING; NON-FASTING; NON-FASTING; NON-FAST FASTING:YES FASTING: YES VITAMIN B12 202 696-8411 pg/mL VITAMIN D,25-OH,TOTAL,IA (17 306) Reviewed date:12/05/2024 11:16:35 AM Interpretation: Performing Lab:MARINA, [facility] [address], [place] Humberto Villagomez Notes/Report: NON-FASTING; NON-FASTING; NON-FASTING; NON-FASTING; [...] D, (D2,D3), LC/MS/MS is recommended: order code 93748 (patients >2yrs). See Note 1 Note 1 For additional information, please refer to http://education.CREAT/faq/XHA866 (This link is being provided for informational/ educational purposes only.) Echocardiogram Reviewed date:03/13/2025 09:43:48 AM Interpretation: Performing Lab: Notes/Report: X ray : Elbow, Right Reviewed date:02/27/2025 09:37:05 AM Interpretation: Performing Lab: Notes/Report: Reason For Referral Reason PT [facility] Diagnosis 1 Trochanteric bursiti s of right hip (M70.61) Referral Organization [facility] Referring Provider First Name Caro Referring Provider Last Name Carolyn Referring Provider Speciality Family Pra ctice General Notes Geoff Gomez 10:36:55 AM > faxed to [facility] and they will call mom Referral Priority Routine Reason MRI right elbow- [facility] Diagnosis 1 Right elbow pain (M2 5.521) Referral Organization [facility] Referring Provider First Name Caro Referring Provider Last Name Carolyn Referring Provider [facility] ctice General Notes Geoff Gomez 12:33:27 PM > pre cert in review, Geoff Gomez 02/19/2025 04:32:25 PM > MRI denied Referral Priority Routine Reason echo Diagnosis 1 Shortness of breath (R06.02) Referral Organization [facility] Referring Provider First Name Caro Referring Provider Last Name Carolyn Referring Provider [facility] ctice Referred Organization [facility] Referred Address [address] [place], [place],[address], Referred Provider Specialty Diagnostic R adiology General Notes Essie Hammond 2024 03:45:49 PM >Sent to [facility] to schedule appt Referral Priority Routine Reason Caro Leon 05/12/2025 10:03:00 AM EDT > refer to [facility] behavioral health for recommendation on mood, depression, insomnia. Referral Organization [facility] Referring Provider First Name Caro Referring Provider Last Name Carolyn Referring Provider [facility] ctice Referred Organization [facility] Referred Address [address] [place], [place],[address], Referred Provider Specialty Behavioral H ealt General Notes Essie Hammond 2024 02:11:40 PM >sent to [facility] Behavioral Health Referral Priority Routine Medications Medication SIG (Take, Route, Frequency, Duration) Notes Start Date End Date Status rOPINIRole HCl 1 MG 1 tablet 1 hour befo re bedtime orally at bedtime; Duration: 90 days Active Albuterol Sulfate HFA 108 (90 Base) MCG/ACT 2 puffs Inhalation every 4 hrs; Duration: 30 days As needed 03/26/2025 Active Cetirizine HCl 10 MG 1 tab(s) orally onc e a day; Duration: 30 days Active Ibuprofen 800 MG 1 tablet with food or milk as needed Orally 3 times a day; Duration: 30 days As needed 02/26/2025 Active DULoxetine HCl 60 MG 1 cap(s) orally onc e a day Active metFORMIN HCl 500 MG 1 tab(s) orally onc e a day Active DULoxetine HCl 30 MG 1 cap(s) orally onc e a day Active Amitriptyline HCl 25 MG 1 tablet at bedt ayden Orally Once a day Active Gabapentin 600 MG 1 capsule orally 3 t imes a day; Duration: 30 days 05/12/2025 Active Prazosin HCl 1 MG 1 capsule at bedtime Orally Once a day Active Omeprazole 20 MG Take 1 capsule by mo [facility] once daily; Duration: 90 Active busPIRone HCl 5 MG TAKE 1 TABLET BY ARLEN THREE TIMES DAILY; Duration: 30 Active hydrOXYzine HCl 25 MG 1 tablet at bedtim e as needed Orally Once a day Active Social History Tobacco Use: Social History Observation Description Date Details (start date - stop date) Former Smoker NA - NA Tobacco Control (Standard) Question Answer Notes Tobacco use: Former smoker How long has it been since you last smoked? 5-10 years Problems Problem Type SNOMED Code ICD Code Onset Dates Problem Status W/U Status Risk Notes Problem Primary insomnia (9905595) Primary insomnia (F51.01) Active confirmed Problem Sciatica (78520431) Lumbago with sciatica, right side (M54.41) Active confirmed Problem Sciatica (02495558) Lumbago with sciatica, left side (M54.42) Active confirmed Problem Fibromyalgia (713497441) Fibromyalgia (M79.7) Active confirmed Problem Mixed anxiety and depressive disorder (656994264) Depression with anxiety (F41.8) Active confirmed Problem Anxiety (94594699) Anxiety (F41.9) Active confi rmed Problem Vitamin D deficiency (90073560) Vitamin D deficiency (E55.9) Active confirmed Problem Neuropathy (823649980) Neuropathy (G62.9) Active confirmed Problem Gastroesophageal reflux disease (027993098) GERD without esophagitis (K21.9) Active confirmed Problem Restless legs (61286267) RLS (restless legs syndrome) (G25.81) Active confirmed Problem Chronic pain (95955468) Other chronic pain (G89.29) Active confirmed Problem Generalized anxiety disorder (55405799) SHELBY (generalized anxiety disorder) (F41.1) Active confirmed Problem Solitary sacroiliitis (474439120) SI (sacroiliac) joint inflammation (M46.1) Active confirmed Vital Signs Heart Rate 96 /min 06/04/2025 Temperature 97.5 degrees Fahrenheit 06/04/2025 Blood pressure diastolic 78 mm Hg 06/04/2025 Height 5ft 0in in 06/04/2025 Blood pressure systolic 100 mm Hg 06/04/2025 Weight 183.8 lbs 06/04/2025 BMI 35.89 kg/m2 06/04/2025 Encounters Encounter Location Date Provider Diagnosis [facility] [address] [facility] [address] [place] [address] 11/08/2024 Provider Migration Fibromyalgia M79.7 [facility] [address] [facility] [address] [place] [address] 10/21/2024 Caro McNees Fibromyalgia M79.7 ; RLS (restless legs syndrome) G25.81 ; Primary insomnia F51.01 ; Neuropathy G62.9 ; Prediabetes R73.03 and GERD without esophagitis K21.9 [facility] [address] [place] [address] 11/20/2024 Caro Carolyn Fibromyalgia M79.7 ; Neuropathy G62.9 and Vertigo R42 [facility] [address] [place] [address] 12/04/2024 Caro Jeannees Vitamin D deficiency E55.9 ; Neuropathy G62.9 ; B12 deficiency E53.8 ; Routine medical exam Z00.00 and Prediabetes R73.03 [facility] [place] [address] [address] 01/16/2025 Caroyovani Leon Neuropathy G62.9 ; Fibromyalgia M79.7 ; Lumbago with sciatica, right side M54.41 ; Lumbago with sciatica, left side M54.42 ; Other chronic pain G89.29 and Trochanteric bursitis of right hip M70.61 [facility] [place] [address] [address] 02/13/2025 Caro Carolyn Neuropathy G62.9 ; Fibromyalgia M79.7 ; Other chronic pain G89.29 ; Trochanteric bursitis of right hip M70.61 ; SI (sacroiliac) joint inflammation M46.1 ; Medial epicondylitis, right elbow M77.01 and Right elbow pain M25.521 [facility] [address] [place] [address] 03/05/2025 Caro McNees Left-sided chest brittany n R07.9 ; Shortness of breath R06.02 and Anxiety F41.9 [facility] [address] [facility] [address] [place] [address] 03/26/2025 Caro McNees RLS (restless legs syndrome) G25.81 ; SHELBY (generalized anxiety disorder) F41.1 ; Bronchitis J40 and Shortness of breath R06.02 [facility] [address] [facility] [address] [place] [address] 06/04/2025 Caro McNees Fatigue, unspecified type R53.83 ; RLS (restless legs syndrome) G25.81 ; Vitamin D deficiency E55.9 ; Fibromyalgia M79.7 ; Lumbago with sciatica, right side M54.41 ; Lumbago with sciatica, left side M54.42 ; Other chronic pain G89.29 and Depression with anxiety F41.8 [facility] [address] [facility] [address] [place] [address] 09/30/2024 José Besson [facility] [address] [facility] [address] [place] [address] 10/03/2024 José Besson [facility] [address] [address] 12/23/2024 Caro McNees [facility] [address] [facility] [address] [place] [address] 01/14/2025 Caro McNees [facility] [place] [address] [place] [address] 02/16/2025 Caro McNees Trochanteric bursiti s of right hip M70.61 [facility] [address] [facility] [address] [place] [address] 02/18/2025 Caro McNees [facility] [address] [place] [address] 02/19/2025 Caro McNees Right elbow pain M25.521 [facility] [address] [facility] [address] [place] [address] 02/26/2025 Caro McNees Medial epicondylitis , right elbow M77.01 [facility] [address] [place] [address] 05/05/2025 Caro McNees [facility] [address] [place] [address] 05/12/2025 Caro McNees Neuropathy G62.9 [facility] [address] [place] [address] 11/25/2024 Caro McNees [facility] [address] [place] [address] 11/25/2024 Caro McNees [facility] [address] [place] [address] 02/22/2025 Caro McNees [facility] [address] [place] [address] 02/22/2025 Caro McNees Assessments Encounter Date Diagnosis (ICD Code) Assessment Notes Treatment Notes Treatment Clinical Notes Section Notes 11/08/2024 Fibromyalgia (ICD-10 - M79.7) 05/12/2025 Neuropathy (ICD-10 - G62.9) 06/04/2025 RLS (restless legs syndrome) (ICD-10 - G25.81) Well controlled on current regimen 06/04/2025 Fatigue, unspecified type (ICD-10 - R53.83) Labs per psych recommendation. Chronic, at baseline, likely benign 03/26/2025 RLS (restless legs syndrome) (ICD-10 - G25.81) Increase Requip as above. Discussed performing foot and calf stretches before bed, heating pad or warm bath soaks, limit caffeine in the evenings. 03/26/2025 SHELBY (generalized anxiety disorder) (ICD-10 - F41.1) Improved but not at goal. Increase buspar to TID. MOA and SE profile discussed. Urgent return precautions discussed 02/16/2025 Trochanteric bursitis of right hip (ICD-10 - M70.61) 11/20/2024 Fibromyalgia (ICD-10 - M79.7) Some improvement on low dose gabapentin. Increase to 200mg po TID x 2 weeks, if tolerating and pain has not resolved increase to 300mg po tid. RTC in 6 weeks 11/20/2024 Neuropathy (ICD-10 - G62.9) See above 03/05/2025 Shortness of breath (ICD-10 - R06.02) 03/05/2025 Left-sided chest pain (ICD-10 - R07.9) [facility] ED records reviewed Likely related to her anxiety. Treat with buspar as below. Given her new report of SOA and persistent symptoms will obtain echo to r/o underlying pathology and for patient reassurance. 02/13/2025 Fibromyalgia (ICD-10 - M79.7) Warm compresses, stretches 02/13/2025 Neuropathy (ICD-10 - G62.9) Stable gabapentin 01/16/2025 Fibromyalgia (ICD-10 - M79.7) Warm compresses, stretches 01/16/2025 Neuropathy (ICD-10 - G62.9) Improved on gabapentin but not at goal Increase gabapentin 400mg po RID CSA on chart and UTD Juan Manuel report reviewed and is appropriate - discussed ongoing use of controlled medication and safety associated with these medications 02/26/2025 Medial epicondylitis, right elbow (ICD-10 - M77.01) 02/19/2025 Right elbow pain (ICD-10 - M25.521) 12/04/2024 Vitamin D deficiency (ICD-10 - E55.9) Will check vit b12/vit D levels and treat as indicated 12/04/2024 Neuropathy (ICD-10 - G62.9) Well controlled on gabapentin No changes made today CSA on chart and UTD Juan Manuel report reviewed and is appropriate - discussed ongoing use of controlled medication and safety associated with these medications 10/21/2024 Fibromyalgia (ICD-10 - M79.7) Stop meloxicam. Do not take other NSAIDs with ibuprofen Change Lyrica to gabapentin. CSA signed and placed on chart. Juan Manuel report reviewed and is appropriate - discussed ongoing use of controlled medication and safety associated with these medications. RTC in 4-6 weeks 10/21/2024 RLS (restless legs syndrome) (ICD-10 - G25.81) At baseline on requip 12/04/2024 B12 deficiency (ICD-10 - E53.8) 10/21/2024 Primary insomnia (ICD-10 - F51.01) Well controlled on trazodone 01/16/2025 Lumbago with sciatica, right side (ICD-10 - M54.41) See plan below 02/13/2025 Other chronic pain (ICD-10 - G89.29) 03/05/2025 Anxiety (ICD-10 - F41.9) Discussed rationale for pharmacotherapy, and discussed MOA of med. Discussed time course of expected improvements, and discussed side effect profile, and need for urgent evaluation if agitation or worsening mood occurs. Discussed need for f/u in office. RTC in 3 weeks 11/20/2024 Vertigo (ICD-10 - R42) Reassurance. Discussed vertigo and that it is a time limited condition. Explained vertigo exercises and advised to perform twice daily, once with eyes open and then again with eyes closed. FU in 1-2 weeks if no improvement of symptoms. 06/04/2025 Vitamin D deficiency (ICD-10 - E55.9) Cont vit d supplement 03/26/2025 Bronchitis (ICD-10 - J40) Discussed the etiology and expected course of bronchitis. Discussed the rationale for avoiding antibiotics as likely viral infection.. Discussed supportive care. Discussed the signs and symptoms of worsening infection/respir atory distress that may indicate need for reassessment in clinic/ED. 03/26/2025 Shortness of breath (ICD-10 - R06.02) Echo normal Likely related to anxiety FU if symptoms do not resolve with increase in buspirone dose 06/04/2025 Fibromyalgia (ICD-10 - M79.7) Pain improved on current regimen, no changes made 02/13/2025 Trochanteric bursitis of right hip (ICD-10 - M70.61) Rest, warm compresses, stretches, change to meloxicam, refer to PT 01/16/2025 Lumbago with sciatica, left side (ICD-10 - M54.42) 12/04/2024 Routine medical exam (ICD-10 - Z00.00) Routine labs drawn today 10/21/2024 Neuropathy (ICD-10 - G62.9) Gabapentin may help with this also. 10/21/2024 Prediabetes (ICD-10 - R73.03) Tolerating metformin well. Diabetic diet, yearly eye exam, supportive footwear 12/04/2024 Prediabetes (ICD-10 - R73.03) Will check a1c and treat as indicated. 02/13/2025 SI (sacroiliac) joint inflammation (ICD-10 - M46.1) 01/16/2025 Other chronic pain (ICD-10 - G89.29) 06/04/2025 Lumbago with sciatica, right side (ICD-10 - M54.41) At baseline, no changes made 06/04/2025 Lumbago with sciatica, left side (ICD-10 - M54.42) 01/16/2025 Trochanteric bursitis of right hip (ICD-10 - M70.61) Rest, warm compresses, steroids, increase gabapentin, stretches. RTC in 4 weeks to re-evaluate 02/13/2025 Medial epicondylitis, right elbow (ICD-10 - M77.01) No improvement with injection, PT, NSAIDS, steroids. Needs MRI will arrange 10/21/2024 GERD without esophagitis (ICD-10 - K21.9) Well controlled on PPI 02/13/2025 Right elbow pain (ICD-10 - M25.521) 06/04/2025 Other chronic pain (ICD-10 - G89.29) 06/04/2025 Depression with anxiety (ICD-10 - F41.8) Good control on current regimen. Followed by psych Plan Of Treatment Pending Test Test Name Order Date MRI : Elbow, Right 02/13/2025 Physical Therapy 02/16/2025 IRON, TIBC AND FERRITIN PANEL (5616) COMPREHENSIVE METABOLIC PANEL (27340) CBC (INCLUDES DIFF/PLT) (6399) TSH (899) 06/04/2025 VITAMIN D,25-OH,TOTAL,IA (98368) 025 Next Appt Details Provider Name:Caro Hill, 09/03/2025 08:00:00 AM, [address], [place], [address], Insurance Providers Payer Name Payer Address Payer Phone Subscriber Number Group Number Insured Name Patient Relationship to Insured Coverage Start Date Coverage End Date [employer] [address] [place] [address] [id number] Teresa Valentin Self - patient is the insured Medications Administered Medication Instructions Date of Administration Dosage Notes Dexamethasone 4mg Injection 03/26/2025 4 mg Medical (General) History Medical History History ICD Code fibromyalgia restless leg syndrome anxiety insomnia pre-diabetes Surgical History Surgery Date(Month/Year) Rt Ankle Surgery 01/03/2024 Appendectomy AUG 2023 EGD 2021 Tonsillectomy x3 2009,2010,2012 Tubal Ligation 2014 Uterine Ablation 2022 Hospitalization History Reason Date(Month/Year) Chest Pains 02/[address] [facility]
--- OUTSIDE RECORDS SUMMARY | 2025-06-10 07:49 | XMS_ITS | Clinical Summary ---
Author Organization [facility] Address [address] [place] [address] Care Team Providers Care Mate Chief Name Role Phone Oriana Spears Primary Care Provider [phone] Allergies Active Allergy Reactions Criticality Noted Date [...] Description 09/01/2025 9:00 AM EST Office Visit [facility] [address], [address] [place] [address] Bowen Rendon MD [address] [place] [address] Health Maintenance Due Date Last Done Comments [facility]-HIV Screening 1988 [facility]-Hepatitis C Screening 1988 [facility]-/Child/Adol SDOH Screenings 1988 [facility]-Varicella Vaccines (1 of 2 - 13+ 2-dose series) 2001 [facility]- SDOH Screenings 2006 [facility]-Adult SDOH Screenings 2006 [facility]-Hepatitis B Vaccines (1 of 3 - 19+ 3-dose series) 2007 [facility]-Pap Smear 2009 HPV Vaccines (1 - 3-dose SCD M series) 2015 [facility]-Cervical Cancer Screening 2018 [facility]-HPV/Cotest 2018 [facility]-DTaP,Tdap,and Td Vaccine s (3 - Td or Tdap) 05/26/2023 05/26/2013, 04/05/2011 [id number] Vaccine ( - 2023- season) 2025 [facility]-Influenza Vaccine (#1) 2025 05/26/2009 [facility]-Depression Screening [...] 5.7(H) <5.7 % 08/29/2024 2:00 PM EST [facility] Blood Venous blood specimen / Unknown Venipuncture / Unknown 08/29/2024 9:14 AM EST 08/29/2024 9:14 AM EST Narrative [facility] - 08/29/2024 2:00 PM EST HA1C Interpretive Data: Diagnosis of Diabetes: Diabetic > or = 6.5% Pre-diabetic 5.7 to 6.4% Non-diabetic < or = 5.6% Glycemic Targets for Type I and Type II Diabetics: Non- Adults <7.0% Adults <6.0% Children and Adolescents <7.5% Source: [place] [employer]. Standards of medical care in diabetes,2017. Diabetes Care.2017:40 (suppl 1):S1-S135. HbA1c assay performed by an ion-exchange chromatography method that is certified traceable to the DCCT. us Bowen Rendon MD LAB BLOOD ORDERABLES Final Resul t [facility] [address] [place] [address] from Last 3 Months or Most Recently Relevant to Health Maintenance Insurance Press [place] [id number] [place] Care Teams Mate Chief Relationship Specialty Start Date End Date Oriana Spears PA [address] [place] [address] PCP - General 02/26/24
[2025-06-10 08:15] LABS: Hematocrit 36.7 % (37.0-47.0); Hemoglobin 12.7 g/dL (12.2-16.2); Immature Granulocytes % 0.3 %; Mean Corpuscular HGB Conc 34.6 g/dL (31.8-35.4); Mean Corpuscular Hemoglobin 31.4 pg (27.0-31.2); Mean Corpuscular Volume 90.8 fl (81-99); Nucleated Red Blood Cells % 0 %; Platelet Count 241 K/mm3 (142-424); Red Blood Count 4.04 M/mm3 (4.20-5.40); Red Cell Distribution Width-SD 40.0 fL; White Blood Count 7.4 K/mm3 (4.8-10.8)
[2025-06-10 09:24] LABS: Alanine Aminotransferase 60 U/L (12-78); Albumin Level 4.1 g/dl (3.5-5.0); Albumin/Globulin Ratio 1.2 (1.1-1.8); Alkaline Phosphatase 89 U/L (38-126); Anion Gap 11.1 mEq/L (5-15); Aspartate Amino Transferase 37 U/L (14-36); Bilirubin,Total 0.6 mg/dl (0.2-1.3); Blood Urea Nitrogen 14 mg/dl (7-17); Calcium 9.3 mg/dl (8.4-10.2); Carbon Dioxide 25 mmol/L (22.0-30.0); Chloride 102 mmol/L (98-107); Creatinine,Serum 0.80 mg/dl (0.52-1.04); Estimated Glomerular Filt Rate 81 ml/min (>60); GFR (African American) 98 ML/MIN (>60); Globulin 3.3 g/dL (1.3-3.2); Glucose 115 mg/dl (74-100); Iron 128 ug/dL (37-170); Potassium 4.1 mmoL/L (3.5-5.1); Sodium 134 mmol/L (136-145); Total Protein,Serum 7.4 g/dl (6.3-8.2)
[2025-06-10 09:34] LABS: Total Iron Binding Capacity 263 ug/dL (265-497)
[2025-06-10 09:40] LABS: 25-OH Vitamin D, Total 25.8 ng/mL (30-100)
[2025-06-10 09:53] LABS: Thyroid Stimulating Hormone 2.62 uIU/mL (0.465-4.68)
[2025-06-10 09:57] LABS: Ferritin 62.5 ng/ml (6.24-137)
== END 2025-06-10 23:59 | disposition home or self-care (01) ==
LOC: LAB 07:47
PROVIDERS: PCP Nurse Practitioner Family; Visit Provider Nurse Practitioner Family
DX: E55.9 Vitamin D deficiency, unspecified (principal); R53.83 Other fatigue
CPT/HCPCS: 36415; 80053; 82306; 82728; 83540; 83550; 84443; 85025